=== PATIENT | male | born 1935 | race Caucasian/White ===

== ENCOUNTER 2018-06-15 10:32 | Emergency (ER) | payer OTHER, MEDICARE ==
--- OUTSIDE RECORDS SUMMARY | 2018-06-15 10:36 | XMS REPORT | Clinical Summary ---
:1935 Author Organization [facility] Address [address] [place] [address] Care Team Providers Name Role Phone Liu Blackwood MD Primary Care Provider Allergies No Known Allergies Current Medications Prescription Sig. Disp. Refills Start Date End Date Status levothyroxine (SYNTHROID, Take 112 mcg by Active LEVOXYL) 112 mcg tablet mouth every morning. Active Problems Problem Noted Date Lumbar stenosis with neurogenic claudication 01/25/2017 Neurogenic claudication 01/13/2017 Stenosis, spinal, lumbar 01/13/2017 Family History Medical History Relation Name Comments Heart disease Father Cancer Sister Relation Name Status Comments Father Sister Social History Tobacco Use Types Packs/Day Years Used Date Former Smoker Cigarettes 1 5 Quit: 1967 Smokeless Tobacco: Never Used Tobacco Cessation: Counseling Given: No Alcohol Use Drinks/Week oz/Week Comments Yes 1 Cans of beer 0.6 1 drink / month Sex Assigned at Date Recorded Not on file Last Filed Vital Signs Not on file Plan of Treatment Health Maintenance Due Date Last Done Comments SHINGRIX VACCINE (#1) 1987 ZOSTER VACCINE 1997 PNEUMOCOCCAL POLYSACCHARIDE VACCINE AGE 65 AND OVER 2002 PNEUMOCOCCAL-13 2002 INFLUENZA VACCINE 04/18/2018 Implants Implanted Type Area Metal Grinder Device Expiration Model / Identifier Date Serial / Lot System Spine Selnt For Dural Selng Exact 5ml Duraseal - [id number] Cardiovascular Posterior INTEGRA 04/17/2018 [id number] / Implanted: Qty: 1 on 01/25/2017 by Abhi Stevens MD Implants : Spine LIFESCIENCE / Lumbar NEURO [id number] Matrix Hmstc Floseal 10ml W/ Humn F2 - [id number] Surgical Posterior MCKEON 06/17/2018 [id number] / Implanted: 01/31/2017 (Quantity not on file) Implants; : Spine BIOSCIENCE / Expanders; Lumbar [id number] Extenders; Surgical Wires Results Not on fileafter 06/14/2017 Insurance Payer Benefit Plan / Group Subscriber ID Type Phone Address MEDICARE MEDICARE PART A AND B xxxxxxxxxx Medicare [place], [place] AARP AARP SUPPLEMENT xxxxxxxxxx Commercial [id number] [id number]
--- NOTE | 2018-06-15 11:47 | RAD REPORT ---
EXAM DESCRIPTION: RAD - Lumbar Spine 3 Views - 06/15/2018 11:34 am CLINICAL HISTORY: PAIN Radiculopathy COMPARISON: Lumbar Spine Wo Con dated 12/26/2016 FINDINGS: Prominent multilevel degenerative changes are present throughout the lumbar spine. Degener ative changes are particularly prominent at L2-3 and L4-5. Evidence of prior laminectomy seen involvi ng the lower lumbar levels. Mild anterolisthesis of L5 on S1 is seen. An acute fracture is not confir med.
[2018-06-15] MEDS ORDERED: HYDROCODONE/APAP 5/325 MG TAB ONE (12:10)
[2018-06-15] MEDS ORDERED: DIAZEPAM 2 MG TABLET ONE (12:10)
--- NOTE | 2018-06-15 12:22 | ER ---
Nurse's Notes [facility] Name: Tony Cunningham Age: 82 yrs Sex: Male : 1935 Arrival Date: 06/15/2018 Time: 10:34 Bed 20 Private MD: Liu Ulloa R Diagnosis: Fall from bed;Low back pain;Gas pain Presentation: 06/15 10:44 Presenting complaint: Patient states: fell out of bed 4 days ago and has had L low back ss pain since that has not improved. Transition of care: patient was not received from another setting of care. Onset of symptoms was June 11, 2018. Risk Assessment: Do you want to hurt yourself or someone else? Patient reports no desire to harm self or others. Initial Sepsis Screen: Does the patient meet any 2 criteria? No. Patient's initial sepsis screen is negative. Does the patient have a suspected source of infection? No. Patient's initial sepsis screen is negative. Care prior to arrival: None. 10:44 Method Of Arrival: Ambulatory ss 10:44 Acuity: CANELO 4 ss Historical: - Allergies: 10:45 No Known Allergies; ss - PMHx: 10:45 Hypothyroidism; BPH; back problems; ss - PSHx: 10:45 back surgery; Thyroidectomy; Knee surgery; ss - Immunization history:: Adult Immunizations up to date. - Social history:: Smoking status: Patient/guardian denies using tobacco. - Ebola Screening: : Patient denies exposure to infectious person Patient denies travel to an Ebola-affected area in the 21 days before illness onset. Screenin:55 Abuse screen: Denies threats or abuse. Denies injuries from another. Nutritional aj screening: No deficits noted. Tuberculosis screening: No symptoms or risk factors identified. Fall Risk None identified. Assessment: 12:55 General: Appears in no apparent distress. comfortable, Behavior is calm, cooperative, aj appropriate for age. Pain:. Neuro: Level of Consciousness is awake, alert, obeys commands, Oriented to person, place, time, situation, Appropriate for age. Respiratory: Airway is patent Respiratory effort is even, unlabored, Respiratory pattern is regular, symmetrical. Derm: Skin is intact, is healthy with good turgor, Skin is pink, warm \T\ dry. normal. Musculoskeletal: Circulation, motion, and sensation intact. Range of motion: intact in all extremities. Vital Signs: 10:45 BP 145 / 99; Pulse 87; Resp 16; Temp 97.6(TE); Pulse Ox 97% on R/A; Weight 83.91 kg; ss Pain 6/10; ED Course: 10:34 Patient arrived in ED. mr 10:34 Liu Ulloa MD is Private Physician. mr 10:43 Marlene Ramirez FNP-C is [facility]. snw 10:43 Rodrigue Kohli MD is Attending Physician. snw 10:45 Triage completed. ss 10:45 Arm band placed on right wrist. ss 11:33 X-ray completed. Portable x-ray completed in exam room. Patient tolerated procedure ag1 well. 11:34 Lumbar Spine (3 Views) XRAY In Process Unspecified. EDMS 11:58 Betzaida Charles, RN is Primary Nurse. aj 12:21 Liu Ulloa MD is Referral Physician. snw 12:21 Nacho Vasquez MD is Referral Physician. snw 12:55 Patient has correct armband on for positive identification. aj 12:55 No provider procedures requiring assistance completed. Patient did not have IV access aj during this emergency room visit. Administered Medications: 12:05 Drug: [place] 5 mg-325 mg 1 tabs Route: PO; aj 12:57 Follow up: Response: Pain is decreased aj 12:05 Drug: Valium 2 mg Route: PO; aj 12:57 Follow up: Response: Pain is decreased aj Outcome: 12:22 Discharge ordered by MD. snw 12:55 Discharged to home via wheelchair, with family. aj 12:55 Condition: good 12:55 Discharge instructions given to patient, family, Instructed on discharge instructions, follow up and referral plans. medication usage, Demonstrated understanding of instructions, follow-up care, medications. 12:58 Patient left the ED. aj Signatures: Dispatcher [employer] EDID Betzaida Charles, RN Marlene Hartley FNP-C FNP-Nicky Giang mr ChaoGladis RN RN Linda Rios ag1
--- NOTE | 2018-06-15 12:22 | EDPHYS ---
Physician Documentation [facility] Name: Tony Cunningham Age: 82 yrs Sex: Male : 1935 Arrival Date: 06/15/2018 Time: 10:34 Bed 20 Private MD: Liu Ulloa R ED Physician Rodrigue Kohli HPI: 06/15 11:36 This 82 yrs old Male presents to ER via Ambulatory with complaints of Fall snw Injury. 11:36 Details of fall: The patient fell from a height, bed. Onset: The symptoms/episode snw began/occurred suddenly, 4 day(s) ago. Associated injuries: The patient sustained injury to the low back, pain with movement. Severity of symptoms: At their worst the symptoms were moderate. The patient has experienced similar episodes in the past, multiple times. The patient has not recently seen a physician, the patient's primary care provider is Dr. Ulloa. Spouse states pt has nightmares, dreams, snores, and talks in his sleep. Pt has had multiple episodes of falls second to sleep rising/walking. Historical: - Allergies: 10:45 No Known Allergies; ss - PMHx: 10:45 Hypothyroidism; BPH; back problems; ss - PSHx: 10:45 back surgery; Thyroidectomy; Knee surgery; ss - Immunization history:: Adult Immunizations up to date. - Social history:: Smoking status: Patient/guardian denies using tobacco. - Ebola Screening: : Patient denies exposure to infectious person Patient denies travel to an Ebola-affected area in the 21 days before illness onset. ROS: 11:35 Constitutional: Negative for fever, chills, and weight loss, Eyes: Negative for injury, snw pain, redness, and discharge, ENT: Negative for injury, pain, and discharge, Neck: Negative for injury, pain, and swelling, Cardiovascular: Negative for chest pain, palpitations, and edema, Respiratory: Negative for shortness of breath, cough, wheezing, and pleuritic chest pain, Abdomen/GI: Negative for abdominal pain, nausea, vomiting, diarrhea, and constipation, : Negative for injury, bleeding, discharge, and swelling, MS/Extremity: Negative for injury and deformity, Skin: Negative for injury, rash, and discoloration, Neuro: Negative for headache, weakness, numbness, tingling, and seizure, Psych: Negative for depression, anxiety, suicide ideation, homicidal ideation, and hallucinations. 11:35 Back: Positive for pain at rest, pain with movement. Exam: 12:25 Constitutional: This is a well developed, well nourished patient who is awake, alert, snw and in no acute distress. Head/Face: Normocephalic, atraumatic. Eyes: Pupils equal round and reactive to light, extra-ocular motions intact. Lids and lashes normal. Conjunctiva and sclera are non-icteric and not injected. Cornea within normal limits. Periorbital areas with no swelling, redness, or edema. ENT: Nares patent. No nasal discharge, no septal abnormalities noted. Tympanic membranes are normal and external auditory canals are clear. Oropharynx with no redness, swelling, or masses, exudates, or evidence of obstruction, uvula midline. Mucous membranes moist. Neck: Trachea midline, no thyromegaly or masses palpated, and no cervical lymphadenopathy. Supple, full range of motion without nuchal rigidity, or vertebral point tenderness. No Meningismus. Chest/axilla: Normal chest wall appearance and motion. Nontender with no deformity. No lesions are appreciated. Cardiovascular: Regular rate and rhythm with a normal S1 and S2. No gallops, murmurs, or rubs. Normal PMI, no JVD. No pulse deficits. Respiratory: Lungs have equal breath sounds bilaterally, clear to auscultation and percussion. No rales, rhonchi or wheezes noted. No increased work of breathing, no retractions or nasal flaring. Abdomen/GI: Soft, non-tender, with normal bowel sounds. No distension or tympany. No guarding or rebound. No evidence of tenderness throughout. Skin: Warm, dry with normal turgor. Normal color with no rashes, no lesions, and no evidence of cellulitis. MS/ Extremity: Pulses equal, no cyanosis. Neurovascular intact. Full, normal range of motion. Neuro: Awake and alert, GCS 15, oriented to person, place, time, and situation. Cranial nerves II-XII grossly intact. Motor strength 5/5 in all extremities. Sensory grossly intact. Cerebellar exam normal. Normal gait. Psych: Awake, alert, with orientation to person, place and time. Behavior, mood, and affect are within normal limits. 12:25 Back: pain, that is moderate, ROM is painful, normal spinal alignment noted, CVA tenderness, is absent, vertebral tenderness, is not appreciated. Vital Signs: 10:45 BP 145 / 99; Pulse 87; Resp 16; Temp 97.6(TE); Pulse Ox 97% on R/A; Weight 83.91 kg; ss Pain 6/10; MDM: 11:23 Patient medically screened. snw 11:38 Data reviewed: vital signs, nurses notes. Data interpreted: Pulse oximetry: on room air snw is 97 %. Interpretation: normal. Counseling: I had a detailed discussion with the patient and/or guardian regarding: the historical points, exam findings, and any diagnostic results supporting the discharge/admit diagnosis, the presence of at least one elevated blood pressure reading (>120/80) during this emergency department visit, radiology results. ED course: encouraged f/u with pulmonology for sleep apnea testing.. 12:24 Special discussion: I have referred the patient to see his PCP for further evaluation snw of high blood pressure. Based on the history and exam findings, there is no indication for further emergent testing or inpatient evaluation. I discussed with the patient/guardian the need to see the package handler for further evaluation of the symptoms. 06/15 10:59 Order name: Lumbar Spine (3 Views) XRAY; Complete Time: 11:50 snw Administered Medications: 12:05 Drug: [place] 5 mg-325 mg 1 tabs Route: PO; aj 12:57 Follow up: Response: Pain is decreased aj 12:05 Drug: Valium 2 mg Route: PO; aj 12:57 Follow up: Response: Pain is decreased aj Disposition: 15:45 Co-signature as Attending Physician, Rodrigue Kohli MD. rn Disposition: 06/15/18 12:22 Discharged to Home. Impression: Fall from bed, Low back pain, Gas pain. - Condition is Stable. - Discharge Instructions: Back Pain, Adult, Hypertension, Musculoskeletal Pain, Sleep Studies, Back Injury Prevention, [id number], Intestinal Gas and Gas Pains, Pediatric, Heat Therapy. - Prescriptions for simethicone - take 120 milligram by ORAL route 1-3 times daily; 1 box. orphenadrine citrate 100 mg Oral Tablet Sustained Release - take 1 tablet by ORAL route 2 times per day As needed; 20 tablet. Miralax 17 gram/dose Oral - take 1 packet by ORAL route once daily dilute powder in 8 ounces of water or juice; 1 box. - Medication Reconciliation Form, Thank You Letter, Antibiotic Education, Prescription Opioid Use form. - Follow up: Liu Ulloa MD; When: 5 - 6 days; Reason: Recheck today's complaints, Continuance of care, Re-evaluation by your physician. Follow up: Nacho Vasquez MD; When: 5 - 6 days; Reason: Recheck today's complaints, Continuance of care. Signatures: Dispatcher [employer] EDMS Betzaida Charles RN RN Marlene Edge, [employer] P[employer]AG[employer] MACH[employer]ES SETTER-C [employer] P[employer]AG[employer] M[employer] SETTER-Csnw Rodrigue Kohli MD MD rn Smirch, Shelby, RN RN ss Corrections: (The following items were deleted from the chart) 12:58 12:22 06/15/2018 12:22 Discharged to Home. Impression: Fall from bed; Low back pain; aj Gas pain. Condition is Stable. Forms are Medication Reconciliation Form, Thank You Letter, Antibiotic Education, Prescription Opioid Use. Follow up: Liu Ulloa; When: 5 - 6 days; Reason: Recheck today's complaints, Continuance of care, Re-evaluation by your physician. Follow up: Nacho Vasquez; When: 5 - 6 days; Reason: Recheck today's complaints, Continuance of care. snw
== END 2018-06-15 12:58 | disposition home or self-care (01) ==
LOC: ER 10:32
DX: R14.1 Gas pain (principal); W06.XXXA Fall from bed, initial encounter; Y93.9 Activity, unspecified; Y92.003 Bedroom of unspecified non-institutional (private) residence as the place of occurrence of the external cause
CPT/HCPCS: 72100; 99283

== ENCOUNTER 2023-08-05 22:24 | Emergency (ER) | payer OTHER ==
[2023-08-05 23:32] LABS: Absolute Lymphocytes (CBC) 0.7 K/uL (0.7-4.9); Hematocrit 40.8 % (39.6-49.0); Lymphocytes % 6.5 % (15.3-44.8); MCV 99.8 fL (80-100); MPV 6.7 fL (7.6-11.3); Platelets 297 thou/uL (152-406); RBC Red Blood Cell Count 4.08 M/uL (4.33-5.43)
[2023-08-05 23:36] LABS: Protime INR 1.15
[2023-08-05 23:53] LABS: Albumin 3.1 g/dL (3.4-5.0); Bilirubin Direct 0.2 mg/dL (0-0.2); Bilirubin Indirect, Calculated 0.3 mg/dL (0.2-0.8); Bilirubin Total 0.5 mg/dL (0.2-1.0); Magnesium 2.2 mg/dL (1.6-2.4); Potassium 3.9 mEq/L (3.5-5.1); Protein, Total 7.3 g/dL (6.4-8.2); Troponin High Sensitivity 19.1 pg/mL (<58.9)
[2023-08-06] MEDS ORDERED: NA CHLORIDE 0.9% 500 ML ONE (01:02)
--- NOTE | 2023-08-06 02:17 | EDPHYS ---
Physician Documentation [facility] Name: Tony Cunningham Age: 88 yrs Sex: Male : 1935 Arrival Date: 08/05/2023 Time: 22:24 Bed 6 Private MD: ED Physician Jewel Magdaleno HPI: 08/05 22:55 This 88 yrs old Male presents to ER via EMS with complaints of Weakness. cp 22:55 Patient is a 88-year-old male who presents to the emergency department accompanied by cp his daughter and son-in-law after a reported fall in his home sometime the previous day. Patient was reportedly found by his son on the ground in his home who reportedly helped him up. He was later visited today by his daughter who was concerned that the patient reported to be weak and seemed confused. Patient presents to the emergency department alert x3 and complaining of weakness in his legs. Patient is unable to recall the most recent fall. Denies any chest and/or abdominal pain but does complain of back pain. Historical: - Allergies: 22:40 No Known Allergies; rv - PMHx: 22:40 back problems; BPH; Hypothyroidism; rv - PSHx: 22:40 Thyroidectomy; rv - Immunization history:: Adult Immunizations up to date. - Social history:: Smoking status: Patient/guardian denies using tobacco, but has a distant history of tobacco abuse. ROS: 23:00 Constitutional: Negative for fever, poor PO intake, cp 23:00 Eyes: Negative for injury, pain, redness, and discharge, cp 23:00 Neck: Negative for pain with movement, pain at rest, stiffness, 23:00 Cardiovascular: Negative for chest pain, edema, palpitations, 23:00 Respiratory: Negative for cough, shortness of breath, wheezing, 23:00 Abdomen/GI: Negative for abdominal pain, vomiting, diarrhea, constipation, 23:00 Back: Positive for pain with movement, 23:00 Neuro: Positive for weakness, Negative for altered mental status, headache, 23:00 All other systems are negative, Exam: 23:05 Constitutional: The patient appears in no acute distress, alert, awake, cp non-diaphoretic, non-toxic, well developed, well nourished, 23:05 Head/Face: Normocephalic, atraumatic. cp 23:05 Eyes: Periorbital structures: appear normal, Pupils: equal, round, and reactive to light and accomodation, Extraocular movements: intact throughout, Conjunctiva: normal, no exudate, no injection, Sclera: no appreciated abnormality, Lids and lashes: appear normal, bilaterally, 23:05 ENT: External ear(s): are unremarkable, Ear canal(s): are normal, clear, TM's: dullness, bilaterally, Nose: is normal, Mouth: Lips: dry, Oral mucosa: moist, Posterior pharynx: Airway: no evidence of obstruction, patent, erythema, is not appreciated, exudate, is not appreciated, 23:05 Neck: C-spine: vertebral tenderness, is not appreciated, crepitus, is not appreciated, ROM/movement: pain, is not appreciated, limited range of motion, is not appreciated, Meningeal signs: are not present, nuchal rigidity, is not appreciated, 23:05 Chest/axilla: Inspection: normal, Palpation: is normal, no crepitus, no tenderness, 23:05 Cardiovascular: Rate: normal, Rhythm: regular, Edema: is not appreciated, JVD: is not appreciated, 23:05 Respiratory: the patient does not display signs of respiratory distress, Respirations: normal, no use of accessory muscles, no retractions, labored breathing, is not present, Breath sounds: are clear throughout, no decreased breath sounds, no stridor, no wheezing, 23:05 Abdomen/GI: Inspection: abdomen appears normal, Bowel sounds: active, all quadrants, Palpation: abdomen is soft and non-tender, in all quadrants, 23:05 Back: pain, ROM is painful, with all movement, 23:05 Musculoskeletal/extremity: Exam is negative for decreased range of motion, deformity, injury, 23:05 Neuro: Orientation: to person, place, situation, Mentation: able to follow commands, slow to respond, Motor: moves all fours, strength is 4/5 in the right leg and left leg, Sensation: no obvious gross deficits, Vital Signs: 22:38 BP 116 / 75; Pulse 82; Resp 18; Temp 98.1; Pulse Ox 97% ; Weight 55.5 kg; Height 6 ft. rv 1 in. ; 23:34 BP 111 / 74; Pulse 78; Resp 15; Pulse Ox 98% on R/A; Pain 0/10; nw1 08/06 01:00 BP 123 / 65; Pulse 75; Resp 15; Pulse Ox 97% on R/A; nw1 03:24 BP 128 / 80; Pulse 88; Resp 16; Pulse Ox 99% ; la4 08/05 22:38 Body Mass Index 16.14 (55.50 kg, 185.42 cm) rv 23:34 Pain Scale: Adult nw1 Jonathan Coma Score: 08/05 23:20 Eye Response: spontaneous(4). Motor Response: obeys commands(6). Verbal Response: nw1 oriented(5). Total: 15. 08/06 03:24 Eye Response: spontaneous(4). Motor Response: obeys commands(6). Verbal Response: la4 oriented(5). Total: 15. MDM: 08/05 22:28 Patient medically screened. ec2 08/06 02:15 Patient medically screened. cp 02:15 Data reviewed: vital signs, nurses notes, lab test result(s), EKG, radiologic studies, cp plain films. 02:45 Management of patient was discussed with the following: Hospitalist: Sherron BERRY will cp consult with DR Martinez. ED course: transfer requested by DR Martinez for neurosurgery consult due to CT findings of compression fractures of T12 and L1. 03:16 ED course: consult with DR Sutton, trauma services at [facility]. Will accept cp transfer and to services of DR Rivera. 08/05 22:47 Order name: Basic Metabolic Panel; Complete Time: 23:54 08/05 23:54 Interpretation: Normal except: GLUC 119; BUN 32; GFR 72; CA 8.4. 08/05 22:47 Order name: CBC with Diff; Complete Time: 23:52 08/05 23:52 Interpretation: Normal except: RBC 4.08; MPV 6.7; LETICIA% 85.5; LYM% 6.5; NEUT A 8.7. 08/05 22:47 Order name: LFT's; Complete Time: 23:54 08/05 23:54 Interpretation: Normal except: AST 54; ALB 3.1; GLOB 4.2; A/G 0.7. 08/05 22:47 Order name: Magnesium; Complete Time: 00:39 08/05 22:47 Order name: NT PRO-BNP; Complete Time: 00:39 cp 08/06 00:39 Interpretation: NT PRO-BNP 152; Reviewed. 08/05 22:47 Order name: PT-INR; Complete Time: 23:52 08/05 22:47 Order name: Troponin HS; Complete Time: 23:54 08/05 23:54 Interpretation: Reviewed. 08/05 22:47 Order name: Urine Microscopic Only; Complete Time: 02:29 08/06 02:29 Interpretation: Reviewed. 08/05 22:47 Order name: CK; Complete Time: 23:54 08/05 23:54 Interpretation: Abnormal: CPK 988. 08/05 22:47 Order name: Lactate w/ 2H reflex if indic.; Complete Time: 23:53 08/05 22:47 Order name: XRAY Chest (1 view) 08/05 23:53 Order name: CT Traumagram (Head C Spine CAP W Con) 08/05 22:47 Order name: Cardiac monitoring; Complete Time: 23:07 08/05 22:47 Order name: EKG - Nurse/Tech; Complete Time: 00:44 08/05 22:47 Order name: IV Saline Lock; Complete Time: 23:07 08/05 22:47 Order name: Labs collected and sent; Complete Time: 23:07 08/05 22:47 Order name: O2 Per Protocol; Complete Time: 23:07 08/05 22:47 Order name: O2 Sat Monitoring; Complete Time: 23:07 08/05 22:47 Order name: Cath; Complete Time: 23:07 cp Administered Medications: 00:58 Drug: NS 0.9% IV 500 ml IV at 250 ml/hr continuous Route: IV; Rate: 250 ml/hr; Site: nw1 right antecubital; 04:12 Follow up: IV Status: Completed infusion nw1 04:04 Drug: fentaNYL (PF) IVP 25 mcg IVP once Route: IVP; Site: right antecubital; la4 Disposition Summary: 08/06/23 03:02 Transfer Ordered Notes: Transfer Location: [facility] cp Reason: Higher level of care cp Condition: Stable(08/06/23 03:02) cp Problem: new(08/06/23 03:02) cp Symptoms: have improved(08/06/23 03:02) cp Accepting Physician: DR Rivera(08/06/23 04:12) nw1 Diagnosis - History of falling(08/06/23 03:02) cp - Compression Fracture of T12 and L1 cp - Weakness(08/06/23 03:02) cp Forms: - Medication Reconciliation Form cp - SBAR form cp Addendum: 08/08/2023 10:13 I was immediately available for consultation during this patient's visit. I did not e c2 personally see the patient or guide the patient's care. . Signatures: Dispatcher [employer] EDMS Roman Rodriguez PA PA cp Martin Aguirre, RN RN rv Jewel Magdaleno MD MD ec2 Belkys Hayes RN RN la4 Noemi Mccain RN RN nw1 Corrections: (The following items were deleted from the chart) 08/06 03:00 02:15 Observation cp cp 03:00 02:15 Ronny Martinez cp cp 03:00 02:15 Telemetry/MedSurg (observation) cp cp 03:00 02:15 Fair cp cp 03:00 02:15 new cp cp 03:00 02:15 have improved cp cp 03:00 02:15 Standard cp cp 03:00 02:15 cp cp 03:00 02:15 Weakness cp cp 03:00 02:15 History of falling cp cp 03:00 02:15 Compression Fracture of T12 and L1 cp cp 03:17 03:02 Doctor cp cp 04:12 03:17 DR Rivera cp nw1
--- NOTE | 2023-08-06 02:17 | ER ---
Nurse's Notes [facility] Name: Tony Cunningham Age: 88 yrs Sex: Male : 1935 Arrival Date: 08/05/2023 Time: 22:24 Bed 6 Private MD: Diagnosis: History of falling;Compression Fracture of T12 and L1;Weakness Presentation: 08/05 22:38 Chief complaint: EMS states: PT WAS LEFT ALONE AT HOME YESTERDAY AT 1900 AND FOUND THE rv PATIENT TODAY ON THE FLOOR BY THE FAMILY AT 1600. PT IS ALTERED. NO FEVER. BLOOD PRESSURE ON THE LOW SIDE. PT ALSO FELL LAST WEEK AND HIT HEAD. Coronavirus screen: At this time, the client does not indicate any symptoms associated with coronavirus-19. Ebola Screen: No symptoms or risks identified at this time. Initial Sepsis Screen: Does the patient meet any 2 criteria? No. Patient's initial sepsis screen is negative. Does the patient have a suspected source of infection? No. Patient's initial sepsis screen is negative. Risk Assessment: Do you want to hurt yourself or someone else? Patient reports no desire to harm self or others. Onset of symptoms was August 05, 2023. 22:38 Method Of Arrival: EMS: [facility] rv 22:38 Acuity: CANELO 2 rv Triage Assessment: 22:40 General: Appears in no apparent distress. Behavior is calm, cooperative. Pain: Denies rv pain. Neuro: Level of Consciousness is awake, alert, obeys commands, Oriented to person, place. Cardiovascular: Capillary refill < 3 seconds Patient's skin is warm and dry. Respiratory: Airway is patent Respiratory effort is even, unlabored. GI: No signs and/or symptoms were reported involving the gastrointestinal system. : No signs and/or symptoms were reported regarding the genitourinary system. Derm: Skin is intact. Historical: - Allergies: 22:40 No Known Allergies; rv - PMHx: 22:40 back problems; BPH; Hypothyroidism; rv - PSHx: 22:40 Thyroidectomy; rv - Immunization history:: Adult Immunizations up to date. - Social history:: Smoking status: Patient/guardian denies using tobacco, but has a distant history of tobacco abuse. Screenin:20 [facility] ED Fall Risk Assessment (Adult) History of falling in the last 3 months, nw1 including since admission Yes- fall prone (multiple falls) (3 pts) Confusion or Disorientation No (0 pts) Intoxicated or Sedated No (0 pts) Impaired Gait Yes (1 pt) Mobility Assist Device Used Yes (1 pt) Altered Elimination Yes (1 pt) Score/Fall Risk Level 3 or more points = High Risk Oriented to surroundings, Maintained a safe environment, Educated pt \\T\\ family on fall prevention, incl call for assistance when getting out of bed, Provided non-skid footwear, Hourly rounding (assess needs \\T\\ fall precautionary measures) done, Used ambulatory aids as needed (educated on \\T\\ assisted with). Abuse screen: Denies threats or abuse. Denies injuries from another. Nutritional screening: No deficits noted. Tuberculosis screening: No symptoms or risk factors identified. Assessment: 23:20 Reassessment: Pt states frequent falls. States that he gets light-headed before falls. nw1 Pt able to state what happens prior to falls, but unable to recall the fall from yesterday and stated "they are all running together". General: Appears in no apparent distress. Behavior is calm, cooperative, appropriate for age. Pain: Pain does not radiate. Pain began denies pain. Neuro: Level of Consciousness is awake, alert, obeys commands, Oriented to person, place, time, Appropriate for age. Cardiovascular: Denies chest pain. Respiratory: No deficits noted. Airway is patent Trachea midline Respiratory effort is even, unlabored, Respiratory pattern is regular, symmetrical, Sputum is. GI: No signs and/or symptoms were reported involving the gastrointestinal system. : No signs and/or symptoms were reported regarding the genitourinary system. Musculoskeletal: Reports weakness in generalized. 08/06 00:43 Reassessment: Pt to CT. nw 03:25 General: Spoke wander rodriguez and notified order for prn fentanyl is to be given upon pt la4 transfer to the home. . Vital Signs: 08/05 22:38 BP 116 / 75; Pulse 82; Resp 18; Temp 98.1; Pulse Ox 97% ; Weight 55.5 kg; Height 6 ft. rv 1 in. ; 23:34 BP 111 / 74; Pulse 78; Resp 15; Pulse Ox 98% on R/A; Pain 0/10; nw1 08/06 01:00 BP 123 / 65; Pulse 75; Resp 15; Pulse Ox 97% on R/A; nw1 03:24 BP 128 / 80; Pulse 88; Resp 16; Pulse Ox 99% ; la4 08/05 22:38 Body Mass Index 16.14 (55.50 kg, 185.42 cm) rv 23:34 Pain Scale: Adult nw1 Vitals: 08/05 23:20 Cardiac Rhythm Assessment Sinus rhythm. nw1 [place] Coma Score: 23:20 Eye Response: spontaneous(4). Motor Response: obeys commands(6). Verbal Response: nw1 oriented(5). Total: 15. 08/06 03:24 Eye Response: spontaneous(4). Motor Response: obeys commands(6). Verbal Response: la4 oriented(5). Total: 15. ED Course: 08/05 22:25 Patient arrived in ED. me1 22:28 Jewel Magdaleno MD is Attending Physician. ec2 22:33 Roman Rodriguez PA is PHCP. cp 22:33 Jewel Magdaleno MD is Attending Physician. cp 22:40 Belkys Hayes, RN is Primary Nurse. la4 22:40 Triage completed. rv 22:42 Arm band placed on right wrist. rv 23:20 Provided Education on: POC. nw1 23:20 No provider procedures requiring assistance completed. Maintain EMS IV. Dressing nw1 intact. Good blood return noted. Site clean \\T\\ dry. Gauge \\T\\ site: 18 G RAC. IV is patent, is intact, with fluids infusing freely, with good blood return. Patient maintains SpO2 saturation greater than 95% on room air. 23:25 Placed in gown. Bed in low position. Call light in reach. Side rails up X2. Adult w/ wm patient. Door closed. Client placed on continuous cardiac and pulse oximetry monitoring. NIBP monitoring applied. house wirer on. 23:27 Lactate w/ 2H reflex if indic. Sent. wm 23:27 CK Sent. wm 23:27 Basic Metabolic Panel Sent. wm 23:27 CBC with Diff Sent. wm 23:27 LFT's Sent. wm 23:27 Magnesium Sent. wm 23:27 NT PRO-BNP Sent. wm 23:27 PT-INR Sent. wm 23:27 Troponin HS Sent. wm 23:49 XRAY Chest (1 view) In Process Unspecified. EDMS 08/06 00:44 CT Traumagram (Head C Spine CAP W Con) Sent. la4 01:05 CT Traumagram (Head C Spine CAP W Con) In Process Unspecified. EDMS 02:13 Ronny Martinez is Hospitalizing Provider. cp 03:10 Initiated transfer to [facility]. [facility] 03:16 Patient accepted to [facility] ER by Dr. Oden. Admin Approval given by [facility] Eleni Huertas. 03:25 Requested transport from EMS, 20 min ETA. mc5 04:10 Patient transferred, IV remains in place. nw1 Administered Medications: 00:58 Drug: NS 0.9% IV 500 ml IV at 250 ml/hr continuous Route: IV; Rate: 250 ml/hr; Site: nw1 right antecubital; 04:12 Follow up: IV Status: Completed infusion nw1 04:04 Drug: fentaNYL (PF) IVP 25 mcg IVP once Route: IVP; Site: right antecubital; la4 Medication: 08/05 23:20 VIS not applicable for this client. nw1 Outcome: 08/06 02:15 Decision to Hospitalize by Provider. cp 03:02 ER care complete, transfer ordered by . cp 04:10 Transferred by ground EMS nw1 04:10 Condition: stable 04:10 Instructed on the need for transfer, Demonstrated understanding of 04:12 Patient left the ED. nw1 Signatures: Dispatcher [employer] EDNM Roman Rodriguez PA PA cp Vicente, Ronaldo, RN RN Lynette Parikh Mariela Stone, DAVID RN Dimple Gutierrez [facility] Jewel Magdaleno MD MD ec2 Blekys Hayes RN RN la4 Noemi Mccain, DAVID RN nw1
[2023-08-06 02:28] LABS: Urine Bacteria None Seen /HPF (<20); Urine RBC <5 /HPF (None Seen)
[2023-08-06] MEDS ORDERED: FENTANYL CITR 100 MCG/2 ML ONE (04:18)
[2023-08-06 04:32] VITALS: TEMP 98.1
[2023-08-06 04:35] VITALS: BP 128/80; O2SAT 99
--- NOTE | 2023-08-07 12:01 | RAD REPORT ---
EXAM DESCRIPTION: XR Chest, 1 View CLINICAL HISTORY: The patient is 88 years old and is Male; fall TECHNIQUE: Frontal view of the chest. COMPARISON: No relevant prior studies available. FINDINGS: Lungs: Mildly prominent interstitial markings. No consolidation. No consolidation. Pleural space: Unremarkable. No pneumothorax. Heart: Unremarkable. Mediastinum: Unremarkable. Normal mediastinal contour. Bones/joints: No acute findings. IMPRESSION: Mildly prominent interstitial markings. No consolidation. Electronically signed by: Nick Hein MD 08/06/2023 12:13 AM GARMENT FINISHER Due to temporary technical issues with the PACS/Fluency reporting system, reports are being signed by the in house radiologist without review as a courtesy to ensure prompt reporting. The interpreting r adiologist is fully responsible for the content of the report.
--- NOTE | 2023-08-07 12:10 | RAD REPORT ---
EXAM DESCRIPTION: CT Head and Cervical Spine Without Intravenous Contrast CLINICAL HISTORY: The patient is 88 years old and is Male; fall;Weakness TECHNIQUE: Axial computed tomography images of the head/brain and cervical spine without intravenous contrast. Sagittal and coronal reformatted images were created and reviewed. This CT exam was pe rformed using one or more of the following dose reduction techniques: automated exposure control, a djustment of the mA and/or kV according to patient size, and/or use of iterative reconstruction techn ique. COMPARISON: No relevant prior studies available. FINDINGS: Brain: Mild nonspecific white matter changes likely related to chronic microvascular isc hemic disease. Mild cerebral atrophy. No hemorrhage. Ventricles: Unremarkable. No ventriculomegaly. Skull: No acute fracture. Sinuses: Unremarkable as visualized. No acute sinusitis. Mastoid air cells: Unremarkable as visualized. No mastoid effusion. Vertebrae: See below. Discs/spinal canal/neural foramina: Multilevel disc space narrowing with degenerative endplate ch anges most prominent at C5-6 and C6-7. Moderate to severe bilateral neural foraminal narrowing at C3-4. Moderate to severe bilateral neural foraminal narrowing at C4-5. Severe right and moderate to severe left neural foraminal narrowing at C5-6. Moderate bilateral neural foraminal narrowing at C6-7. Soft tissues: Unremarkable. * A single impression for all exams can be found at the end of this report E CT Chest, Abdomen and Pelvis With Intravenous Contrast CLINICAL HISTORY: The patient is 88 years old and is Male; fall;Weakness TECHNIQUE: Axial computed tomography images of the chest, abdomen and pelvis with intravenous contra st. Sagittal and coronal reformatted images were created and reviewed. This CT exam was performed using one or more of the following dose reduction techniques: automated exposure control, adjustme nt of the mA and/or kV according to patient size, and/or use of iterative reconstruction technique. COMPARISON: No relevant prior studies available. FINDINGS: CHEST: Lungs: Unremarkable. No mass. No consolidation. Pleural space: Unremarkable. No significant effusion. No pneumothorax. Heart: Coronary artery calcification. No cardiomegaly. No significant pericardial effusion. Mediastinum: Hiatal hernia. ABDOMEN: Liver: Unremarkable. No mass. Gallbladder and bile ducts: Gallbladder is distended. No calcified stones. No ductal dilation. Pancreas: Unremarkable. No ductal dilation. No mass. Spleen: Unremarkable. No splenomegaly. Adrenals: Unremarkable. No mass. Kidneys and ureters: Multiple large simple cysts in the kidneys. No follow-up imaging is recommen ded. No hydronephrosis. No solid mass. Stomach and bowel: Rectum is distended with stool. No mucosal thickening. PELVIS: Appendix: No findings to suggest acute appendicitis. Bladder: Unremarkable. No mass. Reproductive: Unremarkable as visualized. CHEST, ABDOMEN and PELVIS: Intraperitoneal space: Unremarkable. No significant fluid collection. No free air. Bones/joints: Indeterminate age compression deformities with up to 40% height loss at L1 and 50% height loss at T12. Disc space narrowing with degenerative endplate changes in the spine. 3 mm of anterolisthesis of L5 on S1. No dislocation. Soft tissues: Unremarkable. Vasculature: Scattered atherosclerotic vascular calcifications. Lymph nodes: Unremarkable. No enlarged lymph nodes. * A single impression for all exams can be found at the end of this report IMPRESSION: CT Head and Cervical Spine Without Intravenous Contrast: No acute intracranial abnormality. No acute findings in the cervical spine. CT Chest, Abdomen and Pelvis With Intravenous Contrast: Indeterminate age compression deformities with up to 40% height loss at L1 and 50% height loss at T 12. Electronically signed by: Nick Hein MD 08/06/2023 01:55 AM STRETCHING MACHINE OPERATOR Due to temporary technical issues with the PACS/Fluency reporting system, reports are being signed by the in house radiologist without review as a courtesy to ensure prompt reporting. The interpreting r adiologist is fully responsible for the content of the report.
== END 2023-08-06 04:12 | disposition short-term general hospital (02) ==
LOC: ER 22:24
DX: S22.089A Unspecified fracture of T11-T12 vertebra, initial encounter for closed fracture (principal); S32.019A Unspecified fracture of first lumbar vertebra, initial encounter for closed fracture; W19.XXXA Unspecified fall, initial encounter; Y92.009 Unspecified place in unspecified non-institutional (private) residence as the place of occurrence of the external cause; R53.1 Weakness; N40.0 Benign prostatic hyperplasia without lower urinary tract symptoms; E89.0 Postprocedural hypothyroidism; Z91.81 History of falling
CPT/HCPCS: 96361; 85025; 80048; 36415; 83735; 82550; 85610; 80076; 83605; 81015; 84484; 83880; 70450; 72125; 71260; 74177; 71045; 96374; 99285; Q9967; J3010; J7040

== ENCOUNTER 2023-09-01 09:00 | Inpatient (IN) | payer OTHER ==
[2023-09-01 11:01] LABS: SARS-CoV-2 Antigen Rapid Res Negative (Negative)
[2023-09-01 13:25] VITALS: BMI 24.4
[2023-09-01] MEDS ORDERED: INFLUENZA VACCINE (for 6+ mo) 0.5 ML DOSE IMVAC ONE (14:00)
[2023-09-01 14:14] LABS: Specific Gravity 1.018 (1.005-1.030); Urine Bacteria 20-50 /HPF (<20); Urine Bilirubin NEGATIVE (Negative); Urine Blood 2+ (Negative); Urine Clarity Extremely Turbid (Clear); Urine Color Light-Orange (Yellow); Urine Glucose NEGATIVE (Negative); Urine Mucus Slight /HPF (None Seen); Urine Protein 2+ (Negative); Urine Urobilinogen Normal (Normal)
[2023-09-01] MEDS: APIXABAN 2.5 MG TABLET PO SCH (19:26)
[2023-09-01] MEDS: CRANBERRY FRUIT EXTRACT 200 MG CAP PO SCH (19:26)
[2023-09-01] MEDS: ACETAMINOPHEN 325 MG TABLET PO PRN (19:27)
[2023-09-01] MEDS: DOCUSATE NA/SENNA CONC 1 TAB PO PRN (19:28)
[2023-09-01] MEDS: MELATONIN 3 MG TABLET PO PRN ×2 (19:28→22:43)
[2023-09-01] MEDS ORDERED: METOPROLOL TAR 25 MG TAB PO SCH (20:00)
--- NOTE | 2023-09-01 21:29 | HP ---
Date of Admission: 09/01/2023 Time Of Service: 1:30 p.m. Chief Complaint: Falling a few times. History Of Present Illness: Mr. Cunningham is an 88-year-old patient with history of hypothyroidism , who up to about 2 months ago was independent, playing golf, swimming, living alone, and his homer white actually passed in March of this year, but was still able to live alone. Since then apparently, he began falling frequently. The patient had a fall on 08/04/2023 and was found by his son on the groun d. The patient was brought to [facility] and found to be dehydrated. Imaging: The trauma series showed T12 and L2 compression fractures of indeterminate age as well as in the cervical spine, [id number] bilateral foraminal stenosis at C3-4 and C4-5 along with severe right and moderat e-to-severe left foraminal stenosis at C5-6. There was moderate bilateral foraminal stenosis at C6-7 . The trauma series showed no other significant abnormalities. It was noted that at the L1 compress ion fracture, there is about 40% loss of height and at T12 compression fracture, 50% loss of disk hei ght. The patient was sent initially from [facility] to [facility] for potential neuro surgical evaluation. However, no surgical intervention was performed and he was discharged to [facility] for jail. However, while there, he has not thrived, reportedly more confused, was i ncontinent of bowel and bladder, and alert and oriented only x1. The patient and family made a deter mination to have more aggressive therapy and was therefore considered the patient is appropriate for inpatient rehabilitation, where he could receive aggressive physical, occupational, and speech therap y along with monitoring of his comorbid conditions including hypothyroidism. As a result, the patien t was evaluated and found to require moderate assistance for ordinary activities of daily living for transfers and mobilization and was then admitted to the inpatient rehabilitation unit for physical, o ccupational, and speech therapy. It should be noted that just prior to coming to [facility] , he did fall out of bed while at the jail facility, but suffered no injury. Past Medical History: Chronic back problems, lumbar vertebral compression fractures, thyroidectomy, encephalopathy, dysphagia, hiatal hernia, large renal cyst, and emphysematous lungs. Imaging as note d above with the compression fractures with loss of height at T12 and L1. The cervical spine CT scan already outlined. Allergies: NO KNOWN DRUG ALLERGIES. Medications: Tylenol 650 mg every 6 hours as needed, Eliquis 2.5 mg twice daily, Synthroid 0.112 mg daily, lidocaine patch applied to back as appropriate, melatonin 3 mg at bedtime, Lopressor 12.5 mg t wice daily for hypertension, Flomax 0.4 mg for prostate hypertrophy, Senokot-S for constipation. Family History: Noncontributory. Review of Systems: Mr. Cunningham reports some diffuse weakness, but still did well as he came up to the unit. He jazmyne es any fevers, chills, nausea, or vomiting. He has no active myalgias, arthralgias, rash, headache, weight change. Denies any psychiatric issues, any active gastrointestinal issues despite the report of the incontinence of bowel and bladder. While at the unit, he is continent of bowel and bladder so far as he is just brought to the unit. No other positives on the systems review. Physical Examination: Vital Signs: Blood pressure ranged 95/57, pulse 65, respiratory rate of 14, temperature 97.6, ox sat uration 99%. General: Mr. Cunningham is resting in his bed. He is actually asleep. When I came in, woke him up . HEENT: He is normocephalic, atraumatic. Sclerae anicteric. Oropharynx pink, moist. Neck: Supple. Chest: Clear. Heart: Regular. Extremities: Show no significant edema, clubbing, or cyanosis. Neurologic: He is alert and oriented to situation, place. Did follow commands appropriately. Crani al nerves show no focal deficits. On his motor exam, no focal deficits. Upper and lower extremities , mild diffuse weakness. Reflexes, symmetric and depressed. Coordination slow, but intact. Sensati on intact except for mild stocking-glove loss and gait, he has good stance and stride. Slight unstea diness, but did not require redirecting as he ambulated with the therapist and gait belt. Current Functional Status: Currently, setup assistance for eating, contact guard for oral hygiene an d toilet hygiene, supervision for showering, moderate assistance for upper body dressing, moderate as sistance for lower body dressing, maximal assistance with donning and doffing footwear, moderate assi stance for rolling [id number]-[id number]-ioon and [id number]-[id number], supervision transfers from bed to chair to toilet and shower, moderate assistance. Ambulation, he ambulated 150 feet with a rolling walker with conta ct guard assistance. Rehab And Medical Assessment And Plan: Mr. Cunningham is admitted to the inpatient rehabilitation [facility] with impairment category of 09 orthopedic, other. His impairment group code is 08.9, other, orth opedic. His etiologic diagnosis is wedge compression fracture of the T12 and L1 lumbar vertebrae. H is comorbidities are benign prostatic hypertrophy, cognitive deficits, dysphasia, encephalopathy, ess ential hypertension, hypothyroidism, recurrent falls, diffuse weakness, potential urinary tract infec tion. Laboratory Studies: So far did show a urinalysis, where the clarity is extremely turbid, 2+ blood, 5 00 esterase, red blood cells 11 to 20, white blood cells greater than 50, bacteria 20 to 50, and tota l protein 2+. Plan: 1.Physical, occupational, and speech therapy for 3.5 hours, 5 out of 7 days. 2.Cranberry 200 mg twice daily and encourage hydration. He did have laboratory studies. His creati nine was 1.01, but BUN slightly elevated at 32. Glucose was 119. Lactic acid on the was 1.4. He will have again physical, occupational, and speech therapy as noted. 3.We will continue the Synthroid for hypothyroidism, melatonin for insomnia, Lopressor for hypertens ion, Flomax for prostate hypertrophy, Senokot-S for constipation, Eliquis for DVT prophylaxis, and Ty lenol for pain. 4.Impact of his comorbidities. There is fluctuating noted to the patient's level of cognitive funct ioning, where at times he is oriented x1 and then oriented x3 and better. Currently as I evaluated t he patient, he was oriented to person, place, situation. Follows commands appropriately. However, Rian diop will evaluate him and look to see if there is a significant need for cognitive improvement as t he patient was fully independent around 2 months ago. Now his urinalysis does suggest urinary tract infection. May start empiric antibiotics. However, cultures will be pending soon and will put appro priate antibiotics. The patient will be encouraged to drink at least 8 glasses of water daily. Rehab Specific Plan: 1.Mr. Cunningham will have physical, occupational, and speech therapy for 3.5 hours, 5 out of 7 day s to improve his ability to transfer from bed to chair to toilet to shower. 2.Ambulate 250 feet. 3.Walk up and down 10 steps. 4.To self propel wheelchair 250 feet. 5.Perform cognitive functioning independently. Mr. Cunningham has a good understanding of the process of admission to the inpatient rehabilitation facility and he will likely benefit very well from physical, occupational, speech therapy and [facility] along with the vp digital marketing social media and crm management to determine his discharge planning, need for equipment, durable medical equipment, and to continue therapy. Given his medical condition and mult iple recent falls and failure to do well at jail, rehabilitation cannot be effectively don e at the jail and therefore, he is more of an appropriate candidate for inpatient rehabili tation, which he is now admitted. Barriers To Discharge: Currently, the report of cognitive issues will need to be explored. If need be, MRI of the head may be required. Lumbar puncture may be required. He may also require a blood c ulture to rule out infection. Currently, there is a possibility of urinary tract infection given the initial urinalysis. Length Of Stay: Around 9 days. Disposition: Potentially home with family. Prognosis: Good. Rehab Goals: 1.Become independent with upper and lower body dressing, transferring, showering, donning and doffin g of clothes and shoes. 2.Independently ambulate 250 feet with a rolling walker. 3.Independently propel a wheelchair 250 feet. 4.Independently go up to 2 steps with bilateral handrails. 5.Independently perform cognitive functioning. The above goals were reviewed with Mr. Cunningham and he is in agreement. By signing this document, I acknowledge I personally performed a full physical examination on Mr. Alvarenga no later than 24 hours after his admission to the inpatient rehabilitation facility and dete rmined that he is able to tolerate the above course of treatment at an intensive level for a reasonab le period of time. A detailed individualized plan of care for him will be completed by hospital day 4 based on the preadmission screen, history and physical, and therapy evaluations. TANISHA Voice ID: [id number]
[2023-09-02 06:16] LABS: Absolute Lymphocytes (CBC) 1.1 K/uL (0.7-4.9); Hematocrit 34.8 % (39.6-49.0); Lymphocytes % 14.5 % (15.3-44.8); Platelets 277 thou/uL (152-406); RBC Red Blood Cell Count 3.48 M/uL (4.33-5.43)
[2023-09-02] MEDS: LEVOTHYROXINE SOD 0.112 MG TAB PO SCH (06:28)
[2023-09-02 06:33] LABS: Albumin 2.7 g/dL (3.4-5.0); Magnesium 2.2 mg/dL (1.6-2.4); Potassium 3.7 mEq/L (3.5-5.1); Prealbumin 12.1 mg/dL (20-40)
[2023-09-02] MEDS: ACETAMINOPHEN 325 MG TABLET PO PRN (07:01)
[2023-09-02] MEDS: LIDOCAINE 4% PATCH TOP SCH (07:02)
[2023-09-02] MEDS: TAMSULOSIN 0.4 MG SR CAP PO SCH (07:17)
[2023-09-02] MEDS: APIXABAN 2.5 MG TABLET PO SCH ×2 (07:17→18:53)
[2023-09-02] MEDS: CRANBERRY FRUIT EXTRACT 200 MG CAP PO SCH ×2 (07:17→18:53)
[2023-09-02] MEDS: METOPROLOL TAR 25 MG TAB PO SCH ×2 (07:18→18:57)
[2023-09-02] MEDS: ENSURE HIGH PROTEIN 237 ML CAN PO SCH ×2 (07:29→18:54)
[2023-09-02] MEDS: DOCUSATE NA/SENNA CONC 1 TAB PO PRN (18:54)
[2023-09-02] MEDS: TRAZODONE 50 MG TABLET PO PRN (18:54)
[2023-09-02] MEDS: MELATONIN 3 MG TABLET PO PRN (21:45)
[2023-09-03] MEDS: LEVOTHYROXINE SOD 0.112 MG TAB PO SCH (06:28)
[2023-09-03] MEDS: ENSURE HIGH PROTEIN 237 ML CAN PO SCH ×2 (07:49→20:50)
[2023-09-03] MEDS: LIDOCAINE 4% PATCH TOP SCH (07:49)
[2023-09-03] MEDS: CRANBERRY FRUIT EXTRACT 200 MG CAP PO SCH ×2 (07:50→20:50)
[2023-09-03] MEDS: METOPROLOL TAR 25 MG TAB PO SCH ×2 (07:50→20:50)
[2023-09-03] MEDS: APIXABAN 2.5 MG TABLET PO SCH ×2 (07:51→20:50)
[2023-09-03] MEDS: TAMSULOSIN 0.4 MG SR CAP PO SCH (07:51)
[2023-09-03] MEDS: TRAZODONE 50 MG TABLET PO PRN (18:28)
[2023-09-03] MEDS: MELATONIN 3 MG TABLET PO PRN (18:28)
[2023-09-03] MEDS ORDERED: TRAZODONE 50 MG TABLET PO ONE (21:00)
[2023-09-03] MEDS ORDERED: TRAZODONE 50 MG TABLET PO SCH (21:00)
[2023-09-04] MEDS: LEVOTHYROXINE SOD 0.112 MG TAB PO SCH (05:20)
[2023-09-04] MEDS: CRANBERRY FRUIT EXTRACT 200 MG CAP PO SCH ×2 (07:27→20:01)
[2023-09-04] MEDS: APIXABAN 2.5 MG TABLET PO SCH ×2 (07:27→20:01)
[2023-09-04] MEDS: TAMSULOSIN 0.4 MG SR CAP PO SCH (07:27)
[2023-09-04] MEDS: LIDOCAINE 4% PATCH TOP SCH (07:27)
[2023-09-04] MEDS: ENSURE HIGH PROTEIN 237 ML CAN PO SCH (07:28)
[2023-09-04] MEDS: METOPROLOL TAR 25 MG TAB PO SCH ×2 (07:29→20:00)
--- NOTE | 2023-09-04 08:52 | P.CNS ---
Date of Consult: 09/04/23 Reason for Consult: painful toenails Requesting Physician: Anthony Pedersen Chief Complaint: Painful toenails Allergies No Known Allergie Allergy (Mild, Uncoded 03/05/17 12:03) Unknown Home Medications: Acetaminophen [Tylenol] 650 mg PO Q6H 09/01/23 Apixaban [Eliquis *] 2.5 mg PO BID 09/01/23 Levothyroxine [Synthroid*] 0.112 mg PO DAILY 09/01/23 Lidocaine [Aspercreme Lidocaine] 1 patch TOP DAILY 09/01/23 Melatonin 3 mg PO BEDTIME PRN 09/01/23 Metoprolol Tartrate 12.5 mg PO BID 09/01/23 Sennosides/Docusate Sodium [Senna-Docusate Sodium Tablet] 2 tab PO BEDTIME PRN 09/01/23 Tamsulosin HCl [Flomax] 0.4 mg PO DAILY 09/01/23 - Past Medical/Surgical History Diabetic: No - Social History Smoking Status: Former smoker Alcohol use: No CD- Drugs: No Caffeine use: No Place of Residence: Assisted Review of Systems 10-point ROS is otherwise unremarkable Physical Examination Temp Pulse Resp BP Pulse Ox 97.2 F 55 17 101/60 96 09/04/23 06:29 09/04/23 06:29 09/04/23 06:29 09/04/23 06:29 09/04/23 06:29 General: Alert, In no apparent distress, Oriented x3 Cardiovascular: No edema, Normal pulses Capillary refill: <2 Seconds Musculoskeletal: No clubbing, No swelling, No contractures, No erythema, No tenderness, No warmth Integumentary: No rashes, No breakdown, No significant lesion, No tenderness/swelling, No erythema, No warmth, No cyanosis, Other (Thickened hypertrophic toenails with subungual debris x 10) Neurological: Sensation intact - Problems (1) Tinea unguium Current Visit: Yes Status: Acute (2) intermediate card tender (current) use of anticoagulants Current Visit: Yes Status: Acute Conclusions/Impression: Mechanical debridment of nails at bedside, patient tolerated procedure well Physician Review: Patient Assessed, Agree with Above Assessment and Plan Critical Care: No Time Spent Managing Pts care (In Minutes): 30
[2023-09-04] MEDS: TRAZODONE 50 MG TABLET PO PRN (17:40)
[2023-09-04] MEDS: MELATONIN 3 MG TABLET PO PRN (17:41)
[2023-09-04] MEDS: ENSURE ENLIVE 237 ML CAN PO SCH (20:01)
--- NOTE | 2023-09-04 21:05 | PN ---
Date of Progress Note: 09/04/2023 Time Of Service: 1:15 p.m. Subjective: Mr. Cunningham is resting comfortably in bed. Enjoyed the therapy today, did not have significant complaints, and is able to do his therapy. Objective: No fevers, chills. No significant myalgias, arthralgias. Mild back aches. No rash, hea dache, weight change. No psychiatric issues. Physical Examination: Vital Signs: Blood pressure 101/60, pulse 65, respiratory rate 17, temperature 97.2, oxygen saturati on 96%. Weight 185 pounds, height 6 feet 1 inch, BMI 24.4. General: Mr. Cunningham is resting comfortably, in no acute distress. HEENT: Appears normocephalic, atraumatic. Sclerae anicteric. Oropharynx moist. Neck: Supple. Chest: Clear. Neurologic: No focal neurological deficits. Laboratory Studies: White blood cell count 7.7, hemoglobin 11.9, platelets 277. Chemistries: Sodiu m 139, potassium 3.7, chloride 107, carbon dioxide 27, BUN 23, creatinine 0.87. Prealbumin 12.1, alb umin 2.7. Urinalysis on the consistent with urinary tract infection. COVID-19 testing is negat emely. Cultures did grow greater than 100,000 colony-forming units of mixed keshia, indicating no speci fic bacterial infection. Medications: Tylenol 650 mg every 6 hours as needed, Eliquis 2.5 mg twice daily, Synthroid 0.112 mg daily, lidocaine patch apply topically daily to back, melatonin 3 mg at bedtime, Lopressor 12.5 mg tw ice daily, Ensure Enlive 237 mL twice daily, Senokot-S two at bedtime, Flomax 0.4 mg daily, trazodone 100 mg daily. It should be noted the patient had some difficulty with sleep the last few nights and he has had no melatonin, and trazodone increased to 100 mg at night. X-ray/imaging: No new x-rays or imaging. Progress Made With Physical And Occupational Therapy: Today, with Physical Therapy, he ambulated 500 feet with a rolling walker with contact guard assistance. Also propel a wheelchair 500 feet with co ntact guard assistance, another 250 feet with contact guard assistance. Regarding Speech, long-term goals were to improve memory to have a minimum level of comprehension to allow him to manage safety a wareness and to return home, and minimize risk of injury and falling. With Occupational Therapy, paulina salinas with supervision, he washed 10/10 body parts. Upper body dressing done independently. Lower enoch dy dressing required supervision. Grooming was independent. Mr. Cunningham is doing very well with his physical, occupational, and speech therapy and will be on track for discharge, perhaps later this week and is excellent. Pain is managed. His mobilization, all improving. Cognitive functioning has improved as well. Assessment: Mr. Cunningham is an 88-year-old patient in rehabilitation unit with a lumbar wedge com pression fracture between T12 and L1. He has prostate hypertrophy and mild cognitive impairment, dys phagia. Has hypertension, hypothyroidism, diffuse weakness. Plan: 1.Physical, occupational, and speech therapy for 3-1/2 hours, 5 to 7 days. 2.We will continue with his comorbid condition medications as listed for comorbid issues and also no florentino he does have some insomnia, which will be addressed with increasing trazodone to 100 mg at night, melatonin 6 mg at night as needed. Other medications will be continued, all other listed. Comorbid Conditions That Continue To Impact His Rehabilitation: Currently insomnia, which is his big gest issue, is being addressed as noted. He is otherwise doing very well. He is on track to go home . We will likely try to continue therapy via Home Health after he is discharged. CHARLES/BLAKE Voice ID: [id number] Report ID: [id number]
[2023-09-05] MEDS: LEVOTHYROXINE SOD 0.112 MG TAB PO SCH (05:29)
[2023-09-05] MEDS: ENSURE ENLIVE 237 ML CAN PO SCH ×2 (07:28→19:34)
[2023-09-05] MEDS: LIDOCAINE 4% PATCH TOP SCH (07:28)
[2023-09-05] MEDS: TAMSULOSIN 0.4 MG SR CAP PO SCH (07:29)
[2023-09-05] MEDS: CRANBERRY FRUIT EXTRACT 200 MG CAP PO SCH ×2 (07:29→19:34)
[2023-09-05] MEDS: APIXABAN 2.5 MG TABLET PO SCH ×2 (07:29→19:34)
[2023-09-05] MEDS: METOPROLOL TAR 25 MG TAB PO SCH ×2 (07:30→19:34)
[2023-09-05] MEDS: MELATONIN 3 MG TABLET PO PRN (17:34)
[2023-09-05] MEDS: TRAZODONE 50 MG TABLET PO PRN (17:34)
--- NOTE | 2023-09-05 19:29 | PN ---
Date of Progress Note: 09/05/2023 Time Of Service: 12:40 p.m. Subjective: Mr. Cunningham is resting in bed in between therapy sessions that he had a very good ex ercise this morning. He denies any pain in the back area, where he has chronic wedge compression fra ctures. He has no new complaints. Review of Systems: No fevers, chills, nausea, vomiting, myalgias, arthralgias. No rash, headache, weight change. No ps ychiatric issues. No active gastrointestinal or genitourinary issues. Physical Examination: Vital Signs: Blood pressure 101/60, pulse 55, respiratory rate 17, temperature 97.2, oxygen saturati on 96% as the lowest blood pressure however today was 91/50 and pulse of 54. General: Mr. Cunningham was asleep at the time I came in to see him, but he woke up and was alert, oriented, and followed all instructions appropriately. He had no focal deficits. HEENT: He is normocephalic, atraumatic. Sclerae anicteric. Oropharynx moist, pink. Neck: Supple. Chest: Clear. Extremities: No edema or cyanosis in the extremities. Laboratory Studies: No new laboratory studies. X-ray/imaging: No new x-rays or imaging. Medications: His medications have been reviewed and remained unchanged from yesterday. Progress Made With Physical And Occupational Therapy: He completed bed mobilization with contact gua rd assistance, scooting with minimum assistance, did 5 [id number]-fu-[id number] transfers with minimum assistance . He self propel a wheelchair 250 feet on level surfaces with standby assistance. Then, he ambulate d with a Rollator 450 feet with contact guard assistance, was able to go up and down 15 steps with co ntact guard assistance. With speech therapy, he recalled 1 of 4 unrelated pictures after 5-minute de lay. On a second attempt, he again recalled 1/4 with free recall and 4/4 with cued recall. With his occupational therapy, independent upper body dressing, supervision lower body dressing. Footwear is independent. Mr. Cunningham is making good progress with his physical and occupational therapy and still had some issues of cognition and recall, but despite that, still making good progress with physical therapy. Overall, as noted by his ability, go up and down 15 steps and ambulate 450 feet with a Rollator. Assessment: Mr. 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 He still has cognitive impairment, which can be a challenge as he may make unsafe decisions at times. It is best for him to have someone to help make safe decisions in terms of mobilization, transfers, and ambulation. He has prostate hypertrophy, mild cognitive impairment as noted, hyperten leland, hypothyroidism, diffuse weakness. Plan: 1.Physical, occupational, and speech therapy for 3.5 hours, 5 out of 7 days. 2.Continue with Eliquis for DVT prophylaxis, Tylenol for pain, Synthroid for hypothyroidism, melaton in for insomnia, Lopressor for hypertension, although we will hold if systolic blood pressure is less than 120 and he has systolic blood pressure in the 90s currently. Flomax 0.4 mg at night for prosta te hypertrophy, Desyrel 100 mg at night for insomnia, Ensure Enlive for malnutrition. Comorbidities That Continue To Impact Rehabilitation: He did mention some difficulty with sleep and he has trazodone. He has melatonin and magnesium to help. In addition, the physical therapy usually is very helpful for setting him up with a good night's rest. We will try to hold off on medication such as A mbien given his cognitive issues. CHARLES/BLAKE Voice ID: [id number] Report ID: [id number]
[2023-09-06] MEDS: LEVOTHYROXINE SOD 0.112 MG TAB PO SCH (05:23)
[2023-09-06] MEDS: LIDOCAINE 4% PATCH TOP SCH (07:56)
[2023-09-06] MEDS: CRANBERRY FRUIT EXTRACT 200 MG CAP PO SCH ×2 (07:57→19:53)
[2023-09-06] MEDS: APIXABAN 2.5 MG TABLET PO SCH ×2 (07:57→19:53)
[2023-09-06] MEDS: TAMSULOSIN 0.4 MG SR CAP PO SCH (07:57)
[2023-09-06] MEDS: DONEPEZIL HCL 5 MG TAB PO SCH (07:57)
[2023-09-06] MEDS: METOPROLOL TAR 25 MG TAB PO SCH (07:58)
[2023-09-06] MEDS: ENSURE ENLIVE 237 ML CAN PO SCH ×2 (08:00→19:53)
[2023-09-06] MEDS ORDERED: LOPERAMIDE HCL 2 MG CAPSULE PO PRN (08:55)
[2023-09-07] MEDS: TRAZODONE 50 MG TABLET PO PRN ×2 (00:18→21:35)
[2023-09-07 04:03] LABS: Absolute Lymphocytes (CBC) 1.2 K/uL (0.7-4.9); Hematocrit 34.8 % (39.6-49.0); Lymphocytes % 13.8 % (15.3-44.8); MCV 100.7 fL (80-100); MPV 7.1 fL (7.6-11.3); Platelets 237 thou/uL (152-406); RBC Red Blood Cell Count 3.46 M/uL (4.33-5.43)
[2023-09-07 04:16] LABS: Albumin 2.6 g/dL (3.4-5.0); Magnesium 2.2 mg/dL (1.6-2.4); Prealbumin 13.4 mg/dL (20-40)
[2023-09-07] MEDS ORDERED: CYANOCOBALAMIN 1000MCG/ML INJ ONE (05:36)
[2023-09-07] MEDS: LEVOTHYROXINE SOD 0.112 MG TAB PO SCH (05:41)
[2023-09-07] MEDS ORDERED: CYANOCOBALAMIN 1000MCG/ML INJ IM SCH (06:00)
[2023-09-07] MEDS: APIXABAN 2.5 MG TABLET PO SCH ×2 (07:15→19:14)
[2023-09-07] MEDS: DONEPEZIL HCL 5 MG TAB PO SCH (07:15)
[2023-09-07] MEDS: CRANBERRY FRUIT EXTRACT 200 MG CAP PO SCH ×2 (07:15→19:14)
[2023-09-07] MEDS: MIDODRINE HCL 5 MG TABLET PO SCH (07:17)
[2023-09-07] MEDS: LIDOCAINE 4% PATCH TOP SCH (07:26)
[2023-09-07] MEDS: ENSURE ENLIVE 237 ML CAN PO SCH ×2 (07:27→19:13)
[2023-09-07 07:37] LABS: Arterial Blood Carboxyhemoglob 0.6 % (0-1.5); Blood Gas Oxyhemoglobin 94.9 % (94-97); Blood O2 Saturation 96.8 % (92-98.5)
[2023-09-07] MEDS ORDERED: NA CHLORIDE 0.9% 1,000 ML IV SCH (08:00)
--- NOTE | 2023-09-07 18:28 | RAD REPORT ---
EXAM DESCRIPTION: Homart Pa And Lat (2 Views)09/07/2023 2:54 pm CLINICAL HISTORY: R/O TB for Assisted Living COMPARISON: Chest Single View dated 08/05/2023 TECHNIQUE: Portable AP view of the chest. FINDINGS: The lungs are clear. Stable pattern of peripheral and basal predominant chronic interstiti al changes and hyperlucency, suggestive of COPD or chronic interstitial lung disease. No pneumothora x or effusion. The cardiomediastinal contours are unchanged, without radiographic evidence of mediast inal or hilar adenopathy to suggest sequelae of TB. IMPRESSION: No acute cardiopulmonary process. Stable findings as above.
--- NOTE | 2023-09-07 22:43 | PN ---
Date of Progress Note: 09/07/2023 Time Of Service: 1:35 p.m. Subjective: Mr. Cunningham is in bed in between therapy sessions. He reports doing very well. Den ies any significant back pain in his lower back where he has wedge compression fractures. He has no other complaints. Review of Systems: He denies any fevers, chills, nausea, vomiting, myalgias, or arthralgias. No psychiatric complaints. No headache. No rash. No genitourinary or gastrointestinal symptoms. Objective: Vital Signs: Blood pressure 101/61, pulse of 63, respiratory rate of 16, temperature 98. 8, oxygen saturation 95%. It is noted he still has orthostatic hypotension lying blood pressure 101/ 59, pulse 68, standing blood pressure 87/57, pulse of 71. Blood pressure medications have been adjus anabel as he actually has midodrine 5 mg daily to help support blood pressure. He is receiving also nor mal saline a liter to help with his blood pressures. Neurological: Otherwise, in terms of his examination, he has no focal neurological deficits. His st rength is symmetric. Sensation intact and no focal deficit is noted. Laboratory Studies: White blood cell count 8.5, hemoglobin 11.9, platelets 237. Note an arterial bl ood gas on the , when the patient and the family were worried about shortness of breath and the C O2 retention, his pH was 7.45, his pCO2 normal at 36.8, pO2 was very normal at 102, and other paramet ers also were normal. Sodium today 138, potassium 4.0, chloride 107, carbon dioxide 27, BUN 28, crea tinine 0.93, glucose 92, calcium 8.5, magnesium 2.2, prealbumin 13.4, albumin 2.6. X-ray/imaging: Chest x-ray done today to rule out pneumonia showed clear lungs. No acute cardiopulm onary processes identified and the patient also had a rule out of tuberculosis as he may be going to assisted living following a discharge and the study showed no evidence of that. Medications: Have been reviewed and remained unchanged. He does have Desyrel for sleep. Midodrine for the pressor support 5 mg daily, may go to twice daily as needed. Imodium for constipation as nee ded. Synthroid for hypothyroidism. Aricept for cognitive impairment. Eliquis for DVT prophylaxis. Tylenol for pain. Progress Made With His Physical And Occupational Therapy: Today, despite the orthostatic symptoms, m ultiple [id number] transfers done with modified independence. Stand-pivot transfers done with alee fied independence. He ambulated on multiple surfaces with a Rollator for 500 feet with modified inde pendence and another 250 feet without any assistive device. He completed wheelchair mobilization of 500 feet with modified independence. With speech, he recalled 3 of 3 unrelated pictures after 3 radha rosalie with moderate assistance. Cause and effect situations were described at 85% accuracy and moderat e assistance. With occupational therapy, completed bathing, dressing, sitting in the shower chair wi th independence. Upper body, lower body dressing, footwear, donning and doffing, all independent. N o loss of balance noted. Progress with his physical therapy is excellent. He is ready for discharge. He may be discharged in the morning depending on how well things are doing, which is he is doing very well. Assessment And Plan: Mr. Cunningham is an 88-year-old patient with multiple lumbar wedge compressio n fractures who is doing excellent with physical, occupational, and speech therapy. His comorbid con ditions are well managed, although he has orthostatic changes. He is still ambulating very well, den ies any loss of balance, any significant dizziness, and he does have midodrine to help support blood pressure. He has prostate hypertrophy, hypothyroidism, and mild cognitive impairment. Plan: 1.Continue with physical, occupational, and speech therapy for 3.5 hours, 5 of 7 days. 2.His multiple comorbid conditions are managed by continuing medications including Eliquis; Tylenol; Synthroid; Lopressor, which will be held as noted for systolic blood pressure less than 120. Also F joe and Desyrel and Ensure for malnutrition. Comorbids That Continue To Impact His Rehabilitation: While he has significant orthostatic changes o n blood pressures, he is still doing very well and has not had significant dizziness, loss of balance , and is ambulating without an assistive device. However, it is still recommended that the patient w ear ANABEL hose and abdominal binders and have midodrine which may be adjusted twice daily as appropriat e. Plan is to discharge home to assisted living and to continue physical therapy. CHARLES/BLAKE Voice ID: [id number] Report ID: [id number]
[2023-09-08] MEDS: ACETAMINOPHEN 325 MG TABLET PO PRN (00:03)
[2023-09-08] MEDS: MIDODRINE HCL 5 MG TABLET PO SCH (06:49)
[2023-09-08] MEDS: LEVOTHYROXINE SOD 0.112 MG TAB PO SCH (06:49)
[2023-09-08] MEDS: DONEPEZIL HCL 5 MG TAB PO SCH (07:15)
[2023-09-08] MEDS: APIXABAN 2.5 MG TABLET PO SCH (07:15)
[2023-09-08] MEDS: LIDOCAINE 4% PATCH TOP SCH (07:16)
[2023-09-08] MEDS: CRANBERRY FRUIT EXTRACT 200 MG CAP PO SCH (07:16)
[2023-09-08] MEDS: ENSURE ENLIVE 237 ML CAN PO SCH (07:16)
[2023-09-08 09:20] VITALS: BP 91/57; TEMP 97.2
--- NOTE | 2023-09-08 13:18 | P.RH.PN ---
Estimated Length of Stay: 9 Expected Discharge Date: 09/08/23 Discharge Disposition Plan: Home Family Support: Yes Pediatric Pathologist Goal: Mobility, Transfers, Self Care Vital Signs: Last Vital Signs Temp 97.2 F 09/08/23 08:00 Pulse 62 09/08/23 08:00 Resp 14 09/08/23 08:00 BP 91/57 L 09/08/23 08:00 Pulse Ox 93 09/08/23 08:00 Laboratory: Laboratory Last Values WBC 8.50 thou/uL (4.3-10.9) 09/07/23 03:13 RBC 3.46 M/uL (4.33-5.43) L 09/07/23 03:13 Hgb 11.9 g/dL (13.6-17.9) L 09/07/23 03:13 Hct 34.8 % (39.6-49.0) L 09/07/23 03:13 MCV 100.7 fL (80-100) H 09/07/23 03:13 MCH 34.6 pg (27.0-35.0) 09/07/23 03:13 MCHC 34.3 g/dL (32.0-36.0) 09/07/23 03:13 RDW 15.2 % (12.1-15.2) 09/07/23 03:13 Plt Count 237 thou/uL (152-406) 09/07/23 03:13 MPV 7.1 fL (7.6-11.3) L 09/07/23 03:13 Neutrophils % 73.4 % (41.7-73.7) 09/07/23 03:13 Lymphocytes % 13.8 % (15.3-44.8) L 09/07/23 03:13 Monocytes % 8.0 % (3.3-12.3) 09/07/23 03:13 Eosinophils % 4.4 % (0-4.4) 09/07/23 03:13 Basophils % 0.4 % (0-1.3) 09/07/23 03:13 Absolute Neutrophils 6.2 K/uL (1.8-8.0) 09/07/23 03:13 Absolute Lymphocytes 1.2 K/uL (0.7-4.9) 09/07/23 03:13 Absolute Monocytes 0.7 K/uL (0.1-1.3) 09/07/23 03:13 Absolute Eosinophils 0.4 K/uL (0-0.5) 09/07/23 03:13 Absolute Basophils 0.0 K/uL (0-0.5) 09/07/23 03:13 pH 7.45 (7.35-7.45) 09/05/23 20:00 pCO2 36.8 mmHG (35-45) 09/05/23 20:00 pO2 102.0 mmHG (75-100) H 09/05/23 20:00 HCO3 25.4 mmol/L (22-28) 09/05/23 20:00 Base Excess 1.8 mmol/L 09/05/23 20:00 Oxyhemoglobin 94.9 % (94-97) 09/05/23 20:00 ABG O2 Sat (Measured) 96.8 % (92-98.5) 09/05/23 20:00 ABG Carboxyhemoglobin 0.6 % (0-1.5) 09/05/23 20:00 ABG Methemoglobin 1.4 % (0-1.5) 09/05/23 20:00 Other Total Hgb 11.7 g/dl (12-18) L 09/05/23 20:00 Inspired O2 21.0 % 09/05/23 20:00 Sodium 138 mEq/L (136-145) 09/07/23 03:13 Potassium 4.0 mEq/L (3.5-5.1) 09/07/23 03:13 Chloride 107 mEq/L (98-107) 09/07/23 03:13 Carbon Dioxide 27 mEq/L (21-32) 09/07/23 03:13 Anion Gap 8.0 mEq/L (5.0-15.0) 09/07/23 03:13 BUN 28 mg/dL (7-18) H 09/07/23 03:13 Creatinine 0.93 mg/dL (0.70-1.30) 09/07/23 03:13 Est GFR (CKD-EPI) 80 ml/min (=/>90) L 09/07/23 03:13 Glucose 92 mg/dL (74-106) 09/07/23 03:13 Calcium 8.5 mg/dL (8.5-10.1) 09/07/23 03:13 Magnesium 2.2 mg/dL (1.6-2.4) 09/07/23 03:13 Albumin 2.6 g/dL (3.4-5.0) L 09/07/23 03:13 Prealbumin 13.4 mg/dL (20-40) L 09/07/23 03:13 Urine Color Light-orange (Yellow) 09/01/23 13:14 Urine Clarity Extremely turbid (Clear) H 09/01/23 13:14 Urine pH 6.0 (5.0-7.0) 09/01/23 13:14 Ur Specific [place] 1.018 (1.005-1.030) 09/01/23 13:14 Glucose (UA)(Auto) Negative (Negative) 09/01/23 13:14 Urine Ketones Negative (Negative) 09/01/23 13:14 Urine Blood 2+ (Negative) H 09/01/23 13:14 Urine Nitrite Negative (Negative) 09/01/23 13:14 Urine Bilirubin Negative (Negative) 09/01/23 13:14 Urine Urobilinogen Normal (Normal) 09/01/23 13:14 Ur Leukocyte Esterase 500 Gemma/uL (Negative) H 09/01/23 13:14 Urine RBC 11-20 /HPF (None Seen) H 09/01/23 13:14 Urine WBC >50 /HPF (<5) H 09/01/23 13:14 Ur Squamous Epith Cells None seen /HPF (None Seen) 09/01/23 13:14 Urine Bacteria 20-50 /HPF (<20) H 09/01/23 13:14 Urine Mucus Slight /HPF (None Seen) 09/01/23 13:14 Urine Culture Reflexed Reflexed 09/01/23 13:14 Urine Total Protein 2+ (Negative) H 09/01/23 13:14 SARS-CoV-2 Ag (Rapid) Negative (Negative) 09/01/23 10:15 Weight: 185 lb Wound Present: No Closed Surgical Incision Present: No Negative Pressure Wound Therapy Present: No Physician Update: He is doing very well with all therapy and is ready for discharge home to [facility] with assisted living today. BIMS 14, SLUMS 17, difficulty with short term memory and will need supervision. Met 4/4 short and 6/6 oysterman goals. Up and down 22 steps. Independent with ADLs. Comment: No bruising ,no skin breakdown. Summary: Patient's care plan and oysterman goals have been reviewed and revised as necessary. Please see the Rehabilitation Signature page for all necessary signatures.
--- NOTE | 2023-09-14 13:41 | EKG ---
Test Date: 2023-09-07 Test Time: 12:52:49 Ring Sewer: LORA MEASUREMENT RESULTS: Intervals: Rate: 51 TN: 184 QRSD: 90 QT: 438 QTc: 403 [place]: P: -29 TN: 184 QRS: 19 T: 13 INTERPRETIVE STATEMENTS: Sinus bradycardia Otherwise normal ECG No previous ECG available for comparison Electronically Signed On 09-14-23 13:28:29 EGGS INSPECTOR by Sudhakar Barger
== END 2023-09-08 17:00 | disposition home or self-care (01) | DRG 552 ==
LOC: 5TH 09:00
PROVIDERS: ADMIT Psychiatry & Neurology Neurology with Special Qualifications in Child Neurology; ATTEND Psychiatry & Neurology Neurology with Special Qualifications in Child Neurology
PROC: 0HBRXZZ Excision of Toe Nail, External Approach (ICD-10-PCS; principal; 2023-09-04)
PROC: 0HBRXZZ Excision of Toe Nail, External Approach (ICD-10-PCS; 2023-09-04)
PROC: 0HBRXZZ Excision of Toe Nail, External Approach (ICD-10-PCS; 2023-09-04)
PROC: 0HBRXZZ Excision of Toe Nail, External Approach (ICD-10-PCS; 2023-09-04)
PROC: 0HBRXZZ Excision of Toe Nail, External Approach (ICD-10-PCS; 2023-09-04)
PROC: 0HBRXZZ Excision of Toe Nail, External Approach (ICD-10-PCS; 2023-09-04)
PROC: 0HBRXZZ Excision of Toe Nail, External Approach (ICD-10-PCS; 2023-09-04)
PROC: 0HBRXZZ Excision of Toe Nail, External Approach (ICD-10-PCS; 2023-09-04)
PROC: 0HBRXZZ Excision of Toe Nail, External Approach (ICD-10-PCS; 2023-09-04)
PROC: 0HBRXZZ Excision of Toe Nail, External Approach (ICD-10-PCS; 2023-09-04)
DX: M48.02 Spinal stenosis, cervical region (principal); G93.40 Encephalopathy, unspecified; N39.0 Urinary tract infection, site not specified; E46 Unspecified protein-calorie malnutrition; S32.020D Wedge compression fracture of second lumbar vertebra, subsequent encounter for fracture with routine healing; S22.080D Wedge compression fracture of T11-T12 vertebra, subsequent encounter for fracture with routine healing; B35.1 Tinea unguium; R47.02 Dysphasia; N40.0 Benign prostatic hyperplasia without lower urinary tract symptoms; I10 Essential (primary) hypertension; E03.9 Hypothyroidism, unspecified; G47.00 Insomnia, unspecified; Z79.01 Long term (current) use of anticoagulants; Z87.891 Personal history of nicotine dependence; Z68.24 Body mass index [BMI] 24.0-24.9, adult
CPT/HCPCS: 36415; 71046; 80048; 81001; 82040; 82805; 83735; 84134; 85025; 87086; 87088; 87811; 92523; 93005; 97110; 97112; 97116; 97129; 97163; 97165; 97530; 97542; J2001; J3420; J7030

== ENCOUNTER → 2023-10-23 | Emergency (ER) | payer OTHER ==
[~2023-10-23] MED LIST: TDAP (DIPHTH,PERTUSS(ACELL),TET VAC) 0.5 ML VIAL IMVAC ONE
--- NOTE | 2023-10-23 04:37 | ER ---
Nurse's Notes [facility] Name: Tony Cunningham Age: 88 yrs Sex: Male : 1935 Arrival Date: 10/23/2023 Time: 02:12 Bed 15 Private MD: Diagnosis: Fall on same level, unspecified;Acute closed head injury, acute fall, forehead contusion , left forearm skin tear Presentation: 10/23 02:13 Chief complaint: EMS states: pt fell on while using the walker in the intermediate, [place], hit forehead, denies LOC. sustained skin tear on the left forearm, denies other injury or pain. Coronavirus screen: At this time, the client does not indicate any symptoms associated with coronavirus-19. Ebola Screen: No symptoms or risks identified at this time. Initial Sepsis Screen: Does the patient meet any 2 criteria? No. Patient's initial sepsis screen is negative. Does the patient have a suspected source of infection? No. Patient's initial sepsis screen is negative. Risk Assessment: Do you want to hurt yourself or someone else? Patient reports no desire to harm self or others. Onset of symptoms was October 23, 2023. 02:13 Method Of Arrival: EMS: [facility] rv 02:13 Acuity: CANELO 3 rv Triage Assessment: 02:15 General: Appears comfortable, Behavior is calm, cooperative. Pain: Denies pain. Neuro: rv Level of Consciousness is awake, alert, obeys commands, Oriented to person, place, time, situation. Cardiovascular: Capillary refill < 3 seconds Patient's skin is warm and dry. Respiratory: Airway is patent Respiratory effort is even, unlabored, Breath sounds are clear bilaterally. GI: No signs and/or symptoms were reported involving the gastrointestinal system. : No signs and/or symptoms were reported regarding the genitourinary system. Derm: skin tear on the left foreaarm. Historical: - Allergies: 02:15 No Known Allergies; rv - PMHx: 02:15 back problems; BPH; Hypothyroidism; rv - PSHx: 02:15 Thyroidectomy; rv - Immunization history:: Adult Immunizations up to date. - Social history:: Smoking status: Patient denies any tobacco usage or history of. - Family history:: not pertinent. Screenin:16 [facility] ED Fall Risk Assessment (Adult) History of falling in the last 3 months, rv including since admission Yes- physiologic fall (2 pts) Confusion or Disorientation Yes (5 pts) Impaired Gait Yes (1 pt) Score/Fall Risk Level 3 or more points = High Risk Oriented to surroundings, Maintained a safe environment, Educated pt \T\ family on fall prevention, incl call for assistance when getting out of bed, Assessed \T\ reinforced patient's understanding of fall precautions. Abuse screen: Denies threats or abuse. Denies injuries from another. Nutritional screening: No deficits noted. Tuberculosis screening: No symptoms or risk factors identified. Vital Signs: 02:13 BP 128 / 79; Pulse 68; Resp 16; Temp 98.1; Pulse Ox 99% ; Weight 65.77 kg; rv [place] Coma Score: 04:37 Eye Response: spontaneous(4). Motor Response: obeys commands(6). Verbal Response: sp4 oriented(5). Total: 15. NIH Stroke Scale Scores: 04:37 NIHSS Score: 0 sp4 ED Course: 02:13 Patient arrived in ED. rv 02:15 Triage completed. rv 02:15 Arm band placed on right wrist. rv 02:16 Patient has correct armband on for positive identification. Client placed on continuous rv cardiac and pulse oximetry monitoring. NIBP monitoring applied. 02:16 No provider procedures requiring assistance completed. rv 02:19 Martin Aguirre, DAVID is Primary Nurse. rv 02:19 Leonardo Bueno MD is Attending Physician. sp4 03:29 CT Head C Spine In Process Unspecified. EDMS 05:13 Patient did not have IV access during this emergency room visit. rv Administered Medications: Not Given (Other): tetanus-diphtheria toxoidadult 0.5 ml IM once; Provide Vaccine Information Statement (VIS). 02:51 Drug: Boostrix Tdap IM 0.5 ml IM once; as a single dose Route: IM; Site: right deltoid; rv Medication: 02:16 VIS not applicable for this client. rv Outcome: 04:36 Discharge ordered by . sp4 05:12 Discharged to intermediate. discharge instructions given to daughter Una, amy rv took the patient back to [facility] via pov. 05:12 Condition: good 05:12 Instructed on the need for admit, 05:13 Patient left the ED. rv NIH Stroke Scale - NIH Stroke Score Date: 10/23/2023 Time: 04:37 Total Score = 0 10. Dysarthria (speech clarity - read or repeat words) - 0(Normal) 11. Extinction and Inattention (visual/tactile/auditory/spatial/personal) - 0(No abnormality) 1a. Level of Consciousness (LOC) - 0(Alert) 1b. Level of Consciousness (LOC) (Month \T\ Age) - 0(Both) 1c. LOC Commands (Open \T\ Closes Eyes/Carriage Setter) - 0(Both) 2. Best Gaze (Lateral Gaze Paresis) - 0(Normal) 3. Visual Field Loss - 0(No visual loss) 4. Facial Palsy - 0(Normal) 5a. Left Arm: Motor (10-second hold) - 0(No drift) 5b. Right Arm: Motor (10-second hold) - 0(No drift) 6a. Left Leg: Motor (5-second hold - always test supine) - 0(No drift) 6b. Right Leg: Motor (5-second hold - always test supine) - 0(No drift) 7. Limb Ataxia (finger/nose \T\ heel/boyle - test with eyes open) - 0(Absent) 8. Sensory Loss (pinprick arms/legs/face) - 0(Normal) 9. Best Language: Aphasia (description/naming/reading) - 0(No aphasia) Initials: sp4 Signatures: Dispatcher [employer] Martin Coleman RN RN rv Potepalov, Sergey, MD MD sp4
--- NOTE | 2023-10-23 04:37 | EDPHYS ---
Physician Documentation [facility] Name: Tony Cunningham Age: 88 yrs Sex: Male : 1935 Arrival Date: 10/23/2023 Time: 02:12 Bed 15 Private MD: ED Physician Leonardo Bueno HPI: 10/23 02:19 This 88 yrs old Male presents to ER via EMS with complaints of fall , pain . sp4 04:37 Pleasant 88-year-old male presents with EMS for acute fall at the assisted living 4 facility . Patient has acute forehead contusion, acute forehead abrasion, left forearm skin tear. Denied LOC or vomiting. GCS 15 on arrival. Historical: - Allergies: 02:15 No Known Allergies; rv - PMHx: 02:15 back problems; BPH; Hypothyroidism; rv - PSHx: 02:15 Thyroidectomy; rv - Immunization history:: Adult Immunizations up to date. - Social history:: Smoking status: Patient denies any tobacco usage or history of. - Family history:: not pertinent. ROS: 04:37 Constitutional: Negative for fever, chills, and weight loss, positive for head sp4 contusion, positive left forearm skin tear 04:37 All other systems are negative, Exam: 04:37 Constitutional: This is a well developed, well nourished patient who is awake, alert, sp4 and in no acute distress. Head/Face: Normocephalic, positive right forehead abrasion, positive left forehead hematoma. Eyes: Pupils equal round and reactive to light, extra-ocular motions intact. Lids and lashes normal. Conjunctiva and sclera are not injected. Cornea within normal limits. Periorbital areas with no swelling, redness, or edema. ENT: Nares patent. No nasal discharge, no septal abnormalities noted. Tympanic membranes are normal and external auditory canals are clear. Oropharynx with no redness, swelling, or masses, exudates, or evidence of obstruction, uvula midline. Mucous membranes moist. Neck: Trachea midline, no thyromegaly or masses palpated, and no cervical lymphadenopathy. Supple, full range of motion without nuchal rigidity, or vertebral point tenderness. Chest/axilla: Normal chest wall appearance and motion. Nontender with no deformity. No lesions are appreciated. Cardiovascular: Regular rate and rhythm with a normal S1 and S2. No gallops, murmurs, or rubs. Normal PMI, no JVD. No pulse deficits. Respiratory: Lungs have equal breath sounds bilaterally, clear to auscultation and percussion. No rales, rhonchi or wheezes noted. No increased work of breathing, no retractions or nasal flaring. Abdomen/GI: Soft, non-tender, with normal bowel sounds. No distension or tympany. No guarding or rebound. No evidence of tenderness throughout. Back: No spinal tenderness. No costovertebral tenderness. Skin: Warm, dry with normal turgor. Normal color with no rashes, no lesions, and no evidence of cellulitis. MS/ Extremity: Pulses equal, no cyanosis. Neurovascular intact. Full, normal range of motion. Small left forearm abrasion Neuro: Awake and alert, GCS 15, oriented to person, place, time, and situation. Cranial nerves II-XII grossly intact. Motor strength 5/5 in all extremities. Sensory grossly intact. Psych: Awake, alert, with orientation to person, place and time. Behavior, mood, and affect are within normal limits Vital Signs: 02:13 BP 128 / 79; Pulse 68; Resp 16; Temp 98.1; Pulse Ox 99% ; Weight 65.77 kg; rv NIH Stroke Scale Scores: 04:37 NIHSS Score: 0 sp4 Jonathan Coma Score: 04:37 Eye Response: spontaneous(4). Motor Response: obeys commands(6). Verbal Response: sp4 oriented(5). Total: 15. MDM: 02:45 Patient medically screened. sp4 04:32 ED course: EXAM DESCRIPTION: Head C Spine Mpr Wo Con RadLex: CT HEAD AND CERVICAL SPINE sp4 WITHOUT CONTRAST CLINICAL HISTORY: 88 years Male; fall , head injury; Bed Name: 15 TECHNIQUE: Noncontrast CT head and cervical spine. All CT scans at this facility use dose modulation, iterative reconstruction, and/or weight based dosing when appropriate to reduce radiation dose to as low as reasonably achievable. COMPARISON: CT head and CT cervical spine 08/05/2023. FINDINGS: BRAIN: Parenchyma: No acute hemorrhage, large territorial infarction, or mass effect. Scattered and confluent hypodense lesions are present in the white matter, likely chronic small vessel ischemic changes. Moderate global cerebral volume loss. Ventricles and extra-axial spaces: Appropriate for age and degree of volume loss. Visualized paranasal sinuses: Retention cyst versus polyp in the left frontal sinus. Polypoid soft tissue in the left n posterior nasal cavity. Mild polypoid mucosal thickening in the bilateral ethmoid sinuses. Mastoid air cells: Clear. Bones: No acute focal abnormality. Additional comment: Intracranial atherosclerosis. CERVICAL SPINE: Alignment: Normal. Vertebrae: Vertebral bodies and posterior elements are intact without acute fracture. Advanced multilevel degenerative changes. Extra-vertebral soft tissues: Normal. Additional comment: Scarring of the bilateral lung apices with subpleural cystic change. IMPRESSION: 1. No acute traumatic intracranial findings. 2. No acute fracture or subluxation of the cervical spine. . 04:37 Differential Diagnosis altered mental status, sepsis, flu, Head injury . Data reviewed: sp4 vital signs, nurses notes, EMS record, lab test result(s), radiologic studies, CT scan. ED course: CT head and C-spine negative, patient is stable for discharge back to the assisted living facility.. 10/23 02:31 Order name: Glucose, Ancillary Testing; Complete Time: 04:35 EDMS 10/23 02:45 Order name: CT Head C Spine sp4 Administered Medications: Not Given (Other): tetanus-diphtheria toxoidadult 0.5 ml IM once; Provide Vaccine Information Statement (VIS). 02:51 Drug: Boostrix Tdap IM 0.5 ml IM once; as a single dose Route: IM; Site: right deltoid; rv Disposition Summary: 10/23/23 04:36 Discharge Ordered Notes: Location: Home sp4 Problem: new sp4 Symptoms: have improved sp4 Condition: Stable sp4 Diagnosis - Fall on same level, unspecified sp4 - Acute closed head injury, acute fall, forehead contusion , left forearm skin tear sp4 Followup: sp4 - With: Private Physician - When: 7 - 10 days - Reason: Recheck today's complaints Discharge Instructions: - Discharge Summary Sheet sp4 - Fall Prevention in the Home, Adult, [id number] sp4 Forms: - Patient Portal Instructions sp4 NIH Stroke Scale - NIH Stroke Score Date: 10/23/2023 Time: 04:37 Total Score = 0 10. Dysarthria (speech clarity - read or repeat words) - 0(Normal) 11. Extinction and Inattention (visual/tactile/auditory/spatial/personal) - 0(No abnormality) 1a. Level of Consciousness (LOC) - 0(Alert) 1b. Level of Consciousness (LOC) (Month \T\ Age) - 0(Both) 1c. LOC Commands (Open \T\ Closes Eyes/Train System Operator) - 0(Both) 2. Best Gaze (Lateral Gaze Paresis) - 0(Normal) 3. Visual Field Loss - 0(No visual loss) 4. Facial Palsy - 0(Normal) 5a. Left Arm: Motor (10-second hold) - 0(No drift) 5b. Right Arm: Motor (10-second hold) - 0(No drift) 6a. Left Leg: Motor (5-second hold - always test supine) - 0(No drift) 6b. Right Leg: Motor (5-second hold - always test supine) - 0(No drift) 7. Limb Ataxia (finger/nose \T\ heel/boyle - test with eyes open) - 0(Absent) 8. Sensory Loss (pinprick arms/legs/face) - 0(Normal) 9. Best Language: Aphasia (description/naming/reading) - 0(No aphasia) Initials: sp4 Signatures: Dispatcher [employer] Martin Coleman RN RN rv Potepalov, Sergey, MD MD sp4
--- NOTE | 2023-10-23 13:53 | RAD REPORT ---
EXAM DESCRIPTION: CT - Head C Spine Mpr Wo Con - 10/23/2023 7:03 am CLINICAL HISTORY: 88 years Male; fall , head injury; Bed Name: 15 TECHNIQUE: Noncontrast CT head and cervical spine. All CT scans at this facility use dose modulation, iterative reconstruction, and/or weight based dosi ng when appropriate to reduce radiation dose to as low as reasonably achievable. COMPARISON: CT head and CT cervical spine 08/05/2023. FINDINGS: BRAIN: Parenchyma: No acute hemorrhage, large territorial infarction, or mass effect. Scattered and confluen t hypodense lesions are present in the white matter, likely chronic small vessel ischemic changes. Mo derate global cerebral volume loss. Ventricles and extra-axial spaces: Appropriate for age and degree of volume loss. Visualized paranasal sinuses: Retention cyst versus polyp in the left frontal sinus. Polypoid soft ti ssue in the left n posterior nasal cavity. Mild polypoid mucosal thickening in the bilateral ethmoid sinuses. Mastoid air cells: Clear. Bones: No acute focal abnormality. Additional comment: Intracranial atherosclerosis. CERVICAL SPINE: Alignment: Normal. Vertebrae: Vertebral bodies and posterior elements are intact without acute fracture. Advanced multil evel degenerative changes. Extra-vertebral soft tissues: Normal. Additional comment: Scarring of the bilateral lung apices with subpleural cystic change. IMPRESSION: 1. No acute traumatic intracranial findings. 2. No acute fracture or subluxation of the cervical spine. Electronically signed by: Mary Sue MD 10/23/2023 03:40 AM LAND LAW EXAMINER Due to temporary technical issues with the PACS/Fluency reporting system, reports are being signed by the in house radiologist without review as a courtesy to ensure prompt reporting. The interpreting r adiologist is fully responsible for the content of the report.
[2023-10-23 18:21] VITALS: BP 128/79; TEMP 98.1; O2SAT 99
== END ==
LOC: ER 02:12
DX: S00.83XA Contusion of other part of head, initial encounter (principal); S51.812A Laceration without foreign body of left forearm, initial encounter; W18.30XA Fall on same level, unspecified, initial encounter; Z23 Encounter for immunization
CPT/HCPCS: 70450; 72125; 82947

== ENCOUNTER 2023-11-23 11:30 | Inpatient (IN) | payer OTHER ==
--- NOTE | 2023-11-23 12:18 | RAD REPORT ---
EXAM DESCRIPTION: CT - Head C Spine Mpr Wo Con - 11/23/2023 12:06 pm CLINICAL HISTORY: Head and neck injury status post fall. Head and neck pain COMPARISON: October 2023 TECHNIQUE: Computed axial tomography of the head and cervical spine was obtained. Sagittal and coronal reconstruction was performed. All CT scans are performed using dose optimization technique as appropriate and may include automated exposure control or mA/KV adjustment according to patient size. FINDINGS: An intracranial bleed is not seen. The ventricles are normal in caliber. No significant hypodensity within the brain. An extra-axial fluid collection is not noted. Fluid within the visualized sinuses and mastoids is not seen A cervical fracture is not visualized. No dislocation is noted. Mild chronic posterior subluxation C6 on C7. Mild chronic anterior subluxation C7 on T1 IMPRESSION: No acute intracranial abnormality is seen. A cervical fracture is not visualized. If the patient continues to have symptoms to suggest intracranial /spinal cord pathology then MRI wou ld be recommended
[2023-11-23 12:54] LABS: Absolute Basophils 0.1 K/uL (0-0.5); Absolute Eosinophils 0.3 K/uL (0-0.5); Absolute Lymphocytes (CBC) 0.8 K/uL (0.7-4.9); Absolute Monocytes 0.7 K/uL (0.1-1.3); Absolute Neutrophil 7.5 K/uL (1.8-8.0); Basophils % 0.9 % (0-1.3); Eosinophils % 2.7 % (0-4.4); Hematocrit 31.5 % (39.6-49.0); Hemoglobin 10.9 g/dL (13.6-17.9); Lymphocytes % 8.1 % (15.3-44.8); MCH 35.2 pg (27.0-35.0); MCHC 34.6 g/dL (32.0-36.0); MCV 101.6 fL (80-100); MPV 6.4 fL (7.6-11.3); Monocytes % 7.9 % (3.3-12.3); Neutrophils % 80.4 % (41.7-73.7); Platelets 244 thou/uL (152-406); Red Cell Distribution Width 16.3 % (12.1-15.2)
[2023-11-23 13:07] LABS: Anion Gap 9.1 mEq/L (5.0-15.0); Potassium 4.1 mEq/L (3.5-5.1)
--- NOTE | 2023-11-23 13:35 | RAD REPORT ---
EXAM DESCRIPTION: RAD - Hip Right 2 View - 11/23/2023 1:04 pm CLINICAL HISTORY: fall;Pain COMPARISON: No comparisons TECHNIQUE: Right hip, AP and frog-leg views. FINDINGS: Mildly displaced intertrochanteric fracture. . Periarticular soft tissue swelling. No acut e or destructive bony process seen. IMPRESSION: Mildly displaced intertrochanteric fracture.
--- NOTE | 2023-11-23 14:17 | EDPHYS ---
Physician Documentation [facility] Name: Tony Cunningham Age: 88 yrs Sex: Male : 1935 Arrival Date: 11/23/2023 Time: 11:30 Bed 16 Private MD: ED Physician Andry Velasquez HPI: 11/22 17:37 This 88 yrs old Male presents to ER via EMS with complaints of fall, right hip pain. ms3 17:37 88-year-old male with past medical history of hypothyroidism, BPH presents to the [facility] emergency department for repeated falls, hypotension, metabolic encephalopathy, BPH, COVID-19, hypothyroidism, hypertension presents to the emergency department for fall with right hip pain. Patient denies any alleviating or inciting factors. Historical: - Allergies: 12:28 No Known Allergies; cp4 - PMHx: 12:28 back problems; Hypothyroidism; BPH; cp4 - PSHx: 12:28 Thyroidectomy; cp4 - Immunization history:: Adult Immunizations up to date. - Social history:: Smoking status: Patient denies any tobacco usage or history of. ROS: 17:37 Constitutional: Negative for fever, and chills. Neck: Negative for injury, pain, and ms3 swelling, Cardiovascular: Negative for chest pain, and palpitations. Respiratory: Negative for shortness of breath, cough, wheezing, and pleuritic chest pain, Abdomen/GI: Negative for abdominal pain, nausea, vomiting, diarrhea, and constipation, 17:37 MS/extremity: Positive for right hip pain, Exam: 17:37 Constitutional: This is a well developed, well nourished patient who is awake, alert, ms3 and in no acute distress. Head/Face: Normocephalic, atraumatic. Chest/axilla: Normal chest wall appearance and motion. Nontender with no deformity. Cardiovascular: Regular rate and rhythm with a normal S1 and S2. No gallops, murmurs, or rubs. Normal PMI, no JVD. No pulse deficits. Respiratory: Lungs have equal breath sounds bilaterally, clear to auscultation and percussion. No rales, rhonchi or wheezes noted. No increased work of breathing, no retractions or nasal flaring. Abdomen/GI: Soft, non-tender, with normal bowel sounds. No distension or tympany. No guarding or rebound. No evidence of tenderness throughout. Skin: Warm, dry with normal turgor. Normal color with no rashes, no lesions, and no evidence of cellulitis. 17:37 Musculoskeletal/extremity: Extremities: noted in the right hip: pain, tenderness, Vital Signs: 12:26 BP 108 / 69; Pulse 62; Resp 18; Pulse Ox 97% ; cp4 13:00 BP 105 / 73; Pulse 65; Resp 18; Pulse Ox 97% ; cp4 14:00 BP 112 / 84; Pulse 67; Resp 18; Pulse Ox 99% ; cp4 15:00 BP 129 / 81; Pulse 67; Resp 18; Pulse Ox 98% ; cp4 16:00 BP 131 / 89; Pulse 66; Resp 18; Pulse Ox 98% ; cp4 17:00 BP 139 / 88; Pulse 72; Resp 18; Pulse Ox 99% ; cp4 18:00 BP 130 / 82; Pulse 68; Resp 18; Pulse Ox 98% ; cp4 19:00 BP 132 / 87; Pulse 67; Resp 18; Pulse Ox 99% ; cp4 MDM: 11:48 Patient medically screened. ms3 17:37 Differential diagnosis: contusion, fracture, sprain, strain. Data reviewed: vital ms3 signs, nurses notes, lab test result(s), radiologic studies, and as a result, I will admit patient. Consideration of Admission/Observation Patient was admitted/placed on observation. Management of patient was discussed with the following: Hospitalist: Dr Martinez. Diesel Engine Fitter: Dr Pelletier. I considered the following discharge prescriptions or medication management in the emergency department Medications were administered in the Emergency Department. See MAR. Independent interpretation of the following test(s) in the Emergency Department X-Ray: My interpretation is Right hip x-ray reviewed by me shows intertrochanteric hip fracture. Historians other than the Patient: EMS: [facility]. Counseling: I had a detailed discussion with the patient and/or guardian regarding the historical points, exam findings, and any diagnostic results supporting the discharge/admit diagnosis, lab results, radiology results, the need for further work-up and treatment in the hospital. 11/22 11:49 Order name: Basic Metabolic Panel; Complete Time: 14:03 ms3 11/22 11:49 Order name: CBC with Diff; Complete Time: 14:03 ms3 11/22 11:49 Order name: Type And Screen; Complete Time: 14:03 ms3 11/22 15:23 Order name: Basic Metabolic Panel EDMS 11/22 15:23 Order name: Basic Metabolic Panel EDMS 11/22 15:23 Order name: CBC with Automated Diff EDMS 11/22 15:23 Order name: CBC with Automated Diff EDMS 11/22 15:23 Order name: Magnesium EDMS 11/22 15:23 Order name: Magnesium EDMS 11/22 15:23 Order name: Phosphorus EDMS 11/22 15:23 Order name: Phosphorus EDMS 11/22 11:49 Order name: CT Head C Spine; Complete Time: 14:03 ms3 11/22 11:49 Order name: Hip Right 2 View XRAY; Complete Time: 14:03 ms3 11/22 11:49 Order name: Labs collected and sent; Complete Time: 12:49 ms3 Administered Medications: No medications were administered Disposition Summary: 11/23/23 14:16 Hospitalization Ordered Notes: Hospitalization Status: Inpatient Admission ms3 Provider: Ronny Martinez ms3 Condition: Stable ms3 Problem: new ms3 Symptoms: are unchanged ms3 Bed/Room Type: Standard ms3 Location: Telemetry/MedSurg (Inpatient)(11/23/23 18:41) Room Assignment: [facility](11/23/23 19:40) Diagnosis - Intertrochanteric fracture of femur ms3 - Fall on same level, unspecified ms3 - Abrasion of right forearm ms3 Forms: - Medication Reconciliation Form ms3 - SBAR form ms3 - Leadership Thank You Letter ms3 Signatures: Dispatcher [employer] EDMS Esmer Rojas RN Sumi Crawford RN RN Andry Rivera DO DO ms3 Aisha Leiva RN RN [email or web address] Jennifer Elizondo RN RN cm10 Jaimee Velazquez cp4 Corrections: (The following items were deleted from the chart) 15:28 15:22 CONS Physician Consult ordered. EDMS EDMS 17:30 14:16 Telemetry/MedSurg (Inpatient) ms3 kb3 17:30 14:16 ms3 kb3 18:41 17:30 [facility] ER HOLD kb3 dw 18:41 17:30 ERHOLD- kb3 dw 19:14 18:41 203 dw kl 19:23 19:14 225 kl cm10 19:40 19:23 214 cm10 kl 19:40 19:40 229 kl kl
--- NOTE | 2023-11-23 14:17 | ER ---
Nurse's Notes [facility] Name: Tony Cunningham Age: 88 yrs Sex: Male : 1935 Arrival Date: 11/23/2023 Time: 11:30 Bed 16 Private MD: Diagnosis: Intertrochanteric fracture of femur;Fall on same level, unspecified;Abrasion of right forearm Presentation: 11/22 12:26 Chief complaint: EMS states: right hip pain from fall. Coronavirus screen: Client cp4 denies travel out of the [place] in the last 14 days. At this time, the client does not indicate any symptoms associated with coronavirus-19. Ebola Screen: Patient negative for fever greater than or equal to 101.5 degrees Fahrenheit, and additional compatible Ebola Virus Disease symptoms Patient denies exposure to infectious person. Patient denies travel to an Ebola-affected area in the 21 days before illness onset. No symptoms or risks identified at this time. Initial Sepsis Screen: Does the patient meet any 2 criteria? No. Patient's initial sepsis screen is negative. Does the patient have a suspected source of infection? No. Patient's initial sepsis screen is negative. Risk Assessment: Do you want to hurt yourself or someone else? Patient reports no desire to harm self or others. Onset of symptoms was November 23, 2023. 12:26 Method Of Arrival: EMS: [facility] cp4 12:26 Acuity: CANELO 3 cp4 Triage Assessment: 12:30 General: Appears in no apparent distress. Behavior is calm, cooperative, appropriate cp4 for age. Pain: Complains of pain in right hip. Musculoskeletal: Reports pain in right hip. Historical: - Allergies: 12:28 No Known Allergies; cp4 - PMHx: 12:28 back problems; Hypothyroidism; BPH; cp4 - PSHx: 12:28 Thyroidectomy; cp4 - Immunization history:: Adult Immunizations up to date. - Social history:: Smoking status: Patient denies any tobacco usage or history of. Screenin:32 [facility] ED Fall Risk Assessment (Adult) History of falling in the last 3 months, cp4 including since admission No falls in past 3 months (0 pts). [facility] ED Fall Risk Assessment (Adult) History of falling in the last 3 months, including since admission Yes- fall prone (multiple falls) (3 pts) Confusion or Disorientation No (0 pts) Intoxicated or Sedated No (0 pts) Impaired Gait No (0 pts) Mobility Assist Device Used No (0 pt) Altered Elimination No (0 pt) Score/Fall Risk Level 3 or more points = High Risk Oriented to surroundings, Maintained a safe environment, Educated pt \T\ family on fall prevention, incl call for assistance when getting out of bed, Assessed \T\ reinforced patient's understanding of fall precautions, Provided non-skid footwear, Hourly rounding (assess needs \T\ fall precautionary measures) done. Abuse screen: Denies threats or abuse. Nutritional screening: No deficits noted. Tuberculosis screening: No symptoms or risk factors identified. Assessment: 12:32 Reassessment: Patient appears in no apparent distress at this time. cp4 Vital Signs: 12:26 BP 108 / 69; Pulse 62; Resp 18; Pulse Ox 97% ; cp4 13:00 BP 105 / 73; Pulse 65; Resp 18; Pulse Ox 97% ; cp4 14:00 BP 112 / 84; Pulse 67; Resp 18; Pulse Ox 99% ; cp4 15:00 BP 129 / 81; Pulse 67; Resp 18; Pulse Ox 98% ; cp4 16:00 BP 131 / 89; Pulse 66; Resp 18; Pulse Ox 98% ; cp4 17:00 BP 139 / 88; Pulse 72; Resp 18; Pulse Ox 99% ; cp4 18:00 BP 130 / 82; Pulse 68; Resp 18; Pulse Ox 98% ; cp4 19:00 BP 132 / 87; Pulse 67; Resp 18; Pulse Ox 99% ; cp4 ED Course: 11:48 Patient arrived in ED. eb 11:48 Andry Velasquez DO is Attending Physician. ms3 12:07 CT Head C Spine In Process Unspecified. EDMS 12:25 Jaimee Velazquez is Primary Nurse. cp4 12:28 Triage completed. cp4 12:30 Arm band placed on right wrist. Patient placed in an exam room, on a stretcher. cp4 12:32 Bed in low position. Call light in reach. Side rails up X2. cp4 12:32 Maintain EMS IV. Dressing intact. Good blood return noted. Site clean \T\ dry. Gauge \T\ cp 4 site: 20g RFA. 12:49 Basic Metabolic Panel Sent. cp4 12:49 CBC with Diff Sent. cp4 12:49 Type And Screen Sent. cp4 13:05 Hip Right 2 View XRAY In Process Unspecified. EDMS 14:12 Ronny Martinez is Hospitalizing Provider. ms3 19:33 Provided Education on: admission. cp4 19:33 No provider procedures requiring assistance completed. Patient admitted, IV remains in cp4 place. Administered Medications: No medications were administered Medication: 12:32 VIS not applicable for this client. cp4 Outcome: 14:16 Decision to Hospitalize by Provider. ms3 19:33 Admitted to Med/surg accompanied by tech, via stretcher, Report called to Lindsay rodríguez 19:33 Condition: stable 19:33 Instructed on the need for admit, Demonstrated understanding of instructions, follow-up care, 19:40 Patient left the ED. cp4 Signatures: Dispatcher [employer] EDMN Araceli Starks Marcus, DO DO ms3 Jaimee Velazquez cp4
--- NOTE | 2023-11-23 14:57 | P.HP ---
Certification for Inpatient Patient admitted to: Inpatient With expected LOS: >2 Midnights Patient will require the following post-hospital care: Other ([facility] assisted living) Practitioner: I am a practitioner with admitting privileges, knowledge of patient current condition, hospital course, and medical plan of care. Services: Services provided to patient in accordance with Admission requirements found in Title 42 Section 412.3 of the Code of Federal Regulations Patient History Date of Service: 11/23/23 Reason for admission: Right intertrochanteric fracture History of Present Illness: Tony Cunningham is an 88 year old male with past medical history of back problems; Hypothyroidism (thyroidectomy); BPH; who presents to the ED with chief complaints of right hip pain. He reports falling today at the [place] ([facility]). He is confused of his situation, does not remember falling and initially denied right hip pain. On examination, his right leg is externally rotated, he is calm and cooperative, in no acute distress. Initial vitals: BP 108 / 69; Pulse 62; Resp 18; Pulse Ox 97% Laboratory evaluation unremarkable CT head reports "An intracranial bleed is not seen. The ventricles are normal in caliber. No significant hypodensity within the brain. An extra-axial fluid collection is not noted. Fluid within the visualized sinuses and mastoids is not seen. A cervical fracture is not visualized. No dislocation is noted. Mild chronic posterior subluxation C6 on C7. Mild chronic anterior subluxation C7 on T1. IMPRESSION: No acute intracranial abnormality is seen. A cervical fracture is not visualized." Right hip xray reports "Mildly displaced intertrochanteric fracture. Periarticular soft tissue swelling. No acute or destructive bony process seen. IMPRESSION: Mildly displaced intertrochanteric fracture" Tony will be admitted to hospitalist service for further treatment of Right intertrochanteric fracture, Dr. Pelletier consulted. Allergies No Known Allergies Allergy (Unverified 09/05/23 19:09) Home Medications: Acetaminophen [Tylenol] 650 mg PO Q6H 09/01/23 Levothyroxine [Synthroid*] 0.112 mg PO DAILY 09/01/23 Lidocaine [Aspercreme Lidocaine] 1 patch TOP DAILY 09/01/23 Melatonin 3 mg PO BEDTIME PRN 09/01/23 Sennosides/Docusate Sodium [Senna-Docusate Sodium Tablet] 2 tab PO BEDTIME PRN 09/01/23 Tamsulosin HCl [Flomax] 0.4 mg PO DAILY 09/01/23 Acetaminophen [Tylenol*] 650 mg PO Q6H PRN tab 09/08/23 Cranberry Fruit Extract 200 mg PO BID cap 09/08/23 Docusate/Senna [Senokot-S*] 2 tab PO BEDTIME PRN tab 09/08/23 Donepezil [Aricept*] 5 mg PO DAILY #30 tab 09/08/23 Ensure Enlive 237 ml PO BID can 09/08/23 Lidocaine 4% Patch [Lidoderm 5% Patch*] 1 patch TOP DAILY pat 09/08/23 Midodrine HCl [Proamatine*] 5 mg PO 0700 #30 tab 09/08/23 - Past Medical/Surgical History Diabetic: No - Social History Alcohol use: No CD- Drugs: No Caffeine use: No Review of Systems General: Weakness Physical Examination - Physical Exam General: Alert, In no apparent distress, Oriented x2 HEENT: Atraumatic, Normocephalic, PERRLA Neck: Supple, 2+ carotid pulse no bruit, JVD not distended Respiratory: Clear to auscultation bilaterally, Normal air movement Cardiovascular: Normal pulses, Regular rate/rhythm, Normal S1 S2 Capillary refill: <2 Seconds Gastrointestinal: Normal bowel sounds, Soft and benign Musculoskeletal: No contractures, Other (right Lower extremity externally rotated) Integumentary: Skin breakdown (right arm) Neurological: Normal speech, Normal strength at 5/5 x4 extr - Studies Laboratory Data (last 24 hrs) 11/23/23 11/23/23 12:44 12:44 WBC 9.30 Hgb 10.9 L Hct 31.5 L Plt Count 244 Sodium 136 Potassium 4.1 BUN 33 H Creatinine 1.08 Glucose 106 Assessment and Plan - Plan Assessment and plan Acute right intertrochanteric fracture Trauma Fall -Right hip xray reports "IMPRESSION: Mildly displaced intertrochanteric fracture" -CT head reports "An intracranial bleed is not seen. The ventricles are normal in caliber. No significant hypodensity within the brain. An extra-axial fluid collection is not noted. Fluid within the visualized sinuses and mastoids is not seen. A cervical fracture is not visualized. No dislocation is noted. Mild chronic posterior subluxation C6 on C7. Mild chronic anterior subluxation C7 on T1. IMPRESSION: No acute intracranial abnormality is seen. A cervical fracture is not visualized." -Pain medications -antiemetic -gentle IVF -Dr. Pelletier consulted- NPO at midnight with surgical procedure around noon 3/8 -bedrest -PT s/p surgery History Hypothyroidism with thyroidectomy History BPH Restart home medications DVT ppx: SCD, orthopedic will order Lovenox when appropriate Full COde LOS 3 days Discharge Plan: Snf Plan to discharge in: 48 Hours - Advance Directives Does patient have a Living Will: No Does patient have a Durable POA for Healthcare: No Time Spent Managing Pts Care (In Minutes): 50
[2023-11-23] MEDS ORDERED: MORPHINE 2 MG/ML SYR IV PRN (15:11)
[2023-11-23] MEDS ORDERED: ONDANSETRON 4 MG/2 ML VIAL IV PRN (15:11)
[2023-11-23] MEDS ORDERED: HYDRALAZINE HCL 20 MG/ML VIAL IV PRN (15:24)
[2023-11-23 23:05] VITALS: BMI 19.1
[2023-11-24 03:55] LABS: Absolute Eosinophils 0.4 K/uL (0-0.5); Absolute Lymphocytes (CBC) 0.8 K/uL (0.7-4.9); Absolute Monocytes 0.8 K/uL (0.1-1.3); Absolute Neutrophil 6.8 K/uL (1.8-8.0); Basophils % 0.5 % (0-1.3); Eosinophils % 4.7 % (0-4.4); Hematocrit 32.5 % (39.6-49.0); Hemoglobin 11.1 g/dL (13.6-17.9); Lymphocytes % 9.4 % (15.3-44.8); MCH 34.6 pg (27.0-35.0); MCHC 34.1 g/dL (32.0-36.0); MCV 101.5 fL (80-100); MPV 6.8 fL (7.6-11.3); Monocytes % 8.9 % (3.3-12.3); Neutrophils % 76.5 % (41.7-73.7); Platelets 234 thou/uL (152-406); Red Cell Distribution Width 16.2 % (12.1-15.2)
[2023-11-24 04:10] LABS: Anion Gap 8.9 mEq/L (5.0-15.0); Magnesium 2.3 mg/dL (1.6-2.4); Potassium 3.9 mEq/L (3.5-5.1)
[2023-11-24] MEDS: NA CHLORIDE 0.9% 1,000 ML IV SCH (07:03)
--- NOTE | 2023-11-24 09:11 | P.PN ---
Date of Service: 11/24/23 Subjective Surgery today Tony is AAOx3, calm and cooperative. no new complaints ROS 10 point ROS as noted above, otherwise negative Physical Exam General: AAOx3, NAD HEENT: Atraumatic, Normocephalic, PERRLA Neck: Supple, 2+ carotid pulse no bruit, JVD not distended Respiratory: Clear to auscultation bilaterally, Normal air movement Cardiovascular: Normal pulses, RRR, S1 S2 present Capillary refill: <2 Seconds Gastrointestinal: Normal bowel sounds, Soft and benign Musculoskeletal: No contractures, Other (right Lower extremity externally rotated) Integumentary: Skin breakdown (right arm) Neurological: Normal speech, Normal strength at 5/5 x4 extr Vitals Reviewed Problem list Acute right intertrochanteric fracture Trauma Fall History Hypothyroidism with thyroidectomy History BPH Assessment and Plan Acute right intertrochanteric fracture Trauma Fall -Right hip xray reports "IMPRESSION: Mildly displaced intertrochanteric fracture" -CT head reports "An intracranial bleed is not seen. The ventricles are normal in caliber. No significant hypodensity within the brain. An extra-axial fluid collection is not noted. Fluid within the visualized sinuses and mastoids is not seen. A cervical fracture is not visualized. No dislocation is noted. Mild chronic posterior subluxation C6 on C7. Mild chronic anterior subluxation C7 on T1. IMPRESSION: No acute intracranial abnormality is seen. A cervical fracture is not visualized." -Pain medications -antiemetic -gentle IVF -Dr. Pelletier consulted- surgery today -PT s/p surgery -perioperative ancef History Hypothyroidism with thyroidectomy History BPH Restart home medications DVT ppx: lovenox Full COde LOS 3 days
[2023-11-24] MEDS: TRANEXAMIC ACID 1,000 MG/10 ML VIAL IV ONE (12:09)
[2023-11-24] MEDS ORDERED: LIDOCAINE 1% MPF 5 ML VIAL ONE (12:26)
[2023-11-24] MEDS ORDERED: ONDANSETRON 4 MG/2 ML VIAL ONE (12:26)
[2023-11-24] MEDS ORDERED: propofoL 200 MG/20 ML VIAL IV ONE (12:26)
[2023-11-24] MEDS ORDERED: FENTANYL CITR 100 MCG/2 ML ONE (12:26)
[2023-11-24] MEDS: CEFAZOLIN SODIUM 2 GM/VIAL ONE (12:30)
[2023-11-24] MEDS ORDERED: Phenylephrine HCl 10 MG/ML 1 ML VIAL ONE (12:53)
[2023-11-24 14:37] VITALS: O2SAT 97
--- NOTE | 2023-11-24 14:45 | CON ---
Preoperative Diagnosis: Right intertrochanteric hip fracture. Reason For Consultation: Patient sustained a fall in [facility]. Resulted in a right IT hip fract ure. He suffers from Parkinson's and host of other medical conditions that have been optimized. We will p roceed with an intramedullary rodding of his hip. MAYANK Voice ID: [id number] Report ID: [id number]
--- NOTE | 2023-11-24 14:54 | RAD REPORT ---
EXAM DESCRIPTION: RAD - Pelvis - 11/24/2023 2:46 pm CLINICAL HISTORY: s/p right hip IM rodding COMPARISON: Hip Right 2 View dated 11/23/2023 FINDINGS/IMPRESSION: Status post right hip ORIF with cephalomedullary screw. No hardware complicatio ns. No pelvic fractures fractures. The left hip is intact.
--- NOTE | 2023-11-24 14:55 | RAD REPORT ---
EXAM DESCRIPTION: RAD - Hip Right 2 View - 11/24/2023 2:18 pm CLINICAL HISTORY: RODDING COMPARISON: Hip Right 2 View dated 11/23/2023 FINDINGS/IMPRESSION: Fourteen intraoperative fluoroscopic images submitted demonstrating a right hip ORIF. No radiologist was available for the procedure, nor will any image interpretation be provided. Sandrita wilcox refer to the procedural report for additional details Fluoro time: 1.6 minutes Cumulative dose: 12.5 mGy
--- NOTE | 2023-11-24 15:21 | OP ---
Surgeon: Santi Pelletier MD Wind Up Worker: None. Preoperative Diagnosis: Right intertrochanteric hip fracture. Postoperative Diagnosis: Right intertrochanteric hip fracture. Procedure Performed: Intramedullary rodding, right intertrochanteric hip fracture. Anesthesia: General. Disposition: Recovery room, stable. Procedure In Detail: The patient was taken to the operative suite, placed in supine position, induce d with anesthesia, was suspended in the fracture table. Entry portal was created over the tip of the greater trochanter. A 13 x 130 nail was then passed with single stage reaming. 105 mm cephalomedul jose alberto lag screw was placed in the subchondral bone of the femoral head. Verified on biplane radiograp hy. Set screw was deployed. Distal interlocking screw with a 42 mm x 5 mm screw was then placed. A layered closure was performed. Patient tolerated the procedure well. He is being reversed from ane sthesia and should be in the recovery room shortly. ARTURO/BLAKE Voice ID: [id number] Report ID: [id number]
[2023-11-24] MEDS: NACHLORIDE 0.45% 1,000 ML IV SCH (15:47)
[2023-11-24] MEDS: CEFAZOLIN 1 GM in NA CHLORIDE 0.9% 50 ML IVPB SCH (15:47)
[2023-11-24] MEDS: TRAZODONE 50 MG TABLET PO SCH (19:27)
[2023-11-24] MEDS: DONEPEZIL HCL 5 MG TAB PO SCH (19:54)
[2023-11-24] MEDS: MELATONIN 3 MG TABLET PO PRN (19:54)
[2023-11-24] MEDS: TAMSULOSIN 0.4 MG SR CAP PO SCH (19:54)
[2023-11-25] MEDS: HYDROCODONE/APAP 5/325 MG TAB PO PRN (04:46)
[2023-11-25] MEDS: LEVOTHYROXINE SOD 0.112 MG TAB PO SCH (05:09)
[2023-11-25] MEDS: ENOXAPARIN 30 MG/0.3 ML SQ SCH (05:30)
[2023-11-25 07:23] LABS: Anion Gap 8.4 mEq/L (5.0-15.0); Potassium 4.4 mEq/L (3.5-5.1)
[2023-11-25] MEDS: ENSURE SURGERY 237 ML CAN PO SCH (08:15)
[2023-11-25] MEDS: MIDODRINE HCL 5 MG TABLET PO SCH (08:15)
[2023-11-25 08:27] LABS: Absolute Eosinophils 0.3 K/uL (0-0.5); Absolute Lymphocytes (CBC) 0.9 K/uL (0.7-4.9); Absolute Monocytes 0.8 K/uL (0.1-1.3); Absolute Neutrophil 6.4 K/uL (1.8-8.0); Basophils % 0.6 % (0-1.3); Eosinophils % 3.3 % (0-4.4); Hematocrit 31.1 % (39.6-49.0); Hemoglobin 10.7 g/dL (13.6-17.9); Lymphocytes % 10.1 % (15.3-44.8); MCHC 34.3 g/dL (32.0-36.0); MPV 6.9 fL (7.6-11.3); Platelets 268 thou/uL (152-406); RBC Red Blood Cell Count 3.05 M/uL (4.33-5.43); Red Cell Distribution Width 15.8 % (12.1-15.2)
--- NOTE | 2023-11-25 11:32 | P.PN ---
Date of Service: 11/25/23 Subjective No complaints, reports feeling tired, dementia noted no complaints of pain ROS 10 point ROS as noted above, otherwise negative Physical Exam General: AAOx3, NAD, dementia HEENT: Atraumatic, Normocephalic, PERRLA Neck: Supple, 2+ carotid pulse no bruit, JVD not distended Respiratory: Clear to auscultation bilaterally, symmetrical chest wall movement, on room air Cardiovascular: Normal pulses, regular rate and rhythm, S1 S2 present, no murmur noted Capillary refill: <2 Seconds Gastrointestinal: Normal bowel sounds, Soft and benign, NT/ND Musculoskeletal: No contractures, Other (right Lower extremity externally rotated) Integumentary: Skin breakdown (right arm) Neurological: Normal speech, Normal strength at 5/5 x4 extr, dementia Vitals Reviewed Problem list Acute right intertrochanteric fracture Trauma Fall History Hypothyroidism with thyroidectomy History BPH History of Dementia Assessment and Plan Acute right intertrochanteric fracture Trauma Fall -Right hip xray reports "IMPRESSION: Mildly displaced intertrochanteric fracture" -CT head reports "An intracranial bleed is not seen. The ventricles are normal in caliber. No significant hypodensity within the brain. An extra-axial fluid collection is not noted. Fluid within the visualized sinuses and mastoids is not seen. A cervical fracture is not visualized. No dislocation is noted. Mild chronic posterior subluxation C6 on C7. Mild chronic anterior subluxation C7 on T1. IMPRESSION: No acute intracranial abnormality is seen. A cervical fracture is not visualized." -Pain medications -antiemetic -gentle IVF -Dr. Pelletier consulted- surgery 11/24/23 -PT s/p surgery -perioperative ancef History Hypothyroidism with thyroidectomy History BPH History of Dementia home medications DVT ppx: lovenox Full COde LOS 3 days
--- NOTE | 2023-11-25 18:56 | CON ---
Chief Complaint: Right hip fracture. Reason For Consultation: The patient sustained a right intertrochanteric hip fracture in his home. He is being medically optimized. We will proceed with a right hip intramedullary rodding when he is medically cleared. I do not see any health indications to contraindicate this. He will be followed up at his operative setting. MAYANK Voice ID: [id number] Report ID: [id number]
--- NOTE | 2023-11-26 07:38 | P.PN ---
Date of Service: 11/26/23 Subjective Awake, sitting up in bed and eating breakfast More clear thought this morning. Awaiting for orthopedic to clear for discharge ROS 10 point ROS as noted above, otherwise negative Physical Exam General: AAOx3, NAD, dementia HEENT: Atraumatic, Normocephalic, PERRLA Neck: Supple, 2+ carotid pulse no bruit, JVD not distended Respiratory: Clear to auscultation bilaterally, symmetrical chest wall movement, on room air Cardiovascular: RRR, S1 S2 present, no murmur noted Capillary refill: <2 Seconds Gastrointestinal: bowel sounds present, Soft and benign, NT/ND Musculoskeletal: No contractures, 2+ peripheral pulses, Other (right Lower extremity externally rotated), Right hip dressing C/D/I Integumentary: Skin breakdown (right arm) Neurological: Normal speech, Normal strength at 5/5 x4 extr, dementia Vitals Reviewed Problem list Acute right intertrochanteric fracture Trauma Fall History Hypothyroidism with thyroidectomy History BPH History of Dementia Assessment and Plan Acute right intertrochanteric fracture Trauma Fall -Right hip xray reports "IMPRESSION: Mildly displaced intertrochanteric fracture" -CT head reports "An intracranial bleed is not seen. The ventricles are normal in caliber. No significant hypodensity within the brain. An extra-axial fluid collection is not noted. Fluid within the visualized sinuses and mastoids is not seen. A cervical fracture is not visualized. No dislocation is noted. Mild chronic posterior subluxation C6 on C7. Mild chronic anterior subluxation C7 on T1. IMPRESSION: No acute intracranial abnormality is seen. A cervical fracture is not visualized." -Pain medications -antiemetic -gentle IVF -Dr. Pelletier consulted- surgery 11/24/23 -PT s/p surgery -perioperative ancef Hypotension Orthostatic vitals: Lying 97/58, Sitting 94/59 Midodrine TID History Hypothyroidism with thyroidectomy History BPH History of Dementia home medications DVT ppx: lovenox Full COde LOS 3 days
[2023-11-26 09:29] LABS: Absolute Eosinophils 0.3 K/uL (0-0.5); Absolute Lymphocytes (CBC) 0.6 K/uL (0.7-4.9); Absolute Monocytes 0.3 K/uL (0.1-1.3); Absolute Neutrophil 6.2 K/uL (1.8-8.0); Basophils % 0.6 % (0-1.3); Eosinophils % 3.6 % (0-4.4); Hematocrit 35.1 % (39.6-49.0); Hemoglobin 11.8 g/dL (13.6-17.9); Lymphocytes % 7.6 % (15.3-44.8); MCH 34.3 pg (27.0-35.0); MCHC 33.6 g/dL (32.0-36.0); MCV 102.3 fL (80-100); MPV 6.7 fL (7.6-11.3); Monocytes % 4.3 % (3.3-12.3); Neutrophils % 83.9 % (41.7-73.7); Nucleated Red Blood Cells % 0.1 % (0-0); Platelets 221 thou/uL (152-406); RBC Red Blood Cell Count 3.43 M/uL (4.33-5.43); Red Cell Distribution Width 16.3 % (12.1-15.2)
[2023-11-26 09:41] LABS: Albumin 2.5 g/dL (3.4-5.0); Anion Gap 8.2 mEq/L (5.0-15.0); Potassium 4.2 mEq/L (3.5-5.1)
[2023-11-26] MEDS: MIDODRINE HCL 5 MG TABLET PO SCH ×2 (12:24→20:05)
[2023-11-27 06:49] LABS: Absolute Basophils 0.1 K/uL (0-0.5); Absolute Eosinophils 0.3 K/uL (0-0.5); Absolute Lymphocytes (CBC) 0.9 K/uL (0.7-4.9); Absolute Monocytes 0.6 K/uL (0.1-1.3); Absolute Neutrophil 5.4 K/uL (1.8-8.0); Eosinophils % 4.7 % (0-4.4); Hematocrit 32.6 % (39.6-49.0); Hemoglobin 11.1 g/dL (13.6-17.9); Lymphocytes % 12.6 % (15.3-44.8); MCH 34.8 pg (27.0-35.0); MCV 102.4 fL (80-100); MPV 6.9 fL (7.6-11.3); Monocytes % 8.2 % (3.3-12.3); Neutrophils % 73.5 % (41.7-73.7); Platelets 279 thou/uL (152-406); RBC Red Blood Cell Count 3.19 M/uL (4.33-5.43); Red Cell Distribution Width 16.2 % (12.1-15.2)
[2023-11-27 07:07] LABS: Albumin 2.4 g/dL (3.4-5.0); Anion Gap 6.3 mEq/L (5.0-15.0); Phosphorus 3.2 mg/dL (2.5-4.9); Potassium 4.3 mEq/L (3.5-5.1)
--- NOTE | 2023-11-27 09:03 | P.PN ---
Date of Service: 11/27/23 Subjective Sleeping this morning, arouses easily Dr. Pelletier has cleared for discharge Awaiting for inpatient rehab ROS 10 point ROS as noted above, otherwise negative Physical Exam General: AAOx2, NAD, dementia HEENT: Atraumatic, Normocephalic, PERRLA Neck: Supple, 2+ carotid pulse no bruit, JVD not distended Respiratory: Clear to auscultation bilaterally, symmetrical chest wall movement, on room air Cardiovascular: Regular rate and rhythm, normal S1 S2, no murmur noted Capillary refill: <2 Seconds Gastrointestinal: bowel sounds normal, Soft and benign on palpation, NT/ND Musculoskeletal: No contractures, 2+ peripheral pulses, Other (right Lower extremity externally rotated), Right hip dressing C/D/I Integumentary: Skin breakdown (right arm) Neurological: Normal speech, Normal strength at 5/5 x4 extr, dementia Vitals Reviewed Problem list Acute right intertrochanteric fracture Trauma Fall History Hypothyroidism with thyroidectomy History BPH History of Dementia Assessment and Plan Acute right intertrochanteric fracture Trauma Fall -Right hip xray reports "IMPRESSION: Mildly displaced intertrochanteric fracture" -CT head reports "An intracranial bleed is not seen. The ventricles are normal in caliber. No significant hypodensity within the brain. An extra-axial fluid collection is not noted. Fluid within the visualized sinuses and mastoids is not seen. A cervical fracture is not visualized. No dislocation is noted. Mild chronic posterior subluxation C6 on C7. Mild chronic anterior subluxation C7 on T1. IMPRESSION: No acute intracranial abnormality is seen. A cervical fracture is not visualized." -Pain medications -antiemetic -gentle IVF -Dr. Pelletier consulted- surgery 11/24/23 -PT s/p surgery- TDWB is difficult to understand -perioperative ancef stopped 11/25 -Dr. Pelletier has cleared for discharge -inpatient rehab at discharge Hypotension -Orthostatic vitals: Lying 97/58, Sitting 94/59 -Midodrine TID -BP improved today History Hypothyroidism with thyroidectomy History BPH History of Dementia -home medications DVT ppx: lovenox Full COde LOS 2 day- inpatient rehab if possible
[2023-11-28 03:54] LABS: Absolute Basophils 0.1 K/uL (0-0.5); Absolute Eosinophils 0.3 K/uL (0-0.5); Absolute Lymphocytes (CBC) 1.4 K/uL (0.7-4.9); Absolute Monocytes 0.6 K/uL (0.1-1.3); Basophils % 0.9 % (0-1.3); Eosinophils % 4.7 % (0-4.4); Hematocrit 31.7 % (39.6-49.0); Lymphocytes % 18.4 % (15.3-44.8); MCH 35.3 pg (27.0-35.0); MCHC 34.6 g/dL (32.0-36.0); MCV 102.1 fL (80-100); MPV 6.9 fL (7.6-11.3); Monocytes % 7.6 % (3.3-12.3); Neutrophils % 68.4 % (41.7-73.7); Nucleated Red Blood Cells % 0.1 % (0-0); Platelets 306 thou/uL (152-406); RBC Red Blood Cell Count 3.11 M/uL (4.33-5.43); Red Cell Distribution Width 15.7 % (12.1-15.2)
[2023-11-28 08:32] LABS: Albumin 2.5 g/dL (3.4-5.0); Anion Gap 8.8 mEq/L (5.0-15.0); Potassium 4.8 mEq/L (3.5-5.1)
--- NOTE | 2023-11-28 11:58 | P.PN ---
Date of Service: 11/28/23 Subjective Awake, conversive this morning Oriented x 2 Denies any specific complaints Awaiting disposition with possible inpatient rehab ROS 10 point ROS as noted above, otherwise negative Physical Exam General: AAOx2, NAD, dementia HEENT: Atraumatic, Normocephalic, PERRLA Neck: Supple, JVD not distended Respiratory: Clear to auscultation bilaterally on room air Cardiovascular: Regular rate and rhythm, normal S1 S2, no murmur noted Gastrointestinal: bowel sounds normal, Soft and benign on palpation, NT/ND Musculoskeletal: No contractures, 2+ peripheral pulses,Right hip dressing C/D/I Integumentary: Skin breakdown (right arm) Neurological: Normal speech, Normal strength at 5/5 x4 extr, dementia Vitals Reviewed Problem list Acute right intertrochanteric fracture Fall History Hypothyroidism with thyroidectomy History BPH History of Dementia Plan Acute right intertrochanteric fracture Fall -Dr. Pelletier performed surgery 11/24/23 -PT s/p surgery- TDWB is difficult to understand -Dr. Pelletier has cleared for discharge -Working with PT to determine level of care needs at discharge Hypotension -Orthostatic vitals -Midodrine TID -Has had episodes of syncope/near syncope associated with movement during PT evaluation -Trazodone has been discontinued as per family request History Hypothyroidism with thyroidectomy History BPH History of Dementia -Continue home medications DVT ppx: lovenox Full COde LOS 2 day- inpatient rehab
[2023-11-29 03:40] LABS: Absolute Basophils 0.1 K/uL (0-0.5); Absolute Eosinophils 0.3 K/uL (0-0.5); Absolute Lymphocytes (CBC) 1.5 K/uL (0.7-4.9); Absolute Monocytes 0.7 K/uL (0.1-1.3); Absolute Neutrophil 4.4 K/uL (1.8-8.0); Basophils % 0.9 % (0-1.3); Eosinophils % 4.4 % (0-4.4); Hematocrit 32.7 % (39.6-49.0); Hemoglobin 11.1 g/dL (13.6-17.9); Lymphocytes % 21.1 % (15.3-44.8); MCH 34.5 pg (27.0-35.0); MCHC 34.1 g/dL (32.0-36.0); MCV 101.2 fL (80-100); MPV 6.8 fL (7.6-11.3); Monocytes % 9.7 % (3.3-12.3); Neutrophils % 63.9 % (41.7-73.7); Nucleated Red Blood Cells % 0.1 % (0-0); Platelets 309 thou/uL (152-406); RBC Red Blood Cell Count 3.23 M/uL (4.33-5.43); Red Cell Distribution Width 15.8 % (12.1-15.2)
[2023-11-29 04:02] LABS: Albumin 2.4 g/dL (3.4-5.0); Anion Gap 9.2 mEq/L (5.0-15.0); Potassium 4.2 mEq/L (3.5-5.1)
[2023-11-29 06:57] LABS: Anion Gap 8.3 mEq/L (5.0-15.0); Potassium 4.3 mEq/L (3.5-5.1)
[2023-11-29 07:40] LABS: Thyroid Stimulating Hormone 4.57 uIU/mL (0.358-3.740)
[2023-11-29] MEDS: POLYETHYL GLY 3350 17 GM/DOSE PO ONE (09:10)
--- NOTE | 2023-11-29 11:25 | P.PN ---
Date of Service: 11/29/23 Subjective Awake, conversive this morning Oriented x 2 Denies any specific complaints Awaiting disposition with possible inpatient rehab Family attributes previous falls to trazodone ROS 10 point ROS as noted above, otherwise negative Physical Exam General: AAOx2, NAD, dementia HEENT: Atraumatic, Normocephalic, PERRLA Neck: Supple, JVD not distended Respiratory: Clear to auscultation bilaterally on room air Cardiovascular: Regular rate and rhythm, normal S1 S2, no murmur noted Gastrointestinal: bowel sounds normal, Soft and benign on palpation, NT/ND Musculoskeletal: No contractures, 2+ peripheral pulses,Right hip dressing C/D/I Integumentary: Skin breakdown (right arm) Neurological: Normal speech, Normal strength at 5/5 x4 extr, dementia Vitals Reviewed Problem list Acute right intertrochanteric fracture Fall History Hypothyroidism with thyroidectomy History BPH History of Dementia Plan Acute right intertrochanteric fracture Fall -Dr. Pelletier performed surgery 11/24/23 -PT s/p surgery- TDWB is difficult to understand -Dr. Pelletier has cleared for discharge -Working with PT to determine level of care needs at discharge -Family attributes falls to trazodone, trazodone discontinued -family also reports patient typically is awake a lot at night and does like to wander/walk around -Do not give trazodone without discussing further with family -Awaiting PT eval again today to determine level of care required at DC Hypotension -Orthostatic vitals -Midodrine TID -Has had episodes of syncope/near syncope associated with movement during PT evaluation -Trazodone has been discontinued as per family request History Hypothyroidism with thyroidectomy History BPH History of Dementia -Continue home medications DVT ppx: lovenox Full Code LOS 2 day- inpatient rehab
--- NOTE | 2023-11-29 17:23 | P.DS ---
Admission Date: 11/23/23 Discharge Date: 11/30/23 Disposition: TRANSFER TO INPATIENT REHAB Discharge Condition: GOOD Reason for Admission: Right intertrochanteric fracture Consultations: Dr. Pelletier- Ortho Procedures: 11/23 right intertrochanteric femur fracture and intramedullary ron Brief History of Present Illness: 88-year-old male who is admitted to the hospital for right intertrochanteric femur fracture after sustaining a fall at the assisted living facility Hospital Course: Problem list Acute right intertrochanteric fracture Fall orthostatic hypotension History Hypothyroidism with thyroidectomy History BPH History of Dementia Patient was admitted to the hospital for right intertrochanteric femur fracture, he was evaluated by orthopedic surgeonDr. Pelletier and had intramedullary rodding performed of the right intertrochanteric hip fracture on 11/24/2023. He was evaluated by physical therapy and had slow continued improvement, was seen to be a candidate for inpatient rehab for further physical therapy after his hip fracture. Of note his family believes that trazodone was contributing to his fall risk, this medication has now been discontinued. Please discuss with family before reinitiating this medication. Vital Signs/Physical Exam: Temp Pulse Resp BP Pulse Ox 97.2 F 66 15 116/76 97 11/29/23 16:00 11/29/23 16:00 11/29/23 16:00 11/29/23 16:00 11/29/23 16:00 General: Alert, In no apparent distress, Oriented x2 HEENT: Atraumatic, PERRLA Neck: Supple, JVD not distended Respiratory: Clear to auscultation bilaterally, Normal air movement Cardiovascular: Regular rate/rhythm, Normal S1 S2 Gastrointestinal: Normal bowel sounds, No tenderness Musculoskeletal: No tenderness Integumentary: No rashes Neurological: Normal speech, Normal tone, Normal affect Laboratory Data at Discharge: WBC 6.90 thou/uL (4.3-10.9) 11/29/23 03:02 Hgb 11.1 g/dL (13.6-17.9) L 11/29/23 03:02 Hct 32.7 % (39.6-49.0) L 11/29/23 03:02 Plt Count 309 thou/uL (152-406) 11/29/23 03:02 Sodium 133 mEq/L (136-145) L 11/29/23 06:19 Potassium 4.3 mEq/L (3.5-5.1) 11/29/23 06:19 BUN 26 mg/dL (7-18) H 11/29/23 06:19 Creatinine 0.66 mg/dL (0.70-1.30) L 11/29/23 06:19 Glucose 98 mg/dL (74-106) 11/29/23 06:19 Phosphorus 3.0 mg/dL (2.5-4.9) 11/29/23 03:02 Magnesium 2.3 mg/dL (1.6-2.4) 11/24/23 03:18 Home Medications: Levothyroxine [Synthroid*] 0.112 mg PO DAILY 09/01/23 Melatonin 6 mg PO BEDTIME PRN 09/01/23 Tamsulosin HCl [Flomax] 0.4 mg PO BEDTIME 09/01/23 Acetaminophen [Tylenol*] 650 mg PO Q6H PRN tab 09/08/23 Donepezil [Aricept*] 5 mg PO DAILY #30 tab 09/08/23 Midodrine HCl [Proamatine*] 5 mg PO 0700 #30 tab 09/08/23 Lidocaine 4% Patch [Lidoderm 5% Patch*] 1 patch TOP DAILYPRN PRN 11/23/23 Loperamide HCl [Anti-Diarrheal] 2 mg PO Q6HP PRN 11/23/23 Sennosides/Docusate Sodium [Senexon-S 50-8.6 mg Tablet] 2 each PO DAILYPRN PRN 11/23/23 Enoxaparin Sodium [Lovenox 30 MG INJ*] 30 mg SQ BID syr 11/29/23 Physician Discharge Instructions: 88-year-old male who is admitted to the hospital for right intertrochanteric femur fracture after sustaining a fall at the assisted living facility Patient was admitted to the hospital for right intertrochanteric femur fracture, he was evaluated by orthopedic surgeonDr. Pelletier and had intramedullary rodding performed of the right intertrochanteric hip fracture on 11/24/2023. He was evaluated by physical therapy and had slow continued improvement, was seen to be a candidate for inpatient rehab for further physical therapy after his hip fracture. Of note his family believes that trazodone was contributing to his fall risk, this medication has now been discontinued. Please discuss with family before reinitiating this medication. Diet: Regular Activity: Weight bearing as tolerated Followup: Stephany Bhagat MD [ACTIVE - CAN ADMIT] - Tello Sandra MD [ACTIVE - CAN ADMIT] - Time spent managing pt's care (in minutes): 30
[2023-11-30] MEDS: MAGNES/ALUMIN/SIMET 30ML UCUP PO PRN (01:37)
[2023-11-30 04:00] LABS: Absolute Basophils 0.1 K/uL (0-0.5); Absolute Eosinophils 0.2 K/uL (0-0.5); Absolute Lymphocytes (CBC) 1.2 K/uL (0.7-4.9); Absolute Monocytes 0.7 K/uL (0.1-1.3); Basophils % 0.5 % (0-1.3); Eosinophils % 1.8 % (0-4.4); Hematocrit 33.3 % (39.6-49.0); Hemoglobin 11.6 g/dL (13.6-17.9); Lymphocytes % 11.6 % (15.3-44.8); MCH 34.9 pg (27.0-35.0); MCHC 34.7 g/dL (32.0-36.0); MCV 100.6 fL (80-100); MPV 6.6 fL (7.6-11.3); Monocytes % 7.2 % (3.3-12.3); Neutrophils % 78.9 % (41.7-73.7); Nucleated Red Blood Cells % 0.1 % (0-0); Platelets 388 thou/uL (152-406); RBC Red Blood Cell Count 3.31 M/uL (4.33-5.43); Red Cell Distribution Width 15.4 % (12.1-15.2)
[2023-11-30 04:05] LABS: Albumin 2.6 g/dL (3.4-5.0); Anion Gap 8.3 mEq/L (5.0-15.0); Phosphorus 2.9 mg/dL (2.5-4.9); Potassium 4.3 mEq/L (3.5-5.1)
[2023-11-30] MEDS: SIMETHICONE 125 MG TAB PO PRN (04:08)
[2023-11-30 08:50] VITALS: BP 110/78; TEMP 98.2
--- NOTE | 2023-12-01 17:56 | EKG ---
Test Date: 2023-11-24 Test Time: 07:30:15 Aniline Press Worker: DORIS MEASUREMENT RESULTS: Intervals: Rate: 72 DE: 156 QRSD: 90 QT: 416 QTc: 455 [place]: P: DE: 156 QRS: 68 T: 25 INTERPRETIVE STATEMENTS: Normal sinus rhythm Normal ECG Compared to ECG 09/07/2023 12:52:49 Sinus bradycardia no longer present Electronically Signed On 12-01-23 17:33:52 CDT by Sudhakar Barger
== END 2023-11-30 09:40 | DRG 482 ==
LOC: ER 11:30 → ERHOLD 15:11 → 2ND 19:24
PROVIDERS: ADMIT Internal Medicine; ATTEND Hospitalist
PROC: 0QS636Z Reposition Right Upper Femur with Intramedullary Internal Fixation Device, Percutaneous Approach (ICD-10-PCS; principal; 2023-11-24 12:45)
DX: S72.141A Displaced intertrochanteric fracture of right femur, initial encounter for closed fracture (principal); E03.9 Hypothyroidism, unspecified; N40.0 Benign prostatic hyperplasia without lower urinary tract symptoms; I10 Essential (primary) hypertension; I95.1 Orthostatic hypotension; S50.811A Abrasion of right forearm, initial encounter; F03.90 Unspecified dementia, unspecified severity, without behavioral disturbance, psychotic disturbance, mood disturbance, and anxiety; R29.6 Repeated falls; Z91.81 History of falling; W19.XXXA Unspecified fall, initial encounter; Y93.9 Activity, unspecified; Y92.099 Unspecified place in other non-institutional residence as the place of occurrence of the external cause; Y99.9 Unspecified external cause status
CPT/HCPCS: 36415; 70450; 72125; 72170; 80048; 80069; 83735; 84100; 84439; 84443; 85025; 86850; 86900; 86901; 93005; 97110; 97112; 97161; 97165; 97530; 99285; J0690; J1650; J2001; J2371; J2405; J2704; J3010; J7030

== ENCOUNTER 2023-11-30 09:50 | Inpatient (IN) | payer OTHER ==
[2023-11-30] MEDS ORDERED: MAGNES/ALUMIN/SIMET 30ML UCUP PO PRN (12:50)
[2023-11-30] MEDS ORDERED: SIMETHICONE 125 MG TAB PO PRN (12:53)
[2023-11-30] MEDS ORDERED: ONDANSETRON 4 MG (ODT) TAB PO PRN (12:54)
[2023-11-30] MEDS ORDERED: LOPERAMIDE HCL 2 MG CAPSULE PO PRN (12:57)
[2023-11-30 13:35] VITALS: BMI 18.4
[2023-11-30] MEDS: MIDODRINE HCL 5 MG TABLET PO SCH (14:02)
[2023-11-30] MEDS: ENOXAPARIN 30 MG/0.3 ML SQ SCH (19:32)
[2023-11-30] MEDS: ENSURE HIGH PROTEIN 237 ML CAN PO SCH (19:32)
[2023-11-30] MEDS: DONEPEZIL HCL 5 MG TAB PO SCH (19:32)
[2023-11-30] MEDS: TAMSULOSIN 0.4 MG SR CAP PO SCH (19:32)
--- NOTE | 2023-11-30 23:03 | HP ---
Date of Admission: 11/30/2023 Time Of Service: 9:30 p.m. Chief Complaint: Fell and broke the right hip. History Of Present Illness: Mr. Cunningham is an 88-year-old patient, who was an assisted living re sident when he slipped and fell. He impacted the right hip and developed severe pain. He was somewh at disoriented at the time of evaluation in the emergency room, but his imaging did identify he had a n externally rotated right leg with a mildly displaced intertrochanteric fracture. He was evaluated by the Orthopedic Service, Dr. Pelletier, and he was treated with intramedullary rodding of the right hip intertrochanteric fracture on the 23 of November. Postoperatively, he had a mild anemia down to 10 .7. His baseline is around 11.6. He did not require a transfusion. He had a normal white count. H e had mild hyponatremia requiring the current management and dehydration with slightly elevated BUN. Blood sugars were slightly elevated. Calcium, phosphorus, magnesium were normal. His pre albumin w as low around 2.4. TSH elevated to 4.57 and free T4 normal at 0.94. He was determined to be an appr opriate candidate for inpatient rehabilitation given his very recent surgery. He requires pain manag ement, ability to be in a safe environment as he begins his recovery, and to address his comorbid iss ues of dementia, benign prostatic hypertrophy, and hypothyroidism. He will therefore be receiving ph ysical, occupational, and speech therapy to help him regain his prior level of functioning where a fe w months ago he was fully independent, able to mobilize without an assistive device. He enjoys [employer] and other outdoor activities. Allergies: NO KNOWN DRUG ALLERGIES. Medications: Tylenol 650 mg every 6 hours as needed, Maalox 30 mL every 6 hours as needed, Aricept 5 mg at bedtime, Lovenox 30 mg subcutaneously every 12 hours, Synthroid 0.112 mg daily, lidocaine patc h apply topically daily, Imodium 2 mg every 6 hours as needed, melatonin 6 mg at bedtime as needed, m idodrine 5 mg 3 times daily, Ensure Enlive 237 mL twice daily, Zofran 4 mg every 6 hours, Senokot-S 2 at bedtime, simethicone 125 mg every 6 hours as needed, Flomax 0.4 mg at bedtime. Family History: Noncontributory. Social History: The patient lives in Assisted Living Facility. No alcohol, tobacco, or IV drug use. Review of Systems: Mild pain in the right hip, mild myalgias, arthralgias. Otherwise, some dizziness on standing. No o ther positives on the systems review. Physical Examination: Vital Signs: Blood pressure 102/60, pulse 76, respiratory rate 18, temperature 98.5, oxygen saturati on 93%. Earlier today, he had orthostatics done while lying, blood pressure 105/58, pulse 80, and st ood up with dropped to 81/51, pulse of 77, symptomatic with dizziness at that time. HEENT: He is normocephalic, atraumatic. Sclerae anicteric. Oropharynx pink, moist. Neck: Supple. Chest: Clear. Extremities: Right lower extremities show mild postoperative anemia. Good hemostasis at the surgica l site. No otherwise focal deficits noted. Laboratory Studies: Reviewed. Imaging And X-rays: There was acute right intertrochanteric fracture identified on x-ray. Current Level Of Functioning: Currently, supervision for eating and oral hygiene, toilet hygiene, co ntact guard assistance, maximum assistance for bathing, contact guard lower body dressing, maximal as sistance for lower body dressing and donning and doffing footwear. Maximal assistance for rolling le ft-to-right and hyykz-fv-xhkk and for odf-id-imbvz in addition to sliding on a sliding board. He is dependent for a okn-nq-tmhdw transfer, toilet transfer and ambulation, maximal assistance required. Medical And Rehabilitation Assessment And Plan: Mr. Cunningham is admitted to the inpatient rehabil itation unit with impairment category of 07, orthopedic, lower extremity fracture. Impairment group code is 08.11, status post unilateral hip fracture. Etiologic diagnosis of right intertrochanteric f racture. Comorbidities are benign prostatic hypertrophy, debility, decreased physical functioning, d ecreased mobility, dementia, frequent falls, orthostatic hypotension, hypothyroidism, pain, parkinson ism. Plan: 1.Mr. Cunningham will have physical, occupational, and speech therapy for 3-1/2 hours, 5 of 7 days. 2.Hypothyroidism addressed by continuing Synthroid 0.112 mg daily. 3.DVT risk addressed by Lovenox 30 mg subcutaneous every 12 hours. 4.His dementia addressed with donepezil 5 mg at bedtime, may increase to 10 mg at bedtime. 5.His stool issues addressed with Maalox and Senokot as needed. 6.Prostate hypertrophy addressed with Flomax. 7.orthostatic hypotension. He has midodrine 5 mg 3 times daily, Zofran for nausea, lidocaine patch added to the right hip area for his pain management. Comorbidities That Are Impacting Rehabilitation: Given his cognitive issues, making safe decisions w ill be a challenge. He will likely require close supervision, bed alarm and chair alarm if need be. He must ambulate at all times in a rolling walker, to have a gait belt with the therapist as they wo rk with him. In addition, risk of deep vein thrombosis addressed with the Lovenox. If need be, sequ ential compression devices will be added. He will also have interval scan to determine how the hip i s healing and that chest x-ray as appropriate. Rehab Specific Plan: Mr. Cunningham will have physical, occupational, and speech therapy for 3.5 ho urs, 5 of 7 days to improve his ability to transfer from bed to chair to toilet to perform showering and toileting, to ambulate 250 feet with modified independence, to go up and down 10 steps with modif ied independence, and to propel a wheelchair 250 feet with modified independence in addition to angelain genaro good sound decisions and having good safe approaches to his mobilization and transfers. He will coronel ve 24 hours a day nursing home and physician evaluation on a daily basis and drug abuse social worker evalu ation and management for discharge planning and durable medical equipment needs. Mr. Cunningham has a good understanding of the process of admission to the inpatient rehabilitation facility and how he will benefit from physical, occupational, and speech therapy. If need be, additi onal help from Orthopedic Service and Hospitalist Service will be consulted. Given his complex medic al condition and risk of further complications, rehabilitation cannot be safely or affectively perfor med at a lower level facility such as nursing home. Barriers To Discharge: Currently, some issues of his cognition may make it difficult for him to go b k into just simple assisted living. He may require Memory Care Unit, where he can be carefully obs erved and to minimize his risk for additional falls and injuries. Length of stay is about 12 to 13 days. Disposition: Home initially with 24-hour care and supervision perhaps in the Memory Care Unit. In a ddition, he should have continued therapy when he leaves for home. Prognosis: Good. Rehab Specific Goals: 1.Become independent with upper and lower body dressing, toileting, showering, donning and doffing o f shoes. 2.Independently ambulate 250 feet with a rolling walker. 3.Independently propel a wheelchair 250 feet. 4.Independently go up and down 10 steps with bilateral handrails along with his weightbearing as stefan erated status. 5.Perform cognitive functioning with independence or with minimum assistance. 6.The above goals were reviewed with Mr. Cunningham and he is in agreement. By signing this document, I acknowledge I personally performed a full physical examination on Mr. Alvarenga no later than 24 hours after his admission to the inpatient rehabilitative facility and dete rmine that he is able to tolerate the above course of treatment at an intensive level for reasonable period of time. A detailed individualized plan of care for him will be completed by hospital day 4 b ased on the pre-admission screen, history and physical, and therapy evaluations. CHARLES/BLAKE Voice ID: [id number]
[2023-12-01] MEDS: LEVOTHYROXINE SOD 0.112 MG TAB PO SCH (06:47)
[2023-12-01 07:18] LABS: Absolute Basophils 0.1 K/uL (0-0.5); Absolute Eosinophils 0.3 K/uL (0-0.5); Absolute Lymphocytes (CBC) 1.2 K/uL (0.7-4.9); Absolute Monocytes 0.7 K/uL (0.1-1.3); Absolute Neutrophil 5.5 K/uL (1.8-8.0); Basophils % 1.2 % (0-1.3); Eosinophils % 4.1 % (0-4.4); Hematocrit 32.4 % (39.6-49.0); Hemoglobin 11.3 g/dL (13.6-17.9); Lymphocytes % 15.9 % (15.3-44.8); MCH 35.3 pg (27.0-35.0); MCHC 34.9 g/dL (32.0-36.0); MCV 101.2 fL (80-100); MPV 6.4 fL (7.6-11.3); Neutrophils % 69.8 % (41.7-73.7); Nucleated Red Blood Cells % 0.1 % (0-0); Platelets 371 thou/uL (152-406); Red Cell Distribution Width 15.9 % (12.1-15.2)
[2023-12-01 07:55] LABS: Albumin 2.8 g/dL (3.4-5.0); Anion Gap 9.1 mEq/L (5.0-15.0); Magnesium 2.4 mg/dL (1.6-2.4); Potassium 4.1 mEq/L (3.5-5.1)
[2023-12-01] MEDS: LIDOCAINE 4% PATCH TOP SCH (10:10)
[2023-12-01] MEDS: ENSURE ENLIVE 237 ML CAN PO SCH (10:11)
[2023-12-01 11:10] LABS: Specific Gravity 1.018 (1.005-1.030); Sqamous Epithelial None Seen /HPF (None Seen); Urine Bacteria <20 /HPF (<20); Urine Bilirubin NEGATIVE (Negative); Urine Blood Negative (Negative); Urine Clarity Extremely Turbid (Clear); Urine Color Yellow (Yellow); Urine Culture Reflex Order REFLEXED; Urine Glucose NEGATIVE (Negative); Urine Ketones NEGATIVE (Negative); Urine Micro Reflex YN NO BILL MICROSCOPIC; Urine Mucus Slight /HPF (None Seen); Urine Nitrite NEGATIVE (Negative); Urine Protein TRACE (Negative); Urine RBC <5 /HPF (None Seen); Urine Urobilinogen 1+ (Normal); Urine WBC >50 /HPF (<5); Urine WBC Clump Rare /HPF (None Seen); Urine pH 6.5 (5.0-7.0)
--- NOTE | 2023-12-01 13:16 | P.RH.PN ---
Estimated Length of Stay: 16 Expected Discharge Date: 12/14/23 Discharge Disposition Plan: Home Family Support: Yes Senior Living Goal: Mobility, Transfers, Self Care Vital Signs: Last Vital Signs Temp 97.6 F 12/01/23 06:37 Pulse 76 11/30/23 20:25 Resp 19 12/01/23 06:37 BP 102/60 11/30/23 20:25 Pulse Ox 95 12/01/23 06:37 Laboratory: Laboratory Last Values WBC 7.90 thou/uL (4.3-10.9) 12/01/23 07:00 RBC 3.20 M/uL (4.33-5.43) L 12/01/23 07:00 Hgb 11.3 g/dL (13.6-17.9) L 12/01/23 07:00 Hct 32.4 % (39.6-49.0) L 12/01/23 07:00 MCV 101.2 fL (80-100) H 12/01/23 07:00 MCH 35.3 pg (27.0-35.0) H 12/01/23 07:00 MCHC 34.9 g/dL (32.0-36.0) 12/01/23 07:00 RDW 15.9 % (12.1-15.2) H 12/01/23 07:00 Plt Count 371 thou/uL (152-406) 12/01/23 07:00 MPV 6.4 fL (7.6-11.3) L 12/01/23 07:00 Neutrophils % 69.8 % (41.7-73.7) 12/01/23 07:00 Lymphocytes % 15.9 % (15.3-44.8) 12/01/23 07:00 Monocytes % 9.0 % (3.3-12.3) 12/01/23 07:00 Eosinophils % 4.1 % (0-4.4) 12/01/23 07:00 Basophils % 1.2 % (0-1.3) 12/01/23 07:00 Absolute Neutrophils 5.5 K/uL (1.8-8.0) 12/01/23 07:00 Absolute Lymphocytes 1.2 K/uL (0.7-4.9) 12/01/23 07:00 Absolute Monocytes 0.7 K/uL (0.1-1.3) 12/01/23 07:00 Absolute Eosinophils 0.3 K/uL (0-0.5) 12/01/23 07:00 Absolute Basophils 0.1 K/uL (0-0.5) 12/01/23 07:00 Sodium 135 mEq/L (136-145) L 12/01/23 07:00 Potassium 4.1 mEq/L (3.5-5.1) 12/01/23 07:00 Chloride 102 mEq/L (98-107) 12/01/23 07:00 Carbon Dioxide 28 mEq/L (21-32) 12/01/23 07:00 Anion Gap 9.1 mEq/L (5.0-15.0) 12/01/23 07:00 BUN 31 mg/dL (7-18) H 12/01/23 07:00 Creatinine 0.87 mg/dL (0.70-1.30) 12/01/23 07:00 Est GFR (CKD-EPI) 84 ml/min (=/>90) L 12/01/23 07:00 Glucose 96 mg/dL (74-106) 12/01/23 07:00 Calcium 8.6 mg/dL (8.5-10.1) 12/01/23 07:00 Magnesium 2.4 mg/dL (1.6-2.4) 12/01/23 07:00 Albumin 2.8 g/dL (3.4-5.0) L 12/01/23 07:00 Prealbumin 12.0 mg/dL (20-40) L 12/01/23 07:00 Urine Color Yellow (Yellow) 12/01/23 09:41 Urine Clarity Extremely turbid (Clear) H 12/01/23 09:41 Urine pH 6.5 (5.0-7.0) 12/01/23 09:41 Ur Specific [place] 1.018 (1.005-1.030) 12/01/23 09:41 Glucose (UA)(Auto) Negative (Negative) 12/01/23 09:41 Urine Ketones Negative (Negative) 12/01/23 09:41 Urine Blood Negative (Negative) 12/01/23 09:41 Urine Nitrite Negative (Negative) 12/01/23 09:41 Urine Bilirubin Negative (Negative) 12/01/23 09:41 Urine Urobilinogen 1+ (Normal) H 12/01/23 09:41 Ur Leukocyte Esterase 500 Gemma/uL (Negative) H 12/01/23 09:41 Urine RBC <5 /HPF (None Seen) 12/01/23 09:41 Urine WBC >50 /HPF (<5) H 12/01/23 09:41 Urine WBC Clumps Rare /HPF (None Seen) 12/01/23 09:41 Ur Squamous Epith Cells None seen /HPF (None Seen) 12/01/23 09:41 U Non-Squamous Epi Cells <5 /HPF (None Seen) 12/01/23 09:41 Amorphous Crystals Trace /HPF (None Seen) 12/01/23 09:41 Urine Bacteria <20 /HPF (<20) 12/01/23 09:41 Urine Mucus Slight /HPF (None Seen) 12/01/23 09:41 Urine Culture Reflexed Reflexed 12/01/23 09:41 Urine Total Protein Trace (Negative) H 12/01/23 09:41 Weight: 143 lb 9.6 oz Wound Present: No Closed Surgical Incision Present: Yes Physician Update: Mild anemia and malnutrition. Moderate cognitive impairment. Moderate to severe orthostatic hypotention. He scored 20 on SLUMS, poor short term memory and problem solving. He has increased regidity. Max assistance with bed mobility. Summary: Patient's care plan and terminal operator goals have been reviewed and revised as necessary. Please see the Rehabilitation Signature page for all necessary signatures.
[2023-12-01] MEDS: SODIUM CHLORIDE 1 GM TAB PO SCH (16:47)
[2023-12-01] MEDS: CRANBERRY FRUIT EXTRACT 200 MG CAP PO SCH (19:28)
[2023-12-01] MEDS: CARBIDOPA/LEVODOPA 25/100 TAB PO SCH (19:28)
[2023-12-01] MEDS: MELATONIN 3 MG TABLET PO PRN (21:02)
[2023-12-02] MEDS: DOCUSATE NA/SENNA CONC 1 TAB PO PRN (19:35)
[2023-12-03] MEDS: ACETAMINOPHEN 325 MG TABLET PO PRN (00:03)
[2023-12-03] MEDS ORDERED: POLYETHYL GLY 3350 17 GM/DOSE PO PRN (00:04)
[2023-12-03] MEDS: DOCUSATE NA/SENNA CONC 1 TAB PO SCH (08:29)
[2023-12-03] MEDS: TRAZODONE 50 MG TABLET PO PRN (20:41)
--- NOTE | 2023-12-03 21:16 | PN ---
Date of Progress Note: 12/03/2023 Time Of Service: 3 p.m. Subjective: Mr. Cunningham is resting comfortably in no acute distress. He is normocephalic, atrau matic. He has no complaints. The right hip fracture surgical site is not bothering him. Review of Systems: No fevers, chills, nausea, or vomiting. No myalgias, arthralgias except for some mild disturbance an d pain in the right hip. He otherwise appeared well. Physical Examination: Blood pressure 116/66, pulse 64, respiratory rate is 14, temperature 97.9, oxygen saturation 95%. It is noted that the patient did have significant orthostatic changes when going from sitting to lying position and that is known due to his autonomic dysfunction. He does have abdominal binders in and T ED hose in place. Orthostatics did show while lying down, blood pressure 116/60, pulse 64; and while sitting, 89/58, pulse 67. The patient has been receiving additional hydration with oral liquids enc ouraged. He does have sodium chloride tablets 1 g twice daily. In addition, midodrine 5 mg 3 times daily for pressure support. He has Synthroid to help with his thyroid function, as well. [facility], his right hip surgical site shows good hemostasis. He has no focal deficits. Medications: Tylenol 650 every 6 hours as needed, Maalox 30 mL every 6 hours as needed for indigesti on, Sinemet 25/100 twice daily, Aricept 5 mg at bedtime, Lovenox 30 mg subcutaneously every 12 hours, Synthroid 0.112 mg daily, lidocaine patch apply topically daily to the right hip area where there is pain, Imodium 2 mg every 6 hours as needed, melatonin 6 mg at bedtime, midodrine 5 mg 3 times daily, Ensure Enlive 237 mL twice daily, Zofran 4 mg every 6 hours as needed Senokot-S 2 at bedtime, simeth icone 125 mg every 6 hours as needed, sodium chloride tablets 1 g twice daily, and Flomax 0.4 mg ____ daily. Laboratory Studies: Sodium 135, potassium 4.1, chloride 102, carbon dioxide 28, BUN 31, creatinine 0 .87, prealbumin 12.0, albumin 2.8. White blood cell count 7.9, hemoglobin 11.3, platelets 371. Urin alysis show 500 esterase, urobilinogen 1, white blood cell count greater than 50, clarity extreme tur bidity, total protein is a trace. X-ray/imaging: No new x-rays or imaging. Progress Made With Physical And Occupational Therapy: With therapy, yesterday, he used a 2 pound dum bbell of the yellow Thera-Band to improve strength, activity tolerance and to improve his activities of daily living. He was able to do ydwgvn-rf-awe transfers but did require maximal assistance. Sit- to-stand transfers, required maximal assistance. Bed to wheelchair transfer, maximum assistance. Mo bilized wheelchair 100 feet with standby assistance. Mr. Cunningham is making fair progress with physical and occupational therapy, although somewhat slo w and he is working hard, nonetheless. Assessment And Plan: Mr. Cunningham is an 88-year-old patient in the rehabilitation unit with a rig ht hip fracture, status post surgical repair. He has prostate hypertrophy, debility, decreased physi alan functioning, dementia, orthostatic hypotension with parkinsonism, and he is now on Sinemet, and h as hypothyroidism. Plan: 1.Continue with physical, occupational, and speech therapy for 3.5 hours, 5 of 7 days. 2.Continue with all medications including his Sinemet, Synthroid, Lovenox, donepezil, Flomax, midodr ine, his lidocaine patch, and Zofran for nausea. Comorbidities That Are Impacting His Rehabilitation: His orthostatic changes make it difficult for v kendrick easy upright exercises as he tends to fall because of significant drop in blood pressure. It is mitigated by abdominal binders, ANABEL hose, and midodrine and Florinef may be considered. Also, sodium chloride tablets and oral hydration is strongly encouraged. LB/MODL Voice ID: [id number] Report ID: [id number]
[2023-12-04] MEDS ORDERED: ACETAMINOPHEN 325 MG TABLET PO PRN (02:03)
[2023-12-04] MEDS: ACETAMINOPHEN 500 MG TAB PO PRN (02:14)
--- NOTE | 2023-12-04 09:53 | P.CNS ---
Date of Consult: 12/04/23 Reason for Consult: Painful toenails Allergies No Known Allergies Allergy (Verified 11/23/23 22:04) Home Medications: Levothyroxine [Synthroid*] 0.112 mg PO DAILY 09/01/23 Melatonin 6 mg PO BEDTIME PRN 09/01/23 Tamsulosin HCl [Flomax] 0.4 mg PO BEDTIME 09/01/23 Donepezil [Aricept*] 5 mg PO BEDTIME 11/30/23 Midodrine HCl [Proamatine*] 5 mg PO TID 11/30/23 - Past Medical/Surgical History Diabetic: No -: Hypothyroid -: Orthostatic Hypotension -: BPH -: Thyroidectomy - Social History Smoking Status: Former smoker Alcohol use: No CD- Drugs: No Caffeine use: No Review of Systems 10-point ROS is otherwise unremarkable Physical Examination Temp Pulse Resp BP Pulse Ox 97.9 F 63 18 86/51 L 96 12/04/23 07:39 12/04/23 07:39 12/04/23 07:39 12/04/23 07:39 12/04/23 07:39 General: Alert, In no apparent distress, Oriented x3 Cardiovascular: No edema, Abnormal pulses (0/4 dp bilateral, 1/4 pt pulses bilateral) Capillary refill: <2 Seconds Musculoskeletal: No clubbing, No swelling, No contractures, No erythema, No tenderness, No warmth Integumentary: No rashes, No breakdown, No significant lesion, No tenderness/swelling, No erythema, No warmth, No cyanosis, Other (Thickened hypertrophic nails with subungual debris x 10) Neurological: Abnormal sensation - Problems (1) 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
[2023-12-04] MEDS: NA CHLORIDE 0.9% 500 ML IV ONE ×2 (10:45→11:20)
[2023-12-04] MEDS: NA CHLORIDE 0.9% 1,000 ML IV SCH (13:30)
--- NOTE | 2023-12-05 01:23 | PN ---
Date of Progress Note: 12/04/2023 Time Of Service: 1:25 p.m. Subjective: Mr. Cunningham is resting in his room. No new complaints. Doing very well. Happy so far with the progress made. Objective: No fevers, chills, nausea, vomiting, myalgias, arthralgias. No psychiatric issues. He d oes have continued problems with hypotension and has had significantly low numbers. Systolics down t o about 72. He has received a bolus of normal saline 500 cc. He actually has the Flomax 0.4 mg at bedtime for prostate hypertrophy, which can also lower his blood pressure. He d oes have the midodrine mg 3 times daily to help keep his blood pressure elevated, and he i s on carbidopa/levodopa for parkinsonian symptoms. At this point, he does not believe it has made a big impact in his ability to mobilize. Physical Examination: Vital Signs: Most recent 97/55, pulse of 72, temperature 97.5, oxygen saturation 96%, and respirator y rate 16. Neurologic: Mr. Cunningham is resting in bed. He does appear somewhat sleepy. Speech pathologist is in the room. He does answer questions appropriately. Does report feeling very weak and likely co nsistent with his significant hypotension. Otherwise, he does not have focal neurologic deficits. Skin: His right hip surgical site shows good hemostasis. Laboratory Studies: No new laboratory studies. X-ray/imaging: No new x-rays or imaging. Consultations: He was seen by Dr. Zepeda on Podiatry Service, diagnosed with tenia unguium and did me chanical debridement of the nails at the bedside. Progress Made With Physical And Occupational Therapy: Today, mobilized a wheelchair [address] assistance and verbal cues for maneuvering. Noysby-dr-sfh transfers done with maximum assistan ce. Xoy-pl-yxmbp transfers done with maximum assistance. Again noted the patient had significant or thostatic hypotension. He did need several rest breaks during his upper body exercises and lower bod y exercises. With occupational therapy, he did exercise with a yellow Thera-Band to improve strength and he did tolerate the session well. Did note some pain and confusion during the session. With sp eech therapy, 3/3 unrelated pictures recalled of 3 minutes and 2/3 after 5 minutes, 0/3 recall after an additional 3 minutes. Organizational thinking during a convergent naming task done with 100% accu racy and moderate assistance. Mr. Cunningham has been somewhat limited by his significant orthostatic hypotension and low blood pr essures, potentially related to parkinsonian syndrome and autonomic dysfunction. He does have midodr ine multiple times daily, abdominal binders, and ANABEL hose in place. He did receive a liter of normal saline after a bolus. Assessment: Mr. Cunningham is an 88-year-old patient in the rehabilitation unit with a right hip fr acture, status post surgical repair. He has significant orthostatic hypotension; prostate hypertroph y; debility; decreased physical functioning; cognitive impairment; parkinsonism, the patient is on Si nemet; and hypothyroidism. Plan: 1.Continue physical, occupational, speech therapy for 3.5 hours, 5/7 days. 2.Will have abdominal binder on and ANABEL hose when getting out of bed. Will have his midodrine marcin nued at 5 mg 3 times daily and may consider Florinef to help the blood pressure from decreasing more significantly. Comorbidities Impacting Rehabilitation: His biggest issue is significant orthostatic changes, making it difficult for him to remain upright and have enough energy. He is not on antihypertensive medica tions. Sodium chloride tablets will be continued. LB/MODL Voice ID: [id number] Report ID: [id number]
[2023-12-05] MEDS: BISACODYL 10 MG RECTAL SUPP PR PRN (14:16)
[2023-12-06] MEDS: CYANOCOBALAMIN 1000MCG/ML INJ IM ONE (14:42)
--- NOTE | 2023-12-06 20:52 | PN ---
Date of Progress Note: 12/06/2023 Time Of Service: 1:30 p.m. Subjective: Mr. Cunningham is resting in his room. He is somewhat sleepy. He was actually snoring at that time with his mouth wide open. He had done most of his therapy sessions early in the [facility]. He is otherwise doing well. Says therapy is working great for him. Objective: No fevers, chills, nausea, vomiting. No significant myalgias or arthralgias. There is s ome stiffness. No other positives on the systems review. Physical Examination: Vital Signs: Blood pressure 105/63, pulse 64, and there was orthostatics done early this morning. W hen sitting, blood pressure decreased to 73/46, pulse of 68. His respiratory rate 16, temperature 97 .4, oxygen saturation 93%. General: Mr. Cunningham is lying in bed. His sleep was awakened, but did tend to fall back asleep a bit. It is reported that he is not sleeping very well at night and we can adjust medications for h is sleep including melatonin, which will be increased to 6 mg from 3 mg at night. Otherwise in terms of his examination, he has masklike face, increased stiffness in the extremities, mild diffuse weakn ess, and some pain limiting his full exertion of strength in the right lower extremity, where he has right hip fracture and has had surgical repair. Laboratory Studies: No new laboratory studies. X-ray/imaging: No new x-rays or imaging. Medications: He will have for constipation, the Dulcolax suppository continue. We will give B12 inj ections for his energy during the daytime and all medications continued as noted. Progress Made With Physical And Occupational Therapy: Today with physical therapy, ciaqra-hr-tks tra nsfers with standby assistance, fedrn-az-ngeck transfer from bed to wheelchair with moderate assistan ce. He mobilized a wheelchair 175 feet with standby assistance and verbal cues. With occupational t herapy from supine to edge of bed required maximum assistance. He did perform pull-ups standing at t he bar 2 x5 sets. Did require verbal cues. With speech, he is oriented to temporal concepts with 75 % accuracy, working memory utilized 3 units of information with 60% accuracy. Mr. Cunningham is making fair overall progress with his physical and occupational therapy, somewhat limited by his cognitive impairment. He has ability to mobilize mostly via wheelchair, not able to a t this point mobilize significant distances because of significant orthostatic hypotension. He is at touchdown weightbearing status as well. Assessment: Mr. Cunningham is admitted to the rehabilitation unit with a right hip fracture, status post surgical repair. He has significant orthostatic hypotension, likely related to Parkinson's dis ease. He has prostate hypertrophy, debility, decreased physical functioning, decreased mobility with his cognitive impairments. Plan: 1.Continue with physical, occupational, and speech therapy for 3.5 hours, 5 of 7 days. 2.Abdominal binder and ANABEL hose when out of bed. Midodrine for pressure support and he may adjust s alt intake, increase salt intake to help minimize the drop in blood pressure by increasing blood volu me. Otherwise, he will continue on his regimen of medications including simethicone for gas, Senokot -S for constipation, Flomax for prostate hypertrophy, trazodone for insomnia, melatonin added as well , Lovenox for DVT prophylaxis, Aricept for memory loss, carbidopa/levodopa 25/100 twice daily, may ad just to 2 twice daily to help with his mobilization. Comorbidities That Are Impacting Rehabilitation: He does have some cognitive impairment making it di fficult for him to be aware of his safety precautions and again significant orthostatic hypotension m aking it very tough for him to stand and ambulate. He is now mostly mobilizing by wheelchair with pivot transfer still requiring moderate to maximal assistance. LB/MODL Voice ID: [id number] Report ID: [id number]
[2023-12-07 04:31] LABS: Absolute Basophils 0.1 K/uL (0-0.5); Absolute Eosinophils 0.4 K/uL (0-0.5); Absolute Lymphocytes (CBC) 1.4 K/uL (0.7-4.9); Absolute Monocytes 0.7 K/uL (0.1-1.3); Absolute Neutrophil 5.4 K/uL (1.8-8.0); Basophils % 1.5 % (0-1.3); Eosinophils % 5.3 % (0-4.4); Hematocrit 31.7 % (39.6-49.0); Lymphocytes % 17.9 % (15.3-44.8); MCH 35.6 pg (27.0-35.0); MCHC 34.8 g/dL (32.0-36.0); MCV 102.5 fL (80-100); MPV 6.2 fL (7.6-11.3); Monocytes % 8.2 % (3.3-12.3); Neutrophils % 67.1 % (41.7-73.7); Nucleated Red Blood Cells % 0.1 % (0-0); Platelets 454 thou/uL (152-406); RBC Red Blood Cell Count 3.09 M/uL (4.33-5.43); Red Cell Distribution Width 15.6 % (12.1-15.2)
[2023-12-07 04:54] LABS: Albumin 2.6 g/dL (3.4-5.0); Anion Gap 7.2 mEq/L (5.0-15.0); Magnesium 2.4 mg/dL (1.6-2.4); Potassium 4.2 mEq/L (3.5-5.1); Prealbumin 12.6 mg/dL (20-40)
--- NOTE | 2023-12-07 21:19 | PN ---
Date of Progress Note: 12/07/2023 Jscd-lr-hzdo progress note visit. Time Of Service: 1:10 p.m. Subjective: Mr. Cunningham is in bed between therapy sessions. He is appearing to be in his usual state. He does have masklike face, which is at baseline given his parkinsonism. Says he is in no pa in. Has no new complaints. Objective: No fevers, chills, nausea, vomiting, myalgias, arthralgias, rash, headache, weight change , right hip surgical site has good hemostasis and no pain. Physical Examination: Vital Signs: Blood pressure 92/55, but earlier today at 113/70, pulse 70, respiratory rate 16, tempe rature 98, oxygen saturation 95%. General: Mr. Cunningham again is resting comfortably, in no acute distress. HEENT: He is normocephalic, atraumatic. Does have a masklike face. Sclerae anicteric. Extremities: Does have increased tone in the extremities. movement. Abdomen: Soft. Right hip surgical site has good hemostasis. Laboratory Studies: White blood cell count 8.1, hemoglobin 11, platelets 454. Sodium 136, potassium 4.2, chloride 105, carbon dioxide 28, BUN 37, creatinine , calcium 8.5, glucose 94, magnes ium 2.4, prealbumin is still low around 12.6, albumin is low at 2.6. X-ray/imaging: No x-rays or imaging. Medications: His medications have been reviewed. He did have trazodone added 50 mg at night for his insomnia; otherwise, unchanged. Progress Made With Physical, Occupational And Speech Therapy: With physical therapy today, he mobili zed a wheelchair 30-50 feet 5 times, did get tired and needed frequent rest breaks with lots of cuing . He did multiple ntw-ls-fmuzw transfers with minimum assistance, was able to maintain his touchdown weightbearing status. With occupational therapy, cgj-tg-uigiz transfers done with standby assistanc e, max assist for toilet transfers, dependent for toilet hygiene. With speech therapy, unable to rec all any of 3 unrelated pictures after 3 minutes, although he had done that on previous session. His working memory, 3 items of information used with 70% accuracy. Organizational thinking for concrete categories was exhibited with 100% accuracy. Mr. Cunningham is a making slow, but steady progress with his physical and occupational therapy, beg inning to mobilize household distances. Still has significant memory impairments, but has good organ izational thinking and would likely require ongoing therapy to help him maintain safety awareness. Assessment: Mr. Cunningham is in the rehabilitation unit with a right hip fracture status post repa ir. He has ongoing orthostatic hypotension, potentially related to Parkinson disease or parkinsonism . He does have carbidopa levodopa on board, which is marginally helpful at this point. Has prostate hypertrophy, decreased physical functioning, decreased mobility, and debility. Plan: 1.Continue with physical, occupational and speech therapy for 3.5 hours, 5 of 7 days. 2.For the orthostatic symptoms, continue with ANABEL hose and abdominal binders along with midodrine. Still continue Flomax for prostate hypertrophy. Trazodone use for insomnia along with melatonin. He has Lovenox for DVT prophylaxis. Comorbidities That Are Impacting The Rehabilitation: His parkinsonism, which is a big issue and the resulting significant orthostatic hypotension pose ongoing difficulties with him recovering quickly a nd he would significant care as he transfers because of high risk of falling due to signif icant drops in his blood pressure. LB/MODL Voice ID: [id number] Report ID: [id number]
[2023-12-07] MEDS: TRAZODONE 50 MG TABLET PO PRN (21:51)
--- NOTE | 2023-12-08 13:41 | P.RH.PN ---
Estimated Length of Stay: 16 Expected Discharge Date: 12/15/23 Discharge Disposition Plan: Home Family Support: Yes [facility] Goal: Mobility, Transfers, Self Care Vital Signs: Last Vital Signs Temp 97.8 F 12/08/23 08:00 Pulse 66 12/08/23 08:00 Resp 12 12/08/23 08:00 BP 103/64 12/08/23 08:00 Pulse Ox 93 12/08/23 08:00 Laboratory: Laboratory Last Values WBC 8.10 thou/uL (4.3-10.9) 12/07/23 04:00 RBC 3.09 M/uL (4.33-5.43) L 12/07/23 04:00 Hgb 11.0 g/dL (13.6-17.9) L 12/07/23 04:00 Hct 31.7 % (39.6-49.0) L 12/07/23 04:00 MCV 102.5 fL (80-100) H 12/07/23 04:00 MCH 35.6 pg (27.0-35.0) H 12/07/23 04:00 MCHC 34.8 g/dL (32.0-36.0) 12/07/23 04:00 RDW 15.6 % (12.1-15.2) H 12/07/23 04:00 Plt Count 454 thou/uL (152-406) H 12/07/23 04:00 MPV 6.2 fL (7.6-11.3) L 12/07/23 04:00 Neutrophils % 67.1 % (41.7-73.7) 12/07/23 04:00 Lymphocytes % 17.9 % (15.3-44.8) 12/07/23 04:00 Monocytes % 8.2 % (3.3-12.3) 12/07/23 04:00 Eosinophils % 5.3 % (0-4.4) H 12/07/23 04:00 Basophils % 1.5 % (0-1.3) H 12/07/23 04:00 Absolute Neutrophils 5.4 K/uL (1.8-8.0) 12/07/23 04:00 Absolute Lymphocytes 1.4 K/uL (0.7-4.9) 12/07/23 04:00 Absolute Monocytes 0.7 K/uL (0.1-1.3) 12/07/23 04:00 Absolute Eosinophils 0.4 K/uL (0-0.5) 12/07/23 04:00 Absolute Basophils 0.1 K/uL (0-0.5) 12/07/23 04:00 Sodium 136 mEq/L (136-145) 12/07/23 04:00 Potassium 4.2 mEq/L (3.5-5.1) 12/07/23 04:00 Chloride 105 mEq/L (98-107) 12/07/23 04:00 Carbon Dioxide 28 mEq/L (21-32) 12/07/23 04:00 Anion Gap 7.2 mEq/L (5.0-15.0) 12/07/23 04:00 BUN 27 mg/dL (7-18) H 12/07/23 04:00 Creatinine 0.90 mg/dL (0.70-1.30) 12/07/23 04:00 Est GFR (CKD-EPI) 83 ml/min (=/>90) L 12/07/23 04:00 Glucose 94 mg/dL (74-106) 12/07/23 04:00 Calcium 8.5 mg/dL (8.5-10.1) 12/07/23 04:00 Magnesium 2.4 mg/dL (1.6-2.4) 12/07/23 04:00 Albumin 2.6 g/dL (3.4-5.0) L 12/07/23 04:00 Prealbumin 12.6 mg/dL (20-40) L 12/07/23 04:00 Urine Color Yellow (Yellow) 12/01/23 09:41 Urine Clarity Extremely turbid (Clear) H 12/01/23 09:41 Urine pH 6.5 (5.0-7.0) 12/01/23 09:41 Ur Specific [place] 1.018 (1.005-1.030) 12/01/23 09:41 Glucose (UA)(Auto) Negative (Negative) 12/01/23 09:41 Urine Ketones Negative (Negative) 12/01/23 09:41 Urine Blood Negative (Negative) 12/01/23 09:41 Urine Nitrite Negative (Negative) 12/01/23 09:41 Urine Bilirubin Negative (Negative) 12/01/23 09:41 Urine Urobilinogen 1+ (Normal) H 12/01/23 09:41 Ur Leukocyte Esterase 500 Gemma/uL (Negative) H 12/01/23 09:41 Urine RBC <5 /HPF (None Seen) 12/01/23 09:41 Urine WBC >50 /HPF (<5) H 12/01/23 09:41 Urine WBC Clumps Rare /HPF (None Seen) 12/01/23 09:41 Ur Squamous Epith Cells None seen /HPF (None Seen) 12/01/23 09:41 U Non-Squamous Epi Cells <5 /HPF (None Seen) 12/01/23 09:41 Amorphous Crystals Trace /HPF (None Seen) 12/01/23 09:41 Urine Bacteria <20 /HPF (<20) 12/01/23 09:41 Urine Mucus Slight /HPF (None Seen) 12/01/23 09:41 Urine Culture Reflexed Reflexed 12/01/23 09:41 Urine Total Protein Trace (Negative) H 12/01/23 09:41 Weight: 143 lb 9.6 oz Wound Present: No Closed Surgical Incision Present: Yes Negative Pressure Wound Therapy Present: No Physician Update: Labs reviewed and has mildly low prealbumin. BIMS 11, SLUMS 20, met 1/4 speech short term goals. He participates with all activities. Did well with physical therapy today with more mobility CGA with sit to stand with TDWB. Summary: Patient's care plan and group home goals have been reviewed and revised as necessary. Please see the Rehabilitation Signature page for all necessary signatures.
[2023-12-08] MEDS: CARBIDOPA/LEVODOPA 25/100 TAB PO SCH (14:59)
--- NOTE | 2023-12-11 23:33 | PN ---
Date of Progress Note: 12/11/2023 Time Of Service: 1:15 p.m. Subjective: Mr. Cunningham is resting in bed in between therapy sessions. His appearance is unchan ged with masklike face and bradykinesia. He has no pain. He is doing very well. Objective: No fevers, chills, nausea, vomiting. No significant myalgias or arthralgias. No other i ssues such as pain at the surgical site in the right hip fracture. Physical Examination: Vital Signs: Blood pressure 107/58, pulse of 73, respiratory rate 18, temperature 97.9, oxygen satur ation 93%. General: Mr. Cunningham resting in bed. HEENT: He is normocephalic, atraumatic. Less intense sleep with his mouth open and has very little facial expression due to masklike face from his Parkinson's. Chest: Clear. Abdomen: Soft. Extremities: Show no significant edema or cyanosis. Right lower extremity surgical site at the hip is showing good hemostasis. Laboratory Studies: No new laboratory studies. X-ray/imaging: No new x-rays or imaging. Medications: His medications have been reviewed and remain unchanged. Progress Made With Physical, Occupational, And Speech Therapy: Today with physical therapy, he ambul ated 10 feet with touchdown weightbearing with minimal assistance. Also completed wheelchair mobiliz ation, covering 150 feet with supervision to modified independence. Bed mobility done with modified independence. Completed toilet transfer with contact guard assistance. He did bilateral upper extre mity exercises with yellow Thera-Band and tolerated it well. Independently able to eat an apple and drink milk. With speech, recalled 2 of 3 unrelated pictures after 3 minutes using verbal rehearsal. He used organizational thinking to name 7 items per concrete category with 80% accuracy and maximum assistance. Depending how he is making fair progress overall with his physical, occupational, speech therapy, bon ntaining weightbearing status, he is still hampered by orthostatic changes related to his Parkinson d isease. Assessment: Mr. Cunningham is an 88-year-old patient in rehabilitation with right hip fracture, sta tus post surgical repair. He has Parkinson's with orthostatic hypotension. He is on carbidopa-levod opa. He does have an abdominal binder and ANABEL hose in place. He has decreased mobility, decreased p hysical functioning, and debility along with prostate hypertrophy. Plan: 1.Continue with physical, occupational, and speech therapy for 3-1/2 hours 5 of 7 days. 2.His list of comorbid condition medications are continued. He does have the ANABEL hose and abdominal binders as noted for orthostatic hypotension, has trazodone for insomnia and Lovenox for DVT prophyl axis. Comorbidities That Are Impacting His Rehabilitation: The orthostatic changes hinder him somewhat. B lood pressures do drop, but today while sitting, he did have an increase to 107/58 from a lying posit ion of 92/52 and was able to mobilize well and would continue to be monitored. In addition, increase sodium intake as needed and hydration as well. LB/MODL Voice ID: [id number] Report ID: [id number]
--- NOTE | 2023-12-13 01:56 | PN ---
Date of Progress Note: 12/12/2023 Subjective: Mr. Cunningham is in bed as he usually is, doing lunch after the therapy sessions, has no new complaints, still appears the same with mask face and bradykinesia. No fevers, chills, nausea, vomiting, myalgias, arthralgias. No rash. No headache. No issues in ter ms of his right hip fracture site, has good pain management. Objective: Vital Signs: Blood pressure 101/62, pulse 63, respiratory rate 16, temperature 97.3, oxy gen saturation 91%. General: Mr. Cunningham is in bed, . Lungs: Good air movement. Abdomen: Soft. Extremities: Right lower extremity has good hemostasis. Laboratory Studies: No new laboratory studies. X-ray/imaging: No new x-rays or imaging. Medications: Medications have been reviewed and remained unchanged. Progress Made With Physical, Occupational, And Speech Therapy: Today, he did mobilize a wheelchair 1 50 feet with modified independence. He only ambulated 2 feet with a rolling walker and minimum luis tance because of significant Parkinson's symptoms. His nat-wk-fgshk transfer done with contact guard to minimum assistance; stand pivot transfer, minimum assistance. He is able to maintain his touchdo wn weightbearing status. With occupational therapy, complete supine to sit with standby assistance. Grooming supervision. With speech, used 3 recalls, but named 0 of 3 unrelated pictures a fter 3 minutes on second attempt. His organizational thinking skills were used for convergent naming task with 100% accuracy for concrete category and 80% with minimal assistance for abstract categorie s. Mr. Cunningham is making progress in terms of mobilization by wheelchair, very slow progress if at a ll with, ambulated with a rolling walker. Making good progress with his speech therapy. Assessment: Mr. Cunningham is an 88-year-old patient with right hip fracture status post surgical r epair. He has Parkinson disease with significant orthostatic hypotension making it difficult for him to stand and ambulate. He does have ANABEL hose, abdominal binders, and on carbidopa-levodopa for his Parkinson disease. He has decreased mobility, decreased physical functioning, prostate hypertrophy. He has cognitive impairment. Plan: 1.Continue with physical, occupational, and speech therapy for 3.5 hours, 5 of 7 days. 2.Continue all comorbid condition medications including for DVT prophylaxis using Lovenox. He has s alt tablets, midodrine, ANABEL hose, abdominal binders for orthostatic hypotension. Comorbid Conditions That Are Impacting Rehabilitation: As noted, significant orthostatic hypotension , making it difficult for him to stand and ambulate, but he is transferring better and mobilizing darrell y well with a wheelchair and improving his cognitive functioning. CHARLES/MODL Voice ID: [id number] Report ID: [id number]
[2023-12-13 08:13] VITALS: BP 97/54; TEMP 98.1
--- NOTE | 2023-12-30 00:02 | DS ---
Date of Discharge: 12/13/2023 Discharge Condition: Good. Activity: Touchdown weightbearing after right hip fracture. Discharge Diagnoses: Right unilateral hip fracture, status post repair, prostate hypertrophy, debili ty, decreased physical functioning, decreased mobility, dementia, frequent falls, orthostatic hypoten leland, hypothyroidism, pain, parkinsonism. Allergies: NO KNOWN DRUG ALLERGIES. Medications: Flomax 0.4 mg at bedtime, midodrine 5 mg 3 times daily, melatonin 6 mg at bedtime, Synt hroid 0.112 mg daily, Aricept 5 mg daily, sodium chloride tablets 1 g twice daily, lidocaine patch ap ply topically daily, cranberry fruit extract 200 mg daily. Diet: Heart healthy. Followup: With Orthopedic Surgery and primary care physician as scheduled. Laboratory Studies: White blood cell count 8.1, hemoglobin 11.0, platelets 454. Sodium 136, potassi um 4.2, chloride 105, carbon dioxide 28, BUN 27, creatinine 0.9, glucose 94, calcium 8.5, magnesium 2 .4, albumin 2.6, prealbumin 12.6. His urinalysis while hospitalized was turbid clarity, 500 esterase , 1+ urobilinogen, greater than 50 white blood cells, trace protein. His microbiology showed no grow th in terms of the urine cultures. X-ray/imaging: No new x-rays or imaging done while hospitalized. Synopsis Of Events That Led To Admission: Mr. Cunningham is an 88-year-old patient, who resides in assisted living when he slipped and fell, impacted the right hip, developed severe pain and was unabl e to bear weight. He was seen in emergency room for imaging, identified an externally rotated right leg with mildly displaced intertrochanteric fracture. He was evaluated by Dr. Pelletier in the [facility] and he had intramedullary ron fixation in the right hip on the 23 of November. Postoperat ively, mild anemia down to 10.7 with baseline around 11.6. He did not require transfusion. White bl ood cell count did remain normal. He had mild hyponatremia requiring current management with hydrati on and replacement. Blood sugar slightly elevated. Albumin was low around 2.4. TSH elevated to 4.5 , free T4 was normal. He was determined to be an appropriate candidate for inpatient rehabilitation and management of medical issues and for aggressive therapy. He normally enjoys golfing and is an ou tdoors person, was fully functional, and the attempt made to again have him to return to his baseline level of functioning. Hospital Course: Throughout hospitalization, he did well. Maintain a normal white blood cell count. Hemoglobin remained stable. His electrolyte panel essentially remained unremarkable. He did remai n malnourished throughout, moderately malnourished. Prealbumin was 12.0 on the 15th and 12.6 on the . His albumin actually decreased a bit from 2.8 to 2.6, even though he was on supplementation fo r protein. Pain was well managed. No DVT developed while hospitalized, had no new complaints while hospitalized. Progress Made With Physical, Occupational, And Speech Therapy: With physical therapy with a rolling walker, he was able to maintain touchdown weightbearing status at good tolerance, ambulated very shor t distances, however, only about 10 feet on leveled surface. He did have need for significant suppor t by the therapist. Mobilizing wheelchair was for 150 feet. Car transfer done with a rolling walker bfjsj-ir-qeipu technique. He did make significant functional gains with skilled therapy, improved f unctional mobility, and was discharged at all durable medical equipment needs met. Regarding occupat ional therapy at discharge, min assist for tub and shower transfer, eating independent, grooming inde pendent, bathing supervision, upper body dressing independent, lower body dressing partial assistance , toileting did require maximum assistance. He was discharged to [facility] facility and to [facility] with aggressive therapy in a safe place as he did not meet his still goals of returning towards a baseline for him to go home safely. With speech, cognition, concentration, moderate assistance, m josé antonio moderate assistance, pragmatic for minimum to moderate assistance. Comprehension was at minimu m to modified independence and expression from minimum assistance as well. He was 100% intelligible. His SLUMS score improved from 20 to 22 and his BIMS score from 11 to 12. Again, follow up with Dr. Pelletier and [facility] physician as scheduled. CHARLES/BLAKE Voice ID: [id number] Report ID: [id number]
== END 2023-12-13 11:55 | disposition home health service (06) | DRG 560 ==
LOC: 5TH 09:50
PROVIDERS: ADMIT Psychiatry & Neurology Neurology with Special Qualifications in Child Neurology; ATTEND Psychiatry & Neurology Neurology with Special Qualifications in Child Neurology
PROC: 0HBRXZZ Excision of Toe Nail, External Approach (ICD-10-PCS; principal; 2023-12-04)
PROC: 0HBRXZZ Excision of Toe Nail, External Approach (ICD-10-PCS; 2023-12-04)
PROC: 0HBRXZZ Excision of Toe Nail, External Approach (ICD-10-PCS; 2023-12-04)
PROC: 0HBRXZZ Excision of Toe Nail, External Approach (ICD-10-PCS; 2023-12-04)
PROC: 0HBRXZZ Excision of Toe Nail, External Approach (ICD-10-PCS; 2023-12-04)
PROC: 0HBRXZZ Excision of Toe Nail, External Approach (ICD-10-PCS; 2023-12-04)
PROC: 0HBRXZZ Excision of Toe Nail, External Approach (ICD-10-PCS; 2023-12-04)
PROC: 0HBRXZZ Excision of Toe Nail, External Approach (ICD-10-PCS; 2023-12-04)
PROC: 0HBRXZZ Excision of Toe Nail, External Approach (ICD-10-PCS; 2023-12-04)
PROC: 0HBRXZZ Excision of Toe Nail, External Approach (ICD-10-PCS; 2023-12-04)
DX: S72.141D Displaced intertrochanteric fracture of right femur, subsequent encounter for closed fracture with routine healing (principal); E44.0 Moderate protein-calorie malnutrition; Z68.1 Body mass index [BMI] 19.9 or less, adult; B35.1 Tinea unguium; I95.1 Orthostatic hypotension; D64.9 Anemia, unspecified; N40.0 Benign prostatic hyperplasia without lower urinary tract symptoms; R53.81 Other malaise; F03.90 Unspecified dementia, unspecified severity, without behavioral disturbance, psychotic disturbance, mood disturbance, and anxiety; E03.9 Hypothyroidism, unspecified; G20.C Parkinsonism, unspecified; Z91.81 History of falling; Z87.891 Personal history of nicotine dependence; Z79.01 Long term (current) use of anticoagulants
CPT/HCPCS: 36415; 80048; 81001; 82040; 83735; 84134; 85025; 87086; 87088; 92523; 97110; 97112; 97116; 97129; 97163; 97165; 97530; 97542; J1650; J2001; J3420; J7030

== ENCOUNTER 2024-01-29 10:48 | Emergency (ER) | payer OTHER ==
[2024-01-29 11:54] LABS: Absolute Basophils 0.1 K/uL (0-0.5); Absolute Eosinophils 0.4 K/uL (0-0.5); Absolute Lymphocytes (CBC) 1.1 K/uL (0.7-4.9); Absolute Monocytes 0.8 K/uL (0.1-1.3); Absolute Neutrophil 5.1 K/uL (1.8-8.0); Basophils % 0.9 % (0-1.3); Eosinophils % 5.1 % (0-4.4); Hematocrit 33.6 % (39.6-49.0); Hemoglobin 11.1 g/dL (13.6-17.9); Lymphocytes % 14.4 % (15.3-44.8); MCH 33.9 pg (27.0-35.0); MCHC 32.9 g/dL (32.0-36.0); MCV 103.1 fL (80-100); MPV 6.8 fL (7.6-11.3); Monocytes % 10.7 % (3.3-12.3); Neutrophils % 68.9 % (41.7-73.7); Platelets 299 thou/uL (152-406); RBC Red Blood Cell Count 3.26 M/uL (4.33-5.43); Red Cell Distribution Width 15.6 % (12.1-15.2)
[2024-01-29 12:04] LABS: PT Prothrombin Time 10.9 SECONDS (9.5-12.5); PTT, Activated Partial Thromb 36.8 SECONDS (24.3-36.9); Protime INR 0.99
[2024-01-29 12:11] LABS: AST/SGOT 15 U/L (15-37); Albumin 2.9 g/dL (3.4-5.0); Albumin/Globulin Ratio 0.8 (1.1-1.8); Alkaline Phosphatase 110 U/L (45-117); Anion Gap 8.1 mEq/L (5.0-15.0); BUN Blood Urea Nitrogen 27 mg/dL (7-18); Bicarbonate 26 mEq/L (21-32); Bilirubin Total 0.2 mg/dL (0.2-1.0); Globulin 3.7 g/dL (2.3-3.5); Glomerular Filtration Rate 55 ml/min (=/>90); Glucose Level 75 mg/dL (74-106); Potassium 4.1 mEq/L (3.5-5.1); Protein, Total 6.6 g/dL (6.4-8.2); Sodium Level 137 mEq/L (136-145)
[2024-01-29 12:13] LABS: ALT/SGPT < 14 U/L (16-61)
--- NOTE | 2024-01-29 12:14 | RAD REPORT ---
EXAM DESCRIPTION: RADChest Single View01/29/2024 11:56 am CLINICAL HISTORY: hypotension, cough COMPARISON: Chest Pa And Lat (2 Views) dated 09/07/2023; Chest Single View dated 08/05/2023 TECHNIQUE: Portable AP view of the chest. FINDINGS: Decreased inspiratory effort limits evaluation. Allowing for this, stable pattern of predo minantly peripheral reticular opacities and architectural distortion throughout both lungs with no ne w focal consolidation. No pneumothorax or effusion. The cardiomediastinal contours are unremarkable. IMPRESSION: No acute cardiopulmonary process. Stable findings as above, which suggest chronic inter stitial lung disease.
[2024-01-29 12:44] LABS: Specific Gravity 1.011 (1.005-1.030); Sqamous Epithelial None Seen /HPF (None Seen); Urine Bacteria <20 /HPF (<20); Urine Bilirubin NEGATIVE (Negative); Urine Blood Negative (Negative); Urine Clarity Turbid (Clear); Urine Color Light-Yellow (Yellow); Urine Culture Reflex Order REFLEXED; Urine Glucose NEGATIVE (Negative); Urine Ketones NEGATIVE (Negative); Urine Microscopic Reflex YN ORDER UMIC; Urine Mucus Slight /HPF (None Seen); Urine Nitrite NEGATIVE (Negative); Urine Protein NEGATIVE (Negative); Urine RBC <5 /HPF (None Seen); Urine Urobilinogen Normal (Normal); Urine WBC 20-50 /HPF (<5); Urine pH 6.5 (5.0-7.0)
[2024-01-29] MEDS ORDERED: CEFTRIAXONE 1000 MG/VIAL ONE (12:58)
--- NOTE | 2024-01-29 12:58 | ER ---
Nurse's Notes [facility] Name: Tony Cunningham Age: 88 yrs Sex: Male : 1935 Arrival Date: 01/29/2024 Time: 10:48 Bed 4 Private MD: Diagnosis: Dehydration;UTI/ Urinary tract infection, site not specified Presentation: 01/28 10:45 Chief complaint: EMS states: [facility] called and stated patient had bp 70's/40's, ko1 feeling dizzy when standing. Coronavirus screen: At this time, the client does not indicate any symptoms associated with coronavirus-19. Ebola Screen: No symptoms or risks identified at this time. Initial Sepsis Screen: Does the patient meet any 2 criteria? No. Patient's initial sepsis screen is negative. Does the patient have a suspected source of infection? No. Patient's initial sepsis screen is negative. Risk Assessment: Do you want to hurt yourself or someone else? Patient reports no desire to harm self or others. Onset of symptoms was January 29, 2024. Care prior to arrival: Medication(s) given: Normal saline infusion, 500 mL, IV initiated. 18 GA, in the right forearm, Glucose check: 144. Transition of care: patient was received from another setting of care (long-term care facility), [facility]. 10:45 Method Of Arrival: EMS: [facility] ko1 10:45 Acuity: CANELO 3 ko1 Triage Assessment: 10:59 General: Appears in no apparent distress. Behavior is calm, cooperative. Pain: Denies ko1 pain. EENT: No deficits noted. Neuro: alzheimers. Cardiovascular: No deficits noted. Rhythm is sinus bradycardia. Respiratory: No deficits noted. GI: No deficits noted. : incontinent. Derm: No deficits noted. Musculoskeletal: No deficits noted. Historical: - Allergies: 10:59 No Known Allergies; ko1 - PMHx: 10:59 back problems; BPH; Hypothyroidism; Alzheimer's disease; Hypertensive disorder; ko1 - PSHx: 10:59 Thyroidectomy; ko1 - Immunization history:: Adult Immunizations up to date. - Infectious Disease History:: Denies. - Family history:: not pertinent. - Social history:: Smoking status: unknown. - Hospitalizations: : No recent hospitalization is reported. Screenin:06 [facility] ED Fall Risk Assessment (Adult) History of falling in the last 3 months, ko1 including since admission No falls in past 3 months (0 pts) Confusion or Disorientation Yes (5 pts) Intoxicated or Sedated No (0 pts) Impaired Gait Yes (1 pt) Mobility Assist Device Used No (0 pt) Altered Elimination Yes (1 pt) Score/Fall Risk Level 3 or more points = High Risk Oriented to surroundings, Maintained a safe environment, Educated pt \T\ family on fall prevention, incl call for assistance when getting out of bed, Assessed \T\ reinforced patient's understanding of fall precautions, Provided non-skid footwear, Hourly rounding (assess needs \T\ fall precautionary measures) done, Used ambulatory aids as needed (educated on \T\ assisted with), Used gait belt as appropriate Implemented a Fall Risk Plan of Care, Apply high fall risk patient identification: yellow non skid footwear/ fall signage, Remained w/in arm's length of patient and in sight while toileting, Offered frequent toileting (1:1 observation), Remained with patient while ambulating, Utilized family, sitter, or virtual flipping machine operator as indicated. Abuse screen: Denies threats or abuse. Denies injuries from another. Nutritional screening: No deficits noted. Tuberculosis screening: No symptoms or risk factors identified. Assessment: 11:06 Reassessment: Patient appears in no apparent distress at this time. ko1 13:09 Reassessment: Called patient report to [facility] - [facility] will call back with ld1 ETA of when patient will be picked up. 13:46 Reassessment: No changes from previously documented assessment. Patient and/or family ll1 updated on plan of care and expected duration. Pain level reassessed. Patient is alert, oriented x 3, equal unlabored respirations, skin warm/dry/pink. Vital Signs: 10:45 BP 95 / 66; Pulse 55; Resp 18; Temp 98; Pulse Ox 99% on R/A; ko1 11:17 BP 110 / 66; rn 11:40 BP 127 / 72; Pulse 53; Resp 16; Pulse Ox 100% ; ko1 12:00 BP 131 / 71; Pulse 53; Resp 16; Pulse Ox 98% ; ko1 12:47 BP 116 / 76; Pulse 61; Resp 18; Pulse Ox 99% on R/A; ld1 13:44 BP 115 / 77; Pulse 57; Resp 16; Temp 98.1; Pulse Ox 97% ; Pain 0/10; ll1 13:44 Pain Scale: Adult ll1 ED Course: 10:53 Patient arrived in ED. rn 10:54 Rodrigue Kohli MD is Attending Physician. rn 10:59 Triage completed. ko1 10:59 Arm band placed on right wrist. Patient placed in an exam room, on a stretcher, on ko1 germ drier, on pulse oximetry, Patient notified of wait time. 11:06 Patient has correct armband on for positive identification. Placed in gown. Bed in low ko1 position. Call light in reach. Side rails up X2. Client placed on continuous cardiac and pulse oximetry monitoring. NIBP monitoring applied. environmental monitoring technician on. Door closed. Noise minimized. Lights dimmed. Warm blanket given. 11:06 Maintain EMS IV. Dressing intact. Site clean \T\ dry. Gauge \T\ site: 18 right FA. ko 1 11:09 Nori Das, DAVID is Primary Nurse. ko1 11:20 EKG done, by ED staff, reviewed by Rodrigue Kohli MD. em1 11:29 Inserted saline lock: 20 gauge in right forearm, using aseptic technique. Blood ld1 collected. 11:48 Blood Culture Adult (2) Sent. ld1 11:48 Lactate w/ 2H reflex if indic. Sent. ld1 11:58 Chest Single View XRAY In Process Unspecified. EDMS 12:15 Provided Education on: call light. ko1 12:51 Assisted with urinal. ko1 12:51 Urine collected: clean catch specimen, clear, Amount Voided: 250mL. ko1 12:56 Urine Culture Sent. ko1 13:44 IV discontinued, intact, bleeding controlled, No redness/swelling at site. Pressure ll1 dressing applied, x 2, bilaterally. 13:44 No provider procedures requiring assistance completed. ll1 Administered Medications: 10:56 Drug: NS 0.9% IV 500 ml IV at bolus once Route: IV; Rate: bolus; Site: right forearm; ko1 13:02 Follow up: IV Status: Completed infusion; IV Intake: 500ml ko1 13:00 Drug: Rocephin IV 1 grams IV at calculated rate once; Given slow IV push per pharmacy ko1 instructions Route: IV; Rate: calculated rate; Site: right forearm; 13:46 Follow up: Response: No adverse reaction; IV Status: Completed infusion; IV Intake: [id number] Medication: 11:06 VIS not applicable for this client. ko1 Intake: 13:02 IV: 500ml; Total: 500ml. ko1 13:46 IV: 50ml; Total: 550ml. ll1 Outcome: 12:57 Discharge ordered by . rn 13:44 Discharged to halfway. Back to [facility] via [facility]. ll1 13:44 Condition: stable 13:44 Discharge instructions given to patient, Instructed on discharge instructions, follow up and referral plans. medication usage, Demonstrated understanding of instructions, follow-up care, medications, Prescriptions given X 1, 13:46 Patient left the ED. 1 Signatures: Dispatcher [employer] EDMS Rodrigue Kohli MD MD rn Gregor Elizondo Lynsay, RN RN ll1 Eneida Velasquez RN RN [email or web address] Nori Das RN RN ko1
--- NOTE | 2024-01-29 12:58 | EDPHYS ---
Physician Documentation [facility] Name: Tony Cunningham Age: 88 yrs Sex: Male : 1935 Arrival Date: 01/29/2024 Time: 10:48 Bed 4 Private MD: ED Physician Rodrigue Kohli HPI: 01/28 10:55 This 88 yrs old Male presents to ER via Unassigned with complaints of low blood rn pressure. 10:55 EMS reports called out to [facility] for relatively low blood pressure. They told EMS rn that his blood pressure usually runs low and takes midodrine for his low blood pressure but today running slightly lower. Otherwise patient has no complaints. No focal pain. EMS did note that he got a little lightheaded when standing. Blood pressure for EMS was high 70s systolic and fluids started, has gotten a total of 300 cc of normal saline IV over the last 15 minutes. Has shown improvement in blood pressure with this bolus. Patient denies any fever. No vomiting or diarrhea.. Onset: The symptoms/episode began/occurred at an unknown time. Severity of symptoms: At their worst the symptoms were mild in the emergency department the symptoms have improved. The patient has experienced similar episodes in the past. The patient has not recently seen a physician. Historical: - Allergies: 10:59 No Known Allergies; ko1 - PMHx: 10:59 back problems; BPH; Hypothyroidism; Alzheimer's disease; Hypertensive disorder; ko1 - PSHx: 10:59 Thyroidectomy; ko1 - Immunization history:: Adult Immunizations up to date. - Infectious Disease History:: Denies. - Family history:: not pertinent. - Social history:: Smoking status: unknown. - Hospitalizations: : No recent hospitalization is reported. ROS: 10:55 Constitutional: Negative for fever, chills, and weight loss, Neck: Negative for injury, rn pain, and swelling, Cardiovascular: Negative for chest pain, palpitations, and edema, Respiratory: Negative for shortness of breath, cough, wheezing, and pleuritic chest pain, Abdomen/GI: Negative for abdominal pain, nausea, vomiting, diarrhea, and constipation, Back: Negative for injury and pain, MS/Extremity: Negative for injury and deformity, Skin: Negative for injury, rash, and discoloration, Neuro: Positive for generalized weakness and malaise Exam: 10:55 Constitutional: This is a well developed, well nourished patient who is awake, alert, rn and in no acute distress. Head/Face: Normocephalic, atraumatic. ENT: Dry mucous membranes Cardiovascular: Regular rate and rhythm. No pulse deficits. Respiratory: No increased work of breathing, no retractions or nasal flaring. Abdomen/GI: Soft, non-tender MS/ Extremity: Pulses equal, no cyanosis. Neurovascular intact. Full, normal range of motion. Equal circumference. Neuro: Awake and alert, GCS 15, oriented to person, place and situation. Cranial nerves II-XII grossly intact. Motor strength 4/5 in all extremities. Sensory grossly intact. 11:16 ECG was reviewed by the Attending Physician. rn Vital Signs: 10:45 BP 95 / 66; Pulse 55; Resp 18; Temp 98; Pulse Ox 99% on R/A; ko1 11:17 BP 110 / 66; rn 11:40 BP 127 / 72; Pulse 53; Resp 16; Pulse Ox 100% ; ko1 12:00 BP 131 / 71; Pulse 53; Resp 16; Pulse Ox 98% ; ko1 12:47 BP 116 / 76; Pulse 61; Resp 18; Pulse Ox 99% on R/A; ld1 13:44 BP 115 / 77; Pulse 57; Resp 16; Temp 98.1; Pulse Ox 97% ; Pain 0/10; ll1 13:44 Pain Scale: Adult ll1 MDM: 10:54 Patient medically screened. rn 12:55 Differential Diagnosis altered mental status, Dehydration, renal failure, urinary tract rn infection, medication side effect. Data reviewed: vital signs, nurses notes, lab test result(s), radiologic studies, plain films, and as a result, I will discharge patient. Counseling: I had a detailed discussion with the patient and/or guardian regarding the historical points, exam findings, and any diagnostic results supporting the discharge/admit diagnosis, lab results, radiology results, the need for outpatient follow up, to return to the emergency department if symptoms worsen or persist or if there are any questions or concerns that arise at home. Response to treatment: the patient's symptoms have markedly improved after treatment, and as a result, I will discharge patient. Special discussion: I discussed with the patient/guardian in detail that at this point there is no indication for admission to the hospital. It is understood, however, that if the symptoms persist or worsen the patient needs to return immediately for re-evaluation. Based on the history and exam findings, there is no indication for further emergent testing or inpatient evaluation. I discussed with the patient/guardian the need to see the primary care provider for further evaluation of the symptoms. ED course: No acute findings on workup. Questionable UTI. Blood pressure responded quickly to fluids. Current blood pressure is 116/76. Will DC back to [facility] with p.o. antibiotics in case this is early UTI. Patient still has no complaints and states ready to go. Lactic acid normal. WBC normal.. 01/28 10:54 Order name: Blood Culture Adult (2) rn 01/28 10:54 Order name: CBC with Diff; Complete Time: 12: rn 01/28 10:54 Order name: CMP; Complete Time: 12: rn 01/28 10:54 Order name: Lactate w/ 2H reflex if indic.; Complete Time: 12: rn 01/28 10:54 Order name: Protime (+inr); Complete Time: 12: rn 01/28 10:54 Order name: Ptt, Activated; Complete Time: 12: rn 01/28 10:54 Order name: Urinalysis w/ reflexes; Complete Time: 12:53 rn 01/28 12:54 Order name: Urine Culture EDWA 01/28 10:54 Order name: Chest Single View XRAY; Complete Time: 12:29 rn 01/28 10:54 Order name: Accucheck; Complete Time: 11:11 rn 01/28 10:54 Order name: Cardiac monitoring; Complete Time: 10: rn 01/28 10:54 Order name: EKG - Nurse/Tech; Complete Time: 11:19 rn 01/28 10:54 Order name: IV Saline Lock - Large Bore; Complete Time: 10: rn 01/28 10:54 Order name: Labs collected and sent; Complete Time: 11:48 rn 01/28 10:54 Order name: O2 Per Protocol; Complete Time: 10: rn 01/28 10:54 Order name: O2 Sat Monitoring; Complete Time: 10:56 rn 01/28 10:54 Order name: Vital Signs; Complete Time: 10:56 rn EC:16 Rate is 56 beats/min. Rhythm is regular. QRS [place] is Normal. ME interval is normal. QRS rn interval is normal. QT interval is normal. No Q waves. T waves are Normal. No ST changes noted. Clinical impression: Sinus bradycardia. Interpreted by me. Reviewed by me. Administered Medications: 10:56 Drug: NS 0.9% IV 500 ml IV at bolus once Route: IV; Rate: bolus; Site: right forearm; ko1 13:02 Follow up: IV Status: Completed infusion; IV Intake: 500ml ko1 13:00 Drug: Rocephin IV 1 grams IV at calculated rate once; Given slow IV push per pharmacy ko1 instructions Route: IV; Rate: calculated rate; Site: right forearm; 13:46 Follow up: Response: No adverse reaction; IV Status: Completed infusion; IV Intake: [id number] Disposition Summary: 01/29/24 12:57 Discharge Ordered Notes: Location: Home rn Problem: new rn Symptoms: have improved rn Condition: Stable rn Diagnosis - Dehydration rn - UTI/ Urinary tract infection, site not specified rn Followup: rn - With: Private Physician - When: As needed - Reason: Recheck today's complaints, Re-evaluation by your physician Discharge Instructions: - Discharge Summary Sheet rn - Dehydration, Elderly rn - Urinary Tract Infection, Adult rn Forms: - Medication Reconciliation Form rn - Antibiotic governor assembler - Prescription Opioid Use rn - Patient Portal Instructions rn - Leadership Thank You Letter rn Prescriptions: - Cephalexin 500 mg Oral Capsule - take 1 capsule ORAL route every 12 hours for 10 days; 20 capsule; Refills: 0, rn Product Selection Permitted Signatures: Dispatcher [employer] EDMS Rodrigue Kohli MD MD rn Oliver, Kathy, RN RN ko1 Robert Rojas RN ll1 Corrections: (The following items were deleted from the chart) 10:54 10:54 BLOOD CULTURE*+BA.LAB.BRZ ordered. EDMS EDMS 10:54 10:54 CBC+H.LAB.BRZ ordered. EDMS EDMS 10:54 10:54 COMPREHENSIVE METABOLIC PANEL+C.LAB.BRZ ordered. EDMS EDMS 10:54 10:54 LACTATE+C.LAB.BRZ ordered. EDMS EDMS 10:54 10:54 PROTIME (+INR)+COAG.LAB.BRZ ordered. EDMS EDMS 10:54 10:54 PTT, ACTIVATED+COAG.LAB.BRZ ordered. EDMS EDMS 10:54 10:54 Urinalysis+U.LAB.BRZ ordered. EDMS EDMS 10:54 10:54 Chest Single View+RAD.RAD.BRZ ordered. EDMS EDMS
[2024-01-29 14:40] VITALS: BP 115/77; O2SAT 97
[2024-01-29 14:41] VITALS: TEMP 98.1
--- NOTE | 2024-01-30 11:02 | EKG ---
Test Date: 2024-01-29 Test Time: 11:14:26 Software Development Leader: ANJELICA MEASUREMENT RESULTS: Intervals: Rate: 56 NH: 186 QRSD: 112 QT: 460 QTc: 443 [place]: P: -1 NH: 186 QRS: 82 T: 23 INTERPRETIVE STATEMENTS: Sinus bradycardia Incomplete right bundle branch block Borderline ECG Compared to ECG 11/24/2023 07:30:15 Incomplete right bundle-branch block now present Sinus rhythm no longer present Electronically Signed On 01-30-24 10:59:50 CDT by David Fritz
== END 2024-01-29 13:46 | disposition home or self-care (01) ==
LOC: ER 10:48
DX: E86.0 Dehydration (principal); N39.0 Urinary tract infection, site not specified; I10 Essential (primary) hypertension; G30.9 Alzheimer's disease, unspecified; F02.80 Dementia in other diseases classified elsewhere, unspecified severity, without behavioral disturbance, psychotic disturbance, mood disturbance, and anxiety
CPT/HCPCS: 96365; 96361; 93005; 87040 ×2; 87088; 85025; 81001; 87086; 36415; 85610; 83605; 85730; 80053; 71045; 99285; J0696

== ENCOUNTER 2024-04-09 08:08 | Inpatient (IN) | payer OTHER ==
--- NOTE | 2024-04-09 09:11 | RAD REPORT ---
EXAM DESCRIPTION: CT - Head C Spine Mpr Wo Con - 04/09/2024 8:47 am CLINICAL HISTORY: Head and neck injury status post fall. Head and neck pain COMPARISON: November 2023 TECHNIQUE: Computed axial tomography of the head and cervical spine was obtained. Sagittal and coronal reconstruction was performed. All CT scans are performed using dose optimization technique as appropriate and may include automated exposure control or mA/KV adjustment according to patient size. FINDINGS: An intracranial bleed is not seen. The ventricles are normal in caliber. Mild low-density within periventricular, deep and subcortical white matter likely ischemic changes se condary to small vessel disease. . An extra-axial fluid collection is not noted. Fluid within the visualized sinuses and mastoids is not seen A cervical fracture is not visualized. No dislocation is noted. Mild chronic posterior subluxation C6 on C7 and C7-T1 IMPRESSION: No acute intracranial abnormality is seen. A cervical fracture is not visualized. If the patient continues to have symptoms to suggest intracranial /spinal cord pathology then MRI wou ld be recommended
--- NOTE | 2024-04-09 09:14 | RAD REPORT ---
EXAM DESCRIPTION: RAD - Hip Left 2 View - 04/09/2024 8:44 am CLINICAL HISTORY: Left hip pain status post injury FINDINGS: No fracture or dislocation is seen. Bones are osteoporotic. If the patient continues to have symptoms to suggest an occult fracture MRI would recommended
[2024-04-09] MEDS ORDERED: MORPHINE 15 MG IR TAB PO ONE (11:14)
--- NOTE | 2024-04-09 12:54 | RAD REPORT ---
EXAM DESCRIPTION: MRI - Hip Left Wo Cont - 04/09/2024 12:40 pm CLINICAL HISTORY: r/o hip fracture COMPARISON: Hip Left 2 View dated 04/09/2024; Pelvis dated 11/24/2023 TECHNIQUE: Multiplanar multisequence MRI of the left hip, obtained without IV contrast. FINDINGS: Nondisplaced left femoral intertrochanteric fracture, with irregular hypointense fracture line on T1, with mild comminution along the most superior aspect of the greater trochanter. Edema extends along the muscles attaching to the greater trochanter, with some isointense T1 fluid co mponents dissecting between the gluteus medius and saniya, suggesting nonlocalized blood products. Subtle hypointense fracture line suggesting a nondisplaced fracture at the junction of the right infe rior pubic ramus and ischial tuberosity. Marrow signal abnormality also extends along the right ischi al tuberosity. Right total hip arthroplasty hardware in place resulting in susceptibility artifact which limits eval uation. Numerous diverticula of the urinary bladder noted, suggesting longstanding bladder outlet obstruction . Mild prostatomegaly. IMPRESSION: Nondisplaced left femoral intertrochanteric fracture. Suggested mild comminution along t he most superior aspect of the greater trochanter. Suggestion of nondisplaced fracture at the right inferior pubic ramus near the junction with the isch ial tuberosity as well. Please correlate with radiographs or CT of the pelvis.
--- NOTE | 2024-04-09 13:17 | EDPHYS ---
Physician Documentation [facility] Name: Tony Cunningham Age: 88 yrs Sex: Male : 1935 Arrival Date: 04/09/2024 Time: 08:08 Bed 8 Private MD: ED Physician Andry Velasquez HPI: 04/09 10:49 This 88 yrs old Male presents to ER via EMS with complaints of Fall Injury. ms3 10:49 [id number] male with past medical history of Alzheimer's, BPH, hypertension, ms3 hypothyroidism presents to the emergency department via [facility] from nursing. Nursing facility reported patient fell in the lobby and was placed back in bed overnight. This morning patient began complaining of left hip pain. Patient denies pain at this time. Patient denies loss of consciousness or being on blood thinners. Historical: - Allergies: 08:13 No Known Allergies; ko1 - Home Meds: 08:13 Unable to obtain [Active]; ko1 - PMHx: 08:13 Alzheimer's disease; back problems; BPH; Hypertensive disorder; Hypothyroidism; ko1 - PSHx: 08:13 Thyroidectomy; ko1 - Immunization history:: Adult Immunizations up to date. - Infectious Disease History:: Denies. - Social history:: Smoking status: Patient denies any tobacco usage or history of. ROS: 10:49 Constitutional: Negative for fever, and chills. Neck: Negative for injury, pain, and ms3 swelling, Cardiovascular: Negative for chest pain, and palpitations. Respiratory: Negative for shortness of breath, cough, wheezing, and pleuritic chest pain, Abdomen/GI: Negative for abdominal pain, nausea, vomiting, diarrhea, and constipation, 10:49 MS/extremity: Positive for pain, of the left hip, Exam: 10:49 Constitutional: This is a well developed, well nourished patient who is awake, alert, ms3 and in no acute distress. Head/Face: Normocephalic, atraumatic. Chest/axilla: Normal chest wall appearance and motion. Nontender with no deformity. Cardiovascular: Regular rate and rhythm with a normal S1 and S2. No gallops, murmurs, or rubs. Normal PMI, no JVD. No pulse deficits. Respiratory: Lungs have equal breath sounds bilaterally, clear to auscultation and percussion. No rales, rhonchi or wheezes noted. No increased work of breathing, no retractions or nasal flaring. Abdomen/GI: Soft, non-tender, with normal bowel sounds. No distension or tympany. No guarding or rebound. No evidence of tenderness throughout. Skin: Warm, dry with normal turgor. Normal color with no rashes, no lesions, and no evidence of cellulitis. MS/ Extremity: Pulses equal, no cyanosis. Neurovascular intact. Full, normal range of motion. Vital Signs: 08:11 BP 116 / 69; Pulse 60; Resp 16; Temp 98.2; Pulse Ox 98% ; ko1 10:44 BP 154 / 95; Pulse 65; Resp 18; Pulse Ox 97% ; ko1 12:53 BP 111 / 69; Pulse 68; Resp 16; Pulse Ox 98% ; ko1 15:00 BP 134 / 78; Pulse 68; Resp 18; Pulse Ox 98% ; ko1 15:31 BP 115 / 70; Pulse 61; Resp 16; Pulse Ox 98% ; ko1 MDM: 08:13 Patient medically screened. ms3 10:49 Differential diagnosis: contusion, fracture, sprain, strain. ms3 13:17 Data reviewed: vital signs, nurses notes, and as a result, I will discharge patient. I ms3 considered the following discharge prescriptions or medication management in the emergency department Medications were administered in the Emergency Department. See MAR. Independent interpretation of the following test(s) in the Emergency Department MRI: My interpretation is Left hip MRI images reviewed by me show intertrochanteric hip fracture. Care significantly affected by the following chronic conditions: Hypertension, Alzheimer's disease. Counseling: I had a detailed discussion with the patient and/or guardian regarding the historical points, exam findings, and any diagnostic results supporting the discharge/admit diagnosis, radiology results, the need for further work-up and treatment in the hospital. ED course: Discussed hip fracture with patient and he agrees with admission. Discussed case with Dr. Pelletier and he will consult on patient. Discussed case with Dr. Zamudio and he accepts patient to his service. 04/09 13:03 Order name: CBC with Diff; Complete Time: 13:51 ms3 04/09 13:03 Order name: BMP; Complete Time: 13:51 ms3 04/09 15:30 Order name: Urinalysis w/ reflexes EDMS 04/09 15:30 Order name: Basic Metabolic Panel EDMS 04/09 15:30 Order name: Basic Metabolic Panel EDMS 04/09 15:30 Order name: Basic Metabolic Panel EDMS 04/09 15:30 Order name: Basic Metabolic Panel EDMS 04/09 15:30 Order name: Basic Metabolic Panel EDMS 04/09 15:30 Order name: Basic Metabolic Panel EDMS 04/09 15:30 Order name: Basic Metabolic Panel EDMS 04/09 15:30 Order name: Basic Metabolic Panel EDMS 04/09 15:30 Order name: CBC with Automated Diff EDMS 04/09 15:30 Order name: CBC with Automated Diff EDMS 04/09 15:30 Order name: CBC with Automated Diff EDMS 04/09 15:30 Order name: CBC with Automated Diff EDMS 04/09 15:30 Order name: CBC with Automated Diff EDMS 04/09 15:30 Order name: CBC with Automated Diff EDMS 04/09 15:30 Order name: CBC with Automated Diff EDMS 04/09 15:30 Order name: CBC with Automated Diff EDMS 04/09 15:30 Order name: Magnesium EDMS 04/09 15:30 Order name: Magnesium EDMS 04/09 15:30 Order name: Magnesium EDMS 04/09 15:30 Order name: Magnesium EDMS 04/09 15:30 Order name: Magnesium EDMS 04/09 15:30 Order name: Magnesium EDMS 04/09 15:30 Order name: Magnesium EDMS 04/09 15:30 Order name: Magnesium EDMS 04/09 15:30 Order name: Phosphorus EDMS 04/09 15:30 Order name: Phosphorus EDMS 04/09 15:30 Order name: Phosphorus EDMS 04/09 15:30 Order name: Phosphorus EDMS 04/09 15:30 Order name: Phosphorus EDMS 04/09 15:30 Order name: Phosphorus EDMS 04/09 15:30 Order name: Phosphorus EDMS 04/09 15:30 Order name: Phosphorus EDMS 04/09 15:30 Order name: Protime (+INR) EDMS 04/09 15:30 Order name: Protime (+INR) EDMS 04/09 15:30 Order name: PTT, Activated Partial Thromb EDMS 04/09 15:30 Order name: PTT, Activated Partial Thromb EDMS 04/09 08:13 Order name: CT Head C Spine; Complete Time: 09:19 ms3 04/09 08:13 Order name: Hip Left 2 View XRAY; Complete Time: 09:19 ms3 04/09 09:40 Order name: Hip Left Wo Cont; Complete Time: 13:01 EDMS 04/09 13:02 Order name: CT Pelvis wo Cont; Complete Time: 16:55 ms3 04/09 15:30 Order name: CONS Physician Consult EDMS 04/09 15:30 Order name: Physical Therapy Consult EDMS Administered Medications: 11:17 Drug: morphine PO 15 mg PO once Route: PO; ld1 11:47 Follow up: Response: No adverse reaction ko1 15:05 Drug: morphine IVP or IV 4 mg IVP once over 4 mins Route: IVP; Infused Over: 4 mins; ld1 Site: right antecubital; 15:33 Follow up: Response: No adverse reaction ko1 Disposition Summary: 04/09/24 13:17 Hospitalization Ordered Notes: Hospitalization Status: Inpatient Admission ms3 Condition: Stable ms3 Problem: new ms3 Symptoms: are unchanged ms3 Bed/Room Type: Standard ms3 Provider: Ronny Martinez(04/09/24 15:12) ms3 Location: Telemetry/MedSurg (Inpatient)(04/09/24 15:34) Room Assignment: [facility](04/09/24 15:34) bd Diagnosis - Nondisplaced intertrochanteric fracture of left femur, initial encounter for closed ms3 fracture - Fall on same level, unspecified ms3 - Anemia, unspecified ms3 Forms: - Medication Reconciliation Form ms3 - SBAR form ms3 - Leadership Thank You Letter ms3 Signatures: Dispatcher [employer] EDMS Anny Serrato Marcus, DO DO ms3 Eneida Velasquez RN RN ld1 Nori Das RN RN ko1 Corrections: (The following items were deleted from the chart) 08:14 08:14 Head C Spine MPR Wo Con+CT.RAD.BRZ ordered. EDMS EDMS 08:14 08:14 Hip Left 2 View+RAD.RAD.BRZ ordered. EDMS EDMS 13:03 13:03 Pelvis Wo Cont+CT.RAD.BRZ ordered. EDMS EDMS 13:03 13:03 CBC+H.LAB.BRZ ordered. EDMS EDMS 13:03 13:03 BASIC METABOLIC PANEL+C.LAB.BRZ ordered. EDMS EDMS 14:58 13:17 Telemetry/MedSurg (Inpatient) ms3 bd 14:58 13:17 ms3 bd 15:12 13:17 Lou Zamudio ms3 ms3 15:34 14:58 [facility] ER HOLD bd bd 15:34 14:58 ERHOLD- bd bd
--- NOTE | 2024-04-09 13:17 | ER ---
Nurse's Notes [facility] Name: Tony Cunningham Age: 88 yrs Sex: Male : 1935 Arrival Date: 04/09/2024 Time: 08:08 Bed 8 Private MD: Diagnosis: Nondisplaced intertrochanteric fracture of left femur, initial encounter for closed fracture;Fall on same level, unspecified;Anemia, unspecified Presentation: 04/09 08:11 Chief complaint: EMS states: patient fell last night, staff placed patient in ko1 wheelchair and he went to bed. When they got him up this morning he was complaining of severe left hip pain. No LOC and no blood thinners. Coronavirus screen: At this time, the client does not indicate any symptoms associated with coronavirus-19. Ebola Screen: No symptoms or risks identified at this time. Initial Sepsis Screen: Does the patient meet any 2 criteria? No. Patient's initial sepsis screen is negative. Does the patient have a suspected source of infection? No. Patient's initial sepsis screen is negative. Risk Assessment: Do you want to hurt yourself or someone else? Patient reports no desire to harm self or others. Onset of symptoms was April 09, 2024. 08:11 Method Of Arrival: EMS: [facility] ko1 08:11 Acuity: CANELO 4 ko1 Triage Assessment: 08:13 General: Appears in no apparent distress. comfortable, Behavior is calm, cooperative, ko1 appropriate for age. Pain: Denies pain. EENT: No deficits noted. Neuro: No deficits noted. Cardiovascular: No deficits noted. Respiratory: No deficits noted. GI: No deficits noted. : No deficits noted. Derm: No deficits noted. Musculoskeletal: Parent/caregiver report the patient having pain in left hip. Injury Description: Bruise sustained to left hip is purple. Historical: - Allergies: 08:13 No Known Allergies; ko1 - Home Meds: 08:13 Unable to obtain [Active]; ko1 - PMHx: 08:13 Alzheimer's disease; back problems; BPH; Hypertensive disorder; Hypothyroidism; ko1 - PSHx: 08:13 Thyroidectomy; ko1 - Immunization history:: Adult Immunizations up to date. - Infectious Disease History:: Denies. - Social history:: Smoking status: Patient denies any tobacco usage or history of. Screenin:15 [facility] ED Fall Risk Assessment (Adult) History of falling in the last 3 months, ko1 including since admission Yes- single mechanical fall (1 pt) Confusion or Disorientation Yes (5 pts) Intoxicated or Sedated No (0 pts) Impaired Gait Yes (1 pt) Mobility Assist Device Used Yes (1 pt) Altered Elimination No (0 pt) Score/Fall Risk Level 3 or more points = High Risk Oriented to surroundings, Maintained a safe environment, Educated pt \T\ family on fall prevention, incl call for assistance when getting out of bed, Assessed \T\ reinforced patient's understanding of fall precautions, Provided non-skid footwear, Hourly rounding (assess needs \T\ fall precautionary measures) done, Used ambulatory aids as needed (educated on \T\ assisted with), Used gait belt as appropriate Implemented a Fall Risk Plan of Care, Apply high fall risk patient identification: yellow non skid footwear/ fall signage, Remained w/in arm's length of patient and in sight while toileting, Offered frequent toileting (1:1 observation), Remained with patient while ambulating, Utilized family, sitter, or virtual batch plant supervisor as indicated. Abuse screen: Denies threats or abuse. Denies injuries from another. Nutritional screening: No deficits noted. Tuberculosis screening: No symptoms or risk factors identified. Assessment: 08:15 Reassessment: see triage note. ko1 Vital Signs: 08:11 BP 116 / 69; Pulse 60; Resp 16; Temp 98.2; Pulse Ox 98% ; ko1 10:44 BP 154 / 95; Pulse 65; Resp 18; Pulse Ox 97% ; ko1 12:53 BP 111 / 69; Pulse 68; Resp 16; Pulse Ox 98% ; ko1 15:00 BP 134 / 78; Pulse 68; Resp 18; Pulse Ox 98% ; ko1 15:31 BP 115 / 70; Pulse 61; Resp 16; Pulse Ox 98% ; ko1 ED Course: 08:10 Patient arrived in ED. ld1 08:11 Nori Das, DAVID is Primary Nurse. ko1 08:12 Andry Velasquez DO is Attending Physician. ms3 08:13 Triage completed. ko1 08:13 Arm band placed on right wrist. Patient placed in an exam room, on a stretcher, on ko1 cardiac cath tech, on pulse oximetry, Patient notified of wait time. 08:15 Patient has correct armband on for positive identification. Fall risk band placed. ko1 Placed in gown. Bed in low position. Call light in reach. Side rails up X2. Provided Education on: tests. Pulse ox on. NIBP on. Door closed. Noise minimized. Lights dimmed. Warm blanket given. Pillow given. 08:36 CT Head C Spine In Process Unspecified. EDMS 08:45 Hip Left 2 View XRAY In Process Unspecified. EDMS 12:41 Hip Left Wo Cont In Process Unspecified. EDMS 13:16 Lou Zamudio MD is Hospitalizing Provider. ms3 13:27 BMP Sent. ko1 13:27 CBC with Diff Sent. ko1 13:56 CT Pelvis wo Cont In Process Unspecified. EDMS 15:12 Hospitalizing Provider role handed off by Lou Zamudio MD ms3 15:12 Ronny Martinez is Hospitalizing Provider. ms3 15:15 Cleaned of incontinence. Linen changed. Placed in clean gown on monitor. ld1 15:31 No provider procedures requiring assistance completed. Patient admitted, IV remains in ko1 place. Administered Medications: 11:17 Drug: morphine PO 15 mg PO once Route: PO; ld1 11:47 Follow up: Response: No adverse reaction ko1 15:05 Drug: morphine IVP or IV 4 mg IVP once over 4 mins Route: IVP; Infused Over: 4 mins; ld1 Site: right antecubital; 15:33 Follow up: Response: No adverse reaction ko1 Medication: 08:15 VIS not applicable for this client. ko1 Outcome: 13:17 Decision to Hospitalize by Provider. ms3 15:31 Admitted to ER Hold. Please see [facility] for further documentation. ko1 15:31 Condition: stable 15:31 Instructed on the need for admit, 16:29 Patient left the ED. ap3 Signatures: Dispatcher [employer] Betzaida Montemayor RN RN ap3 Andry Velasquez, DO ms3 Eneida Velasquez RN RN ld1 Nori Das RN RN ko1
[2024-04-09 13:34] LABS: Absolute Basophils 0.1 K/uL (0-0.5); Absolute Eosinophils 0.4 K/uL (0-0.5); Absolute Lymphocytes (CBC) 1.5 K/uL (0.7-4.9); Absolute Monocytes 0.8 K/uL (0.1-1.3); Absolute Neutrophil 6.4 K/uL (1.8-8.0); Basophils % 0.6 % (0-1.3); Eosinophils % 4.7 % (0-4.4); Hematocrit 31.7 % (39.6-49.0); Hemoglobin 10.4 g/dL (13.6-17.9); Lymphocytes % 15.9 % (15.3-44.8); MCH 34.3 pg (27.0-35.0); MCHC 32.8 g/dL (32.0-36.0); MCV 104.4 fL (80-100); MPV 6.8 fL (7.6-11.3); Monocytes % 8.8 % (3.3-12.3); Platelets 316 thou/uL (152-406); RBC Red Blood Cell Count 3.04 M/uL (4.33-5.43); Red Cell Distribution Width 16.3 % (12.1-15.2)
[2024-04-09 13:51] LABS: Anion Gap 7.3 mEq/L (5.0-15.0); Potassium 4.3 mEq/L (3.5-5.1)
[2024-04-09] MEDS ORDERED: MORPHINE 4 MG/ML SYR ONE (14:58)
[2024-04-09] MEDS ORDERED: ACETAMINOPHEN 500 MG TAB PO PRN (15:15)
--- NOTE | 2024-04-09 15:58 | RAD REPORT ---
EXAM DESCRIPTION: CT - Pelvis Wo Cont - 04/09/2024 1:54 pm CLINICAL HISTORY: PAIN COMPARISON: Hip Left Wo Cont dated 04/09/2024 TECHNIQUE: Thin cut axial CT imaging of the pelvis was performed without IV contrast. Multiplanar re formats were generated and reviewed. All CT scans are performed using dose optimization technique as appropriate and may include automated exposure control or mA/KV adjustment according to patient size. FINDINGS: Left femoral intertrochanteric fracture is again noted, with some impaction and mild commi nution posteriorly along the greater trochanter. Partial healing of internally fixated right femoral hazy cervical fracture with incomplete union. Subtle lucency within the trabecular bone along the right inferior pubic ramus, at the junction with the ischial tuberosity. See coronal image 103/180 among others. No fracture lines are seen along the cortical bone. No dilated bowel loops or bowel wall thickening. No free air, free fluid or inflammatory stranding. N o hernia, mass or bulky lymphadenopathy in the pelvis. The urinary bladder shows wall trabeculation a nd small diverticula. Lobulated cystic lesions in the right flank, may relate to renal cysts, not com pletely visualized. Mild sigmoid diverticulosis. IMPRESSION: Left femoral mildly impacted intertrochanteric fracture. Subtle lucency within the right inferior pubic ramus trabecular bone, corresponding to the marrow sig nal abnormality on MRI, suggesting a stress fracture. Other incidental findings as above.
--- NOTE | 2024-04-09 16:09 | P.HP ---
Certification for Inpatient Patient admitted to: Inpatient With expected LOS: >2 Midnights Patient will require the following post-hospital care: None Practitioner: I am a practitioner with admitting privileges, knowledge of patient current condition, hospital course, and medical plan of care. Services: Services provided to patient in accordance with Admission requirements found in Title 42 Section 412.3 of the Code of Federal Regulations Patient History Date of Service: 04/09/24 Reason for admission: left hip fracture History of Present Illness: Tony Cunningham is an 88 year old male with Pmhx back problems, hypothyroidismthyroidectomy, BPH, hypotension, right hip fracture who presents to the ED with chief complaint of fall and left hip pain. Reportedly, he fell yesterday while at his residence [place] [employer], and was able to be positioned back in bed. Of note, he had a right hip surgery in November of 2023. During that November admission, he was found to have orthostatic hypotension. Initial vital BP 162 / 72; Pulse 66; Resp 18; Temp 97.6(TE); Pulse Ox 100% on R/A Laboratory evaluation H&H 10.4/31.7, platelets 316, sodium 140, PT/INR, PTT pending Left hip x-ray reports "No fracture or dislocation is seen. Bones are osteoporotic." MRI left hip reports "Nondisplaced left femoral intertrochanteric fracture. Suggested mild comminution along the most superior aspect of the greater trochanter. Suggestion of nondisplaced fracture at the right inferior pubic ramus near the junction with the ischial tuberosity as well. Please correlate with radiographs or CT of the pelvis." Head and spine CT reports "No acute intracranial abnormality is seen, Mild chronic posterior subluxation C6 on C7 and C7-T1" Tony will be admitted to hospitalist service for left hip fracture, Dr. Pelletier consulted. Allergies No Known Allergies Allergy (Verified 11/23/23 22:04) Home Medications: Levothyroxine [Synthroid*] 0.112 mg PO DAILY 09/01/23 Melatonin 6 mg PO BEDTIME PRN 09/01/23 Tamsulosin HCl [Flomax] 0.4 mg PO BEDTIME 09/01/23 Donepezil [Aricept*] 5 mg PO BEDTIME 11/30/23 Midodrine HCl [Proamatine*] 5 mg PO TID 11/30/23 Cranberry Fruit Extract 200 mg PO BID cap 12/12/23 Lidocaine 4% Patch [Lidoderm 5% Patch*] 1 patch TOP DAILY pat 12/12/23 Sodium Chloride Tab [Sodium Chloride*] 1 gm PO BIDWM #60 tab 12/12/23 - Past Medical/Surgical History Diabetic: No -: Hypothyroid -: Orthostatic Hypotension -: BPH -: Thyroidectomy -: Right hip surgery - Family History Family History: Reviewed- Non-Contributory - Social History Smoking Status: Never smoker Alcohol use: No CD- Drugs: No Caffeine use: No Review of Systems Musculoskeletal: Leg Pain (Left) Physical Examination - Physical Exam General: Alert, In no apparent distress, Oriented x3, Other (Mild agitation) HEENT: Atraumatic, Normocephalic, PERRLA Neck: Supple, 2+ carotid pulse no bruit Respiratory: Clear to auscultation bilaterally, Normal air movement Cardiovascular: Normal pulses, Regular rate/rhythm, Normal S1 S2 Capillary refill: <2 Seconds Gastrointestinal: Normal bowel sounds, Soft and benign Musculoskeletal: No clubbing Integumentary: No rashes Neurological: Normal speech, Normal tone - Studies Laboratory Data (last 24 hrs) 04/09/24 04/09/24 13:25 13:25 WBC 9.10 Hgb 10.4 L Hct 31.7 L Plt Count 316 Sodium 140 Potassium 4.3 BUN 27 H Creatinine 0.74 Glucose 97 Assessment and Plan - Plan Assessment and plan Acute nondisplaced left femoral intertrochanteric fracture possible nondisplaced fracture to right inferior pubic ramus Possible mild comminution superior aspect of the greater trochanter Osteoporosis Trauma/fall at longterm -Left hip x-ray reports "No fracture or dislocation is seen. Bones are osteoporotic." -MRI left hip reports "Nondisplaced left femoral intertrochanteric fracture. Suggested mild comminution along the most superior aspect of the greater trochanter. Suggestion of nondisplaced fracture at the right inferior pubic ramus near the junction with the ischial tuberosity as well. Please correlate with radiographs or CT of the pelvis. 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 Pelletier, surgery planned for the a.m. 04/10/24 -Perioperative antibiotics per Dr. 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
[2024-04-09 19:58] LABS: Protime INR 1.07
[2024-04-10] MEDS: MORPHINE 2 MG/ML SYR IV PRN (01:38)
[2024-04-10 06:21] LABS: Absolute Basophils 0.1 K/uL (0-0.5); Absolute Eosinophils 0.5 K/uL (0-0.5); Absolute Neutrophil 5.4 K/uL (1.8-8.0); Eosinophils % 5.8 % (0-4.4); Hemoglobin 10.5 g/dL (13.6-17.9); Lymphocytes % 12.5 % (15.3-44.8); MCHC 33.9 g/dL (32.0-36.0); MCV 103.3 fL (80-100); MPV 6.7 fL (7.6-11.3); Neutrophils % 68.7 % (41.7-73.7); Nucleated Red Blood Cells % 0.1 % (0-0); Platelets 316 thou/uL (152-406); Red Cell Distribution Width 16.3 % (12.1-15.2)
[2024-04-10 06:40] LABS: Anion Gap 8.3 mEq/L (5.0-15.0); Magnesium 2.3 mg/dL (1.6-2.4); Phosphorus 3.7 mg/dL (2.5-4.9); Potassium 4.3 mEq/L (3.5-5.1)
[2024-04-10] MEDS: Ringers Lactate 1,000 ML IV ONE (16:00)
[2024-04-10] MEDS ORDERED: FENTANYL CITR 100 MCG/2 ML ONE (16:24)
[2024-04-10] MEDS ORDERED: LIDOCAINE 2% MPF 5 ML VIAL ONE (16:24)
[2024-04-10] MEDS ORDERED: propofoL 200 MG/20 ML VIAL IV ONE (16:24)
[2024-04-10] MEDS: CEFAZOLIN SODIUM 2 GM/VIAL ONE (16:27)
[2024-04-10] MEDS: TRANEXAMIC ACID 1,000 MG/10 ML VIAL IV ONE (16:28)
[2024-04-10] MEDS ORDERED: EPHEDRINE SULF 50 MG/ML VIAL ONE (16:56)
[2024-04-10] MEDS ORDERED: NS 0.9% VIAL 10 ML ONE (17:22)
[2024-04-10] MEDS ORDERED: Phenylephrine HCl 10 MG/ML 1 ML VIAL ONE (17:22)
--- NOTE | 2024-04-10 17:47 | P.PN ---
Date of Service: 04/10/24 Subjective Awake watching baseball this AM plan for surgery later this afternoon Tony states his pain is controlled no bruising to the left hip ROS 10 point ROS as noted above, otherwise negative Physical Exam General: Alert and Oriented x3, calm HEENT: Atraumatic, Normocephalic, PERRLA Neck: Supple, 2+ carotid pulse no bruit Respiratory: Clear to auscultation bilaterally, Normal air movement Cardiovascular: Normal pulses, RRR, Normal S1 S2 Capillary refill: <2 Seconds Gastrointestinal: Normal bowel sounds, Soft and benign on palpation Musculoskeletal: No clubbing Integumentary: No rashes Neurological: Normal speech, Normal tone Vitals Reviewed Problem list Acute nondisplaced left femoral intertrochanteric fracture possible nondisplaced fracture to right inferior pubic ramus Possible mild comminution superior aspect of the greater trochanter Osteoporosis Trauma/fall at snf 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 Bones are osteoporotic." -MRI left hip reports "Nondisplaced left femoral intertrochanteric fracture. Suggested mild comminution along the most superior aspect of the greater trochanter. Suggestion of nondisplaced fracture at the right inferior pubic ramus near the junction with the ischial tuberosity as well. Please correlate with radiographs or CT of the pelvis. -Head and spine CT reports No acute intracranial abnormality is seen, Mild chron ic posterior subluxation C6 on C7 and C7-T1 -Pain control -Consult Dr. Pelletier, surgery planned for the a.m. 04/10/24 -Perioperative antibiotics per Dr. 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
[2024-04-10] MEDS ORDERED: HYDROMORPHONE HCL 2 MG/ML inj IV PRN (18:28)
[2024-04-10] MEDS ORDERED: ONDANSETRON 4 MG/2 ML VIAL IV PRN (18:30)
--- NOTE | 2024-04-10 18:36 | OP ---
Surgeon: Santi Pelletier MD Giving Officer: Nick Moctezuma, RN, BSN. Preoperative Diagnosis: Left intertrochanteric hip fracture. Postoperative Diagnosis: Left intertrochanteric hip fracture. Procedure Performed: Intramedullary rodding, left intertrochanteric hip fracture. Complications: None. Estimated Blood Loss: 50 cc. Disposition: To recovery room, stable. Operative Report In Detail: The patient was taken to the operative suite, placed in supine position, induced with anesthesia. The patient was suspended in fracture table. It was difficult to get a la teral of the left hip because of a recently rodded right hip. This was obtained. An entry portal cr eated at tip of the greater trochanter. A single stage reaming followed by passage of a 13 x 130 amarilis l with 115 lag screw placed, verified on biplane radiography. The 42 distal interlocking screw was p laced securing the fracture quite nicely. Layered closure was performed. The patient is being rever sed from anesthesia and should be in the recovery room shortly. ARTURO/BLAKE Voice ID: [id number] Report ID: [id number]
--- NOTE | 2024-04-10 18:49 | CON ---
Preoperative Diagnosis: Left intertrochanteric hip fracture. Postoperative Diagnosis: Left intertrochanteric hip fracture. Reason For Consultation: Left IT hip fracture. Procedure To Be Preformed: Left intertrochanteric hip fracture nailing. Hospital Course: The patient is well known to us having recently broken his right hip. His left hip sustained a fall and intertroch hip fracture appreciated on MRI scan. We were asked to consult for definitive management. There appears to be no unstable medical condition. We will proceed with intr amedullary rodding. ARTURO/BLAKE Voice ID: [id number] Report ID: [id number]
--- NOTE | 2024-04-10 18:49 | RAD REPORT ---
EXAM DESCRIPTION: RAD - Pelvis - 04/10/2024 6:43 pm CLINICAL HISTORY: S/P LEFT HIP RODDING COMPARISON: <Comparisons> FINDINGS/IMPRESSION: Status post left hip ORIF with intramedullary ron and cephalomedullary screw. N o medial or complications. Status post right hip ORIF. No new acute fractures. Both femoral heads toshia ear located.
[2024-04-10] MEDS ORDERED: NACHLORIDE 0.45% 1,000 ML IV SCH (19:00)
--- NOTE | 2024-04-10 19:55 | RAD REPORT ---
EXAM DESCRIPTION: - Hip in OR Left 2 View - 04/10/2024 6:53 pm CLINICAL HISTORY: Hip Casa COMPARISON: No comparisons FINDINGS/IMPRESSION: Twenty-nine intraoperative fluoroscopic images were submitted from a left hip O RIF . No radiologist was available for the procedure, nor will any image interpretation be provided. Sandrita wilcox refer to the procedural report for additional details Fluoro time: 2.3 minutes Cumulative dose: 21.8 mGy
[2024-04-10] MEDS: MIDODRINE HCL 5 MG TABLET PO SCH (20:48)
[2024-04-11] MEDS: CEFAZOLIN 1 GM in NA CHLORIDE 0.9% 50 ML IVPB SCH (02:37)
[2024-04-11 05:29] LABS: Absolute Eosinophils 0.1 K/uL (0-0.5); Absolute Lymphocytes (CBC) 0.6 K/uL (0.7-4.9); Absolute Neutrophil 7.8 K/uL (1.8-8.0); Basophils % 0.4 % (0-1.3); Eosinophils % 1.4 % (0-4.4); Lymphocytes % 6.6 % (15.3-44.8); MCH 34.9 pg (27.0-35.0); MCHC 33.2 g/dL (32.0-36.0); MCV 105.3 fL (80-100); Monocytes % 10.1 % (3.3-12.3); Neutrophils % 81.5 % (41.7-73.7); Platelets 277 thou/uL (152-406); RBC Red Blood Cell Count 2.85 M/uL (4.33-5.43); Red Cell Distribution Width 15.8 % (12.1-15.2)
[2024-04-11 05:46] LABS: Magnesium 2.3 mg/dL (1.6-2.4); Phosphorus 3.9 mg/dL (2.5-4.9)
[2024-04-11 06:53] LABS: White Blood Cell Scan OK (OK)
[2024-04-11 06:54] LABS: Blood Morphology Comment NOT SEEN (NOT SEEN); Platelet Estimate ADEQ
[2024-04-11] MEDS: ENOXAPARIN 30 MG/0.3 ML SQ SCH (09:00)
[2024-04-11] MEDS: HYDROCODONE/APAP 5/325 MG TAB PO PRN (12:08)
--- NOTE | 2024-04-11 13:19 | EKG ---
Test Date: 2024-04-10 Test Time: 08:36:48 Stitch Cleaner: MAIA MEASUREMENT RESULTS: Intervals: Rate: 60 IA: 190 QRSD: 88 QT: 424 QTc: 424 [place]: P: 47 IA: 190 QRS: 81 T: 37 INTERPRETIVE STATEMENTS: Normal sinus rhythm RSR' or QR pattern in V1 suggests right ventricular conduction delay Borderline ECG Compared to ECG 01/31/2024 14:47:20 RSR' in V1 or V2 now present Electronically Signed On 04-11-24 13:15:01 CDT by Sudhakar Barger
[2024-04-11] MEDS ORDERED: MELATONIN 3 MG TABLET PO PRN (13:23)
[2024-04-11] MEDS ORDERED: MIDODRINE HCL 5 MG TABLET PO SCH (14:00)
[2024-04-11] MEDS: CARBIDOPA PO SCH (14:00)
[2024-04-11] MEDS: LEVODOPA PO SCH (14:00)
[2024-04-11] MEDS: SODIUM CHLORIDE 1 GM TAB PO SCH (17:06)
[2024-04-11 17:33] VITALS: BMI 23.7
--- NOTE | 2024-04-11 19:50 | P.PN ---
Date of Service: 04/11/24 Subjective Awake and conversing, but pleasantly confused No complaints of pain while positioned in bed working with physical therapy ROS 10 point ROS as noted above, otherwise negative Physical Exam General: Alert and oriented x1, calm and cooperative HEENT: Atraumatic, Normocephalic, PERRLA Neck: Supple, 2+ carotid pulse no bruit Respiratory: Clear to auscultation bilaterally, Normal air movement Cardiovascular: Normal pulses, regular rate and rhythm, Normal S1 S2 Capillary refill: <2 Seconds Gastrointestinal: Normal bowel sounds, Soft on palpation Musculoskeletal: No clubbing, left hip dressing CDI Integumentary: No rashes Neurological: Normal speech, Normal tone Vitals Reviewed Problem list Acute nondisplaced left femoral intertrochanteric fracture possible nondisplaced fracture to right inferior pubic ramus Possible mild comminution superior aspect of the greater trochanter Osteoporosis Trauma/fall at [facility] 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 Bones are osteoporotic." -MRI left hip reports "Nondisplaced left femoral intertrochanteric fracture. Suggested mild comminution along the most superior aspect of the greater trochanter. Suggestion of nondisplaced fracture at the right inferior pubic ramus near the junction with the ischial tuberosity as well. Please correlate with radiographs or CT of the pelvis. 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 Pelletier, -Perioperative antibiotics per Dr. 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
[2024-04-11] MEDS: CRANBERRY FRUIT EXTRACT 200 MG CAP PO SCH (20:50)
[2024-04-11] MEDS: DONEPEZIL HCL 5 MG TAB PO SCH (20:50)
[2024-04-11] MEDS: TAMSULOSIN 0.4 MG SR CAP PO SCH (20:54)
[2024-04-11] MEDS: ENSURE SURGERY 237 ML CAN PO SCH (20:54)
[2024-04-12 05:41] LABS: Absolute Basophils 0.1 K/uL (0-0.5); Absolute Eosinophils 0.4 K/uL (0-0.5); Absolute Neutrophil 6.8 K/uL (1.8-8.0); Basophils % 0.7 % (0-1.3); Eosinophils % 4.5 % (0-4.4); Hematocrit 27.6 % (39.6-49.0); Hemoglobin 9.4 g/dL (13.6-17.9); Lymphocytes % 10.6 % (15.3-44.8); MCH 35.4 pg (27.0-35.0); MCHC 33.9 g/dL (32.0-36.0); MCV 104.4 fL (80-100); MPV 7.1 fL (7.6-11.3); Neutrophils % 73.2 % (41.7-73.7); Platelets 271 thou/uL (152-406); RBC Red Blood Cell Count 2.64 M/uL (4.33-5.43); Red Cell Distribution Width 15.4 % (12.1-15.2)
[2024-04-12 06:03] LABS: Anion Gap 8.1 mEq/L (5.0-15.0); Magnesium 2.3; Phosphorus 3.2 mg/dL (2.5-4.9); Potassium 4.1 mEq/L (3.5-5.1)
[2024-04-12] MEDS: LIDOCAINE 4% PATCH TOP SCH (09:03)
[2024-04-12] MEDS: LEVOTHYROXINE SOD 0.112 MG TAB PO SCH (09:04)
--- NOTE | 2024-04-12 16:22 | P.PN ---
Date of Service: 04/12/24 Subjective pleasantly confused repositioned in bed no new complaints ROS 10 point ROS as noted above, otherwise negative Physical Exam General: AAO x1, confused HEENT: Atraumatic, Normocephalic, PERRLA Neck: Supple, 2+ carotid pulse no bruit Respiratory: Clear to auscultation bilaterally, Normal air movement Cardiovascular: Normal pulses, RRR, Normal S1 S2 Capillary refill: <2 Seconds Gastrointestinal: Normal bowel sounds, Soft and benign on palpation, ND/NT Musculoskeletal: No clubbing, left hip dressing CDI Integumentary: No rashes Neurological: Normal speech, Normal tone Vitals Reviewed Problem list Acute nondisplaced left femoral intertrochanteric fracture possible nondisplaced fracture to right inferior pubic ramus Possible mild comminution superior aspect of the greater trochanter Osteoporosis Trauma/fall at [facility] 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 Bones are osteoporotic." -MRI left hip reports "Nondisplaced left femoral intertrochanteric fracture. Suggested mild comminution along the most superior aspect of the greater trochanter. Suggestion of nondisplaced fracture at the right inferior pubic ramus near the junction with the ischial tuberosity as well. Please correlate with radiographs or CT of the pelvis. 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
[2024-04-12] MEDS: DOCUSATE NA 100 MG CAP PO SCH (21:05)
[2024-04-12 21:57] VITALS: O2SAT 97
[2024-04-13 06:31] LABS: Absolute Eosinophils 0.3 K/uL (0-0.5); Absolute Lymphocytes (CBC) 0.9 K/uL (0.7-4.9); Absolute Monocytes 0.9 K/uL (0.1-1.3); Absolute Neutrophil 6.1 K/uL (1.8-8.0); Basophils % 0.6 % (0-1.3); Hematocrit 27.7 % (39.6-49.0); Hemoglobin 9.6 g/dL (13.6-17.9); Lymphocytes % 10.6 % (15.3-44.8); MCH 35.7 pg (27.0-35.0); MCHC 34.7 g/dL (32.0-36.0); MPV 6.8 fL (7.6-11.3); Monocytes % 10.4 % (3.3-12.3); Neutrophils % 74.4 % (41.7-73.7); Nucleated Red Blood Cells % 0.1 % (0-0); Platelets 311 thou/uL (152-406); RBC Red Blood Cell Count 2.69 M/uL (4.33-5.43); Red Cell Distribution Width 15.5 % (12.1-15.2)
[2024-04-13 06:40] LABS: Anion Gap 9.1 mEq/L (5.0-15.0); Magnesium 2.4 mg/dL (1.6-2.4); Phosphorus 3.3 mg/dL (2.5-4.9); Potassium 4.1 mEq/L (3.5-5.1)
--- NOTE | 2024-04-13 12:47 | P.PN ---
Date of Service: 04/13/24 Subjective Eating breakfast, able to feed himself Pleasantly confused No complaints ROS 10 point ROS as noted above, otherwise negative Physical Exam General: Awake, alert, and oriented x1, confused HEENT: Atraumatic, Normocephalic, PERRLA Neck: Supple, 2+ carotid pulse no bruit Respiratory: Clear to auscultation bilaterally, bilateral chest wall movement, room air Cardiovascular: Normal pulses, regular rate and rhythm, Normal S1 S2 Capillary refill: <2 Seconds Gastrointestinal: Normal bowel sounds, Soft on palpation, ND/NT Musculoskeletal: No clubbing, left hip dressing CDI Integumentary: No rashes Neurological: Normal speech, Normal tone Vitals Reviewed Problem list Acute nondisplaced left femoral intertrochanteric fracture S/P left intermedullary ron possible nondisplaced fracture to right inferior pubic ramus Possible mild comminution superior aspect of the greater trochanter Osteoporosis Trauma/fall at [facility] 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 Bones are osteoporotic." -MRI left hip reports "Nondisplaced left femoral intertrochanteric fracture. Suggested mild comminution along the most superior aspect of the greater troch anter. Suggestion of nondisplaced fracture at the right inferior pubic ramus near the junction with the ischial tuberosity as well. Please correlate with radiographs or CT of the pelvis. 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 Leslieey. Patient is is quite confused. He is currently maximum assist. Status post ORIF. Continue PT as tolerated Analgesics as needed. Anticipating disposition to senior care versus acute rehab <johnnie rose - Last Filed: 04/13/24 17:55>
[2024-04-14 06:12] LABS: Absolute Basophils 0.1 K/uL (0-0.5); Absolute Eosinophils 0.4 K/uL (0-0.5); Absolute Lymphocytes (CBC) 0.8 K/uL (0.7-4.9); Absolute Monocytes 0.7 K/uL (0.1-1.3); Absolute Neutrophil 5.8 K/uL (1.8-8.0); Basophils % 0.8 % (0-1.3); Eosinophils % 5.6 % (0-4.4); Hematocrit 27.6 % (39.6-49.0); Hemoglobin 9.4 g/dL (13.6-17.9); Lymphocytes % 10.2 % (15.3-44.8); MCH 35.3 pg (27.0-35.0); MCHC 34.2 g/dL (32.0-36.0); MCV 103.3 fL (80-100); MPV 6.5 fL (7.6-11.3); Monocytes % 8.9 % (3.3-12.3); Neutrophils % 74.5 % (41.7-73.7); Nucleated Red Blood Cells % 0.1 % (0-0); Platelets 326 thou/uL (152-406); RBC Red Blood Cell Count 2.67 M/uL (4.33-5.43); Red Cell Distribution Width 15.8 % (12.1-15.2)
[2024-04-14 06:26] LABS: Anion Gap 8.2 mEq/L (5.0-15.0); Magnesium 2.3 mg/dL (1.6-2.4); Phosphorus 3.3 mg/dL (2.5-4.9); Potassium 4.2 mEq/L (3.5-5.1)
[2024-04-15 04:47] VITALS: TEMP 97.9
[2024-04-15 07:14] LABS: Absolute Basophils 0.1 K/uL (0-0.5); Absolute Eosinophils 0.5 K/uL (0-0.5); Absolute Lymphocytes (CBC) 1.1 K/uL (0.7-4.9); Absolute Monocytes 0.7 K/uL (0.1-1.3); Absolute Neutrophil 5.6 K/uL (1.8-8.0); Eosinophils % 5.9 % (0-4.4); Hemoglobin 9.4 g/dL (13.6-17.9); Lymphocytes % 13.6 % (15.3-44.8); MCH 34.4 pg (27.0-35.0); MCHC 32.5 g/dL (32.0-36.0); MCV 105.8 fL (80-100); Monocytes % 8.8 % (3.3-12.3); Neutrophils % 70.7 % (41.7-73.7); Nucleated Red Blood Cells % 0.1 % (0-0); Platelets 306 thou/uL (152-406); RBC Red Blood Cell Count 2.74 M/uL (4.33-5.43); Red Cell Distribution Width 15.8 % (12.1-15.2)
[2024-04-15 07:26] LABS: Anion Gap 5.2 mEq/L (5.0-15.0); Magnesium 2.1 mg/dL (1.6-2.4); Phosphorus 2.8 mg/dL (2.5-4.9); Potassium 4.2 mEq/L (3.5-5.1)
[2024-04-15 08:07] LABS: Blood Morphology Comment NOT SEEN (NOT SEEN); Platelet Estimate ADEQ; White Blood Cell Scan OK (OK)
[2024-04-15 12:35] VITALS: BP 113/61
--- NOTE | 2024-04-15 13:22 | P.DS ---
Admission Date: 04/09/24 Discharge Date: 04/15/24 Disposition: TRANSFER TO INPATIENT REHAB Discharge Condition: GOOD Reason for Admission: left hip fracture Consultations: Dr. Pelletier Brief History of Present Illness: Tony Cunningham is an 88 year old male with Pmhx back problems, hypothyroidismthyroidectomy, BPH, hypotension, right hip fracture who presents to the ED with chief complaint of fall and left hip pain. Reportedly, he fell yesterday while at his residence [facility], and was able to be positioned back in bed. Of note, he had a right hip surgery in November of 2023. During that November admission, he was found to have orthostatic hypotension.Tony will be admitted to hospitalist service for left hip fracture, Dr. Pelletier consulted. 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 He had previously had right hip surgery in November 2023. On 04/10/2024 he underwent intramedullary rodding of left intertrochanteric hip fracture. He has been stable in the postoperative period and approved for inpatient rehab at [facility]. Please continue medications as previously prescribed Vital Signs/Physical Exam: Temp Pulse Resp BP Pulse Ox 97.9 F 66 20 113/61 95 04/15/24 12:00 04/15/24 12:00 04/15/24 12:00 04/15/24 12:04/15/24 12:00 General: Alert, In no apparent distress, Oriented x2 HEENT: Atraumatic, PERRLA Neck: Supple, JVD not distended Respiratory: Clear to auscultation bilaterally, Normal air movement Cardiovascular: Regular rate/rhythm, Normal S1 S2 Gastrointestinal: Normal bowel sounds, No tenderness Musculoskeletal: No tenderness Integumentary: No rashes, Other (Dressing to left thign CDI) Neurological: Normal speech, Normal tone, Normal affect Lymphatics: No axilla or inguinal lymphadenopathy Laboratory Data at Discharge: WBC 7.90 thou/uL (4.3-10.9) 04/15/24 06:10 Hgb 9.4 g/dL (13.6-17.9) L 04/15/24 06:10 Hct 29.0 % (39.6-49.0) L 04/15/24 06:10 Plt Count 306 thou/uL (152-406) 04/15/24 06:10 PT 12.0 SECONDS (9.4-12.5) 04/09/24 19:18 INR 1.07 04/09/24 19:18 APTT 33.0 SECONDS (24.3-36.9) 04/09/24 19:18 Sodium 137 mEq/L (136-145) 04/15/24 06:10 Potassium 4.2 mEq/L (3.5-5.1) 04/15/24 06:10 BUN 33 mg/dL (7-18) H 04/15/24 06:10 Creatinine 0.64 mg/dL (0.70-1.30) L 04/15/24 06:10 Glucose 100 mg/dL (74-106) 04/15/24 06:10 Phosphorus 2.8 mg/dL (2.5-4.9) 04/15/24 06:10 Magnesium 2.1 mg/dL (1.6-2.4) 04/15/24 06:10 Home Medications: Levothyroxine [Synthroid*] 0.112 mg PO DAILY 09/01/23 Melatonin 3 mg PO BEDTIME PRN 09/01/23 Tamsulosin HCl [Flomax] 0.4 mg PO BEDTIME 09/01/23 Donepezil [Aricept*] 5 mg PO BEDTIME 11/30/23 Midodrine HCl [Proamatine*] 5 mg PO TID 11/30/23 Cranberry Fruit Extract 200 mg PO BID cap 12/12/23 Lidocaine 4% Patch [Lidoderm 5% Patch*] 1 patch TOP DAILY pat 12/12/23 Sodium Chloride Tab [Sodium Chloride*] 1 gm PO BIDWM #60 tab 12/12/23 Aspirin 81 mg PO DAILY 04/10/24 Carbidopa/Levodopa [Carbidopa-Levo ER 25-100 Tab] 1 tab PO TID 04/10/24 Enoxaparin Sodium [Lovenox 30 MG INJ*] 30 mg SQ BID syr 04/15/24 Hydrocodone 5/APAP 325 [[place] 5/325*] 1 tab PO Q6HP PRN tab 04/15/24 Nut.tx.comp. Immune Systm,Reg [Ensure Surgery] 237 ml PO BID can 04/15/24 Physician Discharge Instructions: Patient was admitted to the hospital on 04/09/2024 for a left hip fracture, he reportedly had a fall at [employer]. He had previously had right hip surgery in November 2023. On 04/10/2024 he underwent intramedullary rodding of left intertrochanteric hip fracture. He has been stable in the postoperative period and approved for inpatient rehab at [facility]. Please continue medications as previously prescribed Diet: Regular Activity: Touch-down (Left lower extremity) Followup: Santi Pelletier MD [ACTIVE - CAN ADMIT] - 1-2 Weeks Nathan Preston MD [Primary Care Provider] - 1-2 Weeks Time spent managing pt's care (in minutes): 35
--- NOTE | 2024-04-25 06:09 | P.PN ---
Date of Service: 04/14/24 Subjective Awake and conversing well, while confused No complaints ROS 10 point ROS as noted above, otherwise negative Physical Exam General: AAO x1, confused, NAD HEENT: Atraumatic, Normocephalic, PERRLA Neck: Supple, 2+ carotid pulse no bruit Respiratory: Clear to auscultation bilaterally, bilateral chest wall movement, room air Cardiovascular: Normal pulses, RRR, Normal S1 S2 Capillary refill: <2 Seconds Gastrointestinal: Normal bowel sounds, Soft and benign on palpation, non-tender Musculoskeletal: No clubbing, left hip dressing CDI Integumentary: No rashes Neurological: Normal speech, Normal tone Vitals Reviewed Problem list Acute nondisplaced left femoral intertrochanteric fracture S/P left intermedullary ron possible nondisplaced fracture to right inferior pubic ramus Possible mild comminution superior aspect of the greater trochanter Osteoporosis Trauma/fall at [facility] 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 Bones are osteoporotic." -MRI left hip reports "Nondisplaced left femoral intertrochanteric fracture. Suggested mild comminution along the most superior aspect of the greater trochanter. Suggestion of nondisplaced fracture at the right inferior pubic ramus near the junction with the ischial tuberosity as well. Please correlate with radiographs or CT of the pelvis. 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
== END 2024-04-15 14:15 | DRG 481 ==
LOC: ER 08:08 → 2ND 15:15
PROVIDERS: ADMIT Internal Medicine; ATTEND Internal Medicine
PROC: 0QS706Z Reposition Left Upper Femur with Intramedullary Internal Fixation Device, Open Approach (ICD-10-PCS; principal; 2024-04-10 16:30)
DX: M80.052A Age-related osteoporosis with current pathological fracture, left femur, initial encounter for fracture (principal); F02.811 Dementia in other diseases classified elsewhere, unspecified severity, with agitation; S13.170A Subluxation of C6/C7 cervical vertebrae, initial encounter; S13.180A Subluxation of C7/T1 cervical vertebrae, initial encounter; G30.9 Alzheimer's disease, unspecified; M80.8AXA Other osteoporosis with current pathological fracture, other site, initial encounter for fracture; I10 Essential (primary) hypertension; E03.9 Hypothyroidism, unspecified; D64.9 Anemia, unspecified; N40.0 Benign prostatic hyperplasia without lower urinary tract symptoms; Z79.890 Hormone replacement therapy; Z79.899 Other long term (current) drug therapy; W18.30XA Fall on same level, unspecified, initial encounter; Y93.9 Activity, unspecified; Y92.128 Other place in nursing home as the place of occurrence of the external cause; Y99.9 Unspecified external cause status
CPT/HCPCS: 36415; 70450; 72125; 72170; 72192; 80048; 83735; 84100; 85025; 85610; 85730; 87040; 93005; 96374; 97162; 97530; 99285; A4216; J0690; J1650; J2001; J2270; J2371; J2704; J3010; J7120

== ENCOUNTER 2024-05-08 08:24 | Emergency (ER) | payer OTHER ==
--- NOTE | 2024-05-08 08:40 | ER ---
Nurse's Notes [facility] Name: Tony Cunningham Age: 88 yrs Sex: Male : 1935 Arrival Date: 05/08/2024 Time: 08:24 Bed 2 Private MD: Diagnosis: Person with feared health complaint in whom no diagnosis is made Presentation: 05/08 08:36 Chief complaint: EMS states: "toned out for BP of 101/62 while at [employer]. BP mb9 122/62, pt had no complaints, 1 liter of 0.9% NS given via 22 g right AC.". Coronavirus screen: Vaccine status: Patient reports receiving the 2nd dose of the covid vaccine. Ebola Screen: No symptoms or risks identified at this time. Initial Sepsis Screen: Does the patient meet any 2 criteria? No. Patient's initial sepsis screen is negative. Does the patient have a suspected source of infection? No. Patient's initial sepsis screen is negative. Risk Assessment: Do you want to hurt yourself or someone else? Patient reports no desire to harm self or others. Onset of symptoms was May 08, 2024. 08:36 Acuity: CANELO 3 mb9 08:36 Method Of Arrival: EMS: [facility] mb9 Triage Assessment: 08:38 General: Appears in no apparent distress. Behavior is calm, cooperative. Pain: Denies mb9 pain. EENT: No signs and/or symptoms were reported regarding the EENT system. Neuro: Coreas Agitation-Sedation Scale (RASS): 0 - Alert and Calm Level of Consciousness is awake, alert, obeys commands, Oriented to person, place, time, situation, Appropriate for age. Cardiovascular: Heart tones S1 S2 present Patient's skin is warm and dry. Respiratory: Airway is patent Respiratory effort is even, unlabored, Respiratory pattern is regular, symmetrical. GI: No signs and/or symptoms were reported involving the gastrointestinal system. : No signs and/or symptoms were reported regarding the genitourinary system. Derm: Skin is pink, warm \\T\\ dry. Musculoskeletal: Range of motion: intact in all extremities. Historical: - Allergies: 08:38 No Known Allergies; mb9 - PMHx: 08:38 Alzheimer's disease; back problems; BPH; Hypertensive disorder; Hypothyroidism; mb9 - PSHx: 08:38 Thyroidectomy; mb9 - Immunization history:: Adult Immunizations up to date. - Infectious Disease History:: Denies. - Social history:: Smoking status: Patient denies any tobacco usage or history of. - Family history:: not pertinent. Screenin:39 [facility] ED Fall Risk Assessment (Adult) History of falling in the last 3 months, mb9 including since admission No falls in past 3 months (0 pts) Confusion or Disorientation No (0 pts) Intoxicated or Sedated No (0 pts) Impaired Gait No (0 pts) Mobility Assist Device Used No (0 pt) Altered Elimination No (0 pt) Score/Fall Risk Level 0 - 2 = Low Risk Oriented to surroundings, Maintained a safe environment, Educated pt \\T\\ family on fall prevention, incl call for assistance when getting out of bed. Abuse screen: Denies threats or abuse. Nutritional screening: No deficits noted. Tuberculosis screening: No symptoms or risk factors identified. Assessment: 08:39 Reassessment: Patient appears in no apparent distress at this time. No changes from mb9 previously documented assessment. Patient and/or family updated on plan of care and expected duration. Pain level reassessed. Patient is alert, oriented x 3, equal unlabored respirations, skin warm/dry/pink. 08:40 Reassessment: D/C pending ride back to [facility]. mb9 09:40 Reassessment: Patient appears in no apparent distress at this time. No changes from mb9 previously documented assessment. Patient and/or family updated on plan of care and expected duration. Pain level reassessed. Patient is alert, oriented x 3, equal unlabored respirations, skin warm/dry/pink. 10:50 Reassessment: Patient appears in no apparent distress at this time. No changes from mb9 previously documented assessment. Patient and/or family updated on plan of care and expected duration. Pain level reassessed. Patient is alert, oriented x 3, equal unlabored respirations, skin warm/dry/pink. Vital Signs: 08:36 BP 117 / 61; Pulse 62; Resp 16; Pulse Ox 100% on R/A; Weight 52.16 kg; Height 5 ft. 4 mb9 in. ; 08:41 BP 123 / 75; Pulse 61; Resp 18; Pulse Ox 100% on R/A; mb9 09:09 BP 112 / 70; Pulse 60; Resp 18; Pulse Ox 100% on R/A; mb9 10:54 BP 124 / 72; Pulse 63; Resp 16; Pulse Ox 100% on R/A; mb9 08:36 Body Mass Index 19.74 (52.16 kg, 162.56 cm) mb9 ED Course: 08:31 Patient arrived in ED. mb9 08:35 Manish Bhardwaj MD is Attending Physician. rt 08:36 Arm band placed on. mb9 08:38 Triage completed. mb9 08:39 Placed in gown. Bed in low position. Call light in reach. Side rails up X 1. Provided mb9 Education on: press call light if needing anything. Client placed on continuous cardiac and pulse oximetry monitoring. NIBP monitoring applied. monitor technician on. Door closed. Noise minimized. Warm blanket given. Pillow given. 08:39 No provider procedures requiring assistance completed. Maintain EMS IV. Dressing mb9 intact. Good blood return noted. Site clean \\T\\ dry. Gauge \\T\\ site: 22 g right AC. 08:40 Deedee Fowler, DAVID is Primary Nurse. mb9 10:21 spoke with jane at [employer] and was given an ETA of 30 min. bc6 10:54 IV discontinued, intact, bleeding controlled, No redness/swelling at site. Pressure mb9 dressing applied. Administered Medications: No medications were administered Medication: 08:40 VIS not applicable for this client. mb9 Outcome: 08:39 Discharge ordered by . rt 10:54 Discharged to Rehab Facility mb9 10:54 Condition: stable 10:54 Discharge instructions given to patient, [facility], Instructed on discharge instructions, follow up and referral plans. Demonstrated understanding of instructions, follow-up care, 10:55 Patient left the ED. mb9 Signatures: Deedee Fowler RN RN mb9 [place], Ryan, MD MD rt Maria Alejandra Cruz bc6
--- NOTE | 2024-05-08 08:40 | EDPHYS ---
Physician Documentation [facility] Name: Tony Cunningham Age: 88 yrs Sex: Male : 1935 Arrival Date: 05/08/2024 Time: 08:24 Bed 2 Private MD: ED Physician Manish Bhardwaj HPI: 05/08 08:43 This 88 yrs old Male presents to ER via EMS with complaints of Blood Pressure Problem - rt Resolved. 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 Patient's blood pressure was checked rt this morning, was noted to be about 100/60. EMS was called, blood pressure was noted to be in the 1 teens over about 70. Patient has no complaints at this time. Symptoms are mild in severity, no other aggravating or alleviating factors.. Historical: - Allergies: 08:38 No Known Allergies; mb9 - PMHx: 08:38 Alzheimer's disease; back problems; BPH; Hypertensive disorder; Hypothyroidism; mb9 - PSHx: 08:38 Thyroidectomy; mb9 - Immunization history:: Adult Immunizations up to date. - Infectious Disease History:: Denies. - Social history:: Smoking status: Patient denies any tobacco usage or history of. - Family history:: not pertinent. ROS: 08:43 Constitutional: Negative for fever, chills, and weight loss, Cardiovascular: Negative rt for chest pain, palpitations, and edema, Respiratory: Negative for shortness of breath, cough, wheezing, and pleuritic chest pain, Abdomen/GI: Negative for abdominal pain, nausea, vomiting, diarrhea, and constipation, MS/Extremity: Negative for injury and deformity, Skin: Negative for injury, rash, and discoloration, Neuro: Negative for headache, weakness, numbness, tingling, and seizure, Exam: 08:43 Constitutional: This is a well developed, well nourished patient who is awake, alert, rt and in no acute distress. Head/Face: Normocephalic, atraumatic. Chest/axilla: Normal chest wall appearance and motion. Nontender with no deformity. No lesions are appreciated. Cardiovascular: Regular rate and rhythm with a normal S1 and S2. No gallops, murmurs, or rubs. Normal PMI, no JVD. No pulse deficits. Respiratory: Lungs have equal breath sounds bilaterally, clear to auscultation and percussion. No rales, rhonchi or wheezes noted. No increased work of breathing, no retractions or nasal flaring. Abdomen/GI: Soft, non-tender, with normal bowel sounds. No distension or tympany. No guarding or rebound. No evidence of tenderness throughout. Skin: Warm, dry with normal turgor. Normal color with no rashes, no lesions, and no evidence of cellulitis. MS/ Extremity: Pulses equal, no cyanosis. Neurovascular intact. Full, normal range of motion. Vital Signs: 08:36 BP 117 / 61; Pulse 62; Resp 16; Pulse Ox 100% on R/A; Weight 52.16 kg; Height 5 ft. 4 mb9 in. ; 08:41 BP 123 / 75; Pulse 61; Resp 18; Pulse Ox 100% on R/A; mb9 09:09 BP 112 / 70; Pulse 60; Resp 18; Pulse Ox 100% on R/A; mb9 10:54 BP 124 / 72; Pulse 63; Resp 16; Pulse Ox 100% on R/A; mb9 08:36 Body Mass Index 19.74 (52.16 kg, 162.56 cm) mb9 MDM: 08:35 Patient medically screened. rt 08:43 Differential Diagnosis Hypotension, normotension. Data reviewed: vital signs, nurses rt notes. Test considered but Not performed: Other Details Patient is normotensive, stable vital signs, no complaints, diagnostic studies do not indicate at this time.. Care significantly affected by the following chronic conditions: Hypertension. Counseling: I had a detailed discussion with the patient and/or guardian regarding the historical points, exam findings, and any diagnostic results supporting the discharge/admit diagnosis, the need for outpatient follow up, to return to the emergency department if symptoms worsen or persist or if there are any questions or concerns that arise at home. Administered Medications: No medications were administered Disposition Summary: 05/08/24 08:39 Discharge Ordered Notes: Location: Home rt Problem: new rt Symptoms: are resolved rt Condition: Stable rt Diagnosis - Person with feared health complaint in whom no diagnosis is made rt Followup: rt - With: Private Physician - When: 2 - 3 days - Reason: Discharge Instructions: - Discharge Summary Sheet rt - Hypotension rt Forms: - Medication Reconciliation Form rt - Antibiotic Education rt - Prescription Opioid Use rt - Patient Portal Instructions rt - Leadership Thank You Letter rt Signatures: Deedee Fowler RN RN mb9 Manish Bhardwaj MD MD rt
[2024-05-08 10:59] VITALS: O2SAT 100
[2024-05-08 11:03] VITALS: BP 124/72
== END 2024-05-08 10:55 | disposition home or self-care (01) ==
LOC: ER 08:24
DX: Z71.1 Person with feared health complaint in whom no diagnosis is made (principal); G30.9 Alzheimer's disease, unspecified; F02.80 Dementia in other diseases classified elsewhere, unspecified severity, without behavioral disturbance, psychotic disturbance, mood disturbance, and anxiety

== ENCOUNTER 2024-05-12 01:59 | Inpatient (IN) | payer OTHER ==
[2024-05-12] MEDS ORDERED: VANCOMYCIN 1 GM/VIAL ONE (02:24)
[2024-05-12] MEDS ORDERED: NA CHLORIDE 0.9% 100 ML ONE (02:25)
[2024-05-12] MEDS ORDERED: NA CHLORIDE 0.9% 250 ML ONE (02:25)
[2024-05-12] MEDS ORDERED: NA CHLORIDE 0.9% 2,000 ML ONE (02:25)
[2024-05-12] MEDS ORDERED: PIPERACIL/TAZO 3.375 GM VIAL IV ONE (02:25)
[2024-05-12 02:33] LABS: Absolute Basophils 0.1 K/uL (0-0.5); Absolute Lymphocytes (CBC) 0.2 K/uL (0.7-4.9); Absolute Monocytes 0.7 K/uL (0.1-1.3); Absolute Neutrophil 11.1 K/uL (1.8-8.0); Basophils % 0.7 % (0-1.3); Eosinophils % 0.2 % (0-4.4); Hematocrit 29.7 % (39.6-49.0); Hemoglobin 9.9 g/dL (13.6-17.9); Lymphocytes % 1.6 % (15.3-44.8); MCH 34.9 pg (27.0-35.0); MCHC 33.4 g/dL (32.0-36.0); MCV 104.5 fL (80-100); Monocytes % 5.9 % (3.3-12.3); Neutrophils % 91.6 % (41.7-73.7); Platelets 237 thou/uL (152-406); RBC Red Blood Cell Count 2.84 M/uL (4.33-5.43); Red Cell Distribution Width 14.5 % (12.1-15.2)
[2024-05-12 02:34] LABS: Blood Gas Oxyhemoglobin 92.3 % (94-97); Blood Gas THB 10.4 g/dl (12-18)
[2024-05-12 02:43] LABS: PT Prothrombin Time 12.3 SECONDS (9.4-12.5); PTT, Activated Partial Thromb 32.2 SECONDS (24.3-36.9); Protime INR 1.1
[2024-05-12 02:59] LABS: AST/SGOT 22 U/L (15-37); Albumin 2.7 g/dL (3.4-5.0); Albumin/Globulin Ratio 0.7 (1.1-1.8); Alkaline Phosphatase 119 U/L (45-117); Anion Gap 8.5 mEq/L (5.0-15.0); BUN Blood Urea Nitrogen 37 mg/dL (7-18); Bicarbonate 24 mEq/L (21-32); Bilirubin Total 0.6 mg/dL (0.2-1.0); Globulin 3.7 g/dL (2.3-3.5); Glomerular Filtration Rate 79 ml/min (=/>90); Glucose Level 128 mg/dL (74-106); Potassium 3.5 mEq/L (3.5-5.1); Protein, Total 6.4 g/dL (6.4-8.2); Sodium Level 137 mEq/L (136-145)
[2024-05-12 03:16] LABS: ALT/SGPT < 14 U/L (16-61)
[2024-05-12 03:31] LABS: Specific Gravity 1.011 (1.005-1.030); Sqamous Epithelial None Seen /HPF (None Seen); Urine Bacteria >50 /HPF (<20); Urine Bilirubin NEGATIVE (Negative); Urine Blood 2+ (Negative); Urine Clarity Extremely Turbid (Clear); Urine Color Light-Orange (Yellow); Urine Crystals Unidentified Many /HPF (None Seen); Urine Culture Reflex Order REFLEXED; Urine Glucose NEGATIVE (Negative); Urine Ketones NEGATIVE (Negative); Urine Microscopic Reflex YN ORDER UMIC; Urine Mucus 2+ /HPF (None Seen); Urine Nitrite NEGATIVE (Negative); Urine Protein 1+ (Negative); Urine RBC 21-50 /HPF (None Seen); Urine Urobilinogen Normal (Normal); Urine WBC >50 /HPF (<5); Urine WBC Clump Moderate /HPF (None Seen); Urine pH 5.5 (5.0-7.0)
[2024-05-12 04:13] LABS: Blood Morphology Comment NOT SEEN (NOT SEEN); Platelet Estimate ADEQ; White Blood Cell Scan OK (OK)
--- NOTE | 2024-05-12 04:51 | ER ---
Nurse's Notes [facility] Name: Tony Cunningham Age: 88 yrs Sex: Male : 1935 Arrival Date: 05/12/2024 Time: 01:59 Bed 15 Private MD: Diagnosis: Fever, unspecified;Severe sepsis without septic shock;UTI/ Urinary tract infection, site not specified;Pyelonephritis acute Presentation: 05/12 02:49 Chief complaint: EMS states: [facility] facility states patient is more altered than al5 normal, has been experiencing fever since early on in the night. had L hip surgery a few weeks ago with martha still in his leg. surgical site without redness, drainage, or edema. Coronavirus screen: At this time, the client does not indicate any symptoms associated with coronavirus-19. Ebola Screen: No symptoms or risks identified at this time. Initial Sepsis Screen: Does the patient meet any 2 criteria? Temp <36.0*C (96.8*F)) or > 38.3*C (100.9*F). Altered Mental Status. HR > 90 bpm. Yes Does the patient have a suspected source of infection? No. Patient's initial sepsis screen is negative. Risk Assessment: Do you want to hurt yourself or someone else? Patient reports no desire to harm self or others. Onset of symptoms was May 12, 2024. 02:49 Method Of Arrival: EMS: [facility] al5 02:49 Acuity: CANELO 2 al5 Triage Assessment: 02:52 General: Appears in no apparent distress. Behavior is calm, cooperative. Pain: Denies al5 pain. EENT: No signs and/or symptoms were reported regarding the EENT system. Neuro: Level of Consciousness is awake, alert, obeys commands, confused, Oriented to person, time. Cardiovascular: Capillary refill < 3 seconds Patient's skin is warm and dry. patient hot to touch. Respiratory: Airway is patent Respiratory effort is even, unlabored, Respiratory pattern is regular, symmetrical. GI: No signs and/or symptoms were reported involving the gastrointestinal system. : No signs and/or symptoms were reported regarding the genitourinary system. Derm: Skin is intact, Skin is pink, warm \T\ dry. normal, Skin temperature is hot. Musculoskeletal: contractures to entire body. Historical: - Allergies: 02:48 No Known Allergies; al5 - PMHx: 02:48 Alzheimer's disease; back problems; BPH; Hypertensive disorder; Hypothyroidism; al5 - PSHx: 02:48 Thyroidectomy; al5 - Immunization history:: Adult Immunizations up to date. - Infectious Disease History:: Denies. - Social history:: Smoking status: Patient denies any tobacco usage or history of. - Family history:: not pertinent. Screenin:10 [facility] ED Fall Risk Assessment (Adult) History of falling in the last 3 months, al5 including since admission No falls in past 3 months (0 pts) Confusion or Disorientation Yes (5 pts) Intoxicated or Sedated No (0 pts) Impaired Gait Yes (1 pt) Mobility Assist Device Used No (0 pt) Altered Elimination Yes (1 pt) Score/Fall Risk Level 3 or more points = High Risk Oriented to surroundings, Maintained a safe environment, Apply high fall risk patient identification: yellow non skid footwear/ fall signage. Abuse screen: Denies threats or abuse. Denies injuries from another. Nutritional screening: No deficits noted. Tuberculosis screening: No symptoms or risk factors identified. Assessment: 02:53 Reassessment: see triage assessment. al5 04:13 Reassessment: Patient appears in no apparent distress at this time. Patient and/or al5 family updated on plan of care and expected duration. Pain level reassessed. Patient states symptoms have improved. temperature decreased, HR decreased, bp elevated. 04:44 Reassessment: called [facility] to verify patient code status, was transferred to [facility] assisted living and facility did not answer. 04:51 Reassessment: spoke with winnie from [facility], states she will fax over patient code [facility] status. winnie given fax number. 05:40 Reassessment: Patient appears in no apparent distress at this time. No changes from al5 previously documented assessment. Patient and/or family updated on plan of care and expected duration. Pain level reassessed. Patient is alert, oriented x 3, equal unlabored respirations, skin warm/dry/pink. patient resting comfortably at this time. patient o2 saturation drop to mid 80's while sleeping, placed patient on 3L nasal cannula for meantime while sleeping. Vital Signs: 02:00 BP 105 / 57; Pulse 94; Resp 18; Pulse Ox 96% on R/A; al5 02:15 BP 114 / 70; Pulse 97; Resp 18; Pulse Ox 96% on R/A; al5 02:30 BP 119 / 71; Pulse 86; Resp 18; Temp 99.1(O); Pulse Ox 97% on R/A; al5 02:49 BP 97 / 53; Pulse 102; Resp 18; Temp 102.1; Pulse Ox 95% on R/A; Weight 53.52 kg; al5 Height 6 ft. 2 in. ; Pain 0/10; 03:00 BP 123 / 70; Pulse 93; Resp 18; Pulse Ox 97% on R/A; al5 03:30 BP 103 / 61; Pulse 82; Resp 18; Pulse Ox 97% on R/A; al5 04:00 BP 93 / 60; Pulse 78; Resp 16; Pulse Ox 98% on R/A; al5 04:14 Temp 99.1; al5 04:30 BP 90 / 59; Pulse 79; Resp 16; Pulse Ox 94% on R/A; al5 05:00 BP 111 / 67; Pulse 74; Resp 16; Pulse Ox 96% on R/A; al5 05:30 BP 94 / 57; Pulse 71; Resp 14; Pulse Ox 85% on R/A; al5 05:47 Pulse Ox 97% on 3 lpm NC; al5 02:49 Body Mass Index 15.15 (53.52 kg, 187.96 cm) al5 02:49 Pain Scale: Adult al5 Amorita Coma Score: 06:29 Eye Response: spontaneous(4). Motor Response: localizes pain(5). Verbal Response: sp4 confused(4). Total: 13. ED Course: 02:02 Patient arrived in ED. [id number] 02:03 Leonardo Bueno MD is Attending Physician. sp4 02:22 Betzaida Nelson RN is Primary Nurse. al5 02:31 Initial lab(s) drawn, by , sent to lab. First set of blood cultures drawn by me, al5 Second set of blood cultures drawn from another site EKG done, by ED staff, reviewed by Leonardo Bueno MD. Inserted saline lock: 20 gauge in right forearm, using aseptic technique. Maintain EMS IV. Dressing intact. Good blood return noted. Site clean \T\ dry. Gauge \T\ site: 18g left forearm. 02:48 Arm band placed on left wrist. Patient placed in the treatment room, on a stretcher. al5 02:52 Triage completed. al5 03:04 X-ray completed. Portable x-ray completed in exam room. Patient tolerated procedure mh1 well. 03:05 Chest Single View XRAY In Process Unspecified. EDMS 03:12 Patient has correct armband on for positive identification. Bed in low position. Call al5 light in reach. Side rails up X2. Provided Education on: processes and procedures. 03:12 No provider procedures requiring assistance completed. al5 04:50 Stewart Vega MD is Hospitalizing Provider. sp4 05:10 CT Chest, Abdomen, Pelvis - W/Contrast In Process Unspecified. EDMS 05:11 Head Brain Wo Cont In Process Unspecified. EDMS 06:01 Patient admitted, IV remains in place. al5 Administered Medications: 02:30 Drug: NS 0.9% IV 1000 ml IV at 125 ml/hr continuous Route: IV; Rate: 125 ml/hr; Site: al5 right forearm; 02:30 Drug: vancoMYCIN IVPB 1 grams IVPB once over 2 hrs Route: IVPB; Infused Over: 2 hrs; al5 Site: right forearm; 04:46 Follow up: Response: No adverse reaction; IV Status: Completed infusion; IV Intake: al5 250ml 02:30 Drug: Piperacillin-Tazobactam IVPB 3.375 grams IVPB once over 60 mins; (mix in NS 100 al5 mL) Route: IVPB; Infused Over: 60 mins; Site: left forearm; 04:08 Follow up: Response: No adverse reaction; IV Status: Completed infusion; IV Intake: al5 100ml 02:46 Drug: NS 0.9% IV 1000 ml IV at 1 bolus Per protocol; 1000 mL bolus Route: IV; Rate: 1 al5 bolus; Site: left forearm; 04:47 Follow up: Response: No adverse reaction; IV Status: Completed infusion; IV Intake: al5 1000ml 07:04 Drug: Albumin IVPB 25 grams 100 ml IVPB once; (Note: Albumin 25% concentration) Volume: al5 100 ml; Route: IVPB; Site: left forearm; 07:08 Follow up: IV Status: Infusion continued upon admission al5 07:08 Follow up: Response: Medication Administered at Departure al5 Medication: 03:13 VIS not applicable for this client. al5 Intake: 04:08 IV: 100ml; Total: 100ml. al5 04:46 IV: 250ml; Total: 350ml. al5 04:47 IV: 1000ml; Total: 1350ml. al5 Outcome: 04:51 Decision to Hospitalize by Provider. sp4 07:33 Patient left the ED. bp Signatures: Dispatcher [employer] EDMS Re Arredondo 1 Carlito Pope, RN RN bp Melodie [id number] Leonardo Bueno MD MD sp4 Betzaida Nelson RN RN al5 Corrections: (The following items were deleted from the chart) 04:14 04:11 Reassessment: Patient appears in no apparent distress at this time. Patient is al5 alert, oriented x 3, equal unlabored respirations, skin warm/dry/pink. Patient states symptoms have improved. al5
--- NOTE | 2024-05-12 04:51 | EDPHYS ---
Physician Documentation [facility] Name: Tony Cunningham Age: 88 yrs Sex: Male : 1935 Arrival Date: 05/12/2024 Time: 01:59 Bed 15 Private MD: ED Physician Leonardo Bueno HPI: 05/12 04:46 This 88 yrs old Male presents to ER via EMS with complaints of Fever. sp4 04:46 88-year-old male presents with EMS for fever and altered mental status. Patient has sp4 arrived from care home. Patient has history of recent nondisplaced left femur intertrochanteric fracture with admission on 04/09/2024. Patient received left intramedullary ron. Patient also has right inferior pubic ramus fracture, greater trochanter fracture, osteoporosis, history of hypertension, history of hypothyroidism, history of BPH, history of dementia. . 04:48 Patient's medications include levothyroxine, melatonin, tamsulosin, donepezil, sp4 midodrine, cranberry juice, lidocaine, salt tablets, aspirin, carbidopa levodopa, enoxaparin, hydrocodone, Ensure.. Historical: - Allergies: 02:48 No Known Allergies; al5 - PMHx: 02:48 Alzheimer's disease; back problems; BPH; Hypertensive disorder; Hypothyroidism; al5 - PSHx: 02:48 Thyroidectomy; al5 - Immunization history:: Adult Immunizations up to date. - Infectious Disease History:: Denies. - Social history:: Smoking status: Patient denies any tobacco usage or history of. - Family history:: not pertinent. ROS: 06:28 Constitutional: Full ROS not available secondary to dementia sp4 06:28 All other systems are negative, Exam: 06:29 Constitutional: 89-year-old male chronically immobilized, physically debilitated, sp4 moderate diffuse contractures, postoperative incision left lateral thigh, signs of advanced dementia, and oriented to self only Head/Face: Normocephalic, atraumatic. Eyes: Pupils equal round and reactive to light, extra-ocular motions intact. Lids and lashes normal. Conjunctiva and sclera are not injected. Cornea within normal limits. Periorbital areas with no swelling, redness, or edema. ENT: Nares patent. No nasal discharge, no septal abnormalities noted. Tympanic membranes are normal and external auditory canals are clear. Oropharynx with no redness, swelling, or masses, exudates, or evidence of obstruction, uvula midline. Mucous membranes moist. Neck: Trachea midline, no thyromegaly or masses palpated, and no cervical lymphadenopathy. Supple, full range of motion without nuchal rigidity, or vertebral point tenderness. Chest/axilla: Normal chest wall appearance and motion. Nontender with no deformity. No lesions are appreciated. Cardiovascular: Regular rate and rhythm with a normal S1 and S2. No gallops, murmurs, or rubs. Normal PMI, no JVD. No pulse deficits. Respiratory: Lungs have equal breath sounds bilaterally, clear to auscultation and percussion. No rales, rhonchi or wheezes noted. No increased work of breathing, no retractions or nasal flaring. Abdomen/GI: Soft, with normal bowel sounds. No distension or tympany. No guarding or rebound. No evidence of tenderness throughout. Back: No spinal tenderness. No costovertebral tenderness. Male : Normal genitalia with no discharge or lesions. Incontinent of bowel and bladder Skin: Warm, dry with normal turgor. Normal color with no rashes, no lesions, and no evidence of cellulitis. MS/ Extremity: Pulses equal, no cyanosis. Neurovascular intact. Full, normal range of motion. Neuro: Awake and alert, oriented to self only, multiple contractures, immobility, contractures secondary to prolonged immobility and physical debility. Exam is limited. 06:31 ECG was reviewed by the Attending Physician. EKG at 02:46 sinus tachycardia with sp4 PVCs, right bundle branch block, EKG rate 101 Vital Signs: 02:00 BP 105 / 57; Pulse 94; Resp 18; Pulse Ox 96% on R/A; al5 02:15 BP 114 / 70; Pulse 97; Resp 18; Pulse Ox 96% on R/A; al5 02:30 BP 119 / 71; Pulse 86; Resp 18; Temp 99.1(O); Pulse Ox 97% on R/A; al5 02:49 BP 97 / 53; Pulse 102; Resp 18; Temp 102.1; Pulse Ox 95% on R/A; Weight 53.52 kg; al5 Height 6 ft. 2 in. ; Pain 0/10; 03:00 BP 123 / 70; Pulse 93; Resp 18; Pulse Ox 97% on R/A; al5 03:30 BP 103 / 61; Pulse 82; Resp 18; Pulse Ox 97% on R/A; al5 04:00 BP 93 / 60; Pulse 78; Resp 16; Pulse Ox 98% on R/A; al5 04:14 Temp 99.1; al5 04:30 BP 90 / 59; Pulse 79; Resp 16; Pulse Ox 94% on R/A; al5 05:00 BP 111 / 67; Pulse 74; Resp 16; Pulse Ox 96% on R/A; al5 05:30 BP 94 / 57; Pulse 71; Resp 14; Pulse Ox 85% on R/A; al5 05:47 Pulse Ox 97% on 3 lpm NC; al5 02:49 Body Mass Index 15.15 (53.52 kg, 187.96 cm) al5 02:49 Pain Scale: Adult al5 [place] Coma Score: 06:29 Eye Response: spontaneous(4). Motor Response: localizes pain(5). Verbal Response: sp4 confused(4). Total: 13. MDM: 02:03 Patient medically screened. sp4 06:28 ED course: EXAM: CT Chest, Abdomen and Pelvis With Intravenous Contrast CLINICAL sp4 HISTORY: The patient is 88 years old and is Male; CHEST PAIN TECHNIQUE: Axial computed tomography images of the chest, abdomen and pelvis with intravenous contrast. Sagittal and coronal reformatted images were created and reviewed. This CT exam was performed using one or more of the following dose reduction techniques: automated exposure control, adjustment of the mA and/or kV according to patient size, and/or use of iterative reconstruction technique. COMPARISON: No relevant prior studies available. FINDINGS: CHEST: Lungs: Unremarkable. No mass. No consolidation. Pleural space: Unremarkable. No significant effusion. No pneumothorax. Heart: Unremarkable. No cardiomegaly. No significant pericardial effusion. No significant coronary artery calcifications. Mediastinum: 11 cm hiatal hernia containing part of the stomach and pancreas. ABDOMEN: Liver: Unremarkable. No mass. Gallbladder and bile ducts: Unremarkable. No calcified stones. No ductal dilation. Pancreas: Unremarkable. No ductal dilation. No mass. Spleen: Unremarkable. No splenomegaly. Adrenals: Unremarkable. No mass. Kidneys and ureters: Multiple large simple cysts in the kidneys. No follow-up imaging is recommended. No hydronephrosis. No solid mass. Stomach and bowel: Scattered colonic diverticula. No obstruction. No mucosal thickening. PELVIS: Appendix: No findings to suggest acute appendicitis. Bladder: Diffuse bladder wall thickening. Jones catheter in bladder. Reproductive: Unremarkable as visualized. CHEST, ABDOMEN and PELVIS: Intraperitoneal space: Small amount of free fluid in the upper abdomen. No free air. Bones/joints: Old right rib fractures. Osteopenia. Prior fractures with intramedullary rods and intertrochanteric screws in the femurs. Disc space narrowing with degenerative endplate changes in the spine. 7 mm of anterolisthesis of L5 on S1. No dislocation. Soft tissues: Unremarkable. Vasculature: Scattered atherosclerotic vascular calcifications. No aortic aneurysm. Lymph nodes: Unremarkable. No enlarged lymph nodes. IMPRESSION: Pelvis W Cont 1. 11 cm hiatal hernia containing part of the stomach and pancreas. 2. Diffuse bladder wall thickening. Correlate with any concern for cystitis, chronic bladder outlet obstruction, or other infiltrative process. 3. Small amount of free fluid in the upper abdomen. 4. Additional non-emergent findings as above. Electronically signed by: Nick Hein MD 05/12/2024 06:17 AM. 06:31 Differential diagnosis: viral Infection, bacterial infection, URI, bronchitis, sp4 pneumonia UTI, gastroenteritis. Data reviewed: vital signs, nurses notes, EMS record, lab test result(s), EKG, radiologic studies, CT scan. 06:33 ED course: EXAM: CT Head Without Intravenous Contrast CLINICAL HISTORY: The patient is sp4 88 years old and is Male; Confused. TECHNIQUE: Axial computed tomography images of the head/brain without intravenous contrast. Sagittal and coronal reformatted images were created and reviewed. This CT exam was performed using one or more of the following dose reduction techniques: automated exposure control, adjustment of the mA and/or kV according to patient size, and/or use of iterative reconstruction technique. COMPARISON: CT Head 04/09/2024.\F\ FINDINGS: Brain: Cortical atrophy. Mild age related periventricular white matter microangiopathic changes. No hemorrhage. Ventricles: Unremarkable. No ventriculomegaly. Bones/joints: Unremarkable. No acute skull fracture. Soft tissues: Unremarkable. Sinuses: Bilateral sphenoid sinus fluid. Mastoid air cells: No significant mastoid fluid. IMPRESSION: 1. No acute intracranial findings. No hemorrhage. 2. Bilateral sphenoid sinus fluid. . ED course: EXAM: XR Chest, 1 View CLINICAL HISTORY: Chest pain. TECHNIQUE: Frontal view of the chest. COMPARISON: 01/29/2024. FINDINGS: Lungs: Coarsened interstitial markings. Multifocal ill-defined reticular nodular opacities. Pleural space: Unremarkable. No pneumothorax. Heart: Unremarkable. No cardiomegaly. Mediastinum: Large hiatal hernia. Bones/joints: Multilevel spondylosis. No acute fracture. Vasculature: Thoracic aortic atherosclerosis. IMPRESSION: Multifocal ill-defined reticulonodular opacities which may be infectious or inflammatory in etiology.. 06:34 Consideration of Admission/Observation Patient was admitted/placed on observation. sp4 Escalation of care including admission/observation considered. Management of patient was discussed with the following: Hospitalist: Gary ACE . ED course: Sepsis reevaluation completed, all sepsis criteria guidelines are met. 05/12 02:03 Order name: Blood Culture Adult (2) sp4 05/12 02:03 Order name: CBC with Diff; Complete Time: 04:41 sp4 05/12 02:03 Order name: CMP; Complete Time: 04:41 sp4 05/12 02:03 Order name: Lactate w/ 2H reflex if indic.; Complete Time: 04:41 sp4 05/12 02:03 Order name: Protime (+inr); Complete Time: 04:41 sp4 05/12 02:03 Order name: Ptt, Activated; Complete Time: 04:41 sp4 05/12 02:03 Order name: Urinalysis w/ reflexes; Complete Time: 04:41 sp4 05/12 02:03 Order name: ABG; Complete Time: 04:41 sp4 05/12 03:36 Order name: Urine Culture EDMS 05/12 04:13 Order name: CBC Smear Scan; Complete Time: 04:41 EDMS 05/12 04:44 Order name: SARS RAPID; Complete Time: 06:29 sp4 05/12 04:44 Order name: Influenza Screen (a \T\ B); Complete Time: 06:29 sp4 05/12 05:56 Order name: Urinalysis w/ reflexes EDMS 05/12 05:56 Order name: CBC with Automated Diff EDMS 05/12 05:56 Order name: CBC with Automated Diff EDMS 05/12 05:56 Order name: Comprehensive Metabolic Panel EDMS 05/12 05:56 Order name: Comprehensive Metabolic Panel [facility] 05/12 02:03 Order name: Chest Single View XRAY [facility] 05/12 04:45 Order name: CT Chest, Abdomen, Pelvis - W/Contrast [facility] 05/12 04:51 Order name: Head Brain Wo Cont [facility] 05/12 02:03 Order name: Cardiac monitoring; Complete Time: 02:47 sp4 05/12 02:03 Order name: Cath; Complete Time: 03:20 sp4 05/12 02:03 Order name: EKG - Nurse/Tech; Complete Time: 02:47 4 05/12 02:03 Order name: IV Saline Lock - Large Bore; Complete Time: 02:47 sp4 05/12 02:03 Order name: Labs collected and sent; Complete Time: :47 [facility] 05/12 02:03 Order name: O2 Per Protocol; Complete Time: :47 4 05/12 02:03 Order name: O2 Sat Monitoring; Complete Time: 02:47 4 05/12 02:03 Order name: Vital Signs; Complete Time: :47 sp4 EC:31 Rate is 101 beats/min. Rhythm is irregular, Sinus tachycardia with Occasional PVCs. QRS sp4 [place] is Normal. PA interval is normal. QRS interval is prolonged. QT interval is normal. No Q waves. T waves are Normal. No ST changes noted. Clinical impression: No evidence of ischemia. Interpreted by me. Reviewed by me. Administered Medications: 02:30 Drug: NS 0.9% IV 1000 ml IV at 125 ml/hr continuous Route: IV; Rate: 125 ml/hr; Site: al5 right forearm; 02:30 Drug: vancoMYCIN IVPB 1 grams IVPB once over 2 hrs Route: IVPB; Infused Over: 2 hrs; al5 Site: right forearm; 04:46 Follow up: Response: No adverse reaction; IV Status: Completed infusion; IV Intake: al5 250ml 02:30 Drug: Piperacillin-Tazobactam IVPB 3.375 grams IVPB once over 60 mins; (mix in NS 100 al5 mL) Route: IVPB; Infused Over: 60 mins; Site: left forearm; 04:08 Follow up: Response: No adverse reaction; IV Status: Completed infusion; IV Intake: al5 100ml 02:46 Drug: NS 0.9% IV 1000 ml IV at 1 bolus Per protocol; 1000 mL bolus Route: IV; Rate: 1 al5 bolus; Site: left forearm; 04:47 Follow up: Response: No adverse reaction; IV Status: Completed infusion; IV Intake: al5 1000ml 07:04 Drug: Albumin IVPB 25 grams 100 ml IVPB once; (Note: Albumin 25% concentration) Volume: al5 100 ml; Route: IVPB; Site: left forearm; 07:08 Follow up: IV Status: Infusion continued upon admission al5 07:08 Follow up: Response: Medication Administered at Departure al5 Disposition Summary: 05/12/24 04:51 Hospitalization Ordered Notes: Hospitalization Status: Inpatient Admission sp4 Provider: Stewart Vega sp4 Location: Telemetry/MedSurg (Inpatient) sp4 Condition: Stable sp4 Problem: new sp4 Symptoms: have improved sp4 Bed/Room Type: Standard sp4 Room Assignment: 229(05/12/24 06:00) vc1 Diagnosis - Fever, unspecified sp4 - Severe sepsis without septic shock sp4 - UTI/ Urinary tract infection, site not specified sp4 - Pyelonephritis acute sp4 Forms: - Medication Reconciliation Form sp4 - SBAR form sp4 - Leadership Thank You Letter sp4 Signatures: Dispatcher [employer] EDLinda Peguero RN RN vc1 Leonardo Bueno MD MD sp4 Betzaida Nelson RN RN al5 Corrections: (The following items were deleted from the chart) 02:04 02:04 BLOOD CULTURE*+BA.LAB.BRZ ordered. EDMS EDMS 02:04 02:04 CBC+H.LAB.BRZ ordered. EDMS EDMS 02:04 02:04 COMPREHENSIVE METABOLIC PANEL+C.LAB.BRZ ordered. EDMS EDMS 02:04 02:04 LACTATE+C.LAB.BRZ ordered. EDMS EDMS 02:04 02:04 PROTIME (+INR)+COAG.LAB.BRZ ordered. EDMS EDMS 02:04 02:04 PTT, ACTIVATED+COAG.LAB.BRZ ordered. EDMS EDMS 02:04 02:04 Urinalysis+U.LAB.BRZ ordered. EDMS EDMS 02:04 02:04 Chest Single View+RAD.RAD.BRZ ordered. EDMS EDMS 02:04 02:04 Arterial Blood Gas+RC.LAB.BRZ ordered. EDMS EDMS 02:47 02:03 Accucheck ordered. sp4 al5 04:45 04:45 SARS-COV-2 Antigen Rapid+I.LAB.BRZ ordered. EDMS EDMS 04:45 04:45 Influenza Screen (A \T\ B)+BA.LAB.BRZ ordered. EDMS EDMS 04:45 04:45 Chest Abdomen Pelvis W Con+CT.RAD.BRZ ordered. EDMS EDMS 06:00 04:51 sp4 vc1
[2024-05-12 05:20] LABS: SARS-CoV-2 Antigen CONTROL BLUE LINE VIS/BG OK; SARS-CoV-2 Antigen Rapid Res Negative (Negative)
[2024-05-12] MEDS ORDERED: ONDANSETRON 4 MG/2 ML VIAL IV PRN (05:52)
--- NOTE | 2024-05-12 05:52 | P.HP ---
Certification for Inpatient Patient admitted to: Inpatient With expected LOS: >2 Midnights Practitioner: I am a practitioner with admitting privileges, knowledge of patient current condition, hospital course, and medical plan of care. Services: Services provided to patient in accordance with Admission requirements found in Title 42 Section 412.3 of the Code of Federal Regulations Patient History Date of Service: 05/12/24 Reason for admission: Altered mental status History of Present Illness: 88 yrs old Male who is a senior living resident was brought to ER with fever and altered mental status. Patient has a history of Alzheimer's disease; back problems; BPH; Hypertensive disorder; Hypothyroidism; Thyroidectomy recent hip fracture who is a senior living resident started having fever and altered behavior and was brought to ER . Patient could not offer any history hence most of the history is obtained from the chart review and also talking to the ER physician . Patient has history of recent nondisplaced left femur intertrochanteric fracture with admission on 04/09/2024. Patient received left intramedullary ron. Patient also has right inferior pubic ramus fracture, greater trochanter fracture, osteoporosis, history of hypertension, history of hypothyroidism, history of BPH, history of dementia. . Patient was assessed in the ER and was found to have UTI and is admitted for further management. Allergies No Known Allergies Allergy (Verified 11/23/23 22:04) Home medications list reviewed: Yes Home Medications: Levothyroxine [Synthroid*] 0.112 mg PO DAILY 09/01/23 Melatonin 3 mg PO BEDTIME PRN 09/01/23 Tamsulosin HCl [Flomax] 0.4 mg PO BEDTIME 09/01/23 Donepezil [Aricept*] 5 mg PO BEDTIME 11/30/23 Midodrine HCl [Proamatine*] 5 mg PO TID 11/30/23 Cranberry Fruit Extract 200 mg PO BID cap 12/12/23 Lidocaine 4% Patch [Lidoderm 5% Patch*] 1 patch TOP DAILY pat 12/12/23 Sodium Chloride Tab [Sodium Chloride*] 1 gm PO BIDWM #60 tab 12/12/23 Aspirin 81 mg PO DAILY 04/10/24 Carbidopa/Levodopa [Carbidopa-Levo ER 25-100 Tab] 1 tab PO TID 04/10/24 Enoxaparin Sodium [Lovenox 30 MG INJ*] 30 mg SQ BID syr 04/15/24 Hydrocodone 5/APAP 325 [Clyo 5/325*] 1 tab PO Q6HP PRN tab 04/15/24 Nut.tx.comp. Immune Systm,Reg [Ensure Surgery] 237 ml PO BID can 04/15/24 - Past Medical/Surgical History Diabetic: No Past Medical History: Reviewed- Non-Contributory -: Hypothyroid -: Orthostatic Hypotension -: BPH Past Surgical History: Reviewed- Non-Contributory -: Thyroidectomy -: Right hip surgery - Family History Family History: Reviewed- Non-Contributory - Social History Smoking Status: Never smoker Alcohol use: No CD- Drugs: No Caffeine use: No Review of Systems is unable to be obtained Physical Examination - Vital Signs Temperature: 98.2 F - Physical Exam General: Oriented x1, Mild distress, Confused HEENT: Atraumatic, Normocephalic Neck: Supple Respiratory: Clear to auscultation bilaterally, Normal air movement Cardiovascular: Regular rate/rhythm, Normal S1 S2 Capillary refill: <2 Seconds Gastrointestinal: Soft and benign, W/out hepatosplenomegaly Musculoskeletal: No clubbing Integumentary: No rashes Neurological: Abnormal gait, Abnormal speech, Abnormal strength Lymphatics: No axilla or inguinal lymphadenopathy - Studies Laboratory Data (last 24 hrs) 05/12/24 05/12/24 05/12/24 02:13 02:13 02:13 WBC 12.10 H Hgb 9.9 L Hct 29.7 L Plt Count 237 PT 12.3 INR 1.10 APTT 32.2 Sodium 137 Potassium 3.5 BUN 37 H Creatinine 0.94 Glucose 128 H Total Bilirubin 0.6 AST 22 ALT < 14 L Alkaline Phosphatase 119 H Microbiology Data (last 24 hrs): 05/12/24 04:58 Nasopharnyx Influenza Type A Antigen Screen - Final 05/12/24 04:58 Nasopharnyx Influenza Type B Antigen Screen - Final Assessment and Plan - Plan Acute encephalopathy metabolic versus infectious CT head pending Monitor neuro vital signs UTI Will obtain urine culture Start on IV antibiotic Change antibiotic as per sensitivity Hypotension IV hydration Monitor closely Recent hip fractures PT OT evaluation once more awake alert GI/DVT prophylaxis Advanced directive full code Discharge Plan: Residential Plan to discharge in: 48 Hours - Advance Directives Does patient have a Living Will: No Does patient have a Durable POA for Healthcare: No - Code Status/Comfort Care Code Status: Full Code Time Spent Managing Pts Care (In Minutes): 48
[2024-05-12] MEDS ORDERED: ALBUMIN HUMAN 25% 50 ML IV ONE (06:53)
[2024-05-12] MEDS: PIPER TAZO 3.375 GM in NA CHLORIDE 0.9% 100 ML IV ONE (08:17)
[2024-05-12] MEDS: ENOXAPARIN 40 MG/0.4 ML SQ SCH (09:00)
[2024-05-12] MEDS: NA CHLORIDE 0.9% 1,000 ML IV SCH (12:49)
--- NOTE | 2024-05-12 13:30 | P.PN ---
Date of Service: 05/12/24 Patient seen and examined. He is more awake today and interacting appropriately. Patient denies any complain. Diagnosis: Acute metabolic encephalopathy-improved. Acute cystitis with hematuria BPH Plan: Continue antibiotic Resume diet as tolerated For consult and continue other home medications.
[2024-05-12] MEDS: PIPER TAZO 3.375 GM in NA CHLORIDE 0.9% 100 ML IV SCH (16:22)
[2024-05-12] MEDS: TAMSULOSIN 0.4 MG SR CAP PO SCH (22:25)
[2024-05-13] MEDS: ACETAMINOPHEN 325 MG TABLET PO PRN (00:14)
[2024-05-13 05:40] LABS: Absolute Basophils 0.1 K/uL (0-0.5); Absolute Eosinophils 0.3 K/uL (0-0.5); Absolute Lymphocytes (CBC) 0.6 K/uL (0.7-4.9); Absolute Monocytes 0.8 K/uL (0.1-1.3); Absolute Neutrophil 6.3 K/uL (1.8-8.0); Basophils % 0.8 % (0-1.3); Eosinophils % 3.8 % (0-4.4); Hematocrit 28.9 % (39.6-49.0); Hemoglobin 9.6 g/dL (13.6-17.9); Lymphocytes % 7.3 % (15.3-44.8); MCH 35.1 pg (27.0-35.0); MCHC 33.1 g/dL (32.0-36.0); MPV 7.4 fL (7.6-11.3); Monocytes % 10.4 % (3.3-12.3); Neutrophils % 77.7 % (41.7-73.7); Platelets 204 thou/uL (152-406); RBC Red Blood Cell Count 2.73 M/uL (4.33-5.43); Red Cell Distribution Width 14.5 % (12.1-15.2)
[2024-05-13 06:03] LABS: AST/SGOT 14 U/L (15-37); Albumin 2.5 g/dL (3.4-5.0); Albumin/Globulin Ratio 0.8 (1.1-1.8); Alkaline Phosphatase 103 U/L (45-117); Anion Gap 7.5 mEq/L (5.0-15.0); BUN Blood Urea Nitrogen 21 mg/dL (7-18); Bicarbonate 24 mEq/L (21-32); Bilirubin Total 0.5 mg/dL (0.2-1.0); Globulin 3.3 g/dL (2.3-3.5); Glomerular Filtration Rate 87 ml/min (=/>90); Glucose Level 111 mg/dL (74-106); Potassium 3.5 mEq/L (3.5-5.1); Protein, Total 5.8 g/dL (6.4-8.2); Sodium Level 137 mEq/L (136-145)
[2024-05-13 06:07] LABS: ALT/SGPT < 14 U/L (16-61)
--- NOTE | 2024-05-13 12:38 | EKG ---
Test Date: 2024-05-12 Test Time: 02:46:44 Senior Staff Specialized Employment: MEASUREMENT RESULTS: Intervals: Rate: 101 NM: 170 QRSD: 104 QT: 358 QTc: 464 [place]: P: 47 NM: 170 QRS: 88 T: -8 INTERPRETIVE STATEMENTS: Sinus tachycardia with occasional premature ventricular complexes Incomplete right bundle branch block ST & T wave abnormality, consider anterior ischemia Abnormal ECG Compared to ECG 04/10/2024 08:36:48 Ventricular premature complex(es) now present Incomplete right bundle-branch block now present ST (T wave) deviation now present Possible ischemia now present Sinus rhythm no longer present Electronically Signed On 05-13-24 12:38:13 CDT by David Fritz
[2024-05-13] MEDS: POTASSIUM CL SA 10 MEQ TAB PO ONE ×2 (13:02→13:05)
[2024-05-13] MEDS: CEFTRIAXONE 2,000 MG in NA CHLORIDE 0.9% 100 ML IV SCH (13:05)
--- NOTE | 2024-05-13 15:23 | P.PN ---
Subjective Date of Service: 05/13/24 Chief Complaint: Altered mental status Patient has been awake and interactive but somehow agitated because of the Jones catheter this morning. He has no other complain. Physical Examination - Vital Signs Temperature: 98.3 F Blood Pressure: 125/76 Pulse: 65 Respirations: 16 Pulse Ox (%): 97 - Studies Microbiology Data (last 24 hrs): 05/12/24 02:31 Blood - Blood Blood Culture Gram Stain - Final 05/12/24 02:31 Blood - Blood Gram Stain - Final 05/12/24 02:31 Blood - Blood Blood Culture Gram Stain - Final 05/12/24 02:31 Blood - Blood Gram Stain - Final Assessment And Plan - Plan Physical Examination General: Frail-appearing, not in acute distress. HEENT: Anicteric sclera, conjunctiva not pale. Neck: Supple, no elevated JVD, no thyromegaly. Lungs: Clear to auscultation bilaterally. No rhonchi, no rales, no crackles. Heart: S1-S2 heard, rapid, no murmur no gallop no rub. Normal capillary refill. Abdomen: Soft, nontender, nondistended, no hepatosplenomegaly. Genitourinary: Jones catheter in place. Extremities: No pedal edema. No deformity. Neuro: No cranial nerve deficit, no focal motor deficit. Psychiatry: Awake, not agitated. Skin: Warm and dry, no rashes. Assessment and plan Acute encephalopathy metabolic Acute cystitis with hematuria Sepsis CT head: No acute disease. Urine cultures growing gram-negative rods. Blood cultures also growing gram-negative ron IV Rocephin Follow cultures. IV hydration Discontinue Jones catheter Recent hip fractures PT OT evaluation. Dementia Resume home medications GI/DVT prophylaxis: Lovenox Advanced directive full code
[2024-05-14 07:07] LABS: Absolute Eosinophils 0.2 K/uL (0-0.5); Absolute Lymphocytes (CBC) 0.8 K/uL (0.7-4.9); Absolute Monocytes 1.2 K/uL (0.1-1.3); Absolute Neutrophil 6.3 K/uL (1.8-8.0); Basophils % 0.5 % (0-1.3); Eosinophils % 2.8 % (0-4.4); Hematocrit 32.6 % (39.6-49.0); Hemoglobin 10.8 g/dL (13.6-17.9); Lymphocytes % 9.4 % (15.3-44.8); MCH 34.6 pg (27.0-35.0); MCV 104.8 fL (80-100); MPV 7.5 fL (7.6-11.3); Monocytes % 13.8 % (3.3-12.3); Neutrophils % 73.5 % (41.7-73.7); Platelets 237 thou/uL (152-406); RBC Red Blood Cell Count 3.11 M/uL (4.33-5.43); Red Cell Distribution Width 14.1 % (12.1-15.2)
[2024-05-14 07:22] LABS: Anion Gap 8.1 mEq/L (5.0-15.0); Potassium 4.1 mEq/L (3.5-5.1)
--- NOTE | 2024-05-14 07:40 | P.PN ---
Date of Service: 05/14/24 Subjective: nursing staff report ongoing confusion, but improving patient AOx2, denies abdominal pain, no nausea ROS: 10 point ROS as noted above, otherwise negative Physical Exam: GEN: Alert, awake, AOX2, NAD CV: Regular rate and rhythm, no edema Pulm: Nonlabored respirations on room air ABD: Soft, nontender, nondistended Neuro: Normal speech, normal affect vitals reviewed Problem List: Sepsis secondary to acute cystitis with hematuria / E. coli bacteremia Acute encephalopathy metabolic recent hip fractures s/p left intermedullary ron (04/10) Alzheimer's dementia Hypertension Hypothyroidism BPH Sepsis secondary to acute cystitis with hematuria / E. coli bacteremia Acute encephalopathy metabolic CT abdomen (05/12): Diffuse bladder wall thickening. Small amount of free fluid in upper abdomen. 11 cm hiatal hernia containing part of the stomach and pancreas. CT head (05/12): noted bilateral sphenoid sinus fluids, otherwise negative CXR (05/12): multifocal ill-defined reticulonodular opacities. Infectious vs inflammatory urine and blood cultures (05/12): both grew E. coli repeat blood cx (05/13): 1/2 bottles prelim +GNR continue IV rocephin (05/13-) ID Consulted afebrile, leukocytosis resolved patient self removed dumont 05/13 recent hip fractures s/p left intermedullary ron (04/10) PT eval pain control Alzheimer's dementia Hypertension Hypothyroidism confirm home meds, restart as appropriate BPH continue home flomax VTE: Lovenox Code: Full Dispo: ?SNF in ~1-2 days, pending further improvement, Abx Time Spent Managing Pts Care (In Minutes): 41
--- NOTE | 2024-05-14 12:24 | P.CNS ---
Date of Consult: 05/14/24 Patient is a 88-year-old male with multiple medical problems I was consulted for evaluation of bacteremia and urinary tract infection secondary to E. coli. Patient is not a good historian most of the history was obtained through medical record and his staff patient was brought into the emergency room with fever and altered mental status he has significant past medical history of Alzheimer disease, back problems, BPH, hypertensive disorder, hypothyroidism, thyroidectomy and recent left hip fracture. [facility] is a [facility]. All Active Problems [facility] (current) use of anticoagulants (Acute) Tinea unguium (Acute) Current Medications Acetaminophen (Acetaminophen 325 Mg Tablet) 650 mg PO Q4HP PRN PRN Reason: TEMP > 100' F Last Admin: 05/13/24 00:14 Dose: 650 mg Enoxaparin Sodium (Enoxaparin 40 Mg/0.4 Ml) 40 mg SQ DAILY [facility] Last Admin: 05/14/24 09:02 Dose: 40 mg Sodium Chloride (Ns 1000 Ml Ivbag) 1,000 mls @ 100 mls/hr IV .Q10H [facility] Last Admin: 05/14/24 09:02 Dose: 1,000 mls Ceftriaxone Sodium 2,000 mg/ (Sodium Chloride) 100 mls @ 200 mls/hr IV Q24H [facility]; Protocol Last Admin: 05/13/24 13:05 Dose: 100 mls Ondansetron HCl (Ondansetron 4 Mg/2 Ml Vial) 4 mg IV Q6HP PRN PRN Reason: NAUSEA / VOMITING Tamsulosin HCl (Tamsulosin 0.4 Mg Sr Cap) 0.4 mg PO BEDTIME [facility] Last Admin: 05/13/24 20:31 Dose: 0.4 mg Allergies No Known Allergies Allergy (Verified 11/23/23 22:04) Social history Non-smoker nondrinker Family history noncontributory Review of systems: Unable to perform Physical exam: Patient lying in bed not in any acute cardiopulmonary distress Temp Pulse Resp BP Pulse Ox 98.0 F 71 12 136/71 97 05/14/24 08:00 05/14/24 08:00 05/14/24 08:00 05/14/24 08:00 05/14/24 08:00 HEENT: Within normal limits Neck: Supple, no JVD Lungs: Basal crackles Heart: S1-S2 regular Abdomen: Soft, bowel sound present Extremity: No edema martha noted Microbiology 05/12/24 03:04 Clean Catch Urine Stanton Count - Final >100,000 CFU/ML. 05/12/24 03:04 Clean Catch Urine - Final Escherichia Coli 05/12/24 02:31 Blood - Blood Aerobic Blood Culture - Final Escherichia Coli 05/12/24 02:31 Blood - Blood Blood Culture Gram Stain - Final 05/12/24 02:31 Blood - Blood Anaerobic Blood Culture - Final Escherichia Coli 05/12/24 02:31 Blood - Blood Gram Stain - Final 05/12/24 02:31 Blood - Blood Aerobic Blood Culture - Final Escherichia Coli 05/12/24 02:31 Blood - Blood Blood Culture Gram Stain - Final 05/12/24 02:31 Blood - Blood Anaerobic Blood Culture - Final Escherichia Coli 05/12/24 02:31 Blood - Blood Gram Stain - Final 05/12/24 04:58 Nasopharnyx Influenza Type A Antigen Screen - Final 05/12/24 04:58 Nasopharnyx Influenza Type B Antigen Screen - Final Laboratory Results WBC 12.10 thou/uL (4.3-10.9) H 05/12/24 02:13 RBC 2.84 M/uL (4.33-5.43) L 05/12/24 02:13 Hgb 9.9 g/dL (13.6-17.9) L 05/12/24 02:13 Hct 29.7 % (39.6-49.0) L 05/12/24 02:13 MCV 104.5 fL (80-100) H 05/12/24 02:13 MCH 34.9 pg (27.0-35.0) 05/12/24 02:13 MCHC 33.4 g/dL (32.0-36.0) 05/12/24 02:13 RDW 14.5 % (12.1-15.2) 05/12/24 02:13 Plt Count 237 thou/uL (152-406) 05/12/24 02:13 MPV 7.0 fL (7.6-11.3) L 05/12/24 02:13 Neutrophils % 91.6 % (41.7-73.7) H 05/12/24 02:13 Lymphocytes % 1.6 % (15.3-44.8) L 05/12/24 02:13 Monocytes % 5.9 % (3.3-12.3) 05/12/24 02:13 Eosinophils % 0.2 % (0-4.4) 05/12/24 02:13 Basophils % 0.7 % (0-1.3) 05/12/24 02:13 Absolute Neutrophils 11.1 K/uL (1.8-8.0) H 05/12/24 02:13 Absolute Lymphocytes 0.2 K/uL (0.7-4.9) L 05/12/24 02:13 Absolute Monocytes 0.7 K/uL (0.1-1.3) 05/12/24 02:13 Absolute Eosinophils 0.0 K/uL (0-0.5) 05/12/24 02:13 Absolute Basophils 0.1 K/uL (0-0.5) 05/12/24 02:13 Platelet Estimate Adeq 05/12/24 02:13 Morphology Comment Not seen (NOT SEEN) 05/12/24 02:13 PT 12.3 SECONDS (9.4-12.5) 05/12/24 02:13 INR 1.10 05/12/24 02:13 APTT 32.2 SECONDS (24.3-36.9) 05/12/24 02:13 pH 7.47 (7.35-7.45) H 05/12/24 02:03 pCO2 28.7 mmHG (35-45) L 05/12/24 02:03 pO2 77.9 mmHG (75-100) 05/12/24 02:03 HCO3 20.5 mmol/L (22-28) L 05/12/24 02:03 Base Excess -2.7 mmol/L 05/12/24 02:03 Oxyhemoglobin 92.3 % (94-97) L 05/12/24 02:03 ABG O2 Sat (Measured) 95.0 % (92-98.5) 05/12/24 02:03 ABG Carboxyhemoglobin 1.0 % (0-1.5) 05/12/24 02:03 ABG Methemoglobin 1.8 % (0-1.5) H 05/12/24 02:03 Other Total Hgb 10.4 g/dl (12-18) L 05/12/24 02:03 Inspired O2 21.0 % 05/12/24 02:03 Sodium 137 mEq/L (136-145) 05/12/24 02:13 Potassium 3.5 mEq/L (3.5-5.1) 05/12/24 02:13 Chloride 108 mEq/L (98-107) H 05/12/24 02:13 Carbon Dioxide 24 mEq/L (21-32) 05/12/24 02:13 Anion Gap 8.5 mEq/L (5.0-15.0) 05/12/24 02:13 BUN 37 mg/dL (7-18) H 05/12/24 02:13 Creatinine 0.94 mg/dL (0.70-1.30) 05/12/24 02:13 Est GFR (CKD-EPI) 79 ml/min (=/>90) L 05/12/24 02:13 Glucose 128 mg/dL (74-106) H 05/12/24 02:13 Lactic Acid 0.8 mmol/L (0.4-2.0) 05/12/24 02:13 Calcium 8.1 mg/dL (8.5-10.1) L 05/12/24 02:13 Total Bilirubin 0.6 mg/dL (0.2-1.0) 05/12/24 02:13 AST 22 U/L (15-37) 05/12/24 02:13 ALT < 14 U/L (16-61) L 05/12/24 02:13 Alkaline Phosphatase 119 U/L (45-117) H 05/12/24 02:13 Serum Total Protein 6.4 g/dL (6.4-8.2) 05/12/24 02:13 Albumin 2.7 g/dL (3.4-5.0) L 05/12/24 02:13 Globulin 3.7 g/dL (2.3-3.5) H 05/12/24 02:13 Albumin/Globulin Ratio 0.7 (1.1-1.8) L 05/12/24 02:13 Urine Color Light-orange (Yellow) 05/12/24 03:04 Urine Clarity Extremely turbid (Clear) H 05/12/24 03:04 Urine pH 5.5 (5.0-7.0) 05/12/24 03:04 Ur Specific Wheeler 1.011 (1.005-1.030) 05/12/24 03:04 Glucose (UA)(Auto) Negative (Negative) 05/12/24 03:04 Urine Ketones Negative (Negative) 05/12/24 03:04 Urine Blood 2+ (Negative) H 05/12/24 03:04 Urine Nitrite Negative (Negative) 05/12/24 03:04 Urine Bilirubin Negative (Negative) 05/12/24 03:04 Urine Urobilinogen Normal (Normal) 05/12/24 03:04 Ur Leukocyte Esterase 500 Gemma/uL (Negative) H 05/12/24 03:04 Urine RBC 21-50 /HPF (None Seen) H 05/12/24 03:04 Urine WBC >50 /HPF (<5) H 05/12/24 03:04 Urine WBC Clumps Moderate /HPF (None Seen) H 05/12/24 03:04 Ur Squamous Epith Cells None seen /HPF (None Seen) 05/12/24 03:04 Unidentified Crystals Many /HPF (None Seen) H 05/12/24 03:04 Urine Bacteria >50 /HPF (<20) H 05/12/24 03:04 Urine Mucus 2+ /HPF (None Seen) 05/12/24 03:04 Urine Culture Reflexed Reflexed 05/12/24 03:04 Urine Total Protein 1+ (Negative) H 05/12/24 03:04 SARS-CoV-2 Ag (Rapid) Negative (Negative) 05/12/24 04:58 Smear Scan Ok (OK) 05/12/24 02:13 Assessment and plan: This is a 88-year-old male who was admitted for altered mental status culture showed patient has urinary tract infection and bacteremia secondary to E. coli we will recommend to continue Rocephin for 10 more days Leukocytosis Anemia of chronic disease Thank you for consult
[2024-05-15 06:02] LABS: Anion Gap 6.6 mEq/L (5.0-15.0); Potassium 3.6 mEq/L (3.5-5.1)
--- NOTE | 2024-05-15 07:28 | RAD REPORT ---
EXAM DESCRIPTION: CT - Chest Abdomen Pelvis W Cont - 05/12/2024 6:42 am CLINICAL HISTORY: The patient is 88 years old and is Male; CHEST PAIN TECHNIQUE: Axial computed tomography images of the chest, abdomen and pelvis with intravenous contra st. Sagittal and coronal reformatted images were created and reviewed. This CT exam was performed using one or more of the following dose reduction techniques: automated exposure control, adjustme nt of the mA and/or kV according to patient size, and/or use of iterative reconstruction technique. COMPARISON: No relevant prior studies available. FINDINGS: CHEST: Lungs: Unremarkable. No mass. No consolidation. Pleural space: Unremarkable. No significant effusion. No pneumothorax. Heart: Unremarkable. No cardiomegaly. No significant pericardial effusion. No significant c oronary artery calcifications. Mediastinum: 11 cm hiatal hernia containing part of the stomach and pancreas. ABDOMEN: Liver: Unremarkable. No mass. Gallbladder and bile ducts: Unremarkable. No calcified stones. No ductal dilation. Pancreas: Unremarkable. No ductal dilation. No mass. Spleen: Unremarkable. No splenomegaly. Adrenals: Unremarkable. No mass. Kidneys and ureters: Multiple large simple cysts in the kidneys. No follow-up imaging is recommen ded. No hydronephrosis. No solid mass. Stomach and bowel: Scattered colonic diverticula. No obstruction. No mucosal thickening. PELVIS: Appendix: No findings to suggest acute appendicitis. Bladder: Diffuse bladder wall thickening. Jones catheter in bladder. Reproductive: Unremarkable as visualized. CHEST, ABDOMEN and PELVIS: Intraperitoneal space: Small amount of free fluid in the upper abdomen. No free air. Bones/joints: Old right rib fractures. Osteopenia. Prior fractures with intramedullary rods and intertrochanteric screws in the femurs. Disc space narrowing with degenerative endplate changes in the spine. 7 mm of anterolisthesis of L5 on S1. No dislocation. Soft tissues: Unremarkable. Vasculature: Scattered atherosclerotic vascular calcifications. No aortic aneurysm. Lymph nodes: Unremarkable. No enlarged lymph nodes. IMPRESSION: 1. 11 cm hiatal hernia containing part of the stomach and pancreas. 2. Diffuse bladder wall thickening. Correlate with any concern for cystitis, chronic bladder outl et obstruction, or other infiltrative process. 3. Small amount of free fluid in the upper abdomen. 4. Additional non-emergent findings as above. Electronically signed by: Nick Hein MD 05/12/2024 06:17 AM CDT RP 8 Due to temporary technical issues with the PACS/Fluency reporting system, reports are being signed by the in house radiologist without review as a courtesy to ensure prompt reporting. The interpreting r adiologist is fully responsible for the content of the report.
--- NOTE | 2024-05-15 07:29 | RAD REPORT ---
"EXAM DESCRIPTION: CT - Head Brain Wo Cont - 05/12/2024 6:42 am CLINICAL HISTORY: The patient is 88 years old and is Male; Confused. TECHNIQUE: Axial computed tomography images of the head/brain without intravenous contrast. Sagitt al and coronal reformatted images were created and reviewed. This CT exam was performed using one o r more of the following dose reduction techniques: automated exposure control, adjustment of the mA and/or kV according to patient size, and/or use of iterative reconstruction technique. COMPARISON: CT Head 04/09/2024.| FINDINGS: Brain: Cortical atrophy. Mild age related periventricular white matter microangiopathic changes. No hemorrhage. Ventricles: Unremarkable. No ventriculomegaly. Bones/joints: Unremarkable. No acute skull fracture. Soft tissues: Unremarkable. Sinuses: Bilateral sphenoid sinus fluid. Mastoid air cells: No significant mastoid fluid. IMPRESSION: 1. No acute intracranial findings. No hemorrhage. 2. Bilateral sphenoid sinus fluid. Electronically signed by: Lindsay Crook MD 05/12/2024 06:19 AM CDT ND Due to temporary technical issues with the PACS/Fluency reporting system, reports are being signed by the in house radiologist without review as a courtesy to ensure prompt reporting. The interpreting r adiologist is fully responsible for the content of the report."
--- NOTE | 2024-05-15 07:31 | RAD REPORT ---
EXAM DESCRIPTION: RAD - Chest Single View - 05/12/2024 3:03 am CLINICAL HISTORY Chest pain. TECHNIQUE: Frontal view of the chest. COMPARISON: 01/29/2024. FINDINGS: Lungs: Coarsened interstitial markings. Multifocal ill-defined reticular nodular opaciti es. Pleural space: Unremarkable. No pneumothorax. Heart: Unremarkable. No cardiomegaly. Mediastinum: Large hiatal hernia. Bones/joints: Multilevel spondylosis. No acute fracture. Vasculature: Thoracic aortic atherosclerosis. IMPRESSION: Multifocal ill-defined reticulonodular opacities which may be infectious or inflammatory in etiology. Electronically signed by: Jahaira Berrios MD 05/12/2024 04:06 AM CDT RP Due to temporary technical issues with the PACS/Fluency reporting system, reports are being signed by the in house radiologist without review as a courtesy to ensure prompt reporting. The interpreting r adiologist is fully responsible for the content of the report.
[2024-05-15] MEDS: CIPROFLOXACIN HCL 500 MG TAB PO SCH (08:20)
[2024-05-15] MEDS: POTASSIUM CL SA 10 MEQ TAB PO ONE (08:20)
--- NOTE | 2024-05-15 12:35 | P.PN ---
Date of Service: 05/15/24 Subjective: doing better no acute events overnight feels he is improving ROS: 10 point ROS as noted above, otherwise negative Physical Exam: GEN: Alert, awake, AOX2, NAD CV: Regular rate and rhythm, no edema Pulm: Nonlabored respirations on room air ABD: Soft, nontender, nondistended vitals reviewed Problem List: Sepsis secondary to acute cystitis with hematuria / E. coli bacteremia Acute encephalopathy metabolic recent hip fractures s/p left intermedullary ron (04/10) Alzheimer's dementia Hypertension Hypothyroidism BPH Sepsis secondary to acute cystitis with hematuria / E. coli bacteremia Acute encephalopathy metabolic CT abdomen (05/12): Diffuse bladder wall thickening. Small amount of free fluid in upper abdomen. 11 cm hiatal hernia containing part of the stomach and pancreas. CT head (05/12): noted bilateral sphenoid sinus fluids, otherwise negative CXR (05/12): multifocal ill-defined reticulonodular opacities. Infectious vs inflammatory urine and blood cultures (05/12): both grew E. coli repeat blood cx (05/13): 2/2 bottles prelim +GNR continue IV rocephin (05/13-05/22) ID Consulted - ok with switching to FQN on dc afebrile, leukocytosis resolved patient self removed dumnot 05/13 recent hip fractures s/p left intermedullary ron (04/10) continue PT pain control Alzheimer's dementia Hypertension Hypothyroidism confirm home meds, restart as appropriate BPH continue home flomax VTE: Lovenox Code: Full Dispo: SNF in ~1-2 days, pending further improvement, Abx Time Spent Managing Pts Care (In Minutes): 41
--- NOTE | 2024-05-15 12:57 | PN ---
Subjective: The patient lying in bed. Denies any discomfort at this time. Objective: Vital Signs: Temperature 98, pulse 57, respirations 12, blood pressure 117/58. Lungs: Basal crackles. Heart: S1, S2. Regular. Abdomen: Soft, nontender. Bowel sounds present. Extremity: No edema. Laboratory Data: No new labs today. Blood cultures from 05/12 showing E coli, and urine culture is showing E coli. Blood cultures from 05/13 negative, up-to-date, from 05/13 showing gram-negative, se nsitivity and specificity pending. Assessment And Plan: 1.Urinary tract infection secondary to Escherichia coli. 2.Bacteremia secondary to Escherichia coli. Consider giving Cipro 500 mg q.12 hours for 10 days, ca n be switched to p.o., once the patient discharged. 3.Anemia of chronic disease. 4.Leukocytosis has subsided. Continue supportive care and we will follow the patient as needed. NF/MODL Voice ID: [id number] Report ID: [id number]
[2024-05-16 06:31] LABS: Anion Gap 7.8 mEq/L (5.0-15.0); Potassium 3.8 mEq/L (3.5-5.1)
[2024-05-16 08:22] VITALS: BMI 25.0
[2024-05-16] MEDS: POTASSIUM CL SA 10 MEQ TAB PO ONE (08:51)
[2024-05-16 09:53] VITALS: O2SAT 98
[2024-05-16 12:30] VITALS: BP 94/60; TEMP 96.8
--- NOTE | 2024-05-17 07:12 | P.DS ---
Admission Date: 05/12/24 Discharge Date: 05/16/24 Disposition: DC HOME/HOME HEALTH CARE Discharge Condition: GOOD Reason for Admission: Altered mental status Consultations: ID - Dr. Olmos Brief History of Present Illness: 88 yo F, PMH: Alzheimer's disease; back problems; BPH; Hypertensive disorder; Hypothyroidism; Thyroidectomy. recent hip fracture Patient was brought to ER with fever and altered mental status. He is a retirement resident who started having fever and altered behavior and was brought to ER. Patient could not offer any history hence most of the history is obtained from the chart review and also talking to the ER physician . Patient has history of recent nondisplaced left femur intertrochanteric fracture with admission on 04/09/2024. Patient received left intramedullary ron. Patient also has right inferior pubic ramus fracture, greater trochanter fracture, osteoporosis, history of hypertension, history of hypothyroidism, history of BPH, history of dementia. . Patient was assessed in the ER and was found to have UTI and is admitted for further management. Hospital Course: Problem List: Sepsis secondary to acute cystitis with hematuria / E. coli bacteremia Acute encephalopathy metabolic, improved recent hip fractures s/p left intermedullary ron (04/10) Alzheimer's dementia Hypertension Hypothyroidism BPH Patient presented with fever and altered mental status, found to have sepsis secondary to acute cystitis with bacteremia. Blood and urine cultures grew E. coli -resistant to ance, ampicillin, unasyin, with partial resistance to zosyn, sensitive to rocephin and fluoroquinolones. He was empirically treated with IV Rocephin. Infectious disease was consulted. Patient continued to show i mprovement, remained afebrile, mentation improved and he was back to his baseline. After discussion with the infectious disease physician, recommended switching to oral ciprofloxacin on 05/15 and continue on discharge for an additional 10 days, for a total of 2 weeks of antibiotic therapy. Lyubov at left hip surgical site were still in place from surgery ~1month ago. Incision site well healed. Upland removed during this hospitalization. Medications: Ciprofloxacin 500 mg twice daily, for 10 days - Called into [facility] pharmacy Continue other medications as prescribed previously Follow-up: PCP, within 1 week Ortho as previously scheduled/advised. Physical Exam: GEN: Alert, awake, AOX2, NAD CV: Regular rate and rhythm, no edema Pulm: Nonlabored respirations on room air ABD: Soft, nontender, nondistended Vital Signs/Physical Exam: Temp Pulse Resp BP Pulse Ox 96.8 F 68 16 94/60 95 05/16/24 12:00 05/16/24 12:00 05/16/24 12:00 05/16/24 12:00 05/16/24 12:00 Laboratory Data at Discharge: WBC 8.60 thou/uL (4.3-10.9) 05/14/24 05:44 Hgb 10.8 g/dL (13.6-17.9) L D 05/14/24 05:44 Hct 32.6 % (39.6-49.0) L 05/14/24 05:44 Plt Count 237 thou/uL (152-406) 05/14/24 05:44 PT 12.3 SECONDS (9.4-12.5) 05/12/24 02:13 INR 1.10 05/12/24 02:13 APTT 32.2 SECONDS (24.3-36.9) 05/12/24 02:13 Sodium 139 mEq/L (136-145) 05/16/24 05:12 Potassium 3.8 mEq/L (3.5-5.1) 05/16/24 05:12 BUN 16 mg/dL (7-18) 05/16/24 05:12 Creatinine 0.74 mg/dL (0.70-1.30) 05/16/24 05:12 Glucose 94 mg/dL (74-106) 05/16/24 05:12 Magnesium 2.0 mg/dL (1.6-2.4) 05/15/24 05:22 Total Bilirubin 0.5 mg/dL (0.2-1.0) 05/13/24 05:08 AST 14 U/L (15-37) L 05/13/24 05:08 ALT < 14 U/L (16-61) L 05/13/24 05:08 Alkaline Phosphatase 103 U/L (45-117) 05/13/24 05:08 Home Medications: Levothyroxine [Synthroid*] 0.112 mg PO DAILY 09/01/23 Melatonin 3 mg PO BEDTIME PRN 09/01/23 Tamsulosin HCl [Flomax] 0.4 mg PO BEDTIME 09/01/23 Donepezil [Aricept*] 5 mg PO BEDTIME 11/30/23 Midodrine HCl [Proamatine*] 15 mg PO TID 11/30/23 Sodium Chloride Tab [Sodium Chloride*] 1 gm PO BIDWM #60 tab 12/12/23 Aspirin 81 mg PO DAILY 04/10/24 Carbidopa/Levodopa [Carbidopa-Levo ER 25-100 Tab] 1 tab PO TID 04/10/24 Hydrocodone 5/APAP 325 [[place] 5/325*] 1 tab PO Q6HP PRN tab 04/15/24 Acetaminophen [Tylenol] 2 tab PO Q4H PRN 05/16/24 Cranberry Fruit Extract 250 mg PO BID 05/16/24 Ferrous Sulfate 1 tab PO DAILY 05/16/24 Lidocaine 4% Patch [Lidoderm 5% Patch*] 1 patch TOP DAILY PRN 05/16/24 Mecobalamin [B12 Active] 1 tab PO DAILY 05/16/24 Sennosides/Docusate Sodium [Senexon-S 50-8.6 mg Tablet] 1 tab PO BID PRN 05/16/24 Physician Discharge Instructions: Patient presented with fever and altered mental status, found to have sepsis secondary to acute cystitis with bacteremia. Blood and urine cultures grew E. coli -resistant to ance, ampicillin, unasyin, with partial resistance to zosyn, sensitive to rocephin and fluoroquinolones. He was empirically treated with IV Rocephin. Infectious disease was consulted. Patient continued to show improvement, remained afebrile, mentation improved and he was back to his baseline. After discussion with the infectious disease physician, recommended switching to oral ciprofloxacin on 05/15 and continue on discharge for an additional 10 days, for a total of 2 weeks of antibiotic therapy. Lyubov at left hip surgical site were still in place from surgery ~1month ago. Incision site well healed. Upland removed during this hospitalization. Medications: Ciprofloxacin 500 mg twice daily, for 10 days - Called into [facility] pharmacy Continue other medications as prescribed previously Follow-up: PCP, within 1 week Ortho as previously scheduled/advised. Followup: Tello Sandra MD [Primary Care Provider] - 1-2 Weeks Time spent managing pt's care (in minutes): 45
== END 2024-05-16 16:00 | disposition home health service (06) | DRG 871 ==
LOC: ER 01:59 → 2ND 05:52
PROVIDERS: ADMIT Family Medicine; ATTEND Hospitalist
PROC: 4A033R1 Measurement of Arterial Saturation, Peripheral, Percutaneous Approach (ICD-10-PCS; principal; 2024-05-12)
DX: A41.51 Sepsis due to Escherichia coli [E. coli] (principal); G93.41 Metabolic encephalopathy; N30.01 Acute cystitis with hematuria; F02.811 Dementia in other diseases classified elsewhere, unspecified severity, with agitation; Z16.11 Resistance to penicillins; Z16.20 Resistance to unspecified antibiotic; G30.9 Alzheimer's disease, unspecified; R65.20 Severe sepsis without septic shock; I10 Essential (primary) hypertension; E03.9 Hypothyroidism, unspecified; I49.3 Ventricular premature depolarization; I45.10 Unspecified right bundle-branch block; D63.8 Anemia in other chronic diseases classified elsewhere; M81.0 Age-related osteoporosis without current pathological fracture; N40.0 Benign prostatic hyperplasia without lower urinary tract symptoms; S72.002D Fracture of unspecified part of neck of left femur, subsequent encounter for closed fracture with routine healing; R00.0 Tachycardia, unspecified; Z79.82 Long term (current) use of aspirin; Z11.52 Encounter for screening for COVID-19; Z79.890 Hormone replacement therapy; Z96.642 Presence of left artificial hip joint; Z79.899 Other long term (current) drug therapy
CPT/HCPCS: 36415; 36600; 70450; 71045; 71260; 74177; 80048; 80053; 81001; 82805; 83605; 83735; 85025; 85610; 85730; 87040; 87077; 87086; 87088; 87186; 87205; 87804; 87811; 93005; 97110; 97161; 97530; 99284; J0696; J1650; J2543; J7030; J7050; P9047; Q9967

== ENCOUNTER 2024-06-11 13:12 | Emergency (ER) | payer OTHER ==
--- NOTE | 2024-06-11 14:48 | RAD REPORT ---
EXAMINATION: CT PELVIS WITHOUT CONTRAST CLINICAL INDICATION: Male, 88 years old. right hip pain;Pain TECHNIQUE: CT pelvis was performed, without IV contrast, as per department protocol. Axial, sagittal and coronal reconstructions were obtained. One or more of the following dose reduction techniques were used: Automated exposure control, adjustment of the mA and/or kV according to patient size, and/ or iterative reconstruction. Unless otherwise specified, incidental findings do not require dedicated imaging follow-up. COMPARISON: 04/09/[address] chest, abdomen, and pelvis 02/10/2024 FINDINGS: The lack of intravenous contrast limits the sensitivity of this exam for evaluation of solid visceral organs, vascular structures, and retroperitoneum. MUSCULOSKELETAL: New mildly displaced right inferior pubic ramus fracture. Stable healing fractures i nvolving the right intertrochanteric region, and left base of the greater trochanter, with fixation rods and compression screws. Degenerative changes of the lower lumbar spine, with incomplete linear l ucency at the base of the right L5 transverse process, also stable in appearance. URINARY SYSTEM: Partially included large exophytic cysts of the right lower renal pole. Prostatomegal y and extensive reticulation throughout the urinary bladder wall. Findings are stable. GASTROINTESTINAL TRACT: Included small bowel is normal in caliber. No wall thickening or bowel inflam matory changes. LYMPH NODES: No lymphadenopathy. ABDOMINAL AORTA AND OTHER VESSELS: Normal caliber aorta and IVC. ADDITIONAL FINDINGS: None. IMPRESSION: New mildly displaced right inferior pubic ramus fracture. Other stable findings as above. Stable pelvic findings including prostatomegaly and trabeculation of the urinary bladder wall, sugges ting long-standing outlet obstruction. Evaluation limited by lack of IV contrast.
--- NOTE | 2024-06-11 15:28 | ER ---
Nurse's Notes [facility] Name: Tony Cunningham Age: 88 yrs Sex: Male : 1935 Arrival Date: 06/11/2024 Time: 13:12 Bed 20 Private MD: Diagnosis: Inferior Pubic Ramus fracture Presentation: 06/11 13:53 Chief complaint: EMS states: right groin/hip pain with movement. Patient fell last tm6 Monday and was seen here. Patient continues to have pain. Coronavirus screen: Vaccine status: Patient reports receiving the 2nd dose of the covid vaccine. Ebola Screen: Patient negative for fever greater than or equal to 101.5 degrees Fahrenheit, and additional compatible Ebola Virus Disease symptoms Patient denies exposure to infectious person. Patient denies travel to an Ebola-affected area in the 21 days before illness onset. No symptoms or risks identified at this time. Initial Sepsis Screen: Does the patient meet any 2 criteria? No. Patient's initial sepsis screen is negative. Does the patient have a suspected source of infection? No. Patient's initial sepsis screen is negative. Risk Assessment: Do you want to hurt yourself or someone else? Patient reports no desire to harm self or others. Onset of symptoms was June 07, 2024. 13:53 Method Of Arrival: EMS: [facility] tm6 13:53 Acuity: CANELO 3 tm6 Triage Assessment: 13:54 General: Appears in no apparent distress. Behavior is calm, cooperative. Pain: tm6 Complains of pain in right hip Pain does not radiate. Pain currently is 0 out of 10 on a pain scale. at worst was 10 out of 10 on a pain scale. Pain began Monday. 13:56 EENT: No signs and/or symptoms were reported regarding the EENT system. Neuro: Level of tm6 Consciousness is awake, alert, obeys commands, Oriented to person, place, time, situation. Cardiovascular: Patient's skin is warm and dry. Respiratory: Airway is patent Respiratory effort is even, unlabored, Respiratory pattern is regular, symmetrical. GI: No signs and/or symptoms were reported involving the gastrointestinal system. Abdomen is flat, non-distended. : No signs and/or symptoms were reported regarding the genitourinary system. Derm: No signs and/or symptoms reported regarding the dermatologic system. Musculoskeletal: Reports pain in pelvis and right hip since [place]. Pain is 0 out of 10 on a pain scale. Historical: - Allergies: 13:54 Fludrocortisone; tm6 - PMHx: 13:54 Alzheimer's disease; back problems; BPH; Hypertensive disorder; Hypothyroidism; tm6 - PSHx: 13:54 Thyroidectomy; tm6 - Immunization history:: Client reports receiving the 2nd dose of the Covid vaccine. - Infectious Disease History:: Denies. - Social history:: Smoking status: Patient denies any tobacco usage or history of. Screenin:57 [facility] ED Fall Risk Assessment (Adult) History of falling in the last 3 months, tm6 including since admission Yes- single mechanical fall (1 pt) Confusion or Disorientation No (0 pts) Intoxicated or Sedated No (0 pts) Impaired Gait No (0 pts) Mobility Assist Device Used No (0 pt) Altered Elimination No (0 pt) Score/Fall Risk Level 0 - 2 = Low Risk Oriented to surroundings, Maintained a safe environment, Educated pt \T\ family on fall prevention, incl call for assistance when getting out of bed. Abuse screen: Denies threats or abuse. Denies injuries from another. Nutritional screening: No deficits noted. Tuberculosis screening: No symptoms or risk factors identified. Assessment: 13:57 Reassessment: see triage assessment. tm6 15:32 Reassessment: report called to Noemi at [facility]. tm6 15:42 Reassessment: discharge pending transportation back to [facility]. Noemi to arrange. tm6 15:53 Reassessment: Patient and/or family updated on plan of care and expected duration. Pain tm6 level reassessed. Patient is alert, oriented x 3, equal unlabored respirations, skin warm/dry/pink. Vital Signs: 13:53 BP 102 / 75; Pulse 62; Resp 18; Temp 97.9(O); Pulse Ox 97% on R/A; MAP 82 mmHg; Pain tm6 0/10; 15:53 BP 137 / 85; Pulse 64; Resp 19; Temp 97.9; Pulse Ox 98% on R/A; MAP 100 mmHg; Pain 0/10;tm6 13:53 Pain Scale: Adult tm6 15:53 Pain Scale: Adult tm6 ED Course: 13:20 Patient arrived in ED. bd 13:25 Andry Velasquez DO is Attending Physician. ms3 13:52 Donte Proctor, RN is Primary Nurse. tm6 13:54 Triage completed. tm6 13:56 CT Pelvis wo Cont: Right hip In Process Unspecified. EDMS 13:56 Arm band placed on right wrist. tm6 13:57 Patient has correct armband on for positive identification. Bed in low position. Call tm6 light in reach. Side rails up X2. Provided Education on: use of call cheng. Client placed on continuous cardiac and pulse oximetry monitoring. NIBP monitoring applied. Pulse ox on. NIBP on. Door closed. Noise minimized. Warm blanket given. Pillow given. 15:26 Santi Cochran MD is Referral Physician. ms3 15:53 No provider procedures requiring assistance completed. Patient did not have IV access tm6 during this emergency room visit. Administered Medications: No medications were administered Medication: 13:57 VIS not applicable for this client. tm6 Outcome: 15:27 Discharge ordered by . ms3 15:53 Discharged to retirement. Report called to Noemi waiting for EMS transportation tm6 15:53 Condition: stable 15:53 Discharge instructions given to patient, retirement, Instructed on discharge instructions, follow up and referral plans. Demonstrated understanding of instructions, follow-up care, 16:14 Patient left the ED. mb9 Signatures: Dispatcher [employer] EDMS Anny Serrato Andry Velasquez DO DO ms3 Deedee Fowler, RN RN mb9 Donte Proctor, RN RN tm6
--- NOTE | 2024-06-11 15:28 | EDPHYS ---
Physician Documentation [facility] Name: Tony Cunningham Age: 88 yrs Sex: Male : 1935 Arrival Date: 06/11/2024 Time: 13:12 Bed 20 Private MD: ED Physician Andry Velasquez HPI: 06/11 14:33 This 88 yrs old Male presents to ER via EMS with complaints of Hip Pain. ms3 14:33 88-year-old male with past medical history of Alzheimer disease, back pain, ms3 hypertension, hypothyroidism presents to the emergency department for right hip pain that became worse last night. Patient currently denies pain. EMS notes patient was given hydrocodone by nursing facility prior to their arrival. EMS notes patient bearing weight on right hip. Historical: - Allergies: 13:54 Fludrocortisone; tm6 - PMHx: 13:54 Alzheimer's disease; back problems; BPH; Hypertensive disorder; Hypothyroidism; tm6 - PSHx: 13:54 Thyroidectomy; tm6 - Immunization history:: Client reports receiving the 2nd dose of the Covid vaccine. - Infectious Disease History:: Denies. - Social history:: Smoking status: Patient denies any tobacco usage or history of. ROS: 14:33 Constitutional: Negative for fever, and chills. Cardiovascular: Negative for chest ms3 pain, and palpitations. Respiratory: Negative for shortness of breath, cough, wheezing, and pleuritic chest pain, Abdomen/GI: Negative for abdominal pain, nausea, vomiting, diarrhea, and constipation, 14:33 MS/extremity: Positive for pain, of the right hip, Exam: 14:33 Constitutional: This is a well developed, well nourished patient who is awake, alert, ms3 and in no acute distress. Head/Face: Normocephalic, atraumatic. Chest/axilla: Normal chest wall appearance and motion. Nontender with no deformity. Cardiovascular: Regular rate and rhythm with a normal S1 and S2. No gallops, murmurs, or rubs. Normal PMI, no JVD. No pulse deficits. Respiratory: Lungs have equal breath sounds bilaterally, clear to auscultation and percussion. No rales, rhonchi or wheezes noted. No increased work of breathing, no retractions or nasal flaring. Abdomen/GI: Soft, non-tender, with normal bowel sounds. No distension or tympany. No guarding or rebound. No evidence of tenderness throughout. Skin: Warm, dry with normal turgor. Normal color with no rashes, no lesions, and no evidence of cellulitis. MS/ Extremity: Pulses equal, no cyanosis. Neurovascular intact. Full, normal range of motion. Vital Signs: 13:53 BP 102 / 75; Pulse 62; Resp 18; Temp 97.9(O); Pulse Ox 97% on R/A; MAP 82 mmHg; Pain tm6 0/10; 15:53 BP 137 / 85; Pulse 64; Resp 19; Temp 97.9; Pulse Ox 98% on R/A; MAP 100 mmHg; Pain 0/10;tm6 13:53 Pain Scale: Adult tm6 15:53 Pain Scale: Adult tm6 MDM: 13:28 Patient medically screened. ms3 14:33 Differential diagnosis: intertrochanteric fracture, femoral neck fracture, strain. ms3 15:59 Data reviewed: vital signs, nurses notes, radiologic studies, and as a result, I will ms3 discharge patient. Historians other than the Patient: EMS: [facility]. Counseling: I had a detailed discussion with the patient and/or guardian regarding the historical points, exam findings, and any diagnostic results supporting the discharge/admit diagnosis, radiology results, the need for outpatient follow up, to return to the emergency department if symptoms worsen or persist or if there are any questions or concerns that arise at home. ED course: Discussed inferior pubic ramus fracture with patient. Patient states he would like to be discharged back to his nursing facility. All questions were answered. Return precautions discussed include worsening symptoms, or any other concerns. Patient not given pain medications in the emergency department; however, pain is controlled likely secondary to Needles given at nursing facility. 06/11 13:30 Order name: CT Pelvis wo Cont: Right hip; Complete Time: 15:06 ms3 Administered Medications: No medications were administered Disposition Summary: 06/11/24 15:27 Discharge Ordered Notes: Location: Home ms3 Condition: Stable ms3 Diagnosis - Inferior Pubic Ramus fracture ms3 Followup: ms3 - With: Santi Cochran MD - When: 2 - 3 days - Reason: Recheck today's complaints Discharge Instructions: - Discharge Summary Sheet ms3 - Simple Pelvic Fracture, Adult ms3 Forms: - Medication Reconciliation Form ms3 - Antibiotic Education ms3 - Prescription Opioid Use ms3 - Patient Portal Instructions ms3 - Leadership Thank You Letter ms3 Signatures: Dispatcher [employer] Andry Thao, DO ms3 Donte Proctor, RN RN tm6
[2024-06-11 16:41] VITALS: TEMP 97.9
[2024-06-11 16:43] VITALS: BP 137/85; O2SAT 98
== END 2024-06-11 16:14 | disposition home or self-care (01) ==
LOC: ER 13:12
DX: S32.591A Other specified fracture of right pubis, initial encounter for closed fracture (principal); I10 Essential (primary) hypertension; G30.9 Alzheimer's disease, unspecified; F02.80 Dementia in other diseases classified elsewhere, unspecified severity, without behavioral disturbance, psychotic disturbance, mood disturbance, and anxiety
CPT/HCPCS: 72192; 99283

== ENCOUNTER 2024-08-21 21:58 | Emergency (ER) | payer OTHER ==
[2024-08-21 23:52] LABS: Absolute Basophils 0.1 K/uL (0-0.5); Absolute Eosinophils 0.4 K/uL (0-0.5); Absolute Lymphocytes (CBC) 1.7 K/uL (0.7-4.9); Absolute Neutrophil 5.9 K/uL (1.8-8.0); Basophils % 0.9 % (0-1.3); Eosinophils % 4.8 % (0-4.4); Hematocrit 35.4 % (39.6-49.0); Hemoglobin 12.1 g/dL (13.6-17.9); Lymphocytes % 18.6 % (15.3-44.8); MCH 32.5 pg (27.0-35.0); MCHC 34.1 g/dL (32.0-36.0); MCV 95.3 fL (80-100); MPV 6.6 fL (7.6-11.3); Monocytes % 10.7 % (3.3-12.3); Platelets 428 thou/uL (152-406); RBC Red Blood Cell Count 3.71 M/uL (4.33-5.43); Red Cell Distribution Width 14.6 % (12.1-15.2)
[2024-08-22 00:02] LABS: Specific Gravity 1.008 (1.005-1.030); Sqamous Epithelial None Seen /HPF (None Seen); Urine Bacteria <20 /HPF (<20); Urine Bilirubin NEGATIVE (Negative); Urine Blood 1+ (Negative); Urine Clarity Extremely Turbid (Clear); Urine Color Colorless (Yellow); Urine Culture Reflex Order REFLEXED; Urine Glucose NEGATIVE (Negative); Urine Ketones NEGATIVE (Negative); Urine Microscopic Reflex YN ORDER UMIC; Urine Nitrite NEGATIVE (Negative); Urine Protein 1+ (Negative); Urine Urobilinogen Normal (Normal); Urine WBC >50 /HPF (<5); Urine WBC Clump Few /HPF (None Seen); Urine pH 5.5 (5.0-7.0)
[2024-08-22 00:08] LABS: Albumin 2.8 g/dL (3.4-5.0); Albumin/Globulin Ratio 0.6 (1.1-1.8); Alkaline Phosphatase 91 U/L (45-117); BUN Blood Urea Nitrogen 26 mg/dL (7-18); Bicarbonate 25 mEq/L (21-32); Bilirubin Total 0.3 mg/dL (0.2-1.0); Globulin 4.7 g/dL (2.3-3.5); Glomerular Filtration Rate 60 ml/min (=/>90); Glucose Level 95 mg/dL (74-106); Lipase 18 U/L (13-75); Protein, Total 7.5 g/dL (6.4-8.2); Sodium Level 137 mEq/L (136-145)
[2024-08-22 00:11] LABS: ALT/SGPT < 14 U/L (16-61); AST/SGOT < 10 U/L (15-37)
--- NOTE | 2024-08-22 00:48 | ER ---
Nurse's Notes [facility] Name: Tony Cunningham Age: 89 yrs Sex: Male : 1935 Arrival Date: 08/21/2024 Time: 21:58 Bed 5 Private MD: Diagnosis: UTI/ Urinary tract infection, site not specified;Acute Lower UTI Presentation: 08/21 22:42 Chief complaint: EMS states: Pt is from an assisted living facility with a c/o foul ay smell and cloudy urine. Coronavirus screen: Client denies travel out of the [place] in the last 14 days. Ebola Screen: No symptoms or risks identified at this time. Initial Sepsis Screen: Does the patient meet any 2 criteria?. Initial Sepsis Screen: Does the patient meet any 2 criteria? No. Patient's initial sepsis screen is negative. Does the patient have a suspected source of infection? No. Patient's initial sepsis screen is negative. Risk Assessment: Do you want to hurt yourself or someone else? Patient reports no desire to harm self or others. Note Pt from an assisted living facility with a c/o foul smell and cloudy urine. Pt alert and oriented x4, no distress noted. afebrile, VSS. Onset of symptoms is unknown. 22:42 Method Of Arrival: EMS: [facility] ay 22:42 Acuity: CANELO 3 ay Triage Assessment: 22:52 General: Appears comfortable, uncomfortable, Behavior is calm, cooperative. Pain: ay Complains of pain in buttocks. EENT: No signs and/or symptoms were reported regarding the EENT system. Neuro: Level of Consciousness is awake, alert, obeys commands, Oriented to person, place, time, situation. Cardiovascular: Denies chest pain, Capillary refill < 3 seconds. Respiratory: Airway is patent Respiratory effort is even, unlabored, Respiratory pattern is regular, symmetrical. GI: Abdomen is flat, Bowel sounds present X 4 quads. : Denies burning with urination, discharge. Derm: No signs and/or symptoms reported regarding the dermatologic system. Musculoskeletal: Reports weakness in bilateral lower extremities. Historical: - Allergies: 22:52 Fludrocortisone; ay - PMHx: 22:52 Alzheimer's disease; back problems; BPH; Hypertensive disorder; Hypothyroidism; ay - PSHx: 22:52 Thyroidectomy; ay - Immunization history:: Adult Immunizations up to date. - Infectious Disease History:: Denies. - Social history:: Patient/guardian denies using tobacco products, Smoking status: Patient denies any tobacco usage or history of. - Family history:: not pertinent. Screenin:23 [facility] ED Fall Risk Assessment (Adult) History of falling in the last 3 months, ay including since admission Confusion or Disorientation No (0 pts) Intoxicated or Sedated No (0 pts) Impaired Gait No (0 pts) Mobility Assist Device Used No (0 pt) Altered Elimination Yes (1 pt) Score/Fall Risk Level 0 - 2 = Low Risk Oriented to surroundings, Maintained a safe environment, Educated pt \T\ family on fall prevention, incl call for assistance when getting out of bed, Assessed \T\ reinforced patient's understanding of fall precautions. Abuse screen: Denies threats or abuse. Nutritional screening: No deficits noted. Tuberculosis screening: No symptoms or risk factors identified. Assessment: 23:23 General: See Triage Assessment. ay 08/22 00:25 Reassessment: Patient and/or family updated on plan of care and expected duration. Pain ay level reassessed. Patient is alert, oriented x 3, equal unlabored respirations, skin warm/dry/pink. Patient states symptoms have improved. 00:58 Reassessment: Pt living facility was called and notified of pt's d/c. ay 01:44 Reassessment: AWAITING ON TRANSPORTATION. ha1 Vital Signs: 08/21 22:42 BP 117 / 77; Pulse 68; Resp 18 S; Temp 98.2(O); Pulse Ox 99% on R/A; ay 22:52 BP 120 / 68; Pulse 61; Resp 18 S; Temp 98.2; Pulse Ox 98% on R/A; ay 08/22 00:26 BP 133 / 76; Pulse 63; Resp 16 S; Pulse Ox 96% on R/A; ay [place] Coma Score: 08/21 23:23 Eye Response: spontaneous(4). Motor Response: obeys commands(6). Verbal Response: ay oriented(5). Total: 15. 08/22 03:14 Eye Response: spontaneous(4). Motor Response: obeys commands(6). Verbal Response: sp4 confused(4). Total: 14. ED Course: 12/04 21:59 Patient arrived in ED. jj6 22:02 Leonardo Bueno MD is Attending Physician. sp4 22:52 Triage completed. ay 22:52 Arm band placed on left wrist. ay 23:22 Dottie Solomon, RN is Primary Nurse. ay 23:23 Patient has correct armband on for positive identification. Fall risk band placed. Bed ay in low position. Call light in reach. Side rails up X2. 23:23 No provider procedures requiring assistance completed. Patient maintains SpO2 ay saturation greater than 95% on room air. 23:32 CBC with Diff Sent. ha1 23:32 CMP Sent. ha1 23:32 Lipase Sent. ha1 23:33 Urinalysis w/ reflexes Sent. ha1 08/22 01:40 called ems to transfer pt home. eta 15 mins. [facility] 02:34 called ems for update eta, was told she forgot to call a crew. eta now 15 mins. . [facility] 02:40 Provided Education on: F/U with PCP. ay 03:00 IV discontinued, intact, bleeding controlled, No redness/swelling at site. Pressure ha1 dressing applied. Administered Medications: 00:54 Drug: Cephalexin PO 500 mg PO once Route: PO; ha1 01:30 Follow up: Response: No adverse reaction ha1 Medication: 08/21 23:23 VIS not applicable for this client. ay Outcome: 08/22 00:47 Discharge ordered by . sp4 03:00 Discharged to [facility]. Transfer form completed. ha1 03:00 Condition: stable 03:00 Instructed on discharge instructions, follow up and referral plans. medication usage, Demonstrated understanding of instructions, follow-up care, medications, Prescriptions given X 1, 03:00 Patient left the ED. ha1 Signatures: Deepika Melodie jj6 Nighat Georges RN RN 1 Leonardo Bueno MD MD sp4 Forrester, Kelsey Maroul [facility] Dottie Solomon RN RN ay Corrections: (The following items were deleted from the chart) 02:40 02:39 Infectious Disease History: Denies. ay ay 03:24 03:00 IV discontinued, intact, bleeding controlled, No redness/swelling at site. ha1 Pressure dressing applied, ha1 03:39 03:23 Patient left the ED. ha1 ha1
--- NOTE | 2024-08-22 00:48 | EDPHYS ---
Physician Documentation [facility] Name: Tony Cunningham Age: 89 yrs Sex: Male : 1935 Arrival Date: 08/21/2024 Time: 21:58 Bed 5 Private MD: ED Physician Leonardo Bueno HPI: 08/22 00:46 This 89 yrs old Male presents to ER via EMS with complaints of Urinary sp4 Incontinence, Low Back Pain. 03:14 89-year-old male resident of [facility] presents with report of cloudy urine. Patient sp4 himself does not have any complaints. Patient has history of moderate dementia. Back problems hypertension hypothyroidism.. Historical: - Allergies: 08/21 22:52 Fludrocortisone; ay - PMHx: 22:52 Alzheimer's disease; back problems; BPH; Hypertensive disorder; Hypothyroidism; ay - PSHx: 22:52 Thyroidectomy; ay - Immunization history:: Adult Immunizations up to date. - Infectious Disease History:: Denies. - Social history:: Patient/guardian denies using tobacco products, Smoking status: Patient denies any tobacco usage or history of. - Family history:: not pertinent. ROS: 08/22 03:14 Constitutional: Negative for fever, chills, and weight loss, Negative for any sp4 complaints All other systems are negative, Exam: 03:14 Constitutional: This is a well developed, well nourished patient who is awake, frail sp4 elderly individual with advanced dementia. No active complaints on the part of the patient Head/Face: Normocephalic, atraumatic. Eyes: Pupils equal round and reactive to light, extra-ocular motions intact. Lids and lashes normal. Conjunctiva and sclera are not injected. Cornea within normal limits. Periorbital areas with no swelling, redness, or edema. ENT: Nares patent. No nasal discharge, no septal abnormalities noted. Tympanic membranes are normal and external auditory canals are clear. Oropharynx with no redness, swelling, or masses, exudates, or evidence of obstruction, uvula midline. Mucous membranes moist. Neck: Trachea midline, no thyromegaly or masses palpated, and no cervical lymphadenopathy. Supple, full range of motion without nuchal rigidity, or vertebral point tenderness. Chest/axilla: Normal chest wall appearance and motion. Nontender with no deformity. No lesions are appreciated. Cardiovascular: Regular rate and rhythm with a normal S1 and S2. No gallops, murmurs, or rubs. Normal PMI, no JVD. No pulse deficits. Respiratory: Lungs have equal breath sounds bilaterally, clear to auscultation and percussion. No rales, rhonchi or wheezes noted. No increased work of breathing, no retractions or nasal flaring. Abdomen/GI: Soft, with normal bowel sounds. No distension or tympany. No guarding or rebound. No evidence of tenderness throughout. Back: No spinal tenderness. No costovertebral tenderness. Skin: Warm, dry with normal turgor. Normal color with no rashes, no lesions, and no evidence of cellulitis. MS/ Extremity: Pulses equal, no cyanosis. Neurovascular intact. Full, normal range of motion. Neuro: Awake and alert, GCS 15, oriented to person, signs of advanced dementia on exam, cranial nerves II-XII grossly intact. Motor strength 5/5 in all extremities. Sensory grossly intact. Signs of poor mobility Vital Signs: 08/21 22:42 BP 117 / 77; Pulse 68; Resp 18 S; Temp 98.2(O); Pulse Ox 99% on R/A; ay 22:52 BP 120 / 68; Pulse 61; Resp 18 S; Temp 98.2; Pulse Ox 98% on R/A; ay 08/22 00:26 BP 133 / 76; Pulse 63; Resp 16 S; Pulse Ox 96% on R/A; ay [place] Coma Score: 08/21 23:23 Eye Response: spontaneous(4). Motor Response: obeys commands(6). Verbal Response: ay oriented(5). Total: 15. 08/22 03:14 Eye Response: spontaneous(4). Motor Response: obeys commands(6). Verbal Response: sp4 confused(4). Total: 14. MDM: 08/21 22:03 Medical Screening Exam initiated sp4 08/22 03:18 Differential diagnosis: arthritis, strain, UTI. Data reviewed: vital signs, nurses sp4 notes, lab test result(s), electrolytes, hepatic panel, urinalysis. Consideration of Admission/Observation Escalation of care including admission/observation considered. 03:19 ED course: Urinalysis suggests mild UTI. Patient will be prescribed cephalexin for 10 sp4 days.. 08/21 22:02 Order name: CBC with Diff; Complete Time: 00:44 sp4 08/21 22:02 Order name: CMP; Complete Time: 00:44 sp4 08/21 22:02 Order name: Lipase; Complete Time: 00:44 sp4 08/21 22:02 Order name: Urinalysis w/ reflexes; Complete Time: 00:44 sp4 08/22 00:07 Order name: Urine Culture EDOK 08/21 22:02 Order name: IV Saline Lock; Complete Time: 23:22 sp4 08/21 22:02 Order name: Labs collected and sent; Complete Time: 23:32 sp4 Administered Medications: 00:54 Drug: Cephalexin PO 500 mg PO once Route: PO; ha1 01:30 Follow up: Response: No adverse reaction ha1 Disposition Summary: 08/22/24 00:47 Discharge Ordered Notes: Location: Home sp4 Problem: new sp4 Symptoms: have improved sp4 Condition: Stable sp4 Diagnosis - UTI/ Urinary tract infection, site not specified sp4 - Acute Lower UTI sp4 Followup: sp4 - With: Private Physician - When: 7 - 10 days - Reason: Recheck today's complaints Discharge Instructions: - Discharge Summary Sheet sp4 - Urinary Tract Infection, Adult, [id number] sp4 Forms: - Patient Portal Instructions sp4 - SBAR form [facility] Prescriptions: - Cephalexin 500 mg Oral Capsule - take 1 capsule ORAL route every 12 hours for 10 days; 20 capsule; Refills: 0, sp4 Product Selection Permitted Signatures: Dispatcher [employer] [facility] Nighat Georges RN RN 1 Leonardo Bueno MD MD sp4 Dottie Solomon RN RN ay Corrections: (The following items were deleted from the chart) 08/21 23:33 22:02 Jones ordered. sp4 ha1 08/22 02:40 02:39 Infectious Disease History: Denies. delonte martel
[2024-08-22] MEDS ORDERED: CEPHALEXIN 250 MG CAP ONE (00:51)
[2024-08-22 11:53] VITALS: TEMP 98.2
[2024-08-22 11:56] VITALS: BP 133/76; O2SAT 96
== END 2024-08-22 03:23 | disposition home or self-care (01) ==
LOC: ER 21:58
DX: N39.0 Urinary tract infection, site not specified (principal); I10 Essential (primary) hypertension; G30.9 Alzheimer's disease, unspecified; F02.80 Dementia in other diseases classified elsewhere, unspecified severity, without behavioral disturbance, psychotic disturbance, mood disturbance, and anxiety
CPT/HCPCS: 36415; 80053; 81001; 83690; 85025; 87086; 87088; 99284

== ENCOUNTER 2024-08-30 20:23 | Emergency (ER) | payer OTHER ==
--- NOTE | 2024-08-30 21:10 | RAD REPORT ---
EXAMINATION: CT HEAD WITHOUT CONTRAST CT CERVICAL SPINE WITHOUT CONTRAST CLINICAL INDICATION: Male, 89 years old. TRAUMA TECHNIQUE: Axial CT images from the skull base to the vertex without intravenous contrast. Axial CT i mages through the cervical spine were obtained without intravenous contrast. Sagittal and coronal reformatted images were created from the data set. Coronal and sagittal reformatted images were creat ed from the data set. One or more of the following dose reduction techniques were used: Automated exposure control, adjustment of the mA and/or kV according to patient size, and/or iterative reconstr uction. Unless otherwise specified, incidental findings do not require dedicated imaging follow-up. [id number]. COMPARISON: 06/07/2024 FINDINGS: Head: INTRACRANIAL: No acute intracranial hemorrhage. No hydrocephalus. No mass effect or midline shift. No significant white matter disease. VASCULATURE: No visualized abnormalities in the arteries or dural venous sinuses. SCALP/SKULL: No significant soft tissue or osseous abnormalities. SINUSES: The visualized paranasal sinuses and mastoid air cells are predominantly clear. Cervical spine: ALIGNMENT: The cervical spine has normal alignment without scoliosis or spondylolisthesis. BONE: Vertebral body heights are maintained. No aggressive osseous lesions. DEGENERATIVE CHANGES: Multilevel cervical spondylosis with varying degrees of neural foraminal narrow ing. There is at least moderate central spinal stenosis present C5-6 and C6-7. SOFT TISSUE: Chronic lung changes at the apices. IMPRESSION: No acute intracranial abnormality. No acute fracture or traumatic malalignment of the cervical spine.
--- NOTE | 2024-08-30 21:35 | RAD REPORT ---
EXAMINATION: Pelvis CLINICAL INDICATION: Male, 89 years old. PAIN COMPARISON: No prior exam. FINDINGS: Bilateral intramedullary rods and no acute fractures identified cephalocaudal medullary screws in the proximal femurs. Both femoral heads appear located. Degenerative changes are present in the lower spine. Horizontal lucency through the left pubic symphysis may be overlapping bowel gas versus a minimally d isplaced fracture. IMPRESSION: Horizontal lucency through the left pubic symphysis may be a fracture or superimposed structure. Pelv ic CT could further evaluate if indicated.
--- NOTE | 2024-08-30 22:04 | RAD REPORT ---
EXAMINATION: CT ABDOMEN WITHOUT CONTRAST CLINICAL INDICATION: Male, 89 years old. fall TECHNIQUE: CT pelvis was performed, without IV contrast, as per department protocol. Axial, sagittal and coronal reconstructions were obtained. One or more of the following dose reduction techniques were used: Automated exposure control, adjustment of the mA and/or kV according to patient size, and/ or iterative reconstruction. Unless otherwise specified, incidental findings do not require dedicated imaging follow-up. [id number]. IV CONTRAST: Not administered. COMPARISON: CT 06/11/2024, same-day pelvis radiograph FINDINGS: The lack of intravenous contrast limits the sensitivity of this exam for evaluation of solid visceral organs, vascular structures, and retroperitoneum. KIDNEYS AND URETERS: Partially imaged large right renal cyst. GASTROINTESTINAL TRACT: Stomach is non-dilated. Small bowel has normal course and caliber. No colonic wall thickening or pericolonic inflammatory changes. BLADDER: Distended bladder with multiple bladder diverticula likely reflecting chronic bilateral obst ruction. LYMPH NODES: No lymphadenopathy. ABDOMINAL AORTA AND OTHER VESSELS: Normal caliber aorta and IVC. Atherosclerosis. MUSCULOSKELETAL: Bilateral hip ORIF with intramedullary ron and supplementary screws. Healing, subacu te right inferior pubic ramus fracture. Increased sclerosis at the right greater than left sacral wings consistent with subacute sacral insufficiency fractures. ADDITIONAL FINDINGS: Prostatomegaly. IMPRESSION: 1. No acute pelvic fracture. 2. Increased sclerosis of the sacral wings bilaterally concerning for subacute sacral insufficiency f ractures which are new from prior. 3. Healing right subacute inferior pubic ramus fracture. 4. Bilateral hip ORIFs without hardware complications. Both hips are located.
--- NOTE | 2024-08-30 22:11 | ER ---
Nurse's Notes [facility] Name: Tony Valdez Age: 89 yrs Sex: Male : 1935 Arrival Date: 08/30/2024 Time: 20:23 Bed 6 Private MD: Diagnosis: Fall from non-moving wheelchair Presentation: 08/30 20:29 Chief complaint: Patient states: PT STATES HE FELL ON BUTTOCKS AND HAS SORENESS TO br2 RIGHT BUTTOCKS. PT ARRIVES FROM [facility] IN [place] AND HIS FAMILY WANTED HIM CHECKED OUT. Coronavirus screen: Client denies travel out of the [place] in the last 14 days. Ebola Screen: Patient negative for fever greater than or equal to 101.5 degrees Fahrenheit, and additional compatible Ebola Virus Disease symptoms Patient denies exposure to infectious person. Initial Sepsis Screen: Does the patient meet any 2 criteria? No. Patient's initial sepsis screen is negative. Does the patient have a suspected source of infection? No. Patient's initial sepsis screen is negative. Risk Assessment: Do you want to hurt yourself or someone else? Patient reports no desire to harm self or others. Onset of symptoms was August 29, 2024. 20:29 Method Of Arrival: EMS: [facility] br2 20:29 Acuity: CANELO 3 br2 Triage Assessment: 20:32 General: Appears in no apparent distress. comfortable, Behavior is calm, cooperative. br2 Pain: Complains of pain in right lower back and right gluteus saniya Pain does not radiate. Pain currently is 3 out of 10 on a pain scale. EENT: No signs and/or symptoms were reported regarding the EENT system. Neuro: Coreas Agitation-Sedation Scale (RASS): 0 - Alert and Calm Level of Consciousness is awake, alert, obeys commands, Oriented to person, place, time. Cardiovascular: Capillary refill < 3 seconds Patient's skin is warm and dry. Respiratory: Airway is patent Respiratory effort is even, unlabored, Respiratory pattern is regular, symmetrical. GI: No signs and/or symptoms were reported involving the gastrointestinal system. : No signs and/or symptoms were reported regarding the genitourinary system. Derm: No signs and/or symptoms reported regarding the dermatologic system. Musculoskeletal: Reports pain in left lower back and left gluteus saniya. Injury Description: FALL. Historical: - Allergies: 20:32 Fludrocortisone; br2 - PMHx: 20:32 Alzheimer's disease; back problems; BPH; Hypertensive disorder; Hypothyroidism; br2 - PSHx: 20:32 Thyroidectomy; br2 - Immunization history:: Adult Immunizations unknown. - Infectious Disease History:: Denies. - Social history:: Smoking status: Patient/guardian denies using tobacco, but has a distant history of tobacco abuse. Screenin:29 [facility] ED Fall Risk Assessment (Adult) History of falling in the last 3 months, br2 including since admission Yes- single mechanical fall (1 pt) Confusion or Disorientation No (0 pts) Intoxicated or Sedated No (0 pts) Impaired Gait No (0 pts) Mobility Assist Device Used No (0 pt) Altered Elimination No (0 pt) Score/Fall Risk Level 0 - 2 = Low Risk Oriented to surroundings. Abuse screen: Denies threats or abuse. Denies injuries from another. Nutritional screening: No deficits noted. Tuberculosis screening: No symptoms or risk factors identified. Assessment: 20:29 Reassessment: SEE TRIAGE ASSESSMENT. br2 21:33 Reassessment: No changes from previously documented assessment. Patient and/or family br2 updated on plan of care and expected duration. Pain level reassessed. Patient is alert, oriented x 3, equal unlabored respirations, skin warm/dry/pink. Patient is alert/active/playful, equal unlabored respirations, skin warm/dry/pink. 22:25 Reassessment: attempted to call Keena (daughter) and Sudeep (son), messages left. br2 22:27 Reassessment: pending a call back from emergency contact members to pickle maker patient for br2 discharge. 08/31 00:41 Reassessment: MARY WAS ABLE TO MAKE CONTACT WITH PT'S DAUGHTER AND SHE STATED THAT br2 SHE WASN' T FEELING WELL AND SHE WOULD SEND AN UBER FOR THE PATIENT TO GET BACK TO [facility]. 00:42 Reassessment: Patient appears in no apparent distress at this time. UBER AT ER TO PICK br2 UP PATIENT. PT TAKEN TO VEHICLE VIA WHEELCHAIR BY RAVINDERLOPEZ. MARY MADE CONTACT WITH STAFF AT [facility] AND THEY AGREED TO COME OUT TO VEHCILE WHEN MR VALDEZ ARRIVED AT FACILITY. Vital Signs: 08/30 20:29 BP 158 / 85; Pulse 57; Resp 18; Temp 97; Pulse Ox 99% ; Weight 81.65 kg; Height 2 in. ; br2 Pain 3/10; 21:32 BP 139 / 81; Pulse 50; Resp 18; Pulse Ox 98% ; br2 22:37 BP 162 / 103; Pulse 68; Resp 18 S; Pulse Ox 97% on R/A; br2 20:29 Body Mass Index 12988.13 (81.65 kg, 5.08 cm) br2 20:29 Pain Scale: Adult br2 ED Course: 20:26 Patient arrived in ED. kb 20:26 Andry Velasquez DO is Attending Physician. kb 20:29 Shelby Stark, DAVID is Primary Nurse. br2 20:29 Patient has correct armband on for positive identification. Fall risk band placed. Bed br2 in low position. Call light in reach. Side rails up X 1. Provided Education on: plan of care. 20:31 Triage completed. br2 21:01 CT Head C Spine In Process Unspecified. EDMS 21:20 Pelvis XRAY In Process Unspecified. EDMS 21:53 CT Pelvis wo Cont In Process Unspecified. EDMS Administered Medications: No medications were administered Outcome: 22:11 Discharge ordered by . ms3 08/31 00:44 Patient left the ED. br2 Signatures: Dispatcher [employer] EDMS Genet Aviles, GERIATRICS PHYSICIAN-C GERIATRICS PHYSICIAN-Ckb Andry Velasquez DO DO ms3 Shelby Stark RN RN br2
--- NOTE | 2024-08-30 22:12 | EDPHYS ---
Physician Documentation [facility] Name: Tony Cunningham Age: 89 yrs Sex: Male : 1935 Arrival Date: 08/30/2024 Time: 20:23 Bed 6 Private MD: ED Physician Andry Velasquez HPI: 08/30 21:11 This 89 yrs old Male presents to ER via EMS with complaints of Fall Injury. ms3 21:11 Tony Grace is an 89-year-old male who presents to the Emergency Department ms3 after sliding from his wheelchair to the floor while attempting to transfer to the bed. The incident occurred approximately 30 minutes prior to arrival. He reports feeling sore but denies any pain. Mr. Grace did not hit his head or neck during the occurrence. There is no report of bleeding or head injury. His power of assistant attorney general facilitated the decision to seek medical attention.. Historical: - Allergies: 20:32 Fludrocortisone; br2 - PMHx: 20:32 Alzheimer's disease; back problems; BPH; Hypertensive disorder; Hypothyroidism; br2 - PSHx: 20:32 Thyroidectomy; br2 - Immunization history:: Adult Immunizations unknown. - Infectious Disease History:: Denies. - Social history:: Smoking status: Patient/guardian denies using tobacco, but has a distant history of tobacco abuse. ROS: 21:11 Constitutional: Negative for fever, and chills. Cardiovascular: Negative for chest ms3 pain, and palpitations. Respiratory: Negative for shortness of breath, cough, wheezing, and pleuritic chest pain, Abdomen/GI: Negative for abdominal pain, nausea, vomiting, diarrhea, and constipation, MS/Extremity: Negative for injury and deformity, Skin: Negative for injury, rash, and discoloration, Exam: 21:11 Constitutional: This is a well developed, well nourished patient who is awake, alert, ms3 and in no acute distress. Head/Face: Normocephalic, atraumatic. Chest/axilla: Normal chest wall appearance and motion. Nontender with no deformity. Cardiovascular: Regular rate and rhythm with a normal S1 and S2. No gallops, murmurs, or rubs. Normal PMI, no JVD. No pulse deficits. Respiratory: Lungs have equal breath sounds bilaterally, clear to auscultation and percussion. No rales, rhonchi or wheezes noted. No increased work of breathing, no retractions or nasal flaring. Abdomen/GI: Soft, non-tender, with normal bowel sounds. No distension or tympany. No guarding or rebound. No evidence of tenderness throughout. Skin: Warm, dry with normal turgor. Normal color with no rashes, no lesions, and no evidence of cellulitis. MS/ Extremity: Pulses equal, no cyanosis. Neurovascular intact. Full, normal range of motion. Vital Signs: 20:29 BP 158 / 85; Pulse 57; Resp 18; Temp 97; Pulse Ox 99% ; Weight 81.65 kg; Height 2 in. ; br2 Pain 3/10; 21:32 BP 139 / 81; Pulse 50; Resp 18; Pulse Ox 98% ; br2 22:37 BP 162 / 103; Pulse 68; Resp 18 S; Pulse Ox 97% on R/A; br2 20:29 Body Mass Index 16686.13 (81.65 kg, 5.08 cm) br2 20:29 Pain Scale: Adult br2 MDM: 20:26 Medical Screening Exam initiated kb 21:11 Differential diagnosis: contusion, fracture, sprain, strain. ms3 22:11 Data reviewed: vital signs, nurses notes, radiologic studies, CT scan, plain films, and ms3 as a result, I will discharge patient. Independent interpretation of the following test(s) in the Emergency Department CT Scan: My interpretation is CT head without contrast images reviewed do not reveal ICH. Counseling: I had a detailed discussion with the patient and/or guardian regarding the historical points, exam findings, and any diagnostic results supporting the discharge/admit diagnosis, radiology results, the need for outpatient follow up, to return to the emergency department if symptoms worsen or persist or if there are any questions or concerns that arise at home. Special discussion: I discussed with the patient/guardian in detail that at this point there is no indication for admission to the hospital. It is understood, however, that if the symptoms persist or worsen the patient needs to return immediately for re-evaluation. ED course: Patient with negative acute injury on CT head, neck, pelvis. Patient to follow-up with skilled nursing physician in 2 to 3 days. On reevaluation patient is alert, no apparent distress, nontoxic-appearing, without pain.. 08/30 20:27 Order name: CT Head C Spine; Complete Time: 21:37 kb 08/30 20:27 Order name: Pelvis XRAY; Complete Time: 21:37 kb 08/30 21:37 Order name: CT Pelvis wo Cont; Complete Time: 22:10 ms3 Administered Medications: No medications were administered Disposition Summary: 08/30/24 22:11 Discharge Ordered Notes: Location: Home ms3 Condition: Stable ms3 Diagnosis - Fall from non-moving wheelchair ms3 Followup: ms3 - With: Private Physician - When: 2 - 3 days - Reason: Recheck today's complaints Discharge Instructions: - Discharge Summary Sheet ms3 - Fall Prevention in the Home, Adult, [id number] ms3 Forms: - Medication Reconciliation Form ms3 - Antibiotic Education ms3 - Prescription Opioid Use ms3 - Patient Portal Instructions ms3 - Leadership Thank You Letter ms3 Signatures: Dispatcher [employer] EDGenet Aponte, KARLA-C BIOLOGY RESEARCH ASSISTANT-Andry Scruggs DO DO ms3 Shelby Stark, RN RN br2 Corrections: (The following items were deleted from the chart) 21:38 21:38 Pelvis Wo Cont+CT.RAD.BRZ ordered. EDMS EDMS
[2024-08-31 01:08] VITALS: TEMP 97
[2024-08-31 01:11] VITALS: BP 162/103; O2SAT 97
== END 2024-08-31 00:44 | disposition home or self-care (01) ==
LOC: ER 20:23
DX: Z04.3 Encounter for examination and observation following other accident (principal); W05.0XXA Fall from non-moving wheelchair, initial encounter
CPT/HCPCS: 70450; 72125; 72170; 72192; 99283

== ENCOUNTER 2024-09-16 10:16 | Emergency (ER) | payer OTHER ==
[2024-09-16 10:45] LABS: Absolute Lymphocytes (CBC) 0.3 K/uL (0.7-4.9); Absolute Monocytes 0.9 K/uL (0.1-1.3); Absolute Neutrophil 6.6 K/uL (1.8-8.0); Basophils % 0.4 % (0-1.3); Eosinophils % 0.3 % (0-4.4); Hematocrit 31.5 % (39.6-49.0); Hemoglobin 10.6 g/dL (13.6-17.9); Lymphocytes % 4.2 % (15.3-44.8); MCH 32.6 pg (27.0-35.0); MCHC 33.6 g/dL (32.0-36.0); MPV 7.1 fL (7.6-11.3); Monocytes % 11.7 % (3.3-12.3); Neutrophils % 83.4 % (41.7-73.7); Platelets 279 thou/uL (152-406); RBC Red Blood Cell Count 3.24 M/uL (4.33-5.43); Red Cell Distribution Width 15.9 % (12.1-15.2)
[2024-09-16 10:58] LABS: Anion Gap 9.5 mEq/L (5.0-15.0); Potassium 3.5 mEq/L (3.5-5.1)
[2024-09-16] MEDS ORDERED: NA CHLORIDE 0.9% 500 ML ONE (11:59)
--- NOTE | 2024-09-16 12:55 | ER ---
Nurse's Notes [facility] Name: Tony Cunningham Age: 89 yrs Sex: Male : 1935 Arrival Date: 09/16/2024 Time: 10:16 Bed 13 Private MD: Diagnosis: Dehydration;Muscle weakness (generalized) Presentation: 09/16 10:18 Chief complaint: EMS states: [facility] toned out EMS for generalized weakness that rs5 started this morning. Coronavirus screen: At this time, the client does not indicate any symptoms associated with coronavirus-19. Ebola Screen: No symptoms or risks identified at this time. Initial Sepsis Screen: Does the patient meet any 2 criteria? No. Patient's initial sepsis screen is negative. Does the patient have a suspected source of infection? No. Patient's initial sepsis screen is negative. Risk Assessment: Do you want to hurt yourself or someone else? Patient reports no desire to harm self or others. Onset of symptoms was September 16, 2024. 10:18 Method Of Arrival: EMS: [facility] rs5 10:18 Acuity: CANELO 3 rs5 Historical: - Allergies: 10:20 Fludrocortisone; rs5 - PMHx: 10:20 Alzheimer's disease; Alzheimer's disease; back problems; BPH; Hypertensive disorder; rs5 Hypothyroidism; - PSHx: 10:20 Thyroidectomy; rs5 - Immunization history:: Adult Immunizations. - Infectious Disease History:: Denies. - Social history:: Smoking status: Patient denies any tobacco usage or history of. - Family history:: not pertinent. - Hospitalizations: : No recent hospitalization is reported. Screenin:22 [facility] ED Fall Risk Assessment (Adult) History of falling in the last 3 months, rs5 including since admission No falls in past 3 months (0 pts) Confusion or Disorientation No (0 pts) Intoxicated or Sedated No (0 pts) Impaired Gait No (0 pts) Mobility Assist Device Used No (0 pt) Altered Elimination No (0 pt) Score/Fall Risk Level 0 - 2 = Low Risk Oriented to surroundings, Maintained a safe environment. Abuse screen: Denies threats or abuse. Nutritional screening: No deficits noted. Tuberculosis screening: No symptoms or risk factors identified. Assessment: 10:20 General: Appears in no apparent distress. comfortable, Behavior is calm, cooperative. rs5 Pain: Denies pain. Neuro: Level of Consciousness is awake, alert, obeys commands, Oriented to person, place, time, situation. Neuro: Child Care Lead Teacher are equal bilaterally Moves all extremities. Gait is steady, Speech is normal, Facial symmetry appears normal, Pupils are PERRLA, Intact. Cardiovascular: Patient's skin is warm and dry. Respiratory: Airway is patent Respiratory effort is even, unlabored, relaxed, Respiratory pattern is regular, symmetrical. GI: Abdomen is round non-distended, Abd is soft and non tender X 4 quads. : No signs and/or symptoms were reported regarding the genitourinary system. EENT: No signs and/or symptoms were reported regarding the EENT system. Derm: Skin Skin is pink, warm \T\ dry. Musculoskeletal: Range of motion: intact in all extremities. 11:25 Reassessment: Patient and/or family updated on plan of care and expected duration. Pain rs5 level reassessed. Patient is alert, oriented x 3, equal unlabored respirations, skin warm/dry/pink. 12:21 Reassessment: Patient and/or family updated on plan of care and expected duration. Pain rs5 level reassessed. Patient is alert, oriented x 3, equal unlabored respirations, skin warm/dry/pink. 13:10 Reassessment: pt up for discharge, 2 failed attempts to call report to [facility], no rs5 answer, charge nurse notified. 13:22 Reassessment: failed attempt to call report, no answer x2, charge nurse notified . rs5 13:47 Reassessment: Patient and/or family updated on plan of care and expected duration. Pain rs5 level reassessed. Patient is alert, oriented x 3, equal unlabored respirations, skin warm/dry/pink. staff at [facility] answered phone, asked for a call back number. Call back number provided to staff to arrange for transportation, charge nurse notified. 14:20 Reassessment: successful attempt to call report ETA 1 hour. rs5 15:28 Reassessment: Patient and/or family updated on plan of care and expected duration. Pain rs5 level reassessed. Patient is alert, oriented x 3, equal unlabored respirations, skin warm/dry/pink. transport at bedside, assisted pt to vehicle . Vital Signs: 10:18 BP 122 / 64; Pulse 74; Resp 17; Temp 98(O); Pulse Ox 97% on R/A; rs5 12:14 BP 134 / 71; Pulse 66; Resp 17; Temp 98.1(O); Pulse Ox 96% on R/A; rs5 15:20 BP 122 / 69; Pulse 71; Resp 16; Pulse Ox 97% on R/A; rs5 ED Course: 10:17 Patient arrived in ED. rn 10:17 Rodrigue Kohli MD is Attending Physician. rn 10:18 Selvin Ashley, DAVID is Primary Nurse. rs5 10:19 Triage completed. rs5 10:22 Patient has correct armband on for positive identification. Placed in gown. Bed in low rs5 position. Call light in reach. Side rails up X2. 10:22 No provider procedures requiring assistance completed. Inserted saline lock: 22 gauge rs5 in left forearm, using aseptic technique. 14:15 Called [employer] regarding patient transportation, staff advised she will call back ty with more information. 15:28 Provided Education on: discharge instructions . rs5 15:30 IV discontinued, intact, bleeding controlled, No redness/swelling at site. Pressure rs5 dressing applied. Administered Medications: 12:11 Drug: NS 0.9% IV 500 ml 500 ml IV at 1 bolus once; to be given as a bolus over 30 rs5 minutes Volume: 500 ml; Route: IV; Rate: 1 bolus; Site: left forearm; 12:55 Follow up: Response: No adverse reaction; IV Status: Completed infusion; IV Intake: rs5 500ml Medication: 13:49 VIS not applicable for this client. rs5 Intake: 12:55 IV: 500ml; Total: 500ml. rs5 Outcome: 12:55 Discharge ordered by . rn 15:30 Discharged to home ambulatory, rs5 15:30 Condition: stable 15:30 Discharge instructions given to patient, family, Instructed on discharge instructions, follow up and referral plans. Demonstrated understanding of instructions, follow-up care, 15:33 Patient left the ED. rs5 Signatures: Rodrigue Kohli MD MD rn Sotelo, Ricky, DAVID RN rs5 Juan Vásquez Corrections: (The following items were deleted from the chart) 12:59 10:18 Chief complaint: EMS states: [facility] toned out EMS for generalized rs5 weakness that started this morning. rs5 13:45 13:20 Reassessment: pt up for discharge, 2 failed attempts to call report to [facility] rs5 in, no answer, charge nurse notified. rs5 15:35 14:20 Reassessment: successful attempt to call report. rs5 rs5
--- NOTE | 2024-09-16 12:55 | EDPHYS ---
Physician Documentation [facility] Name: Tony Cunningham Age: 89 yrs Sex: Male : 1935 Arrival Date: 09/16/2024 Time: 10:16 Bed 13 Private MD: ED Physician Rodrigue Kohli HPI: 09/16 10:55 This 89 yrs old Male presents to ER via EMS with complaints of General Weakness. rn 10:55 Patient was brought to emergency room by [facility] because they felt rn he was a little weaker than his baseline. Patient states feels at baseline, denies weakness, no pain and does not know why he is here. Patient has Alzheimer's and possibly Parkinson's. No fever or chills. No chest pain. No cough or shortness of breath. No abdominal pain/nausea/vomiting/diarrhea. Patient states his weakness has progressed over the last few months, went from walking 6 months ago to using a walker and wheelchair most recently.. Onset: The symptoms/episode began/occurred at an unknown time. Severity of symptoms: At their worst the symptoms were mild in the emergency department the symptoms are unchanged. The patient has not experienced similar symptoms in the past. The patient has not recently seen a physician. Historical: - Allergies: 10:20 Fludrocortisone; rs5 - PMHx: 10:20 Alzheimer's disease; Alzheimer's disease; back problems; BPH; Hypertensive disorder; rs5 Hypothyroidism; - PSHx: 10:20 Thyroidectomy; rs5 - Immunization history:: Adult Immunizations. - Infectious Disease History:: Denies. - Social history:: Smoking status: Patient denies any tobacco usage or history of. - Family history:: not pertinent. - Hospitalizations: : No recent hospitalization is reported. ROS: 10:55 Constitutional: Negative for fever, chills, and weight loss, Neck: Negative for injury, rn pain, and swelling, Cardiovascular: Negative for chest pain, palpitations, and edema, Respiratory: Negative for shortness of breath, cough, wheezing, and pleuritic chest pain, Abdomen/GI: Negative for abdominal pain, nausea, vomiting, diarrhea, and constipation, MS/Extremity: Negative for injury and deformity, Skin: Negative for injury, rash, and discoloration, Neuro: Negative for headache, weakness, numbness, tingling, and seizure, Exam: 10:55 Constitutional: This is a well developed, well nourished patient who is awake, alert, rn and in no acute distress. Head/Face: Normocephalic, atraumatic. ENT: Moist mucous membranes Cardiovascular: Regular rate and rhythm. No pulse deficits. Respiratory: Speaking full sentences, unlabored Abdomen/GI: Soft, nontender Skin: No rash, no cyanosis MS/ Extremity: Pulses equal, no cyanosis. Neurovascular intact. Full, normal range of motion. Equal circumference. Neuro: Awake and alert, GCS 15 12:52 ECG was reviewed by the Attending Physician. rn Vital Signs: 10:18 BP 122 / 64; Pulse 74; Resp 17; Temp 98(O); Pulse Ox 97% on R/A; rs5 12:14 BP 134 / 71; Pulse 66; Resp 17; Temp 98.1(O); Pulse Ox 96% on R/A; rs5 15:20 BP 122 / 69; Pulse 71; Resp 16; Pulse Ox 97% on R/A; rs5 MDM: 10:18 Medical Screening Exam initiated rn 12:53 Differential Diagnosis Dementia, dehydration. Data reviewed: vital signs, nurses notes, vehicle return associate test result(s), EKG, and as a result, I will discharge patient. Counseling: I had a detailed discussion with the patient and/or guardian regarding the historical points, exam findings, and any diagnostic results supporting the discharge/admit diagnosis, lab results, the need for outpatient follow up, to return to the emergency department if symptoms worsen or persist or if there are any questions or concerns that arise at home. Response to treatment: the patient's symptoms have resolved after treatment, the patient's condition has returned to base line, the patient is now symptom free, patient is well hydrated. and as a result, I will discharge patient. ED course: Patient still without acute complaints. Mild dehydration. Patient is incontinent and unable to urinate on command. Afebrile and no urinary symptoms so did not force a catheterization for UA. Stable vital signs. Normal exam. Will discharge home with return precautions.. 09/16 10:24 Order name: CBC with Diff; Complete Time: 10:55 rn 09/16 10:24 Order name: Basic Metabolic Panel; Complete Time: 11:40 rn 09/16 10:24 Order name: IV Start; Complete Time: 12:14 rn 09/16 10:24 Order name: EKG - Nurse/Tech; Complete Time: 11:12 rn 09/16 10:24 Order name: Cardiac monitoring; Complete Time: 11:45 rn 09/16 10:24 Order name: O2 Sat Monitoring; Complete Time: 11:45 rn EC:52 Rate is 68 beats/min. Rhythm is regular. QRS [place] is Normal. ME interval is normal. QRS rn interval is normal. QT interval is normal. No Q waves. T waves are Normal. No ST changes noted. Clinical impression: Normal ECG. Interpreted by me. Reviewed by me. Administered Medications: 12: Drug: NS 0.9% IV 500 ml 500 ml IV at 1 bolus once; to be given as a bolus over 30 rs5 minutes Volume: 500 ml; Route: IV; Rate: 1 bolus; Site: left forearm; 12:55 Follow up: Response: No adverse reaction; IV Status: Completed infusion; IV Intake: rs5 500ml Disposition Summary: 09/16/24 12:55 Discharge Ordered Notes: Location: Home rn Problem: new rn Symptoms: have improved rn Condition: Stable rn Diagnosis - Dehydration rn - Muscle weakness (generalized) rn Followup: rn - With: Private Physician - When: As needed - Reason: Recheck today's complaints, Re-evaluation by your physician Discharge Instructions: - Discharge Summary Sheet rn - Dehydration, Elderly rn - Weakness rn Forms: - Medication Reconciliation Form rn - 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 EDMS EDMS 10:25 10:25 BASIC METABOLIC PANEL+C.LAB.BRZ ordered. EDMS EDMS 10:25 10:25 Urinalysis+U.LAB.BRZ ordered. EDMS EDMS
[2024-09-16 19:14] VITALS: BP 134/71; TEMP 98.1; O2SAT 96
--- NOTE | 2024-09-19 12:13 | EKG ---
Test Date: 2024-09-16 Test Time: 11:10:03 Surface Miner: AM MEASUREMENT RESULTS: Intervals: Rate: 68 [place]: 184 QRSD: 98 QT: 422 QTc: 448 [place]: P: 39 [place]: 184 QRS: 49 T: 22 INTERPRETIVE STATEMENTS: Sinus rhythm with fusion complexes Otherwise normal ECG Compared to ECG 05/12/2024 02:46:44 Fusion complex(es) now present Sinus tachycardia no longer present Ventricular premature complex(es) no longer present Incomplete right bundle-branch block no longer present ST (T wave) deviation no longer present Possible ischemia no longer present Electronically Signed On 09-19-24 12:11:26 DIRECTOR NEWS by David Fritz
== END 2024-09-16 15:33 | disposition home or self-care (01) ==
LOC: ER 10:16
DX: E86.0 Dehydration (principal); M62.81 Muscle weakness (generalized); G30.9 Alzheimer's disease, unspecified; F02.80 Dementia in other diseases classified elsewhere, unspecified severity, without behavioral disturbance, psychotic disturbance, mood disturbance, and anxiety
CPT/HCPCS: 93005; 85025; 80048; 36415; 96360; 99284; J7040

== ENCOUNTER 2024-10-05 18:05 | Emergency (ER) | payer OTHER ==
--- NOTE | 2024-10-05 19:05 | RAD REPORT ---
EXAM: Knee Right 3 View INDICATION: PAIN COMPARISON: None FINDINGS: No acute fracture. Status post medial unicompartmental arthroplasty. No evidence of loosening. Lucenc y around the arthroplasty may represent osteolysis. Comparison with any more recent imaging is suggested. No significant knee effusion. Moderate patellofemoral compartment degenerative changes. Mild lateral compartment narrowing. Other: n/a IMPRESSION: No evidence of acute osseous abnormality involving the imaged knee.
--- NOTE | 2024-10-05 19:08 | RAD REPORT ---
EXAMINATION: Pelvis CLINICAL INDICATION: Male, 89 years old. pain? COMPARISON: No prior exam. FINDINGS: No definite acute fracture. Limited by osteopenia. Lucency at the right superior pubic ramus favored to be overlapping bowel contents. Bilateral hip ORIF. No malalignment/dislocation. Mild bilateral hip acetabular changes. Degenerative changes in lumbar spine. Other: n/a IMPRESSION: No definite acute osseous abnormality. Limited by osteopenia. Consider CT if high clinical suspicion for fracture.
--- NOTE | 2024-10-05 19:21 | ER ---
Nurse's Notes [facility] Name: Tony Cunningham Age: 89 yrs Sex: Male : 1935 Arrival Date: 10/05/2024 Time: 18:05 Bed 13 Private MD: Diagnosis: Fall on same level, unspecified Presentation: 10/05 18:16 Chief complaint: EMS states: Fell out of bed approx 3 hours ago, EMS was called for a ph lift assist, pt had no pain upon palpation at that time, when staff went to move him in bed pt began yelling in pain because of his knees, EMS called again, when EMS arrived pt denied pain, no pain upon palpation, pt has no complaints at this time, hx of dementia. Coronavirus screen: Vaccine status: Patient reports being unvaccinated. Ebola Screen: No symptoms or risks identified at this time. Initial Sepsis Screen: Does the patient meet any 2 criteria? No. Patient's initial sepsis screen is negative. Does the patient have a suspected source of infection? No. Patient's initial sepsis screen is negative. Risk Assessment: Do you want to hurt yourself or someone else? Patient reports no desire to harm self or others. Onset of symptoms was October 05, 2024. 18:16 Method Of Arrival: EMS: [facility] 18:16 Acuity: CANELO 4 ph Triage Assessment: 18:20 General: Appears in no apparent distress. comfortable, well groomed, Behavior is calm, ph cooperative. Pain: Denies pain. Neuro: Level of Consciousness is awake, alert, obeys commands, Oriented to person, place. Cardiovascular: Capillary refill < 3 seconds in bilateral fingers Patient's skin is warm and dry. Respiratory: Airway is patent Respiratory effort is even, unlabored. : Jones in place to gravity drainage. Derm: Skin is pink, warm \T\ dry. Historical: - Allergies: 18:19 Fludrocortisone; ph - PMHx: 18:19 Alzheimer's disease; back problems; BPH; Hypertensive disorder; Hypothyroidism; ph - PSHx: 18:19 Thyroidectomy; ph - Immunization history:: Adult Immunizations unknown. - Infectious Disease History:: Denies. - Social history:: Smoking status: unknown. Screenin:[address] [facility] ED Fall Risk Assessment (Adult) History of falling in the last 3 months, ph including since admission Yes- single mechanical fall (1 pt) Confusion or Disorientation Yes (5 pts) Intoxicated or Sedated No (0 pts) Impaired Gait No (0 pts) Mobility Assist Device Used Yes (1 pt) Altered Elimination Yes (1 pt) Score/Fall Risk Level 3 or more points = High Risk Oriented to surroundings, Maintained a safe environment, Hourly rounding (assess needs \T\ fall precautionary measures) done, Used ambulatory aids as needed (educated on \T\ assisted with). Abuse screen: Denies threats or abuse. Denies injuries from another. Nutritional screening: No deficits noted. Tuberculosis screening: No symptoms or risk factors identified. Assessment: 18:20 General: SEE TRIAGE ASSESSMENT. ph 20:06 Reassessment: Pt alert and oriented, no any distress noted, VSS, pt stated feeling ay better and denies any pain. 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 Called his emergency contacts but could not get the POA. The son said he was 4 hours away and the POA is in [place] for a wedding. freight flagman informed. 20:27 General: Contacted son to request transportation back to [facility]. Son states he vc1 told [facility] not to send his father to the ER because they would not be able to provide transportation back. Instructed to call pts amy Del Angel. . 20:31 General: Notified daughterMer that patient is up for discharge. Mer states vc1 that Ade Rodriguez at [facility] informed her that we would provide transportation back, I informed pt daughter that we only provide transportation for bed bound patients. Mer states she will call an uber. . 20:45 General: Ade from [facility] called and stated that the patients daughter Mer vc1 called and said that she wasn't calling an uber. I will call family and get clarifying information on transportation.. 21:57 General: Called daughter to check on ETA of uber. She states that she did not call an vc1 uber because [facility] said that we were going to provide transportation back. Daughter is informed again that we do no provide transportation. Will call [facility]. 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 ay 22:36 General: picked up by 2 employees from [employer]. ay Vital Signs: 18:16 BP 109 / 68; Pulse 70; Resp 18; Temp 97.4; Pulse Ox 100% on R/A; Weight 81.65 kg; ph Height 6 ft. 2 in. ; Pain 0/10; 20:07 BP 103 / 60; Pulse 64; Resp 20; Pulse Ox 99% on R/A; ay 18:16 Body Mass Index 23.11 (81.65 kg, 187.96 cm) ph 18:16 Pain Scale: Adult ph ED Course: 18:06 Patient arrived in ED. sb4 18:06 Sariah Torres [facility]C [facility]. sb4 18:06 Roman Jackson MD is Attending Physician. sb4 18:16 Indira Culver RN is Primary Nurse. ph 18:19 Triage completed. ph 18:20 Arm band placed on Patient placed in an exam room, on a stretcher, on pulse oximetry. ph 18:21 Patient has correct armband on for positive identification. Bed in low position. Call ph light in reach. Side rails up X 1. Pulse ox on. NIBP on. Door closed. Noise minimized. Warm blanket given. Pillow given. 18:46 Pelvis XRAY In Process Unspecified. EDMS 18:46 Knee Right 3 View In Process Unspecified. EDMS 19:27 Knee Left 3 View In Process Unspecified. EDMS 20:08 No provider procedures requiring assistance completed. Patient did not have IV access ay during this emergency room visit. Administered Medications: No medications were administered Medication: 18:21 VIS not applicable for this client. ph Outcome: 19:21 Discharge ordered by . sb4 22:37 Discharged to alf. ay 22:37 Condition: stable 22:37 Discharge instructions given to patient, Instructed on discharge instructions, Demonstrated understanding of instructions, 22:38 Patient left the ED. ay Signatures: Dispatcher [employer] EDIndira Ashraf, DAVID HERNANDEZ ph Linda Norton RN RN vc1 Sariah Torres PA-C PA-C sb4 Dottie Solomon RN RN ay
--- NOTE | 2024-10-05 19:21 | EDPHYS ---
Physician Documentation [facility] Name: Tony Cunningham Age: 89 yrs Sex: Male : 1935 Arrival Date: 10/05/2024 Time: 18:05 Bed 13 Private MD: ED Physician Roman Jackson HPI: 10/05 18:08 This 89 yrs old Male presents to ER via Unassigned with complaints of fall. sb4 18:08 Patient presents from carriage and after a fall out of bed. EMS states that they were sb4 called earlier today for him falling out of bed. They examined him and he had no complaints so they left. EMS called again earlier stating that he fell out of bed again and was screaming in pain regarding his knees. When EMS arrived for second time, he had no complaints. Per [facility], he falls out of bed frequently. No head trauma, no blood thinner. Patient has no complaints during my assessment. Historical: - Allergies: 18:19 Fludrocortisone; ph - PMHx: 18:19 Alzheimer's disease; back problems; BPH; Hypertensive disorder; Hypothyroidism; ph - PSHx: 18:19 Thyroidectomy; ph - Immunization history:: Adult Immunizations unknown. - Infectious Disease History:: Denies. - Social history:: Smoking status: unknown. ROS: 18:08 Constitutional: Negative for fever, chills, and weight loss, sb4 18:10 All other systems are negative, sb4 Exam: 18:10 Constitutional: This is a well developed, well nourished patient who is awake, alert, sb4 and in no acute distress. Head/Face: Normocephalic, atraumatic. Eyes: Extra-ocular motions intact. Periorbital areas with no swelling, redness, or edema. ENT: Mucous membranes moist. Respiratory: No increased work of breathing, no retractions or nasal flaring. Skin: Warm, dry with normal turgor. Normal color with no rashes, no lesions, and no evidence of cellulitis. 18:10 Musculoskeletal/extremity: Exam is negative for decreased range of motion, deformity, injury, pain, pelvic instability, swelling, tenderness, 18:10 Neuro: Motor: moves all fours, Vital Signs: 18:16 BP 109 / 68; Pulse 70; Resp 18; Temp 97.4; Pulse Ox 100% on R/A; Weight 81.65 kg; ph Height 6 ft. 2 in. ; Pain 0/10; 20:07 BP 103 / 60; Pulse 64; Resp 20; Pulse Ox 99% on R/A; ay 18:16 Body Mass Index 23.11 (81.65 kg, 187.96 cm) ph 18:16 Pain Scale: Adult ph MDM: 18:06 Medical Screening Exam initiated sb4 19:20 Data reviewed: vital signs, nurses notes, EMS record, radiologic studies, and as a sb4 result, I will discharge patient. Counseling: I had a detailed discussion with the patient and/or guardian regarding the historical points, exam findings, and any diagnostic results supporting the discharge/admit diagnosis, radiology results, to return to the emergency department if symptoms worsen or persist or if there are any questions or concerns that arise at home. 10/05 18:07 Order name: Pelvis XRAY; Complete Time: 19:09 sb4 10/05 18:15 Order name: Knee Right 3 View; Complete Time: 19:09 EDMS 10/05 18:21 Order name: Knee Left 3 View; Complete Time: 19:34 EDMS Administered Medications: No medications were administered Disposition Summary: 10/05/24 19:21 Discharge Ordered Notes: Location: Home sb4 Problem: new sb4 Symptoms: are unchanged sb4 Condition: Stable sb4 Diagnosis - Fall on same level, unspecified sb4 Followup: sb4 - With: Private Physician - When: As needed - Reason: Recheck today's complaints, Re-evaluation by your physician Discharge Instructions: - Discharge Summary Sheet sb4 - Fall Prevention in the Home, Adult, [id number] sb4 Forms: - Patient Portal Instructions sb4 - Leadership Thank You Letter sb4 Addendum: 10/09/2024 07:32 Co-signature as Attending Physician, Roman Jackson MD I agree with the assessment and c coronel plan of care. Signatures: Dispatcher [employer] Roman Payan MD MD cha Hall, Patricia, RN RN Sariah Smith, PAAdelinaC PA-C sb4 Corrections: (The following items were deleted from the chart) 10/05 18:15 18:07 Knee Right W Compar+RAD.RAD.BRZ ordered. EDMS EDMS
--- NOTE | 2024-10-05 19:34 | RAD REPORT ---
EXAM: Knee Left 3 View INDICATION: PAIN COMPARISON: None FINDINGS: No acute fracture. Status post medial knee compartment arthroplasty. No hardware convocations. Small knee effusion. Mild to moderate lateral compartment narrowing. Mild patellofemoral compartment spurring. Other: n/a IMPRESSION: No evidence of acute osseous abnormality involving the imaged knee.
[2024-10-05 22:53] VITALS: TEMP 97.4
[2024-10-05 22:54] VITALS: BP 103/60; O2SAT 99
== END 2024-10-05 22:38 | disposition home or self-care (01) ==
LOC: ER 18:05
DX: M25.569 Pain in unspecified knee (principal); W06.XXXA Fall from bed, initial encounter; Y92.129 Unspecified place in nursing home as the place of occurrence of the external cause; E03.9 Hypothyroidism, unspecified; I10 Essential (primary) hypertension; G30.9 Alzheimer's disease, unspecified; F02.80 Dementia in other diseases classified elsewhere, unspecified severity, without behavioral disturbance, psychotic disturbance, mood disturbance, and anxiety; N40.0 Benign prostatic hyperplasia without lower urinary tract symptoms; Z88.8 Allergy status to other drugs, medicaments and biological substances
CPT/HCPCS: 72170; 99283

== ENCOUNTER 2024-10-06 17:21 | Inpatient (IN) | payer OTHER ==
--- NOTE | 2024-10-06 18:30 | RAD REPORT ---
EXAM: CT Head Brain Wo Cont HISTORY: Confused;Declining state COMPARISON: 05/12/2024 TECHNIQUE: Multiple contiguous axial images were obtained for a CT of the brain without contrast. Sag ittal and coronal reformats were performed. One or more of the following dose reduction techniques were used: Automated exposure control, adjus tment of the mA and kV according to patient size, and iterative reconstruction. Unless otherwise specified, incidental findings do not require dedicated imaging follow-up. FINDINGS: No evidence of hydrocephalus, intracranial hemorrhage, or extra-axial fluid collection. Moderate brain atrophy with moderate periventricular and deep white matter chronic microvascular isc hemic changes present. The calvarium is intact. The visualized paranasal sinuses and mastoid air cells are essentially clear . IMPRESSION: No evidence of acute intracranial abnormality. Stable chronic findings as above.
[2024-10-06 18:50] LABS: Absolute Basophils 0.2 K/uL (0-0.5); Absolute Eosinophils 0.2 K/uL (0-0.5); Absolute Lymphocytes (CBC) 0.9 K/uL (0.7-4.9); Eosinophils % 2.2 % (0-4.4); Hematocrit 23.9 % (39.6-49.0); Hemoglobin 8.2 g/dL (13.6-17.9); Lymphocytes % 8.3 % (15.3-44.8); MCH 33.5 pg (27.0-35.0); MCHC 34.3 g/dL (32.0-36.0); MCV 97.6 fL (80-100); MPV 6.9 fL (7.6-11.3); Monocytes % 9.4 % (3.3-12.3); Neutrophils % 78.1 % (41.7-73.7); Nucleated Red Blood Cells % 0.1 % (0-0); Platelets 638 thou/uL (152-406); RBC Red Blood Cell Count 2.44 M/uL (4.33-5.43); Red Cell Distribution Width 15.7 % (12.1-15.2)
[2024-10-06 19:05] LABS: Barbiturates NEGATIVE (NEGATIVE); Benzodiazepines NEGATIVE (NEGATIVE); Cocaine NEGATIVE (NEGATIVE); METHAMPHETAM NEGATIVE (NEGATIVE); Methadone NEGATIVE (NEGATIVE); Opiates NEGATIVE (NEGATIVE); Phencyclidine NEGATIVE (NEGATIVE); THC Cannibis NEGATIVE (NEGATIVE)
[2024-10-06 19:11] LABS: PT Prothrombin Time 13.3 SECONDS (9.4-12.5); PTT, Activated Partial Thromb 33.6 SECONDS (24.3-36.9); Protime INR 1.27
[2024-10-06 19:18] LABS: Specific Gravity 1.012 (1.005-1.030); Sqamous Epithelial <5 /HPF (None Seen); Urine Bacteria <20 /HPF (<20); Urine Bilirubin NEGATIVE (Negative); Urine Blood Trace (Negative); Urine Clarity Turbid (Clear); Urine Color Light-Yellow (Yellow); Urine Culture Reflex Order REFLEXED; Urine Glucose NEGATIVE (Negative); Urine Ketones NEGATIVE (Negative); Urine Microscopic Reflex YN ORDER UMIC; Urine Mucus Slight /HPF (None Seen); Urine Nitrite NEGATIVE (Negative); Urine Protein 1+ (Negative); Urine Urobilinogen 1+ (Normal); Urine WBC 20-50 /HPF (<5)
[2024-10-06 19:26] LABS: Albumin/Globulin Ratio 0.4 (1.1-1.8); Alkaline Phosphatase 74 U/L (45-117); Anion Gap 9.9 mEq/L (5.0-15.0); BUN Blood Urea Nitrogen 17 mg/dL (7-18); Bicarbonate 26 mEq/L (21-32); Bilirubin Total 0.3 mg/dL (0.2-1.0); Globulin 5.4 g/dL (2.3-3.5); Glomerular Filtration Rate 62 ml/min (=/>90); Glucose Level 97 mg/dL (74-106); Protein, Total 7.4 g/dL (6.4-8.2); Sodium Level 135 mEq/L (136-145)
[2024-10-06 19:27] LABS: ALT/SGPT < 14 U/L (16-61); AST/SGOT 16 U/L (15-37); Bilirubin Direct < 0.2 mg/dL (0-0.2); Bilirubin Indirect, Calculated 0.1 mg/dL (0.2-0.8); Potassium 3.9 mEq/L (3.5-5.1)
--- NOTE | 2024-10-06 19:33 | EDPHYS ---
Physician Documentation [facility] Name: Tony Cunningham Age: 89 yrs Sex: Male : 1935 Arrival Date: 10/06/2024 Time: 17:21 Bed 17 Private MD: ED Physician Roman Jackson HPI: 10/06 17:37 This 89 yrs old Male presents to ER via Unassigned with complaints of confusion. sb4 17:37 patient with history of dementia, lives in assisted living facility, presents via EMS sb4 for worsening confusion. patient was seen here yesterday for a fall, patient had no complaints, facility did not mention anything about confusion. they checked on him today and found him speaking to himself, which is abnormal for him. patient is oriented x 2 upon arrival, has no complaints. Historical: - Allergies: 17:38 Fludrocortisone; bp - PMHx: 17:38 Alzheimer's disease; back problems; BPH; Hypertensive disorder; Hypothyroidism; bp - PSHx: 17:38 Thyroidectomy; bp - Immunization history:: Adult Immunizations up to date. - Infectious Disease History:: Denies. - Social history:: Smoking status: Patient denies any tobacco usage or history of. ROS: 17:37 Constitutional: Negative for fever, chills, and weight loss, sb4 17:37 All other systems are negative, Exam: 17:37 Constitutional: This is a well developed, well nourished patient who is awake, alert, sb4 and in no acute distress. Head/Face: Normocephalic, atraumatic. Eyes: Extra-ocular motions intact. Periorbital areas with no swelling, redness, or edema. ENT: Mucous membranes moist. Cardiovascular: Regular rate and rhythm with a normal S1 and S2. Respiratory: No increased work of breathing, no retractions or nasal flaring. Abdomen/GI: Soft, non-tender, no distension. Skin: Warm, dry with normal turgor. Normal color with no rashes, no lesions, and no evidence of cellulitis. MS/ Extremity: Pulses equal, no cyanosis. Neurovascular intact. Full, normal range of motion. Vital Signs: 17:36 BP 110 / 50; Pulse 100; Resp 16; Temp 98.4; Pulse Ox 95% ; bp 23:53 BP 100 / 56; Pulse 76; Resp 15; Pulse Ox 100% on R/A; ay MDM: 17:27 Medical Screening Exam initiated sb4 19:32 Data reviewed: vital signs, nurses notes, EMS record, intermediate records, lab test sb4 result(s), radiologic studies, and as a result, I will admit patient. Consideration of Admission/Observation Patient was admitted/placed on observation. Counseling: I had a detailed discussion with the patient and/or guardian regarding the historical points, exam findings, and any diagnostic results supporting the discharge/admit diagnosis, lab results, radiology results, the need for further work-up and treatment in the hospital. 10/06 17:26 Order name: Acetaminophen; Complete Time: 19:28 sb4 10/06 17:26 Order name: Basic Metabolic Panel; Complete Time: 19:28 sb4 10/06 17:26 Order name: CBC with Diff; Complete Time: 19:04 sb4 10/06 17:26 Order name: ETOH Level; Complete Time: 19:24 sb4 10/06 17:26 Order name: Hepatic Function; Complete Time: 19:28 sb4 10/06 17:26 Order name: PT-INR; Complete Time: 19:13 sb4 10/06 17:26 Order name: Ptt, Activated; Complete Time: 19:13 sb4 10/06 17:26 Order name: Salicylate; Complete Time: 19:24 sb4 10/06 17:26 Order name: Urinalysis w/ reflexes; Complete Time: 19:28 sb4 10/06 17:26 Order name: Urine Drug Screen; Complete Time: 19:06 sb4 10/06 19:29 Order name: Urine Culture EDND 10/06 19:54 Order name: Urinalysis w/ reflexes EDND 10/06 19:54 Order name: CBC with Automated Diff EDMS 10/06 19:54 Order name: CBC with Automated Diff EDMS 10/06 19:54 Order name: Comprehensive Metabolic Panel EDND 10/06 19:54 Order name: Comprehensive Metabolic Panel EDND 10/06 17:33 Order name: Head Brain Wo Cont CT; Complete Time: 18:30 sb4 10/06 17:26 Order name: EKG; Complete Time: 17:27 sb4 10/06 17:26 Order name: EKG - Nurse/Tech; Complete Time: 20:04 sb4 10/06 17:26 Order name: IV Saline Lock; Complete Time: 17:39 sb4 10/06 17:26 Order name: Labs collected and sent; Complete Time: 18:51 sb4 10/06 17:26 Order name: Suicide Screening (Fabiola); Complete Time: 17:39 sb4 EC:03 Rate is 72 beats/min. Rhythm is regular, Sinus Rhythm. [place] interval is normal at 172 sb4 msec. QRS interval is normal at 118 msec. QT interval is normal at 420 msec. No Q waves. T waves are Normal. No ST changes noted. Clinical impression: No evidence of ischemia. Interpreted by me. Reviewed by me. Administered Medications: 19:58 Drug: Rocephin IV 1 grams IV at calculated rate once; Given slow IV push per pharmacy ay instructions Route: IV; Rate: calculated rate; Site: right antecubital; 10/07 00:23 Follow up: Response: No adverse reaction ay Disposition Summary: 10/06/24 19:33 Hospitalization Ordered Notes: Hospitalization Status: Observation sb4 Provider: Stewart Vega sb Condition: Fair sb4 Problem: new sb4 Symptoms: are unchanged sb4 Bed/Room Type: Standard sb4 Location: Telemetry/MedSurg (observation)(10/06/24 23:49) [facility] Room Assignment: [facility](10/06/24 23:49) [facility] Diagnosis - UTI/ Urinary tract infection, site not specified sb4 - Altered mental status, unspecified sb4 - Repeated falls sb4 Forms: - Medication Reconciliation Form sb4 - SBAR form sb4 - Leadership Thank You Letter sb4 Addendum: 10/09/2024 07:28 Co-signature as Attending Physician, Roman Jackson MD I agree with the assessment and c coronel plan of care. Signatures: Dispatcher [employer] EDND Roman Jackson MD MD cha Peltier, Brian, RN RN Linda Roth RN RN vc1 Sariah Torres PA-C PA-C sb4 [place] [facility] Dottie Solomon RN RN ay Corrections: (The following items were deleted from the chart) 10/06 17:27 17:26 ACETAMINOPHEN+C.LAB.BRZ ordered. [facility] 17:27 17:26 BASIC METABOLIC PANEL+C.LAB.BRZ ordered. EDMS EDMS 17:27 17:26 CBC+H.LAB.BRZ ordered. EDMS EDMS 17: 17:26 ETHANOL+C.LAB.BRZ ordered. EDMS EDMS 17: 17:26 HEPATIC FUNCTION+C.LAB.BRZ ordered. EDMS EDMS 17: 17:26 PROTIME (+INR)+COAG.LAB.BRZ ordered. EDMS EDMS 17: 17:27 PTT, ACTIVATED+COAG.LAB.BRZ ordered. EDMS EDMS 17: 17:27 SALICYLATE+C.LAB.BRZ ordered. EDMS EDMS 17: 17:27 Urinalysis+U.LAB.BRZ ordered. EDMS EDMS 17: 17:27 URINE DRUG SCREEN+UC.LAB.BRZ ordered. EDMS EDMS 20:54 19:33 Telemetry/MedSurg (observation) sb4 vc1 20:54 19:33 sb4 vc1 23:49 20:54 [facility] ER HOLD vc1 kmf 23:49 20:54 ERHOLD- vc1 kmf
--- NOTE | 2024-10-06 19:33 | ER ---
Nurse's Notes [facility] Name: Tony Cunningham Age: 89 yrs Sex: Male : 1935 Arrival Date: 10/06/2024 Time: 17:21 Bed 17 Private MD: Diagnosis: UTI/ Urinary tract infection, site not specified;Altered mental status, unspecified;Repeated falls Presentation: 10/06 17:36 Chief complaint: EMS states: [facility] CALLED 911 FOR AMS. PT AOx3 AND HAS NO bp COMPLAINTS. SEEN LAST PM FOR FALL. Coronavirus screen: At this time, the client does not indicate any symptoms associated with coronavirus-19. Ebola Screen: No symptoms or risks identified at this time. Initial Sepsis Screen: Does the patient meet any 2 criteria? No. Patient's initial sepsis screen is negative. Does the patient have a suspected source of infection? No. Patient's initial sepsis screen is negative. Risk Assessment: Do you want to hurt yourself or someone else? Patient reports no desire to harm self or others. Onset of symptoms is unknown. Care prior to arrival: IV initiated. 20 GA, in the right antecubital area, Glucose check: 130. 17:36 Method Of Arrival: EMS: [facility] bp 17:36 Acuity: CANELO 4 bp Triage Assessment: 17:38 General: Appears in no apparent distress. Behavior is calm, cooperative. Pain: Denies bp pain. EENT: No deficits noted. Neuro: Level of Consciousness is awake, alert, obeys commands, Oriented to Appropriate for age. Cardiovascular: No deficits noted. Respiratory: No deficits noted. GI: No signs and/or symptoms were reported involving the gastrointestinal system. : No signs and/or symptoms were reported regarding the genitourinary system. Derm: No deficits noted. Musculoskeletal: No deficits noted. Historical: - Allergies: 17:38 Fludrocortisone; bp - PMHx: 17:38 Alzheimer's disease; back problems; BPH; Hypertensive disorder; Hypothyroidism; bp - PSHx: 17:38 Thyroidectomy; bp - Immunization history:: Adult Immunizations up to date. - Infectious Disease History:: Denies. - Social history:: Smoking status: Patient denies any tobacco usage or history of. Screenin:19 [facility] ED Fall Risk Assessment (Adult) History of falling in the last 3 months, ay including since admission Yes- single mechanical fall (1 pt) Confusion or Disorientation Yes (5 pts) Intoxicated or Sedated No (0 pts) Impaired Gait Yes (1 pt) Mobility Assist Device Used No (0 pt) Altered Elimination Yes (1 pt) Score/Fall Risk Level 3 or more points = High Risk Oriented to surroundings, Maintained a safe environment, Educated pt \T\ family on fall prevention, incl call for assistance when getting out of bed, Assessed \T\ reinforced patient's understanding of fall precautions, Hourly rounding (assess needs \T\ fall precautionary measures) done. Abuse screen: Denies threats or abuse. Nutritional screening: No deficits noted. Tuberculosis screening: No symptoms or risk factors identified. Assessment: 19:19 General: Appears in no apparent distress. comfortable, Behavior is calm, cooperative. ay Pain: Denies pain. Neuro: Level of Consciousness is awake, alert, obeys commands, Oriented to person, place, situation, Speech is normal. Cardiovascular: Capillary refill < 3 seconds. Respiratory: Airway is patent Respiratory effort is even, unlabored, Respiratory pattern is regular, symmetrical. GI: Abdomen is flat. : Jones in place Urine is clear. EENT: No signs and/or symptoms were reported regarding the EENT system. Derm: No signs and/or symptoms reported regarding the dermatologic system. 20:00 Reassessment: Patient appears in no apparent distress at this time. ay 21:00 Reassessment: Patient appears in no apparent distress at this time. No changes from ay previously documented assessment. Patient is alert, oriented x 3, equal unlabored respirations, skin warm/dry/pink. 22:00 Reassessment: Patient appears in no apparent distress at this time. ay 23:00 Reassessment: Patient appears in no apparent distress at this time. ay Vital Signs: 17:36 BP 110 / 50; Pulse 100; Resp 16; Temp 98.4; Pulse Ox 95% ; bp 23:53 BP 100 / 56; Pulse 76; Resp 15; Pulse Ox 100% on R/A; ay ED Course: 17:25 Patient arrived in ED. sb4 17:25 Sariah Torres PA-C is PHCP. sb4 17:25 Roman Jackson MD is Attending Physician. sb4 17:29 Carlito Pope, RN is Primary Nurse. bp 17:38 Triage completed. bp 17:38 Arm band placed on. bp 17:59 Head Brain Wo Cont CT In Process Unspecified. EDMS 19:19 Patient has correct armband on for positive identification. Bed in low position. Call ay light in reach. Side rails up X2. 19:19 Maintain EMS IV. Dressing intact. Good blood return noted. Site clean \T\ dry. Gauge \T\ ay site: 20g RAC. Flushed with 10 mL NS. 19:32 Stewart Vega MD is Hospitalizing Provider. sb4 20:04 EKG done, by polysomnographic technician. af3 Administered Medications: 19:58 Drug: Rocephin IV 1 grams IV at calculated rate once; Given slow IV push per pharmacy ay instructions Route: IV; Rate: calculated rate; Site: right antecubital; 10/07 00:23 Follow up: Response: No adverse reaction ay Outcome: 10/06 19:33 Decision to Hospitalize by Provider. sb4 10/07 01:12 Patient left the ED. vc1 Signatures: Dispatcher [employer] EDMS Carlito Pope, RN RN Linda Roth RN RN vc1 Sariah Torres, PA-C PA-C sb4 Linda Bryant af3 Dottie Solomon RN DAVID amrtel
--- NOTE | 2024-10-06 19:47 | P.HP ---
Certification for Inpatient Patient admitted to: Inpatient With expected LOS: >2 Midnights Practitioner: I am a practitioner with admitting privileges, knowledge of patient current condition, hospital course, and medical plan of care. Services: Services provided to patient in accordance with Admission requirements found in Title 42 Section 412.3 of the Code of Federal Regulations Patient History Date of Service: 10/07/24 Reason for admission: AMS History of Present Illness: 89 yrs old Male with past medical history of Alzheimer's dementia, BPH, hypertension, hypothyroidism, back pains who came to ER with confusion. Patient is a poor historian hence most of the history is obtained from chart review and also talking with the ER provider. Patient with history of dementia, lives in assisted living facility, presents for worsening confusion. He had a fall. He cannot recollect. In the assisted living he was more confused than baseline and was brought to ER. Denies any further falls. Denies any headache. No nausea vomiting diarrhea. Denies any fever or chills. Patient was assessed in the ER and was admitted for further management Allergies No Known Allergies Allergy (Verified 11/23/23 22:04) Home medications list reviewed: Yes Home Medications: Levothyroxine [Synthroid*] 0.112 mg PO DAILY 09/01/23 Melatonin 3 mg PO BEDTIME PRN 09/01/23 Donepezil [Aricept*] 5 mg PO BEDTIME 11/30/23 Midodrine HCl [Proamatine*] 10 mg PO TID 11/30/23 Sodium Chloride Tab [Sodium Chloride*] 1 gm PO BIDWM #60 tab 12/12/23 Aspirin 81 mg PO DAILY 04/10/24 Carbidopa/Levodopa [Carbidopa-Levo ER 25-100 Tab] 1 tab PO TID 04/10/24 Hydrocodone 5/APAP 325 [Healy 5/325*] 1 tab PO Q6HP PRN tab 04/15/24 Acetaminophen [Tylenol] 2 tab PO Q4H PRN 05/16/24 Cranberry Fruit Extract 250 mg PO BID 05/16/24 Ferrous Sulfate 1 tab PO DAILY 05/16/24 Lidocaine 4% Patch [Lidoderm 5% Patch*] 1 patch TOP DAILY PRN 05/16/24 Mecobalamin [B12 Active] 1 tab PO DAILY 05/16/24 Sennosides/Docusate Sodium [Senexon-S 50-8.6 mg Tablet] 1 tab PO BID PRN 05/16/24 Calcium Carbonate [Cayden-Gest] 200 mg PO DAILY 10/07/24 Loperamide HCl [Anti-Diarrheal] 2 mg PO Q6HP PRN 10/07/24 Polyethylene Glycol 3350 [Clearlax] 17 gm PO DAILYPRN PRN 10/07/24 Trazodone [Desyrel] 50 mg PO BEDTIME 10/07/24 - Past Medical/Surgical History Diabetic: No Past Medical History: Reviewed- Non-Contributory -: Hypothyroid -: Orthostatic Hypotension -: BPH Past Surgical History: Reviewed- Non-Contributory -: Thyroidectomy -: Right hip surgery - Social History Smoking Status: Never smoker Alcohol use: No CD- Drugs: No Caffeine use: No Review of Systems is unable to be obtained General: Weakness Eyes: Pain Physical Examination - Vital Signs Temperature: 98.4 F Blood Pressure: 110/50 Pulse: 98 Respirations: 18 Pulse Ox (%): 94 - Physical Exam General: In no apparent distress, Confused HEENT: Atraumatic, Normocephalic Neck: Supple Respiratory: Clear to auscultation bilaterally, Normal air movement Cardiovascular: Regular rate/rhythm, Normal S1 S2 Capillary refill: <2 Seconds Gastrointestinal: Soft and benign, W/out hepatosplenomegaly Musculoskeletal: No clubbing Integumentary: No rashes Neurological: Other (Confused) Lymphatics: No axilla or inguinal lymphadenopathy - Studies Laboratory Data (last 24 hrs) 10/06/24 10/06/24 10/06/24 18:34 18:34 18:34 WBC 10.30 Hgb 8.2 L Hct 23.9 L Plt Count 638 H PT 13.3 H INR 1.27 APTT 33.6 Sodium 135 L Potassium 3.9 BUN 17 Creatinine 1.14 Glucose 97 Total Bilirubin 0.3 AST 16 ALT < 14 L Alkaline Phosphatase 74 Assessment and Plan - Plan Acute encephalopathy possibly metabolic Monitor neuro vital signs CT head negative for any acute changes Moderate brain atrophy with moderate periventricular microvascular ischemic changes UTI Started on IV antibiotic Will obtain cultures Change antibiotic as per sensitivity Hyponatremia IV hydration Electrolytes monitor and replace accordingly Hypertension Antihypertensives titrated Continue home medications and titrate as needed Hyperlipidemia Continue statin Anemia of chronic disease Monitor H&H closely No overt bleeding at this time Alzheimer's dementia, BPH, hypothyroidism, Continue home medications and titrate as needed GI/DVT prophylaxis Advanced directive DNR Discharge Plan: Residential Plan to discharge in: 48 Hours - Advance Directives Does patient have a Living Will: No Does patient have a Durable POA for Healthcare: No - Code Status/Comfort Care Code Status: Do Not Attempt Resuscitat Time Spent Managing Pts Care (In Minutes): 48
[2024-10-06] MEDS: CEFTRIAXONE 1,000 MG in NA CHLORIDE 0.9% 50 ML IVPB SCH (19:53)
[2024-10-06] MEDS ORDERED: CEFTRIAXONE 1000 MG/VIAL ONE (19:57)
[2024-10-07 01:50] VITALS: BMI 26.9
[2024-10-07 04:59] LABS: Absolute Eosinophils 0.3 K/uL (0-0.5); Absolute Lymphocytes (CBC) 1.1 K/uL (0.7-4.9); Absolute Monocytes 0.9 K/uL (0.1-1.3); Absolute Neutrophil 6.7 K/uL (1.8-8.0); Basophils % 0.5 % (0-1.3); Eosinophils % 3.2 % (0-4.4); Hematocrit 24.4 % (39.6-49.0); Hemoglobin 8.3 g/dL (13.6-17.9); Lymphocytes % 11.7 % (15.3-44.8); MCH 33.4 pg (27.0-35.0); MCHC 34.2 g/dL (32.0-36.0); MCV 97.9 fL (80-100); MPV 6.9 fL (7.6-11.3); Monocytes % 9.6 % (3.3-12.3); Platelets 596 thou/uL (152-406); Red Cell Distribution Width 15.7 % (12.1-15.2)
[2024-10-07 05:30] LABS: AST/SGOT 12 U/L (15-37); Albumin/Globulin Ratio 0.4 (1.1-1.8); Alkaline Phosphatase 72 U/L (45-117); Anion Gap 10.7 mEq/L (5.0-15.0); BUN Blood Urea Nitrogen 19 mg/dL (7-18); Bicarbonate 25 mEq/L (21-32); Bilirubin Total 0.3 mg/dL (0.2-1.0); Globulin 5.1 g/dL (2.3-3.5); Glomerular Filtration Rate 77 ml/min (=/>90); Glucose Level 87 mg/dL (74-106); Potassium 3.7 mEq/L (3.5-5.1); Protein, Total 7.1 g/dL (6.4-8.2); Sodium Level 136 mEq/L (136-145)
[2024-10-07 05:31] LABS: ALT/SGPT < 14 U/L (16-61)
[2024-10-07] MEDS: ENOXAPARIN 40 MG/0.4 ML SQ SCH (07:27)
--- NOTE | 2024-10-07 13:05 | CON ---
History Of Present Illness: This is an 89-year-old male with significant past medical history of Alz heimer's dementia, benign prostatic hypertrophy, hypertension, hypothyroidism, who [facility]. Was found to have urinary tract infection. Patient is currently being tr eated with Rocephin. Denies any headache, nausea, vomiting, chest pain, abdominal pain, constipation , or diarrhea. Past Medical History: As per HPI. Social History: Nonsmoker. Nondrinker. Family History: Noncontributory. Medications: Rocephin. See MARs for other medications. Allergies: NO KNOWN DRUG ALLERGIES. Review of Systems: A 10-point review was performed. Physical Examination: General: This is an 89-year-old male, lying in bed, not in any acute cardiopulmonary distress. Vital Signs: Temperature 98, pulse 100, respirations 12, blood pressure 112/66. HEENT: Unremarkable. Neck: Supple. Lungs: Basal crackles. Heart: S1, S2. Regular. Abdomen: Soft, nontender. Bowel sounds present. Jones catheter in place with cloudy urine in the b ag. Extremities: No edema. Laboratory Data: Shows WBC 9, hemoglobin 8.3, platelets 596. BUN of 19, creatinine 0.9, albumin lev el of 2. Urinalysis shows 5-10 rbc, and 20-50 wbc. Urine cultures are pending. PET-CT scan then owed no acute intracranial abnormalities. Assessment And Plan: Urosepsis with altered mental status in an 89-year-old male with dementia, pyur ia, and hematuria, anemia of chronic disease, moderate protein-calorie malnourishment. Continue supp ortive care and current antibiotic. Total course of antibiotic 5 days. Depending on urine culture, we will readjust his medication. No other recommendation. Thank you for consult. NF/MODL Voice ID: [id number] Report ID: [id number]
[2024-10-07] MEDS: ZIPRASIDONE MESYLA 20 MG/VIAL IM ONE (23:12)
[2024-10-07] MEDS: WATER FOR INJ,STERILE 10 ML IM PRN (23:27)
[2024-10-08] MEDS: LORAZEPAM 0.5 MG TABLET PO PRN (01:04)
[2024-10-08 05:11] LABS: Absolute Basophils 0.1 K/uL (0-0.5); Absolute Eosinophils 0.2 K/uL (0-0.5); Absolute Lymphocytes (CBC) 1.3 K/uL (0.7-4.9); Absolute Neutrophil 7.2 K/uL (1.8-8.0); Basophils % 0.7 % (0-1.3); Eosinophils % 2.1 % (0-4.4); Hemoglobin 9.1 g/dL (13.6-17.9); Lymphocytes % 13.6 % (15.3-44.8); MCH 32.6 pg (27.0-35.0); MCHC 33.6 g/dL (32.0-36.0); MCV 97.1 fL (80-100); MPV 6.9 fL (7.6-11.3); Monocytes % 10.1 % (3.3-12.3); Neutrophils % 73.5 % (41.7-73.7); Platelets 637 thou/uL (152-406); RBC Red Blood Cell Count 2.78 M/uL (4.33-5.43); Red Cell Distribution Width 15.9 % (12.1-15.2)
[2024-10-08 05:20] LABS: Anion Gap 8.6 mEq/L (5.0-15.0); Potassium 3.6 mEq/L (3.5-5.1)
[2024-10-08] MEDS: POTASSIUM CL SA 10 MEQ TAB PO ONE ×2 (06:26→07:50)
--- NOTE | 2024-10-08 07:56 | P.PN ---
Date of Service: 10/07/24 subjective Confused, Review of Systems is unable to be obtained Physical Examination - Vital Signs Reviewed - Physical Exam General: In no apparent distress, Confused HEENT: Atraumatic, Normocephalic Neck: Supple Respiratory: Clear to auscultation bilaterally, Normal air movement Cardiovascular: Regular rate/rhythm, Normal S1 S2 Capillary refill: <2 Seconds Gastrointestinal: Soft and benign, W/out hepatosplenomegaly Musculoskeletal: No clubbing Integumentary: No rashes Neurological: Other (Confused) Lymphatics: No axilla or inguinal lymphadenopathy Assessment and Plan - Plan Acute metabolic encephalopathy likely secondary to acute cystitis Monitor neuro vital signs CT head negative for any acute changes Moderate brain atrophy with moderate periventricular microvascular ischemic changes PT eval, fall precautions, SNF eval Acute cystitis trace hematuria Started on IV antibiotic Urine cultures pending Change antibiotic as per sensitivity Protein calorie malnutrition Protein calorie supplementation Hyponatremia IV hydration Electrolytes monitor and replace accordingly Hypertension Antihypertensives titrated Continue home medications and titrate as needed Hyperlipidemia Continue statin Anemia of chronic disease Monitor H&H closely No overt bleeding at this time Alzheimer's dementia, BPH, hypothyroidism, Continue home medications and titrate as needed GI/DVT prophylaxis Advanced directive DNR Discharge Plan: [facility] Plan to discharge in: 48 Hours - Advance Directives Does patient have a Living Will: No Does patient have a Durable POA for Healthcare: No - Code Status/Comfort Care Code Status: Do Not Attempt Resuscitat Time Spent Managing Pts Care (In Minutes): 30
--- NOTE | 2024-10-08 15:25 | P.PN ---
Date of Service: 10/08/24 subjective Confused, eyes opent to verbal stimuli career services assistant consult SNF eval Review of Systems is unable to be obtained Physical Examination - Vital Signs Reviewed - Physical Exam General: In no apparent distress, Confused, afebrile HEENT: Atraumatic, Normocephalic Neck: Supple Respiratory: Clear to auscultation bilaterally, unlabored Cardiovascular: Regular rate/rhythm, Normal S1 S2 Capillary refill: <2 Seconds Gastrointestinal: Soft and benign, W/out hepatosplenomegaly Musculoskeletal: No clubbing, moderate generalized weakness Integumentary: No rashes Neurological: Other (Confused) Lymphatics: No axilla or inguinal lymphadenopathy Assessment and Plan - Plan Acute metabolic encephalopathy likely secondary to acute cystitis Dementia Monitor neuro vital signs CT head negative for any acute changes Moderate brain atrophy with moderate periventricular microvascular ischemic changes PT eval, fall precautions, SNF eval Acute cystitis trace hematuria Started on IV antibiotic Urine cultures no growth, will need 5-day course of antibiotics. Change antibiotic as per sensitivity Infectious disease consult Protein calorie malnutrition Protein calorie supplementation Hyponatremia IV hydration Electrolytes monitor and replace accordingly Hypertension Antihypertensives titrated Continue home medications and titrate as needed Hyperlipidemia Continue statin Anemia of chronic disease Monitor H&H closely No overt bleeding at this time Alzheimer's dementia, BPH, hypothyroidism, Continue home medications and titrate as needed GI/DVT prophylaxis Advanced directive DNR Discharge Plan: Detention Plan to discharge in: 48 Hours - Advance Directives Does patient have a Living Will: No Does patient have a Durable POA for Healthcare: No - Code Status/Comfort Care Code Status: Do Not Attempt Resuscitat Time Spent Managing Pts Care (In Minutes): 25
[2024-10-08] MEDS: ACETAMINOPHEN 325 MG TABLET PO PRN (20:56)
[2024-10-08] MEDS: ENSURE ENLIVE 237 ML CAN PO SCH (20:56)
[2024-10-09 04:53] LABS: Absolute Basophils 0.1 K/uL (0-0.5); Absolute Eosinophils 0.3 K/uL (0-0.5); Absolute Monocytes 0.9 K/uL (0.1-1.3); Absolute Neutrophil 6.7 K/uL (1.8-8.0); Basophils % 1.3 % (0-1.3); Eosinophils % 3.9 % (0-4.4); Hematocrit 26.4 % (39.6-49.0); Lymphocytes % 10.7 % (15.3-44.8); MCH 32.8 pg (27.0-35.0); MCHC 33.9 g/dL (32.0-36.0); MCV 96.8 fL (80-100); MPV 6.8 fL (7.6-11.3); Neutrophils % 74.1 % (41.7-73.7); Platelets 591 thou/uL (152-406); RBC Red Blood Cell Count 2.73 M/uL (4.33-5.43); Red Cell Distribution Width 15.6 % (12.1-15.2)
[2024-10-09 05:07] LABS: Anion Gap 5.9 mEq/L (5.0-15.0); Potassium 3.9 mEq/L (3.5-5.1)
[2024-10-09] MEDS: POTASSIUM CL SA 10 MEQ TAB PO ONE (08:51)
[2024-10-10 04:48] LABS: Absolute Basophils 0.1 K/uL (0-0.5); Absolute Eosinophils 0.4 K/uL (0-0.5); Absolute Lymphocytes (CBC) 1.1 K/uL (0.7-4.9); Absolute Monocytes 0.7 K/uL (0.1-1.3); Absolute Neutrophil 4.9 K/uL (1.8-8.0); Basophils % 1.4 % (0-1.3); Eosinophils % 5.3 % (0-4.4); Hematocrit 24.3 % (39.6-49.0); Hemoglobin 8.6 g/dL (13.6-17.9); Lymphocytes % 15.4 % (15.3-44.8); MCHC 35.2 g/dL (32.0-36.0); MCV 96.5 fL (80-100); MPV 6.7 fL (7.6-11.3); Monocytes % 9.4 % (3.3-12.3); Neutrophils % 68.5 % (41.7-73.7); Platelets 558 thou/uL (152-406); RBC Red Blood Cell Count 2.52 M/uL (4.33-5.43)
--- NOTE | 2024-10-10 08:05 | P.PN ---
Date of Service: 10/09/24 subjective Patient is working with physical therapy during this admission, plan to discharge to rehab after discharge per family's request Fall precautions, set up, feeder for meals Review of Systems is unable to be obtained Physical Examination - Vital Signs Reviewed - Physical Exam General: In no apparent distress, awake alert oriented x 1 HEENT: Atraumatic, Normocephalic Neck: Supple Respiratory: Clear to auscultation bilaterally, unlabored Cardiovascular: Regular rate/rhythm, Normal S1 S2 Capillary refill: <2 Seconds Gastrointestinal: Soft and benign, positive bowel sounds Musculoskeletal: No clubbing, moderate generalized weakness Integumentary: No rashes Neurological: Other (Confused) Lymphatics: No axilla or inguinal lymphadenopathy Assessment and Plan - Plan Acute metabolic encephalopathy likely secondary to acute cystitis Dementia Monitor neuro vital signs fall precaution CT head negative for any acute changes Moderate brain atrophy with moderate periventricular microvascular ischemic changes PT eval, fall precautions, SNF eval Acute cystitis trace hematuria Started on IV antibiotic Urine cultures no growth, will need 5-day course of antibiotics. Change antibiotic as per sensitivity Infectious disease consult Protein calorie malnutrition Protein calorie supplementation Hyponatremia IV hydration Electrolytes monitor and replace accordingly Hypertension Antihypertensives titrated Continue home medications and titrate as needed Hyperlipidemia Continue statin Anemia of chronic disease Monitor H&H closely No overt bleeding at this time Alzheimer's dementia, BPH, hypothyroidism, Continue home medications and titrate as needed GI/DVT prophylaxis Advanced directive DNR Discharge Plan: Skilled Nursing Plan to discharge in: 48 Hours - Advance Directives Does patient have a Living Will: No Does patient have a Durable POA for Healthcare: No - Code Status/Comfort Care Code Status: Do Not Attempt Resuscitat Time Spent Managing Pts Care (In Minutes): 25
--- NOTE | 2024-10-10 08:19 | P.DS ---
Admission Date: 10/06/24 Discharge Date: 10/12/24 Disposition: TRANSFER TO INPATIENT REHAB Discharge Condition: FAIR Reason for Admission: AMS Brief History of Present Illness: 89 yrs old Male with past medical history of Alzheimer's dementia, BPH, hypertension, hypothyroidism, back pains who came to ER with confusion. Patient is a poor historian hence most of the history is obtained from chart review and also talking with the ER provider. Patient with history of dementia, lives in assisted living facility, presents for worsening confusion. He had a fall. He cannot recollect. In the assisted living he was more confused than baseline and was brought to ER. Denies any further falls. Denies any headache. No nausea vomiting diarrhea. Denies any fever or chills. - Physical Exam General: In no apparent distress, Confused HEENT: Atraumatic, Normocephalic Neck: Supple Respiratory: Clear to auscultation bilaterally, Normal air movement Cardiovascular: Regular rate/rhythm, Normal S1 S2 Capillary refill: <2 Seconds Gastrointestinal: Soft and benign, W/out hepatosplenomegaly Musculoskeletal: No clubbing Integumentary: No rashes Neurological: Other (Confused) Lymphatics: No axilla or inguinal lymphadenopathy Hospital Course: 89 yrs old Male with past medical history of Alzheimer's dementia, BPH, hype rtension, hypothyroidism, back pains who came to ER with confusion. Patient is a poor historian hence most of the history is obtained from chart review and also talking with the ER provider. Patient with history of dementia, lives in assisted living facility, presents for worsening confusion. He had a fall. He cannot recollect. In the assisted living he was more confused than baseline and was brought to ER. Denies any further falls. Denies any headache. No nausea vomiting diarrhea. Denies any fever or chills. He was admitted for acute cystitis, metabolic encephalopathy for worsening confusion, protein calorie malnutrition, supplementation added. Hyponatremia, treated with IV fluids, resume home meds for hypertension, hyperlipidemia, hypothyroidism, plan to discharge to acute inpatient rehab per family request for discharge. [facility], OT, speech after discharge. Assessment Metabolic encephalopathy likely secondary from UTI completed antibiotics, treated with ceftriaxone for 5 days prior to discharge Alzheimer's dementia, supportive care, fall precaution Protein calorie malnutrition, treated with supplementation Hyponatremia, electrolytes replaced while inpatient, Hypertension, hyperlipidemia, anemia of chronic disease, BPH, hypothyroidism, resume home meds INSTRUCTIONS: Physician Discharge Instructions: -Discharge to acute inpatient [facility] per family request -Follow-up with PCP in 1 to 2 weeks -Please call Dr. Zamudio at [phone] if any questions regarding hospital stay -Please call nursing station at [phone] if any nursing or medication questions -Return to the emergency room if symptoms worsen Diet: ADA, low sodium Activity: Fall precautions Vital Signs/Physical Exam: Temp Pulse Resp BP Pulse Ox 97.9 F 75 16 90/54 L 97 10/10/24 04:00 10/10/24 04:00 10/10/24 04:00 10/10/24 04:00 10/10/24 04:00 Laboratory Data at Discharge: WBC 7.10 thou/uL (4.3-10.9) 10/10/24 04:33 Hgb 8.6 g/dL (13.6-17.9) L 10/10/24 04:33 Hct 24.3 % (39.6-49.0) L 10/10/24 04:33 Plt Count 558 thou/uL (152-406) H 10/10/24 04:33 PT 13.3 SECONDS (9.4-12.5) H 10/06/24 18:34 INR 1.27 10/06/24 18:34 APTT 33.6 SECONDS (24.3-36.9) 10/06/24 18:34 Sodium 139 mEq/L (136-145) 10/10/24 04:33 Potassium 4.0 mEq/L (3.5-5.1) 10/10/24 04:33 BUN 24 mg/dL (7-18) H 10/10/24 04:33 Creatinine 1.05 mg/dL (0.70-1.30) 10/10/24 04:33 Glucose 102 mg/dL (74-106) 10/10/24 04:33 Total Bilirubin 0.3 mg/dL (0.2-1.0) 10/07/24 04:28 AST 12 U/L (15-37) L 10/07/24 04:28 ALT < 14 U/L (16-61) L 10/07/24 04:28 Alkaline Phosphatase 72 U/L (45-117) 10/07/24 04:28 Home Medications: Levothyroxine [Synthroid*] 0.112 mg PO DAILY 09/01/23 Melatonin 3 mg PO BEDTIME PRN 09/01/23 Donepezil [Aricept*] 5 mg PO BEDTIME 11/30/23 Midodrine HCl [Proamatine*] 10 mg PO TID 11/30/23 Sodium Chloride Tab [Sodium Chloride*] 1 gm PO BIDWM #60 tab 12/12/23 Aspirin 81 mg PO DAILY 04/10/24 Carbidopa/Levodopa [Carbidopa-Levo ER 25-100 Tab] 1 tab PO TID 04/10/24 Hydrocodone 5/APAP 325 [Ellis 5/325*] 1 tab PO Q6HP PRN tab 04/15/24 Acetaminophen [Tylenol] 2 tab PO Q4H PRN 05/16/24 Cranberry Fruit Extract 250 mg PO BID 05/16/24 Ferrous Sulfate 1 tab PO DAILY 05/16/24 Lidocaine 4% Patch [Lidoderm 5% Patch*] 1 patch TOP DAILY PRN 05/16/24 Mecobalamin [B12 Active] 1 tab PO DAILY 05/16/24 Sennosides/Docusate Sodium [Senexon-S 50-8.6 mg Tablet] 1 tab PO BID PRN 05/16/24 Calcium Carbonate [Cayden-Gest] 200 mg PO DAILY 10/07/24 Loperamide HCl [Anti-Diarrheal] 2 mg PO Q6HP PRN 10/07/24 Polyethylene Glycol 3350 [Clearlax] 17 gm PO DAILYPRN PRN 10/07/24 Trazodone [Desyrel*] 50 mg PO BEDTIME 10/07/24 Ensure Enlive 237 ml PO BID can 10/10/24 Physician Discharge Instructions: 89 yrs old Male with past medical history of Alzheimer's dementia, BPH, hypertension, hypothyroidism, back pains who came to ER with confusion. Patient is a poor historian hence most of the history is obtained from chart review and also talking with the ER provider. Patient with history of dementia, lives in assisted living facility, presents for worsening confusion. He had a fall. He cannot recollect. In the assisted living he was more confused than baseline and was brought to ER. Denies any further falls. Denies any headache. No nausea vomiting diarrhea. Denies any fever or chills. He was admitted for acute cystitis, metabolic encephalopathy for worsening confusion, protein calorie malnutrition, supplementation added. Hyponatremia, treated with IV fluids, resume home meds for hypertension, hyperlipidemia, hypothyroidism, plan to discharge to acute inpatient rehab per family request for discharge. [facility], OT, speech after discharge. Assessment Metabolic encephalopathy likely secondary from UTI completed antibiotics, treated with ceftriaxone for 5 days prior to discharge Alzheimer's dementia, supportive care, fall precaution Protein calorie malnutrition, treated with supplementation Hyponatremia, electrolytes replaced while inpatient, Hypertension, hyperlipidemia, anemia of chronic disease, BPH, hypothyroidism, resume home meds INSTRUCTIONS: Physician Discharge Instructions: -Discharge to [facility] per family request -Follow-up with PCP in 1 to 2 weeks -Please call Dr. Zamudio at [phone] if any questions regarding hospital stay -Please call nursing station at [phone] if any nursing or medication questions -Return to the emergency room if symptoms worsen Diet: ADA, low sodium Activity: Fall precautions Diet: AHA Activity: Fall precautions Followup: Nathan Preston MD [Primary Care Provider] - Time spent managing pt's care (in minutes): 45
--- NOTE | 2024-10-10 13:06 | EKG ---
Test Date: 2024-10-06 Test Time: 19:59:43 Calibration Laboratory Technician: AF MEASUREMENT RESULTS: Intervals: Rate: 72 MS: 172 QRSD: 118 QT: 420 QTc: 459 [place]: P: 43 MS: 172 QRS: 73 T: 9 INTERPRETIVE STATEMENTS: Sinus rhythm with fusion complexes Low voltage QRS Borderline ECG Compared to ECG 09/16/2024 11:10:03 Low QRS voltage now present Electronically Signed On 10-10-24 13:00:39 AIRCONDITIONING ENGINEER by David Fritz
--- NOTE | 2024-10-10 15:26 | PN ---
Subjective: The patient lying in bed. Feels much better today. Denies any headache, nausea, vomiti ng, chest pain, abdominal pain, constipation, or diarrhea. Objective: Vital Signs: Temperature 98, pulse 72, respirations 16, blood pressure 117/70. Lungs: Clear to auscultation. Heart: S1, S2. Regular. Abdomen: Soft, nontender. Bowel sounds present. Extremities: No edema. Laboratory Data: WBC 7.1, hemoglobin 8.6, platelets 558. BUN of 24, creatinine 1. Urine culture: No growth. Current medications, the patient has completed his antibiotic Rocephin without any problems. Pending placement. Moderate protein-calorie malnourishment. Anemia of chronic disease. We will follow pat ient as needed. NF/MODL Voice ID: [id number] Report ID: [id number]
[2024-10-10] MEDS: SODIUM CHLORIDE 1 GM TAB PO SCH (16:48)
[2024-10-10] MEDS: CARBIDOPA/LEVODOPA 25/100 TAB PO SCH (20:47)
[2024-10-10] MEDS ORDERED: CARBIDOPA PO SCH (21:00)
[2024-10-10] MEDS ORDERED: LEVODOPA PO SCH (21:00)
[2024-10-11] MEDS: LEVOTHYROXINE SOD 0.112 MG TAB PO SCH (06:23)
[2024-10-11 07:15] LABS: AST/SGOT 27 U/L (15-37); Albumin 2.1 g/dL (3.4-5.0); Albumin/Globulin Ratio 0.4 (1.1-1.8); Alkaline Phosphatase 75 U/L (45-117); BUN Blood Urea Nitrogen 22 mg/dL (7-18); Bicarbonate 27 mEq/L (21-32); Bilirubin Total 0.2 mg/dL (0.2-1.0); Globulin 5.4 g/dL (2.3-3.5); Glomerular Filtration Rate 83 ml/min (=/>90); Glucose Level 89 mg/dL (74-106); Phosphorus 2.4 mg/dL (2.5-4.9); Protein, Total 7.5 g/dL (6.4-8.2); Sodium Level 137 mEq/L (136-145)
[2024-10-11 07:18] LABS: ALT/SGPT < 14 U/L (16-61)
[2024-10-11] MEDS: ASPIRIN 81 MG CHEWABLE TABLET PO SCH (09:31)
[2024-10-11] MEDS: POTASS/SODIUM PHOSPHATE 1 PKT POWD.PACK PO SCH (09:32)
--- NOTE | 2024-10-12 16:42 | P.PN ---
Date of Service: 10/11/24 subjective More alert, following commands, after restarting Parkinson's Pending discharge planning Review of Systems 10 point review of system negative unless listed in HPI Physical Examination - Vital Signs Reviewed - Physical Exam General: In no apparent distress, awake alert oriented x 2 HEENT: Atraumatic, Normocephalice Respiratory: Clear to auscultation bilaterally, unlabored Cardiovascular: Regular rate/rhythm, Normal S1 S2 Capillary refill: <2 Seconds Gastrointestinal: Soft and benign, nontender Musculoskeletal: No clubbing, moderate generalized weakness Integumentary: No rashes Neurological: Alert oriented x 2, confused Assessment and Plan - Plan Acute metabolic encephalopathy likely secondary to acute cystitis improved Alzheimer dementia Parkinson Monitor neuro vital signs fall precaution CT head negative for any acute changes Moderate brain atrophy with moderate periventricular microvascular ischemic changes PT eval, fall precautions, SNF eval Acute cystitis trace hematuria improved Started on IV antibiotic Urine cultures no growth, will need 5-day course of antibiotics. Change antibiotic as per sensitivity Infectious disease consult Protein calorie malnutrition Protein calorie supplementation Hyponatremia improved IV hydration Electrolytes monitor and replace accordingly Hypertension Antihypertensives titrated Continue home medications and titrate as needed Hyperlipidemia Continue statin Anemia of chronic disease stable Monitor H&H closely No overt bleeding at this time BPH hypothyroidism Continue home medications and titrate as needed GI/DVT prophylaxis Advanced directive DNR Discharge Plan: Snf Plan to discharge in: 48 Hours - Advance Directives Does patient have a Living Will: No Does patient have a Durable POA for Healthcare: No - Code Status/Comfort Care Code Status: Do Not Attempt Resuscitat Time Spent Managing Pts Care (In Minutes): 20
--- NOTE | 2024-10-12 16:44 | P.PN ---
Date of Service: 10/12/24 subjective Pending discharge planning, awake and alert oriented x 2 Review of Systems 10 point review of system negative unless listed in HPI Physical Examination - Vital Signs Reviewed - Physical Exam General: awake alert oriented x 2, afebrile Respiratory: Clear to auscultation bilaterally, unlabored Cardiovascular: Regular rate/rhythm, Normal S1 S2 Capillary refill: <2 Seconds Gastrointestinal: Soft and benign, positive bowel sounds Musculoskeletal: No clubbing, moderate generalized weakness Integumentary: No rashes Neurological: Alert oriented x 2, confused Assessment and Plan - Plan Acute metabolic encephalopathy likely secondary to acute cystitis improved Alzheimer dementia Parkinson Monitor neuro vital signs fall precaution CT head negative for any acute changes Moderate brain atrophy with moderate periventricular microvascular ischemic changes PT eval, fall precautions, SNF eval Acute cystitis trace hematuria improved Started on IV antibiotic Urine cultures no growth, will need 5-day course of antibiotics. Change antibiotic as per sensitivity Infectious disease consult Protein calorie malnutrition Protein calorie supplementation Hyponatremia improved IV hydration Electrolytes monitor and replace accordingly Hypertension Antihypertensives titrated Continue home medications and titrate as needed Hyperlipidemia Continue statin Anemia of chronic disease stable Monitor H&H closely No overt bleeding at this time BPH hypothyroidism Continue home medications and titrate as needed GI/DVT prophylaxis Advanced directive DNR Discharge Plan: Detention Plan to discharge in: 48 Hours - Advance Directives Does patient have a Living Will: No Does patient have a Durable POA for Healthcare: No - Code Status/Comfort Care Code Status: Do Not Attempt Resuscitat Time Spent Managing Pts Care (In Minutes): 20
[2024-10-13 06:43] LABS: Absolute Basophils 0.1 K/uL (0-0.5); Absolute Eosinophils 0.3 K/uL (0-0.5); Absolute Lymphocytes (CBC) 1.2 K/uL (0.7-4.9); Absolute Monocytes 0.5 K/uL (0.1-1.3); Absolute Neutrophil 5.3 K/uL (1.8-8.0); Basophils % 1.1 % (0-1.3); Eosinophils % 4.2 % (0-4.4); Hematocrit 28.8 % (39.6-49.0); Hemoglobin 9.5 g/dL (13.6-17.9); Lymphocytes % 16.4 % (15.3-44.8); MCHC 33.1 g/dL (32.0-36.0); MCV 96.7 fL (80-100); MPV 6.6 fL (7.6-11.3); Monocytes % 7.3 % (3.3-12.3); Percent Reticulocyte Count 1.37 % (0.4-2.05); Platelets 598 thou/uL (152-406); RBC Red Blood Cell Count 2.97 M/uL (4.33-5.43); Red Cell Distribution Width 15.3 % (12.1-15.2)
[2024-10-13 07:01] LABS: Anion Gap 8.2 mEq/L (5.0-15.0); Potassium 4.2 mEq/L (3.5-5.1)
[2024-10-13 07:27] LABS: AST/SGOT 17 U/L (15-37); Albumin 2.4 g/dL (3.4-5.0); Albumin/Globulin Ratio 0.5 (1.1-1.8); Alkaline Phosphatase 80 U/L (45-117); Anion Gap 6.2 mEq/L (5.0-15.0); BUN Blood Urea Nitrogen 21 mg/dL (7-18); Bicarbonate 28 mEq/L (21-32); Bilirubin Total 0.3 mg/dL (0.2-1.0); Ferritin 236.4 ng/mL (26-388); Globulin 5.3 g/dL (2.3-3.5); Glomerular Filtration Rate 78 ml/min (=/>90); Glucose Level 95 mg/dL (74-106); Magnesium 2.1 mg/dL (1.6-2.4); Phosphorus 2.6 mg/dL (2.5-4.9); Potassium 4.2 mEq/L (3.5-5.1); Protein, Total 7.7 g/dL (6.4-8.2); Sodium Level 135 mEq/L (136-145)
[2024-10-13 07:28] LABS: ALT/SGPT < 14 U/L (16-61)
--- NOTE | 2024-10-13 14:55 | P.PN ---
Date of Service: 10/13/24 subjective Pending discharge planning, awake and alert oriented x 2 Family visiting patient today Review of Systems 10 point review of system negative unless listed in HPI Physical Examination - Vital Signs Reviewed - Physical Exam General: awake alert oriented x 2, afebrile, Respiratory: Clear to auscultation bilaterally, unlabored Cardiovascular: Regular rate/rhythm, Normal S1 S2 Capillary refill: <2 Seconds Gastrointestinal: Soft and benign, nontender Musculoskeletal: No clubbing, moderate generalized weakness Integumentary: No rashes Neurological: Alert oriented x 2, confused Assessment and Plan - Plan Acute metabolic encephalopathy likely secondary to acute cystitis improved Alzheimer dementia Parkinson Monitor neuro vital signs fall precaution CT head negative for any acute changes Moderate brain atrophy with moderate periventricular microvascular ischemic changes PT eval, fall precautions, SNF eval/Vs assisted living-oncology social worker consulted Hypotension As needed midodrine added Acute cystitis trace hematuria improved Started on IV antibiotic Urine cultures no growth, will need 5-day course of antibiotics. Change antibiotic as per sensitivity Infectious disease consult Protein calorie malnutrition Protein calorie supplementation Hyponatremia improved IV hydration Electrolytes monitor and replace accordingly Hypertension Antihypertensives titrated Continue home medications and titrate as needed Hyperlipidemia Continue statin Anemia of chronic disease stable Monitor H&H closely No overt bleeding at this time BPH hypothyroidism Continue home medications and titrate as needed GI/DVT prophylaxis Advanced directive DNR Discharge Plan: [facility] Plan to discharge in: 48 Hours - Advance Directives Does patient have a Living Will: No Does patient have a Durable POA for Healthcare: No - Code Status/Comfort Care Code Status: Do Not Attempt Resuscitat Time Spent Managing Pts Care (In Minutes): 20
[2024-10-13] MEDS: MIDODRINE HCL 5 MG TABLET PO PRN (16:43)
[2024-10-14 07:03] LABS: Anion Gap 9.3 mEq/L (5.0-15.0); Magnesium 2.2 mg/dL (1.6-2.4); Phosphorus 2.3 mg/dL (2.5-4.9); Potassium 4.3 mEq/L (3.5-5.1)
--- NOTE | 2024-10-14 08:29 | PN ---
Subjective: The patient lying in bed. No new acute events. Somnolent. Objective: Vital Signs: Temperature 97, pulse 63, respirations 20, blood pressure 107/70. Lungs: Basal crackles. Heart: S1, S2. Regular. Abdomen: Soft, nontender. Bowel sounds present. Extremities: No edema. Laboratory Data: Reviewed. Assessment And Plan: Urosepsis, improving. Altered mental status, improving. Anemia of chronic dis ease, thrombocytopenia, polyuria, hematuria. Consider repeating UA. Moderate protein-calorie malnou rishment. We will follow the patient as needed. NF/MODL Voice ID: [id number] Report ID: [id number]
[2024-10-14] MEDS: POTASS/SODIUM PHOSPHATE 1 PKT POWD.PACK PO SCH (09:20)
--- NOTE | 2024-10-14 13:35 | P.PN ---
Subjective Date of Service: 10/14/24 Chief Complaint: AMS Subjective: No new changes Patient stated he has no complaint, denied any chest pain or dysuria or hematuria, no GI or symptoms. Review of Systems is unable to be obtained Physical Examination - Vital Signs Temperature: 97.6 F Blood Pressure: 110/64 Pulse: 70 Respirations: 20 Pulse Ox (%): 97 - Physical Exam Other Physical/Emotional Findings: - Physical Exam. General: Not acutely ill looking, in no apparent distress,. HEENT: Normocephalic, atraumatic, nonicteric sclera, nonanemic conjunctive. Neck: Supple, without JVD or goiter or thyroid mass. Respiratory: Normal breathing effort, clear to auscultation bilaterally, no crackles no wheezing or rhonchi. Cardiovascular: Regular rate and rhythm, S1, S2 normal, no murmur no gallop. Gastrointestinal: Normal bowel sounds, nondistended, nontender, No ascites, , No masses, no hepatosplenomegaly. Extremities : No clubbing, No peripheral edema, , kamla-colored urine in urinary bag. Integumentary: No rashes, petechia, suspected lesions. Lymphatics: No axilla or cervical lymphadenopathy. Neurology; alert awake oriented x1, no focal neurologic deficit, answer simple question, follows simple command Assessment And Plan - Plan 89 yrs old Male with past medical history of Alzheimer's dementia, BPH, complicated by bladder outlet obstruction requiring indwelling Jones catheter, hypertension, hypothyroidism, back pains, frequent falls who came to ER with confusion. Acute metabolic encephalopathy in underlying Alzheimer dementia and Parkinson Possibly related to #2 and #3 patient mental status back to his baseline Monitor neuro vital signs fall precaution CT head negative for any acute changes but Moderate brain atrophy with moderate periventricular microvascular ischemic changes PT eval, fall precautions, SNF eval/Vs assisted living-social work lecturer consulted Possible catheter associated urinary tract infection with hematuria Finished 5 days of empiric antibiotics, Jones catheter changed, urine culture negative, no leukocytosis or fever Hyponatremia Serum sodium corrected on oral salt tablet Hypotension midodrine as needed Hyperlipidemia Continue statin Anemia of chronic disease stable Hemoglobin stable No overt bleeding at this time BPH complicated by bladder outlet obstruction requiring Jones catheter Keep indwelling Jones catheter Disposition; patient is cleared for discharge from medical standpoint, placement needed, social services director on the case
[2024-10-14] MEDS: CARBIDOPA/LEVODOPA 25/100 TAB PO SCH (15:35)
[2024-10-14] MEDS: MIDODRINE HCL 5 MG TABLET PO SCH (15:35)
[2024-10-15 00:08] VITALS: O2SAT 97
[2024-10-15 06:27] LABS: Absolute Basophils 0.1 K/uL (0-0.5); Absolute Eosinophils 0.3 K/uL (0-0.5); Absolute Lymphocytes (CBC) 1.2 K/uL (0.7-4.9); Absolute Monocytes 0.8 K/uL (0.1-1.3); Absolute Neutrophil 6.6 K/uL (1.8-8.0); Basophils % 1.1 % (0-1.3); Eosinophils % 3.9 % (0-4.4); Hematocrit 25.9 % (39.6-49.0); Hemoglobin 8.9 g/dL (13.6-17.9); Lymphocytes % 13.6 % (15.3-44.8); MCH 33.1 pg (27.0-35.0); MCHC 34.3 g/dL (32.0-36.0); MCV 96.6 fL (80-100); MPV 6.9 fL (7.6-11.3); Monocytes % 8.4 % (3.3-12.3); Platelets 460 thou/uL (152-406); RBC Red Blood Cell Count 2.68 M/uL (4.33-5.43); Red Cell Distribution Width 15.1 % (12.1-15.2)
[2024-10-15 06:43] LABS: Anion Gap 8.1 mEq/L (5.0-15.0); Magnesium 2.3 mg/dL (1.6-2.4); Phosphorus 2.8 mg/dL (2.5-4.9); Potassium 4.1 mEq/L (3.5-5.1)
--- NOTE | 2024-10-15 13:21 | P.PN ---
Subjective Date of Service: 10/15/24 Chief Complaint: AMS Subjective: No new changes Patient stated he has no complaint, tolerating oral diet well, denied any chest pain or dysuria or hematuria, no GI or symptoms. Review of Systems Other: Consitutional; fever(-), chills (-), rigor(-), night sweat(-), unintentional weight loss(-), malaise (-) HEENT; diplopia (-), rhinorrhea (-), epistaxis (-), otorrhea (-), otalgia (-) Respiratory; shortness of breath (-), wheezing (-), cough (-), sputum (-), pleuritic chest pain (-) Cardiovascular; chest pain (-), peripheral edema (-), paroxysmal nocturnal dyspnea (-), orthopnea (-) Gastrointestinal; nausea (-), vomiting (-), abdominal pain (-), diarrhea (-), constipation (-), melena (-), hematochezia (-) Genitourinary; urinary frequency (-), dysuria (-), urgency (-), flank pain (-), gross hematuria (-), incontinence (-) Skin; rash (-), pruritus (-) [employer]; headache (-), paresthesia (-), numbness (-), paralysis (-) Physical Examination - Vital Signs Temperature: 97.4 F Blood Pressure: 97/58 Pulse: 66 Respirations: 16 Pulse Ox (%): 98 - Physical Exam Other Physical/Emotional Findings: - Physical Exam. General: Not acutely ill looking, in no apparent distress,. HEENT: Normocephalic, atraumatic, nonicteric sclera, nonanemic conjunctive. Neck: Supple, without JVD or goiter or thyroid mass. Respiratory: Normal breathing effort, clear to auscultation bilaterally, no crackles no wheezing or rhonchi. Cardiovascular: Regular rate and rhythm, S1, S2 normal, no murmur no gallop. Gastrointestinal: Normal bowel sounds, nondistended, nontender, No ascites, , No masses, no hepatosplenomegaly. Extremities : No clubbing, No peripheral edema, , kamla-colored urine in urinary bag. Integumentary: No rashes, petechia, suspected lesions. Lymphatics: No axilla or cervical lymphadenopathy. Neurology; alert awake oriented x2, no focal neurologic deficit, answer simple question, follows simple commands Assessment And Plan - Plan 89 yrs old Male with past medical history of Alzheimer's dementia, BPH, complicated by bladder outlet obstruction requiring indwelling Jones catheter, hypertension, hypothyroidism, back pains, frequent falls who came to ER with confusion. Acute metabolic encephalopathy in underlying Alzheimer dementia and Parkinson Possibly related to #2 and #3 His mental status at his baseline CT head negative for any acute changes but Moderate brain atrophy with moderate periventricular microvascular ischemic changes SNF eval/Vs assisted living-psychiatric social worker supervisor consulted Possible catheter associated urinary tract infection with hematuria Finished 5 days of empiric antibiotics, Jones catheter changed, urine culture negative, no leukocytosis or fever Hyponatremia Serum sodium corrected on oral salt tablet Hypotension midodrine as needed Hyperlipidemia Continue statin Anemia of chronic disease stable Hemoglobin stable No overt bleeding at this time BPH complicated by bladder outlet obstruction requiring Jones catheter Keep indwelling Jones catheter Disposition; patient is cleared for discharge from medical standpoint, placement needed, dialysis social worker on the case
--- NOTE | 2024-10-15 14:36 | P.DS ---
Admission Date: 10/06/24 Discharge Date: 10/15/24 Disposition: TRANSFER TO [facility] Discharge Condition: FAIR Reason for Admission: AMS Brief History of Present Illness: 89 yrs old Male with past medical history of Alzheimer's dementia, BPH, complicated by bladder outlet obstruction requiring indwelling Jones catheter, hypertension, hypothyroidism, back pains, frequent falls, chronic hyponatremia on salt tab Who came to ER with confusion. Hospital Course: His mental status slowly improved after empiric antibiotics however his urine culture came back no growth. His hospital course was uneventful. His discharge was postponed because his half-way refused to take it back. cloth worker was consulted for new placement. Finally patient is accepted at [facility] and is transferred to his new SNF in stable condition Acute metabolic encephalopathy in underlying Alzheimer dementia and Parkinson disease Possibly related to #2 and #3 His mental status back to his baseline CT head negative for any acute changes but Moderate brain atrophy with moderate periventricular microvascular ischemic changes SNF eval/Vs assisted living-oncology social worker consulted Possible catheter associated urinary tract infection with hematuria Finished 5 days of empiric antibiotics, Jones catheter changed, urine culture negative, no leukocytosis or fever Chronic hyponatremia Serum sodium stable on oral salt tablet Hypotension Resolved, midodrine as needed Hyperlipidemia Continue statin Anemia of chronic disease stable Hemoglobin stable No overt bleeding at this time BPH complicated by bladder outlet obstruction requiring Jones catheter Keep indwelling Jones catheter Vital Signs/Physical Exam: Temp Pulse Resp BP Pulse Ox 97.4 F 66 16 97/58 L 98 10/15/24 13:21 10/15/24 13:21 10/15/24 13:21 10/15/24 13:21 10/15/24 13:21 Other Physical/Emotional Findings: - Physical Exam. General: Not acutely ill looking, in no apparent distress,. HEENT: Normocephalic, atraumatic, nonicteric sclera, nonanemic conjunctive. Neck: Supple, without JVD or goiter or thyroid mass. Respiratory: Normal breathing effort, clear to auscultation bilaterally, no crackles no wheezing or rhonchi. Cardiovascular: Regular rate and rhythm, S1, S2 normal, no murmur no gallop. Gastrointestinal: Normal bowel sounds, nondistended, nontender, No ascites, , No masses, no hepatosplenomegaly. Extremities : No clubbing, No peripheral edema, , kamla-colored urine in urinary bag. Integumentary: No rashes, petechia, suspected lesions. Lymphatics: No axilla or cervical lymphadenopathy. Neurology; alert awake oriented x2, no focal neurologic deficit, answer simple question, follows simple commands Laboratory Data at Discharge: WBC 9.00 thou/uL (4.3-10.9) 10/15/24 05:40 Hgb 8.9 g/dL (13.6-17.9) L 10/15/24 05:40 Hct 25.9 % (39.6-49.0) L 10/15/24 05:40 Plt Count 460 thou/uL (152-406) H 10/15/24 05:40 PT 13.3 SECONDS (9.4-12.5) H 10/06/24 18:34 INR 1.27 10/06/24 18:34 APTT 33.6 SECONDS (24.3-36.9) 10/06/24 18:34 Sodium 136 mEq/L (136-145) 10/15/24 05:40 Potassium 4.1 mEq/L (3.5-5.1) 10/15/24 05:40 BUN 23 mg/dL (7-18) H 10/15/24 05:40 Creatinine 0.91 mg/dL (0.70-1.30) 10/15/24 05:40 Glucose 85 mg/dL (74-106) 10/15/24 05:40 Phosphorus 2.8 mg/dL (2.5-4.9) 10/15/24 05:40 Magnesium 2.3 mg/dL (1.6-2.4) 10/15/24 05:40 Total Bilirubin 0.3 mg/dL (0.2-1.0) 10/13/24 06:15 AST 17 U/L (15-37) 10/13/24 06:15 ALT < 14 U/L (16-61) L 10/13/24 06:15 Alkaline Phosphatase 80 U/L (45-117) 10/13/24 06:15 Home Medications: Levothyroxine [Synthroid*] 0.112 mg PO DAILY 09/01/23 Melatonin 3 mg PO BEDTIME PRN 09/01/23 Donepezil [Aricept*] 5 mg PO BEDTIME 11/30/23 Midodrine HCl [Proamatine*] 10 mg PO TID 11/30/23 Sodium Chloride Tab [Sodium Chloride*] 1 gm PO BIDWM #60 tab 12/12/23 Aspirin 81 mg PO DAILY 04/10/24 Carbidopa/Levodopa [Carbidopa-Levo ER 25-100 Tab] 1 tab PO TID 04/10/24 Hydrocodone 5/APAP 325 [Tridell 5/325*] 1 tab PO Q6HP PRN tab 04/15/24 Acetaminophen [Tylenol] 2 tab PO Q4H PRN 05/16/24 Cranberry Fruit Extract 250 mg PO BID 05/16/24 Ferrous Sulfate 1 tab PO DAILY 05/16/24 Lidocaine 4% Patch [Lidoderm 5% Patch*] 1 patch TOP DAILY PRN 05/16/24 Mecobalamin [B12 Active] 1 tab PO DAILY 05/16/24 Sennosides/Docusate Sodium [Senexon-S 50-8.6 mg Tablet] 1 tab PO BID PRN 05/16/24 Calcium Carbonate [Cayden-Gest] 200 mg PO DAILY 10/07/24 Loperamide HCl [Anti-Diarrheal] 2 mg PO Q6HP PRN 10/07/24 Polyethylene Glycol 3350 [Clearlax] 17 gm PO DAILYPRN PRN 10/07/24 Trazodone [Desyrel*] 50 mg PO BEDTIME 10/07/24 Ensure Enlive 237 ml PO BID can 10/10/24 Aspirin Chewable [Aspirin Chewable*] 81 mg PO DAILY tab.chew 10/15/24 Carbidopa/Levodopa 25-100 [Sinemet 25-100*] 1 tab PO TID tab 10/15/24 Pharmacy Consult 1 ea XX DAILYPRN PRN ea 10/15/24 Physician Discharge Instructions: 89 yrs old Male with past medical history of Alzheimer's dementia, BPH, hypertension, hypothyroidism, back pains who came to ER with confusion. Patient is a poor historian hence most of the history is obtained from chart review and also talking with the ER provider. Patient with history of dementia, lives in assisted living facility, presents for worsening confusion. He had a fall. He cannot recollect. In the assisted living he was more confused than baseline and was brought to ER. Denies any further falls. Denies any headache. No nausea vomiting diarrhea. Denies any fever or chills. He was admitted for acute cystitis, metabolic encephalopathy for worsening confusion, protein calorie malnutrition, supplementation added. Hyponatremia, treated with IV fluids, resume home meds for hypertension, hyperlipidemia, hypothyroidism, plan to discharge to acute inpatient rehab per family request for discharge. Discharged to [facility] for continued PT, OT, speech after discharge. Assessment Metabolic encephalopathy likely secondary from UTI completed antibiotics, treated with ceftriaxone for 5 days prior to discharge Alzheimer's dementia, supportive care, fall precaution Protein calorie malnutrition, treated with supplementation Hyponatremia, electrolytes replaced while inpatient, Hypertension, hyperlipidemia, anemia of chronic disease, BPH, hypothyroidism, resume home meds INSTRUCTIONS: Physician Discharge Instructions: -Discharge [facility] per family request -Follow-up with PCP in 1 to 2 weeks -Please call Dr. Zamudio at [phone] if any questions regarding hospital stay -Please call nursing station at [phone] if any nursing or medication questions -Return to the emergency room if symptoms worsen Diet: ADA, low sodium Activity: Fall precautions Diet: AHA Activity: Fall precautions Followup: Nathan Preston MD [Primary Care Provider] -
[2024-10-15 16:18] VITALS: BP 102/61; TEMP 97.6
[2024-10-17 05:02] LABS: Anti-Nuclear Antibody Screen Positive (Negative)
[2024-10-17 05:31] LABS: Anti-Nuclear Antibody Pattern REPORT; Anti-Nuclear Antibody Titer 1:40 (Negative)
== END 2024-10-15 16:24 | DRG 689 ==
LOC: ER 17:21 → ERHOLD 19:48 → 2ND 10-07 00:52
PROVIDERS: ADMIT Family Medicine; ATTEND Internal Medicine
PROC: 0T9B70Z Drainage of Bladder with Drainage Device, Via Natural or Artificial Opening (ICD-10-PCS; principal; 2024-10-14)
DX: N30.01 Acute cystitis with hematuria (principal); E43 Unspecified severe protein-calorie malnutrition; G93.41 Metabolic encephalopathy; E87.1 Hypo-osmolality and hyponatremia; Z68.27 Body mass index [BMI] 27.0-27.9, adult; G30.9 Alzheimer's disease, unspecified; F02.80 Dementia in other diseases classified elsewhere, unspecified severity, without behavioral disturbance, psychotic disturbance, mood disturbance, and anxiety; N40.0 Benign prostatic hyperplasia without lower urinary tract symptoms; I95.9 Hypotension, unspecified; I10 Essential (primary) hypertension; E78.5 Hyperlipidemia, unspecified; D63.8 Anemia in other chronic diseases classified elsewhere; E03.9 Hypothyroidism, unspecified; G20.A1 Parkinson's disease without dyskinesia, without mention of fluctuations; Z66 Do not resuscitate; Z88.8 Allergy status to other drugs, medicaments and biological substances; Z79.82 Long term (current) use of aspirin; Z79.890 Hormone replacement therapy; Z79.899 Other long term (current) drug therapy; W18.30XA Fall on same level, unspecified, initial encounter; Y93.9 Activity, unspecified; Y99.9 Unspecified external cause status; Y92.099 Unspecified place in other non-institutional residence as the place of occurrence of the external cause
CPT/HCPCS: 36415; 70450; 80048; 80053; 80076; 80143; 80179; 80307; 81001; 82077; 82533; 82607; 82728; 83540; 83735; 84100; 84439; 84443; 85025; 85044; 85610; 85730; 86038; 86140; 87086; 87088; 93005; 96374; 97110; 97161; 97530; 99284; J0696; J1650; J3486